=== PATIENT | male | born 1950 | race Caucasian/White ===

== ENCOUNTER → 2017-10-12 16:23 | Outpatient (CLI) | payer OTHER, SELFPAY ==
[2017-10-12 18:07] LABS: Absolute Lymphocyte Count 1.51 X10^3/ul (0.83-4.51); Absolute Neutrophil Count 4.5 X10^3/uL (2.0-7.7); Basophil# 0.02 X10^3/uL; Basophil% 0.3 % (0-1); Eosinophil# 0.11 X10^3/uL; Eosinophils% 1.7 % (0-5); Hemoglobin 15.4 g/dl (13.0-16.5); Lymphocyte # 1.51 X10^3/ul (4.0); Lymphocyte % 22.7 % (19-41); Mean Corp Hgb Conc 32.8 g/gl (32-36); Mean Corpuscular Hgb 29.8 pg (27.0-32.0); Mean Corpuscular Volume 91.1 fL (80-94); Mean Platelet Vol. 12.1 fl (6.2-12.0); Monocyte# 0.54 X10^3/uL; Monocyte% 8.1 % (0-10); Neutrophil # 4.47 X10^3/uL (2.7-7.7); Platelet Count 147 K/mm3 (150-450); RBC Distribution Width CV 12.4 % (11.6-14.6); Red Blood Count 5.16 M/mm3 (4.6-6.2); White Blood Count 6.7 K/mm3 (4.4-11.0)
[2017-10-12 18:09] LABS: POSITIVE COUNT NO; POSITIVE DIFFERENTIAL NO; POSITIVE MORPHOLOGY NO
[2017-10-12 19:24] LABS: ALB/GLOB Ratio 1.2 RATIO (0.9-2.4); AST(SGOT) 18 U/L (15-37); Alanine Aminotransfer ALT/SGPT 32 U/L (16-61); Albumin, Serum 3.8 g/dL (3.2-5.0); Alkaline Phosphatase 83 U/L (45-117); Anion Gap 8 (5-15); BUN 20 mg/dL (7-18); BUN/Creat Ratio 21.4 RATIO (10-20); Calcium,Total 8.6 mg/dL (8.5-10.1); Chloride 105 mmol/L (98-107); Creatinine, Serum 0.94 mg/dL (0.70-1.30); EST Glomerular Filtration Rate 86 mL/min (>60); Est Glom Filt Rate - Afr Amer 104 mL/min (>60); Globulin 3.1 g/dL (2.2-4.2); Glucose 97 mg/dL (70-110); Potassium 3.6 mmol/L (3.5-5.1); Protein, Total 6.9 g/dL (6.4-8.2); Sodium Level 143 mmol/L (136-145)
== END ==
PROVIDERS: Family Provider Family Medicine; PCP Family Medicine; Visit Provider Family Medicine
DX: M79.7 Fibromyalgia (principal)
CPT/HCPCS: 36415; 80053; 85025

== ENCOUNTER → 2017-12-31 12:19 | Outpatient (CLI) | payer OTHER, SELFPAY ==
[2017-12-31 14:59] LABS: AST(SGOT) 20 U/L (15-37); Alanine Aminotransfer ALT/SGPT 33 U/L (16-61); Albumin, Serum 3.7 g/dL (3.2-5.0); Alkaline Phosphatase 80 U/L (45-117); Bilirubin, Direct 0.17 mg/dL (0.00-0.30); Cholesterol 146 mg/dL (200); High Density Lipoprotein 47 mg/dL; Protein, Total 6.7 g/dL (6.4-8.2); Triglycerides 56 mg/dL; Very Low Density Lipoprotein 11 mg/dL (5-40)
== END ==
PROVIDERS: Family Provider Family Medicine; PCP Family Medicine; Visit Provider Internal Medicine Cardiovascular Disease
DX: Z82.49 Family history of ischemic heart disease and other diseases of the circulatory system (principal)
CPT/HCPCS: 36415; 80061; 80076

== ENCOUNTER → 2018-04-08 14:22 | Outpatient (CLI) | payer OTHER, SELFPAY ==
[2018-04-08 14:29] LABS: Lyme Ab Screen Interpretation REF LAB
[2018-04-10 07:41] LABS: Lyme Scn Total Ab w/Rflx <0.91 ISR (0.00-0.90)
== END ==
PROVIDERS: Family Provider Family Medicine; PCP Family Medicine; Visit Provider Family Medicine
DX: R53.83 Other fatigue (principal)
CPT/HCPCS: 36415; 86618

== ENCOUNTER → 2018-10-10 14:02 | Outpatient (CLI) | payer OTHER, SELFPAY ==
[2018-01-14 14:55] VITALS: BMI 29.5
[2018-10-10 15:55] LABS: ALB/GLOB Ratio 1.2 RATIO (0.9-2.4); AST(SGOT) 18 U/L (15-37); Alanine Aminotransfer ALT/SGPT 35 U/L (16-61); Albumin, Serum 3.7 g/dL (3.2-5.0); Alkaline Phosphatase 80 U/L (45-117); Anion Gap 10 (5-15); BUN 20 mg/dL (7-18); BUN/Creat Ratio 16.4 RATIO (10-20); Calcium,Total 8.9 mg/dL (8.5-10.1); Chloride 109 mmol/L (98-107); Creatinine, Serum 1.22 mg/dL (0.70-1.30); EST Glomerular Filtration Rate 63 mL/min (>60); Est Glom Filt Rate - Afr Amer 76 mL/min (>60); Globulin 3.1 g/dL (2.2-4.2); Glucose 78 mg/dL (74-106); Potassium 3.8 mmol/L (3.5-5.1); Protein, Total 6.8 g/dL (6.4-8.2); Sodium Level 146 mmol/L (136-145)
[2018-10-10 15:57] LABS: Absolute Lymphocyte Count 1.64 X10^3/ul (0.83-4.51); Absolute Neutrophil Count 4.9 X10^3/uL (2.0-7.7); Basophil# 0.02 X10^3/uL; Basophil% 0.3 % (0-1); Eosinophil# 0.17 X10^3/uL; Eosinophils% 2.3 % (0-5); Hematocrit 46.7 % (40-54); Hemoglobin 15.7 g/dl (13.0-16.5); Lymphocyte # 1.64 X10^3/ul (4.0); Lymphocyte % 21.9 % (19-41); Mean Corp Hgb Conc 33.6 g/gl (32-36); Mean Corpuscular Hgb 30.3 pg (27.0-32.0); Mean Platelet Vol. 11.8 fl (6.2-12.0); Monocyte# 0.73 X10^3/uL; Monocyte% 9.7 % (0-10); Neutrophil # 4.92 X10^3/uL (2.7-7.7); Neutrophil % 65.5 % (47-70); Platelet Count 154 K/mm3 (150-450); RBC Distribution Width CV 12.7 % (11.6-14.6); RBC Distribution Width SD 41.4 fl (35.1-43.9); Red Blood Count 5.19 M/mm3 (4.6-6.2); White Blood Count 7.5 K/mm3 (4.4-11.0)
[2018-10-10 16:13] LABS: POSITIVE COUNT NO; POSITIVE DIFFERENTIAL NO; POSITIVE MORPHOLOGY NO
== END ==
PROVIDERS: Family Provider Family Medicine; PCP Family Medicine; Referring Provider Family Medicine; Visit Provider Family Medicine
DX: G25.81 Restless legs syndrome (principal)
CPT/HCPCS: 36415; 80053; 85025

== ENCOUNTER 2018-11-08 08:02 | Day surgery (SDC) | payer OTHER, SELFPAY ==
[2018-10-31 14:52] VITALS: BMI 29.4
[2018-11-08 08:31] VITALS: BP 134/80; PULSE 65; RESP 18; TEMP 36.9; O2SAT 99; BMI 28.0
[2018-11-08 09:07] VITALS: BP 100/65; BP 134/80; PULSE 64; RESP 16; TEMP 36.4; O2SAT 95
--- NOTE | 2018-11-08 09:09 | OP.ENDO_ITS ---
11/08/2018 Johnathon Dawkins [address] [facility] [address] [place] [address] Re : Colonoscopy procedure for Juvencio Tolentino Dear Dr. Dawkins This procedure was performed on Thursday, November 08, 2018. My impressions and recommendations are as follows: Impressions : - Non-thrombosed external hemorrhoids, non-thrombosed internal hemorrhoids and internal hemorrhoids that prolapse with straining, but require manual replacement into the anal canal (Grade III) found on digital rectal exam. - The entire examined colon is normal. - No specimens collected. Recommendations : - Discharge patient to home. - Resume previous diet. - Continue present medications. - Repeat colonoscopy in 10 years for screening purposes. - Return to my office at appointment to be scheduled as needed in the future to discuss surgical hemorrhoidectomy My findings are described in the full procedure note, which is enclosed. If I can be of further assistance, please feel free to contact me at Doctor phone number(s): Work: . Sincerely, Amol Estrella MD 11/08/2018 9:09:25 AM This report has been signed electronically.
[2018-11-08 09:12] VITALS: BP 105/80; BP 134/80; PULSE 61; RESP 16; O2SAT 99
[2018-11-08 09:17] VITALS: BP 106/73; BP 134/80; PULSE 61; RESP 16; O2SAT 99
[2018-11-08 09:21] VITALS: BP 111/74; BP 134/80; PULSE 56; RESP 14; TEMP 36.2; O2SAT 100
[2018-11-08 10:02] VITALS: BP 134/80
== END 2018-11-08 10:02 | disposition home or self-care (01) ==
LOC: EN 08:02 → AC 08:12
PROVIDERS: Family Provider Family Medicine; PCP Family Medicine; Referring Provider Surgery; Visit Provider Surgery
PROC: 0DJD8ZZ Inspection of Lower Intestinal Tract, Via Natural or Artificial Opening Endoscopic (ICD-10-PCS; CPT 45378; principal; 2018-11-08 08:55)
DX: K64.2 Third degree hemorrhoids (principal); R15.9 Full incontinence of feces; N40.0 Benign prostatic hyperplasia without lower urinary tract symptoms; I10 Essential (primary) hypertension; G47.33 Obstructive sleep apnea (adult) (pediatric); G25.81 Restless legs syndrome; E66.3 Overweight; Z68.29 Body mass index [BMI] 29.0-29.9, adult; F41.9 Anxiety disorder, unspecified; F32.9 Major depressive disorder, single episode, unspecified; Z79.82 Long term (current) use of aspirin; Z79.899 Other long term (current) drug therapy
CPT/HCPCS: 45378; J7120

== ENCOUNTER 2018-11-23 07:03 | Day surgery (SDC) | payer OTHER, SELFPAY ==
[2018-10-31 14:52] VITALS: BMI 29.4
--- NOTE | 2018-11-22 14:04 | EKG12_ITS ---
Test Reason : PRE OP Blood Pressure : / mmHG Vent. Rate : 069 BPM Atrial Rate : 069 BPM P-R Int : 156 ms QRS Dur : 090 ms QT Int : 380 ms P-R-T Axes : 052 048 031 degrees QTc Int : 407 ms Sinus rhythm with occasional Premature ventricular complexes Otherwise normal ECG Confirmed by IRAM GREGG, HELLEN ([id number]), editor farm journal PETEY SANTIZO ([id number]) on 11/25/2018 8:53:22 AM Referred By: Amol Estrella Confirmed By:HELLEN WALDEN MD
[2018-11-22 15:00] LABS: Hematocrit 46.6 % (40-54); Hemoglobin 15.6 g/dl (13.0-16.5); Mean Corp Hgb Conc 33.5 g/gl (32-36); Mean Corpuscular Hgb 29.9 pg (27.0-32.0); Mean Corpuscular Volume 89.3 fL (80-94); Platelet Count 163 K/mm3 (150-450); RBC Distribution Width CV 12.5 % (11.6-14.6); RBC Distribution Width SD 40.3 fl (35.1-43.9); Red Blood Count 5.22 M/mm3 (4.6-6.2); Scan Indicated on CBC? Y/N NO
[2018-11-22 15:59] LABS: Anion Gap 9 (5-15); BUN 19 mg/dL (7-18); BUN/Creat Ratio 19.1 RATIO (10-20); Calcium,Total 8.6 mg/dL (8.5-10.1); Chloride 109 mmol/L (98-107); Creatinine, Serum 0.99 mg/dL (0.70-1.30); EST Glomerular Filtration Rate 80 mL/min (>60); Est Glom Filt Rate - Afr Amer 97 mL/min (>60); Glucose 116 mg/dL (74-106); PSA,Total - Annual Screen 3.59 ng/mL (0.00-4.00); Potassium 3.7 mmol/L (3.5-5.1); Sodium Level 146 mmol/L (136-145)
[2018-11-23 07:27] VITALS: BP 110/71; PULSE 64; RESP 16; TEMP 36.5; O2SAT 98; BMI 28.7
--- NOTE | 2018-11-23 08:28 | DCINST_ITS ---
Discharge Diet: Light diet - advance as tolerated - if you have questions about your diet instructions, please talk to you doctor. Discharge Activity: May Not Drive - for 3-5 days or while taking narcotic pain medicine. May shower in (days): 1 Lifting Restrictions: 10 pounds Call your doctor if your incision/area has: Continuous Slow Oozing, Sudden Increased Bleeding, Increased Pain/ Swelling, Increased Redness, Foul Smelling Discharge Call your doctor if you observe: Fever of 101 or Higher Suture Line Care: Avoid Pulling/Pushing, Avoid Pinching/Bending Additional Dressing/Incision Instructions:: Change or remove dressing in 4 days. Leave steri-strips in place for 1 week. Allergies/Adverse Reactions: Allergies Penicillins Allergy (Verified 11/07/18 17:17) Rash From as a child Medications to take at Discharge Aspirin [Ecotrin] 81 mg PO DAILY 04/17/14 multivitamin capsule 1 cap PO DAILY 10/31/18 pregabalin 100 mg capsule 200 mg PO QHS 30 Days cap 10/31/18 Losartan Potassium [Cozaar] 25 mg PO DAILY 11/07/18 Hydrocodone Bitart/Apap 5-325 [[place] 5MG-325MG] 1 tablet PO Q4H PRN PRN 3 Days #10 tablet 11/23/18 The following prescriptions were given: Hydrocodone Bitart/Apap 5-325 [[place] 5MG-325MG] 1 tablet PO Q4H PRN PRN 3 Days #10 tablet PRN Reason: Pain Primary Care Physician: Johnathon Dawkins MD [Primary Care Provider] - Test Results: Test results from this visit will be discussed in further detail at your follow- up appointment, if applicable. Please Follow Up With: Amol Estrella MD - [phone] When: Call to make an appointment to be seen in about 10 days.
[2018-11-23] MEDS: Bupivacaine Mpf 0.5% 30 ML VIAL (09:27)
--- NOTE | 2018-11-23 09:46 | OP.PCM_ITS ---
Problem List (1) Inguinal hernia of left side without obstruction or gangrene Status: Acute (2) Umbilical hernia Status: Acute Qualifiers: Obstruction and gangrene presence: without obstruction or gangrene Qualified Code(s): K42.9 - Umbilical hernia without obstruction or gangrene Report of Operation Date of Procedure: 11/23/18 Pre-Operative Diagnosis: Left inguinal hernia Post-Operative Diagnosis: Direct and indirect left inguinal hernia. Umbilical hernia Surgery/Procedure Performed:: Laparoscopic left inguinal herniorrhaphy with mesh. Umbilical herniorrhaphy Description of Surgical Findings:: Timeout and informed consent was obtained. 68-year-old gentleman was taken to the operating room placed upon the table underwent general endotracheal anesthesia. Clindamycin 900 mg was given intravenously preoperatively. The abdomen sterilely prepped draped. 0.5% Marcaine was used as a local anesthetic. A total of 30 cc was used. Skin sites were pre-anesthetized. A curvilinear incision was made in the inferior portion of the umbilicus. Sharp and blunt dissection was used to identify a very small umbilical hernia. Holding sutures of 0 Vicryl placed. Varies needle inserted. Saline drop test performed. The abdomen was insufflated with CO2 to a pressure of 10 mmHg pressure. Primary trocar inserted. 10 lap scope inserted. No evidence of any trocar injuries. 5-minute ports were placed in the right left lower quadrant. The right groin appeared to be solid and intact. There is evidence of a punched out direct defect on the right. A ileal inguinal nerve block was performed under laparoscopic visualization. The peritoneum superior lateral to the internal ring was incised carried laterally. The peritoneum was then completely dissected free. A small indirect hernia was identified and the peritoneum was dissected free from that and then the more punched out direct defect had some preperitoneal fat that was also reduced. The direct indirect and femoral area completely dissected free. A Bard 3 DMax large left mesh was selected. It was placed into position and nicely cover the defect areas. It was secured laterally superiorly and medially with secure strap. 4 tacks were utilized. The peritoneum was then approximated to itself using the secure strap. A hemo- lock clip was used to repair a small rent. There was complete obliteration of access to the mesh. Good solid repair. The abdomen was allowed to deflate of the CO2. The small umbilical hernia fascia was closed transversely with several interrupted simple sutures of 0 Nurolon. Skin edges proximal interrupted 4 Monocryl subdermal stitches. Steri-Strips and Telfa and OpSite dressings applied. Sponge and instrument and needle be correct. Blood loss was minimal. He tolerated the procedure well was taken to the recovery room in satisfactory condition. Specimens none. Drains none. Blood loss minimal. Amol Estrella M.D., F.A.C.S. Type of Anesthesia:: General Anesthesiologist: Kamini Nam
[2018-11-23 09:51] VITALS: BP 110/71; BP 117/70; PULSE 71; RESP 14; TEMP 36.2; O2SAT 95
[2018-11-23 10:00] VITALS: BP 104/63; BP 110/71; PULSE 67; RESP 16; O2SAT 94
[2018-11-23 10:28] VITALS: BP 110/71; BP 98/64; PULSE 60; RESP 16; TEMP 36.1; O2SAT 95
[2018-11-23] MEDS: HYDROcodone Bitartrate/Apap 5/325 Tablet PO (11:05)
[2018-11-23 13:19] VITALS: BP 107/66; BP 110/71; PULSE 68; RESP 16; TEMP 36.4; O2SAT 95
== END 2018-11-23 13:26 | disposition home or self-care (01) ==
LOC: SDC 07:11 → AC 07:11
PROVIDERS: Family Provider Family Medicine; PCP Family Medicine; Referring Provider Surgery; Visit Provider Surgery
PROC: (CPT 49650; principal; 2018-11-23 08:40)
DX: K40.90 Unilateral inguinal hernia, without obstruction or gangrene, not specified as recurrent (principal); K42.9 Umbilical hernia without obstruction or gangrene; I10 Essential (primary) hypertension; N40.0 Benign prostatic hyperplasia without lower urinary tract symptoms; G47.33 Obstructive sleep apnea (adult) (pediatric); G25.81 Restless legs syndrome; M46.90 Unspecified inflammatory spondylopathy, site unspecified; E66.3 Overweight; Z68.29 Body mass index [BMI] 29.0-29.9, adult; Z79.82 Long term (current) use of aspirin; Z79.899 Other long term (current) drug therapy
CPT/HCPCS: 49585; 49650; 36415; 80048; 84153; 85027; 93005; J7120; C1781; G0103; J2405

== ENCOUNTER → 2019-03-13 | Outpatient (CLI) | payer OTHER, SELFPAY ==
[2019-02-01 13:42] VITALS: BMI 32.9
== END | disposition home or self-care (01) ==
LOC: SL 20:55
PROVIDERS: Family Provider Family Medicine; PCP Family Medicine; Referring Provider Internal Medicine Critical Care Medicine; Visit Provider Internal Medicine Critical Care Medicine
DX: G47.33 Obstructive sleep apnea (adult) (pediatric) (principal); G25.81 Restless legs syndrome
CPT/HCPCS: 95811

== ENCOUNTER → 2019-04-05 | Outpatient (CLI) | payer OTHER, SELFPAY ==
[2019-02-01 13:42] VITALS: BMI 32.9
== END | disposition home or self-care (01) ==
LOC: SL 14:01
PROVIDERS: Family Provider Family Medicine; PCP Family Medicine; Referring Provider Nurse Practitioner Acute Care; Visit Provider Nurse Practitioner Acute Care
DX: Z46.89 Encounter for fitting and adjustment of other specified devices (principal)

== ENCOUNTER → 2019-06-28 | Outpatient (CLI) | payer OTHER, SELFPAY ==
[2019-06-19 07:55] VITALS: BMI 33.2
--- NOTE | 2019-06-28 13:58 | RAD_ITS ---
STUDY: X-RAY - LEFT KNEE REASON FOR EXAM: Male, 69 years old. Left knee pain TECHNIQUE: 4 view(s) of the knee. Upright frontal, lateral and tunnel view. COMPARISON: None. FINDINGS: Normal visualized distal femur. Normal visualized proximal tibia and fibula. Normal proximal tibiofibular articulation. Small enthesophyte at the superior pole of the patella. Mild narrowing of the medial compartment. Mild narrowing of the lateral compartment. There is mild degenerative arthrosis of the patellofemoral articulation. Negative for substantial joint effusion. Anterior soft tissue swelling. RAD/Knee 4 or More Views IMPRESSION: Normally located knee without fracture, osteolytic or blastic bone lesion. Anterior superficial soft tissue swelling. Minimal/mild degenerative changes of the knee without a substantial joint effusion. Electronically Signed: Shelby Mathews MD at 19:48 EDT , Service support ,
== END | disposition home or self-care (01) ==
LOC: MTRAD 13:56
PROVIDERS: Family Provider Family Medicine; PCP Family Medicine; Referring Provider Family Medicine; Visit Provider Family Medicine
DX: M17.12 Unilateral primary osteoarthritis, left knee (principal)
CPT/HCPCS: 73564

== ENCOUNTER → 2020-10-08 09:06 | Outpatient (CLI) | payer OTHER, SELFPAY ==
[2019-09-28 06:14] VITALS: BMI 32.5
--- NOTE | 2020-10-08 09:20 | RAD_ITS ---
STUDY: X-RAY - ESOPHAGUS (BARIUM SWALLOW) WITH FLUOROSCOPY REASON FOR EXAM: Male, 70 years old. STARTED LAST SPRING, HX HERNIA SURGERY. TROUBLE SWALLOWING PILLS TECHNIQUE: 19 view(s) of the esophagus were obtained following swallowing of barium. FLUOROSCOPY TIME (if supplied): (0:43) minutes/seconds COMPARISON: None. FINDINGS: There is no demonstrated esophageal foreign body. There is no demonstrated stricture or mucosal abnormality. Normal gastroesophageal junction, without a demonstrated hiatal hernia. The patient ingests a 12 mm tablet of barium. The tablet is trapped at the gastroesophageal junction. There is atherosclerotic tortuosity of the aortic arch and descending thoracic aorta. Normal visualized pulmonary parenchyma. There are diffuse degenerative changes of the visualized thoracic spine. RAD/Esophagus Dual Contrast IMPRESSION: The patient ingested 12 mm tablet of barium. The tablet is trapped at the gastroesophageal junction. Electronically Signed: Shola Potter MD at 12:50 EST , Service support ,
== END ==
PROVIDERS: PCP Family Medicine; Referring Provider Family Medicine; Visit Provider Family Medicine
DX: R13.10 Dysphagia, unspecified (principal)
CPT/HCPCS: 74221

== ENCOUNTER → 2020-11-08 15:03 | Outpatient (CLI) | payer OTHER, SELFPAY ==
[2019-09-28 06:14] VITALS: BMI 32.5
== END ==
PROVIDERS: PCP Family Medicine; Referring Provider Internal Medicine Gastroenterology; Visit Provider Internal Medicine Gastroenterology
DX: Z11.59 Encounter for screening for other viral diseases (principal)
CPT/HCPCS: 87635; C9803; U0005; U0003

== ENCOUNTER 2020-11-19 08:49 | Outpatient (RCR) | payer OTHER, SELFPAY ==
[2019-09-28 06:14] VITALS: BMI 32.5
[2020-11-19] MEDS: COVID-19 VACC, MRNA(PFIZER)/PF 30 MCG/0.3 ML SYRINGE IM (13:50)
[2020-12-10] MEDS: COVID-19 VACC, MRNA(PFIZER)/PF 30 MCG/0.3 ML SYRINGE IM (13:50)
== END 2021-02-18 23:59 ==
LOC: IMMUN 08:49
PROVIDERS: PCP Family Medicine; Visit Provider Family Medicine
DX: Z23 Encounter for immunization (principal)
CPT/HCPCS: 0001A; 0002A; 91300

== ENCOUNTER → 2021-08-19 14:02 | Outpatient (CLI) | payer OTHER, SELFPAY ==
[2021-08-19 14:35] LABS: Absolute Lymphocyte Count 1.82 X10^3/uL (0.83-4.51); Absolute Neutrophil Count 4.4 X10^3/uL (2.0-7.7); Basophil# 0.04 X10^3/uL; Basophil% 0.5 % (0-1); Eosinophil# 0.25 X10^3/uL; Eosinophils% 3.4 % (0-5); Hematocrit 47.6 % (40-54); Hemoglobin 16.1 g/dL (13.0-16.5); Lymphocyte # 1.82 X10^3/ul (0.83-4.51); Lymphocyte % 24.9 % (19-41); Mean Corp Hgb Conc 33.8 g/dL (32-36); Mean Corpuscular Hgb 30.4 pg (27.0-32.0); Mean Platelet Vol. 11.3 fl (6.2-12.0); Monocyte# 0.75 X10^3/uL; Monocyte% 10.2 % (0-10); NRBC Flagged by Analyzer 0 % (0-5); Neutrophil # 4.44 X10^3/uL (2.7-7.7); Neutrophil % 60.7 % (47-70); Platelet Count 172 K/mm3 (150-450); RBC Distribution Width CV 12.2 % (11.6-14.6); RBC Distribution Width SD 40.5 fl (35.1-43.9); Red Blood Count 5.29 M/mm3 (4.6-6.2); White Blood Count 7.3 K/mm3 (4.4-11.0)
[2021-08-19 15:20] LABS: ALB/GLOB Ratio 1.2 RATIO (0.9-2.4); AST(SGOT) 21 U/L (15-37); Alanine Aminotransfer ALT/SGPT 32 U/L (16-61); Albumin, Serum 3.7 g/dL (3.2-5.0); Alkaline Phosphatase 76 U/L (45-117); Anion Gap 7 (5-15); BUN 16 mg/dL (7-18); Calcium,Total 8.8 mg/dL (8.5-10.1); Chloride 106 mmol/L (98-107); Cholesterol 174 mg/dL (200); Creatinine, Serum 0.94 mg/dL (0.70-1.30); EST Glomerular Filtration Rate 85 mL/min (>60); Est Glom Filt Rate - Afr Amer 102 mL/min (>60); Globulin 3.2 g/dL (2.2-4.2); Glucose 74 mg/dL (74-106); High Density Lipoprotein 47 mg/dL; Potassium 4.4 mmol/L (3.5-5.1); Protein, Total 6.9 g/dL (6.4-8.2); Sodium Level 142 mmol/L (136-145); Thyroid Stim Hormone (TSH) 1.31 uIU/mL (0.358-3.74)
== END ==
PROVIDERS: PCP Family Medicine; Visit Provider Family Medicine
DX: G25.81 Restless legs syndrome (principal); I73.9 Peripheral vascular disease, unspecified
CPT/HCPCS: 36415; 80053; 82465; 83718; 84443; 85025

== ENCOUNTER → 2021-09-03 14:07 | Outpatient (CLI) | payer OTHER, SELFPAY ==
--- NOTE | 2021-09-03 14:13 | ART_ITS ---
Reason For Study: PVD Procedure A bilateral lower extremity continuous wave Doppler with analog waveform analysis,segmental pressures,and ankle brachial indexes with exercise. PT exercised on treadmill for 5 minutes at a 5% incline at 2.5 MPH. PT denied having any leg pain, SOB or discomfort. Left Segmental Pressures Left brachial= 120mmHg. Left posterior tibial artery = 176mmHg. Left dorsalis pedis artery = 154mmHg. The left posterior tibial artery waveforms are triphasic. The left dorsalis pedis waveforms are triphasic. Right Segmental Pressures Right brachial= 125mmHg. Right posterior tibial artery = 176mmHg. Right dorsalis pedis artery = 150mmHg. The right posterior tibial artery waveforms are triphasic. The right dorsalis pedis waveforms are triphasic. Indices The right ankle brachial index by the posterior tibial artery is 1.41. The right ankle brachial index by the dorsalis pedis is 1.20. The right ankle brachial index by the posterior tibial artery post exercise is 1.46. The left ankle brachial index by the posterior tibial artery is 1.41. The left ankle brachial index by the dorsalis pedis is 1.23. The left posterior tibial artery index post exercise is 1.32. VL/Lower Ext Art Exam w/ Exercise Interpretation Summary Lateral no evidence of occlusive disease at rest with triphasic flow and an SHRUTHI 1.41 bilaterally. This may be slightly falsely elevated but normal waveform noted. Ordering Physician: Johnathon Dawkins Referring Physician: Johnathon Dawkins Performed By: Sofia Flores RVMireille, RDCS
== END ==
LOC: CVS 14:12
PROVIDERS: PCP Family Medicine; Referring Provider Family Medicine; Visit Provider Family Medicine
DX: I73.9 Peripheral vascular disease, unspecified (principal)
CPT/HCPCS: 93924

== ENCOUNTER → 2022-01-20 | Outpatient (CLI) | payer OTHER, SELFPAY | END | disposition home or self-care (01) | LOC: LABSPEC 10:52 | PROVIDERS: PCP Family Medicine; Visit Provider Family Medicine | DX: U07.1 COVID-19 (principal) | CPT/HCPCS: 87635; U0003; U0005 ==

== ENCOUNTER → 2022-12-18 | Outpatient (CLI) | payer OTHER, SELFPAY ==
[2022-12-18 16:38] LABS: Absolute Lymphocyte Count 1.65 X10^3/uL (0.83-4.51); Absolute Neutrophil Count 4.1 X10^3/uL (2.0-7.7); Basophil# 0.03 X10^3/uL; Basophil% 0.5 % (0-1); Eosinophil# 0.28 X10^3/uL; Eosinophils% 4.2 % (0-5); Hematocrit 47.8 % (40-54); Hemoglobin 16.1 g/dL (13.0-16.5); Lymphocyte # 1.65 X10^3/ul (0.83-4.51); Lymphocyte % 24.8 % (19-41); Mean Corp Hgb Conc 33.7 g/dL (32-36); Mean Corpuscular Hgb 31.1 pg (27.0-32.0); Mean Corpuscular Volume 92.5 fL (80-94); Mean Platelet Vol. 12.3 fl (6.2-12.0); NRBC Flagged by Analyzer 0 % (0-5); Neutrophil # 4.07 X10^3/uL (2.7-7.7); Neutrophil % 61.2 % (47-70); Platelet Count 149 K/mm3 (150-450); RBC Distribution Width CV 12.5 % (11.6-14.6); RBC Distribution Width SD 42.5 fl (35.1-43.9); Red Blood Count 5.17 M/mm3 (4.6-6.2); White Blood Count 6.7 K/mm3 (4.4-11.0)
[2022-12-18 16:43] LABS: Vitamin B12 462 pg/mL (211-911)
[2022-12-18 17:25] LABS: ALB/GLOB Ratio 1.5 RATIO (0.9-2.4); AST(SGOT) 16 U/L (15-37); Alanine Aminotransfer ALT/SGPT 31 U/L (16-61); Albumin, Serum 3.8 g/dL (3.2-5.0); Alkaline Phosphatase 76 U/L (45-117); Anion Gap 6 (5-15); BUN 23 mg/dL (7-18); BUN/Creat Ratio 23.6 RATIO (10-20); Chloride 106 mmol/L (98-107); Creatinine, Serum 0.98 mg/dL (0.70-1.30); EST Glomerular Filtration Rate 81 mL/min (>60); Est Glom Filt Rate - Afr Amer 98 mL/min (>60); Ferritin 228 ng/mL (26-388); Globulin 2.6 g/dL (2.2-4.2); Glucose 99 mg/dL (74-106); Iron Binding Capacity,Total 247 ug/dL (250-450); Potassium 3.7 mmol/L (3.5-5.1); Protein, Total 6.4 g/dL (6.4-8.2); Sodium Level 140 mmol/L (136-145); Thyroid Stim Hormone (TSH) 1.07 uIU/mL (0.358-3.74)
[2022-12-21 15:39] LABS: ANTINUCLEAR ANTIBODIES DIRECT Negative (Negative)
== END | disposition home or self-care (01) ==
LOC: MTLAB 11:34
PROVIDERS: PCP Family Medicine; Referring Provider Family Medicine; Visit Provider Family Medicine
DX: R53.83 Other fatigue (principal); E61.1 Iron deficiency
CPT/HCPCS: 36415; 80053; 82607; 82728; 82746; 83550; 84443; 85025; 86038

== ENCOUNTER 2023-03-25 17:53 | Emergency (ER) | payer MEDICARE, OTHER, SELFPAY ==
[2023-03-25 17:55] VITALS: BP 146/64; PULSE 86; RESP 19; TEMP 36.7; O2SAT 99; BMI 29.5
--- NOTE | 2023-03-25 18:34 | EX.ED.DYSGE1 ---
HPI History of Present Illness Chief Complaint: Wound Check Informant: patient and spouse/S.O. Narrative Narrative: Patient presents with a sore on top of his head and a little bit of tingling in the left upper lip area. He noted the sore in the top of his head last night. He states is just a rough area and it is tender in that area. He has a little bit of discomfort. He is also noticed that he has just a little subtle numbness in the upper left lip just off the center. It is an area about a thumb tip in size. No pain there. No lesions or sores there. No eye itching or redness. 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 No numbness tingling anywhere else. No vomiting. No chest pain or palpitations. He does not recall anything that scraped or abraded this area. He has not had shingles vaccine. [facility] Medical History Family history of coronary arteriosclerosis Fecal incontinence Hemorrhoids Hypertension Inguinal hernia of left side without obstruction or gangrene MRSA infection Obstructive sleep apnea Prostate enlargement Retinal artery occlusion RLS (restless legs syndrome) Home Medications aspirin 81 mg tablet,delayed release 81 mg PO DAILY 04/17/14 [History Last Taken 11/20/18 19:00] multivitamin 1 cap PO DAILY 10/31/18 [History Last Taken Unknown] pregabalin 100 mg capsule 200 mg PO QHS 30 days 10/31/18 [History Last Taken Unknown] losartan 25 mg tablet 25 mg PO DAILY HTN #90 tabs 01/23/19 [Rx Last Taken Unknown] Allergy/AdvReac Type Severity Reaction Status Date / Time Penicillins Allergy Rash Verified 03/25/23 17:55 Family History Father CAD (coronary artery disease) <55 years of age Sister CAD (coronary artery disease) <65 years of age Mother CVA (cerebral vascular accident) Surgical History History of hand surgery (~10/25/15) History of left heart catheterization (~04/18/14) S/P left inguinal hernia repair Social History Smoking Status: Never smoker EXAM Physical Exam Const Vital Signs: 03/25/23 17:55 Temperature 98.1 F Temperature Source Temporal Pulse Rate 86 Respiratory Rate 19 H Blood Pressure 146/64 H Blood Pressure Mean 91 Pulse Ox 99 MDM MDM MDM Narrative Medical decision making narrative: Plan depend interpretation the patient's CT of the head is negative and final reading is normal unenhanced CT scan of the brain. This patient has a small skin abrasion looking area on the top of his scalp. It is not vesicular or red. There is no involvement of the forehead face or nose. Negative [place] sign. No ocular symptoms. He does have a very small area of sort of numbness tingling at the corner of his nose and upper lip. He did have the similar area of his nose frostbitten over the winter but it had not involve the lip. It is certainly possible he has symptoms from that. It is possible that this could be early shingles but the rash does not develop. We discussed this and the need to return to initiate treatment quickly. But I do not think he justifies treatment yet based on symptoms. There are many things that could cause this. He has no weakness. His NIH is 0. Sensation is intact but it just feels different. I think he is okay for discharge. We did discuss multiple reasons that would bring him back. He also already has an appointment with his physician in 4 days. Radiography Diagnostic Testing: Clinical Impression(s) from Imaging Studies Brain CT 03/25/23 18:50 IMPRESSION: Normal unenhanced CT scan of the brain. Electronically Signed: Quincy Arboleda MD at 19:19 EDT , Discharge Plan Triage Chief Complaint: Wound Check ED Provider: Hira Medina Dx/Rx/DC Orders Clinical Impression: Facial paresthesia, Lesion of skin of scalp Instructions: ED Paraesthesias Prescriptions: No Action pregabalin 100 mg capsule 200 mg PO QHS 30 Days Patient Comments: TAKE ONE CAPSULE BY MOUTH WITH SUPPER AND BEDTIME FOR 30 DAYS losartan 25 mg tablet 25 mg PO DAILY Qty: 90 3RF multivitamin capsule capsule 1 cap PO DAILY aspirin 81 MG tablet,delayed release (DR/EC) 81 mg PO DAILY Patient Comments: heart health Primary Care Provider: Johnathon Dawkins Referrals: Johnathon Dawkins MD [Primary Care Provider] - Keep Jory appointment Disposition Disposition: Home, Self Care
--- NOTE | 2023-03-25 18:50 | CT_ITS ---
STUDY: CT BRAIN WITHOUT CONTRAST REASON FOR EXAM: Male, 72 years old. headache RADIATION DOSAGE (If Supplied By Facility): CTDIvol = ( 44.99 ) mGy, DLP = ( 863.60 ) mGycm TECHNIQUE: Transaxial CT imaging of the brain was performed without administration of intravenous contrast material. Individualized dose optimization techniques were used for this CT. COMPARISON: No relevant priors. FINDINGS: Normal soft tissue structures. Normal calvarium. Normal size ventricles and extra-axial spaces for the patient''s age. Normal white matter tracts of the cerebral hemispheres. Normal basal ganglia and thalami. Normal brainstem. Normal cerebellum. There is no intracranial hemorrhage. There are no findings of an acute ischemic infarction. Normal visualized paranasal sinuses. CT/Brain/Head without Contrast IMPRESSION: Normal unenhanced CT scan of the brain. Electronically Signed: Quincy Arboleda MD at 19:19 EDT ,
[2023-03-25 19:56] VITALS: BP 138/76; PULSE 80; RESP 16; O2SAT 100
== END 2023-03-25 19:58 | disposition home or self-care (01) ==
PROVIDERS: Emergency Provider Emergency Medicine; PCP Family Medicine; Visit Provider Emergency Medicine
DX: R20.2 Paresthesia of skin (principal); L98.9 Disorder of the skin and subcutaneous tissue, unspecified
CPT/HCPCS: 70450; 99282

== ENCOUNTER → 2023-08-04 | Outpatient (CLI) | payer MEDICARE, OTHER, SELFPAY ==
[2023-08-04 10:50] LABS: Absolute Lymphocyte Count 1.63 X10^3/uL (0.83-4.51); Absolute Neutrophil Count 2.9 X10^3/uL (2.0-7.7); Basophil# 0.04 X10^3/uL; Basophil% 0.7 % (0-1); Eosinophil# 0.36 X10^3/uL; Eosinophils% 6.5 % (0-5); Hematocrit 50.7 % (40-54); Hemoglobin 16.6 g/dL (13.0-16.5); Lymphocyte # 1.63 X10^3/ul (0.83-4.51); Lymphocyte % 29.3 % (19-41); Mean Corp Hgb Conc 32.7 g/dL (32-36); Mean Corpuscular Hgb 30.5 pg (27.0-32.0); Mean Platelet Vol. 12.1 fl (6.2-12.0); Monocyte# 0.58 X10^3/uL; Monocyte% 10.4 % (0-10); NRBC Flagged by Analyzer 0 % (0-5); Neutrophil # 2.93 X10^3/uL (2.7-7.7); Neutrophil % 52.7 % (47-70); Platelet Count 143 K/mm3 (150-450); RBC Distribution Width CV 12.3 % (11.6-14.6); RBC Distribution Width SD 42.3 fl (35.1-43.9); Red Blood Count 5.45 M/mm3 (4.6-6.2); White Blood Count 5.6 K/mm3 (4.4-11.0)
[2023-08-04 11:07] LABS: ALB/GLOB Ratio 1.2 RATIO (0.9-2.4); AST(SGOT) 20 U/L (15-37); Alanine Aminotransfer ALT/SGPT 35 U/L (16-61); Albumin, Serum 3.7 g/dL (3.2-5.0); Alkaline Phosphatase 72 U/L (45-117); Anion Gap 4 (5-15); BUN 21 mg/dL (7-18); BUN/Creat Ratio 22.1 RATIO (10-20); Calcium,Total 8.7 mg/dL (8.5-10.1); Chloride 108 mmol/L (98-107); Creatinine, Serum 0.95 mg/dL (0.70-1.30); EST Glomerular Filtration Rate 83 mL/min (>60); Est Glom Filt Rate - Afr Amer 101 mL/min (>60); Glucose 117 mg/dL (74-106); Potassium 3.8 mmol/L (3.5-5.1); Protein, Total 6.7 g/dL (6.4-8.2); Sodium Level 144 mmol/L (136-145); Thyroid Stim Hormone (TSH) 1.44 uIU/mL (0.358-3.74)
== END | disposition home or self-care (01) ==
LOC: MTLAB 08:27
PROVIDERS: PCP Family Medicine; Referring Provider Family Medicine; Visit Provider Family Medicine
DX: R53.83 Other fatigue (principal)
CPT/HCPCS: 36415; 80053; 84443; 85025

== ENCOUNTER → 2023-10-18 | Outpatient (CLI) | payer MEDICARE, OTHER, SELFPAY ==
[2023-10-18 17:45] LABS: Absolute Neutrophil Count 5.1 X10^3/uL (2.0-7.7); Basophil# 0.05 X10^3/uL; Basophil% 0.6 % (0-1); Eosinophil# 0.27 X10^3/uL; Eosinophils% 3.3 % (0-5); Hemoglobin 15.7 g/dL (13.0-16.5); Lymphocyte % 23.3 % (19-41); Mean Corp Hgb Conc 33.4 g/dL (32-36); Mean Corpuscular Hgb 30.1 pg (27.0-32.0); Mean Corpuscular Volume 90.2 fL (80-94); Mean Platelet Vol. 11.6 fl (6.2-12.0); Monocyte# 0.82 X10^3/uL; NRBC Flagged by Analyzer 0 % (0-5); Neutrophil # 5.07 X10^3/uL (2.7-7.7); Neutrophil % 62.2 % (47-70); Platelet Count 160 K/mm3 (150-450); RBC Distribution Width CV 12.4 % (11.6-14.6); RBC Distribution Width SD 40.7 fl (35.1-43.9); Red Blood Count 5.21 M/mm3 (4.6-6.2); White Blood Count 8.2 K/mm3 (4.4-11.0)
[2023-10-18 18:04] LABS: Amphetamine Urine VISTA NEGATIVE (<1000 ng/mL); Barbiturate Urine VISTA NEGATIVE (< 200 ng/mL); Benzodiazepine Urine VISTA NEGATIVE (< 200 ng/mL); Cocaine Urine VISTA NEGATIVE (< 300 ng/mL); Ecstacy Urine VISTA NEGATIVE (< 500 ng/mL); Methadone Urine VISTA NEGATIVE (< 300 ng/mL); PCP Urine VISTA NEGATIVE (< 25 ng/mL); THC Urine VISTA NEGATIVE (< 50 ng/mL); Vista UDS pH Range 7
[2023-10-18 18:05] LABS: ALB/GLOB Ratio 1.2 RATIO (0.9-2.4); AST(SGOT) 12 U/L (15-37); Alanine Aminotransfer ALT/SGPT 32 U/L (16-61); Albumin, Serum 3.8 g/dL (3.2-5.0); Alkaline Phosphatase 78 U/L (45-117); Anion Gap 9 (5-15); BUN 21 mg/dL (7-18); Calcium,Total 8.9 mg/dL (8.5-10.1); Chloride 110 mmol/L (98-107); Creatinine, Serum 0.95 mg/dL (0.70-1.30); EST Glomerular Filtration Rate 83 mL/min (>60); Est Glom Filt Rate - Afr Amer 100 mL/min (>60); Globulin 3.3 g/dL (2.2-4.2); Glucose 112 mg/dL (74-106); Lipase 51 U/L (13-75); Potassium 3.8 mmol/L (3.5-5.1); Protein, Total 7.1 g/dL (6.4-8.2); Sodium Level 143 mmol/L (136-145)
== END | disposition home or self-care (01) ==
PROVIDERS: PCP Family Medicine; Referring Provider Family Medicine; Visit Provider Family Medicine
DX: R10.13 Epigastric pain (principal); G25.81 Restless legs syndrome; G47.31 Primary central sleep apnea; Z79.899 Other long term (current) drug therapy
CPT/HCPCS: 36415; 80053; 80307; 83690; 85025

== ENCOUNTER → 2024-06-13 | Outpatient (CLI) | payer MEDICARE, OTHER, SELFPAY ==
[2024-06-13 14:19] LABS: Squamous Epithelial Cells - UA 0 SEEN /hpf (0-5)
[2024-06-13 17:56] LABS: Absolute Lymphocyte Count 1.48 X10^3/uL (0.83-4.51); Absolute Neutrophil Count 4.2 X10^3/uL (2.0-7.7); Basophil# 0.03 X10^3/uL; Basophil% 0.4 % (0-1); Eosinophil# 0.31 X10^3/uL; Eosinophils% 4.6 % (0-5); Hematocrit 45.8 % (40-54); Hemoglobin 15.5 g/dL (13.0-16.5); Lymphocyte # 1.48 X10^3/ul (0.83-4.51); Lymphocyte % 21.9 % (19-41); Mean Corp Hgb Conc 33.8 g/dL (32-36); Mean Corpuscular Hgb 30.3 pg (27.0-32.0); Mean Corpuscular Volume 89.6 fL (80-94); Mean Platelet Vol. 11.7 fl (6.2-12.0); Monocyte# 0.75 X10^3/uL; Monocyte% 11.1 % (0-10); NRBC Flagged by Analyzer 0 % (0-5); Neutrophil # 4.18 X10^3/uL (2.7-7.7); Neutrophil % 61.7 % (47-70); Platelet Count 178 K/mm3 (150-450); RBC Distribution Width CV 12.3 % (11.6-14.6); RBC Distribution Width SD 40.1 fl (35.1-43.9); Red Blood Count 5.11 M/mm3 (4.6-6.2); White Blood Count 6.8 K/mm3 (4.4-11.0)
[2024-06-13 18:08] LABS: Color, Urine Yellow (Yellow); Glucose, Dipstick Normal (Normal); Ketone-Dipstick Negative (Negative); Leukocyte Esterase-Dipstick Negative /ul (Negative); Nitrite-Dipstick Negative (Negative); Occult Blood-Urine Negative /ul (Negative); Protein-Dipstick Negative (Negative); Specific Gravity, Urine 1.015 (1.002-1.030); Urine Bilirubin Dipstick Negative (Negative); Urine Clarity Clear (Clear); Urine Urobilinogen Normal (Normal)
[2024-06-13 18:24] LABS: Red Blood Cells-Urine 0-5 SEEN /hpf (0-5); White Blood Cells 0-5 SEEN /hpf (0-5)
[2024-06-13 18:25] LABS: Bacteria RARE /hpf (None Seen)
[2024-06-13 18:27] LABS: Hyaline Cast 0-5 SEEN /lpf (0-5)
[2024-06-13 18:29] LABS: Mucous, Urine 2+ /hpf (<or=2+)
[2024-06-13 18:37] LABS: ALB/GLOB Ratio 1.3 RATIO (0.9-2.4); AST(SGOT) 22 U/L (15-37); Alanine Aminotransfer ALT/SGPT 28 U/L (16-61); Albumin, Serum 3.9 g/dL (3.2-5.0); Alkaline Phosphatase 73 U/L (45-117); Anion Gap 7 (5-15); BUN 18 mg/dL (7-18); BUN/Creat Ratio 18.7 RATIO (10-20); Calcium,Total 9.4 mg/dL (8.5-10.1); Chloride 108 mmol/L (98-107); Creatinine, Serum 0.96 mg/dL (0.70-1.30); EST Glomerular Filtration Rate 82 mL/min (>60); Est Glom Filt Rate - Afr Amer 99 mL/min (>60); Globulin 2.9 g/dL (2.2-4.2); Glucose 90 mg/dL (74-106); Potassium 3.8 mmol/L (3.5-5.1); Protein, Total 6.8 g/dL (6.4-8.2); Sodium Level 141 mmol/L (136-145)
== END | disposition home or self-care (01) ==
LOC: MTLAB 14:15
PROVIDERS: PCP Family Medicine; Referring Provider Family Medicine; Visit Provider Family Medicine
DX: N40.1 Benign prostatic hyperplasia with lower urinary tract symptoms (principal); R35.0 Frequency of micturition
CPT/HCPCS: 36415; 80053; 81001; 84153; 85025; 87086

== ENCOUNTER → 2024-06-26 | Outpatient (CLI) | payer MEDICARE, OTHER, SELFPAY ==
--- NOTE | 2024-06-26 12:12 | MRI_ITS ---
EXAMINATION: MR Prostate WO/W Contrast COMPARISON: None CLINICAL HISTORY: 74 yo M with elevated psa Most recent PSA = 76.6 ng/ml TECHNIQUE: Standard prostate MR protocol was used before and after administration of 19 cc of IV Clariscan. FINDINGS: Prostate volume: 48 cc PSA density: 1.6 ng/ml2 Length of membranous urethra: 14 mm Post-biopsy hemorrhage: None Multiparametric MR evaluation: Heterogeneous appearance of the central gland is consistent with benign prostatic hyperplasia. Lesion 1: LOCATION - markedly T2 hypointense lesion involving the bilateral peripheral zone from near base to near apex measuring at least 2.8 x 4.4 x 2.8 cm. T2 - 5 DWI - 5 DCE - 5 Overall PI-RADS v2 score = 5 Capsular margin and neurovascular bundle: No definite microcapsular extension. Seminal vesicles: Bilaterally involved. Lymph nodes: No lymphadenopathy in the field of view. Bones: No suspicious lesions in the field of view. MRI/Pelvis W/WO Contrast IMPRESSION: 4.4 cm PI-RADS 5 lesion involving the bilateral PZ from near base to near apex. - Bilateral seminal vesicle invasion. - No gross evidence of macroscopic extracapsular extension. - No lymphadenopathy. - No suspicious bone lesions. Electronically Signed: Jean Claude Vidal MD at 15:16 EDT ,
== END | disposition home or self-care (01) ==
LOC: MRI 12:03
PROVIDERS: PCP Family Medicine; Referring Provider Family Medicine; Visit Provider Family Medicine
DX: N40.0 Benign prostatic hyperplasia without lower urinary tract symptoms (principal)
CPT/HCPCS: 72197; A9575

== ENCOUNTER → 2024-07-18 | Outpatient (CLI) | payer MEDICARE, OTHER, SELFPAY ==
--- NOTE | 2024-07-18 13:00 | PROSBIL_PTH ---
PATIENT: ARIANNE MACDONALD LOC: [facility] U#:[id number] AGE/SX: 74/M ROOM: RE07/18/[address]: Dr. Mani Smith MD : 1950 BED: DIS: 07/18/2024 SPEC #: [id number] RECD: 07/19/24 09:55 STATUS: TATYANA REMarcelino #: [id number] ULISES: 07/18/24 13:[address]: Mani Smith DEPT: SURGICAL PATHOLOGY RECD BY: Corin Dodd ENTERED: 07/19/24 09:56 SP TYPE: PROST BX GERARDO DR: Dr. Johnathon Dawkins MD Tissues: A - PROSTATE RIGHT B - PROSTATE RIGHT C - PROSTATE RIGHT D - PROSTATE LEFT E - PROSTATE LEFT F - PROSTATE LEFT Procedures: PROSTATE BX HEADER OPERATION: Prostate biopsy PRE-OP DIAGNOSIS: Elevated PSA TISSUE SUBMITTED: A - Right apex, B - Right mid, C - Right base, D - Left apex, E - Left mid, F - Left base MICROSCOPIC DIAGNOSIS A. Right prostate, apex, core biopsy: Prostatic adenocarcinoma. [place] grade: 3+3=6 Number of cores involved: 1/1 Proportion of tissue involved: >90% Perineural invasion: Suspected. Greatest tumor length: 1.1cm Focal high-grade prostatic intraepithelial neoplasia (HGPIN). B. Right prostate, mid, core biopsy: Prostatic adenocarcinoma. Grz[place]orz grade: 3+3=6 Number of cores involved: 1/1 Proportion of tissue involved: >90% Perineural invasion: Present. Greatest tumor length: 0.9 cm C. Right prostate, base, core biopsy: Prostatic adenocarcinoma. Grz[place]orz grade: 3+4=7 Number of cores involved: 1/1 Proportion of tissue involved: >95% Perineural invasion: Present. Greatest tumor length: 1.4 cm D. Left prostate, apex, core biopsy: Prostatic adenocarcinoma. [place] grade: 3+4=7 Number of cores involved: 1/1 Proportion of tissue involved: >95% Perineural invasion: Not identified. Greatest tumor length: 1.0cm E. Left prostate, mid, core biopsy: Prostatic adenocarcinoma. [place] grade: 3+4=7 Number of cores involved: 1/1 Proportion of tissue involved: ~70 % Perineural invasion: Not identified. Greatest tumor length: 0.8cm F. Left prostate, base, core biopsy: Prostatic adenocarcinoma. Grz[place]orz grade: 3+4=7 Number of cores involved: 1/1 Proportion of tissue involved: >90 % Perineural invasion: Present. Greatest tumor length: 1.0cm Focal high-grade prostatic intraepithelial neoplasia (HGPIN). JAMES/ 07/20/2024 MICROSCOPIC DESCRIPTION Slides are reviewed. GROSS DESCRIPTION A - Received is one container designated prostate, right apex. The specimen consists of one elongated fragments of light collier-white soft tissue measuring 1.3 cm in length and 0.1 cm in diameter. The specimen is totally submitted in one cassette. B - Received is one container designated prostate, right mid. The specimen consists of one elongated fragments of light collier-white soft tissue measuring 0.9 cm in length and 0.1 cm in diameter. The specimen is totally submitted in one cassette. C - Received is one container designated prostate, right base. The specimen consists of one elongated fragments of light collier-white soft tissue measuring 1.5 cm in length and 0.1 cm in diameter. The specimen is totally submitted in one cassette. D - Received is one container designated prostate, left apex. The specimen consists of one elongated fragments of light collier-white soft tissue measuring 1.3 cm in length and 0.1 cm in diameter. The specimen is totally submitted in one cassette. E - Received is one container designated prostate, left mid. The specimen consists of one elongated fragments of light collier-white soft tissue measuring 1.0 cm in length and 0.1 cm in diameter. The specimen is totally submitted in one cassette. F - Received is one container designated prostate, left base. The specimen consists of one elongated fragments of light collier-white soft tissue measuring 1.2 cm in length and 0.1 cm in diameter. The specimen is totally submitted in one cassette. / 07/19/2024 TC:0 CPT: G0146
== END | disposition home or self-care (01) ==
LOC: LABSPEC 16:49
PROVIDERS: PCP Family Medicine; Referring Provider Urology; Visit Provider Urology
DX: C61 Malignant neoplasm of prostate (principal)
CPT/HCPCS: 88305; G0416

== ENCOUNTER → 2024-07-24 | Outpatient (CLI) | payer MEDICARE, OTHER, SELFPAY ==
--- NOTE | 2024-07-24 13:02 | CT_ITS ---
STUDY: CT ABDOMEN AND PELVIS WITH CONTRAST REASON FOR EXAM: Male, 74 years old. Newly diagnosed prostate cancer. RADIATION DOSAGE (If Supplied By Facility): CTDIvol = ( 15.26 ) mGy, DLP = ( 1099.72 ) mGycm TECHNIQUE: Transaxial images were obtained from the dome of the diaphragm to the symphysis pubis without oral contrast. IV 100mL Isovue-300 was administered. Sagittal and coronal images were reconstructed. Individualized dose optimization techniques were used for this CT. COMPARISON: None. FINDINGS: Minimally increased linear markings at the left lung base suggestive of scarring. The visualized portions of the heart are within normal limits. There is decreased attenuation of the liver consistent with steatosis. Normal gallbladder and extrahepatic biliary system. Normal spleen. Normal pancreas. Normal bilateral adrenal glands. Normal right kidney. Normal left kidney. Normal visualized stomach. Normal small intestine. There are multiple colonic diverticula consistent with diverticulosis. The appendix is visualized and appears normal. There is scattered atherosclerotic calcification of the abdominal aorta, without a demonstrated aneurysm. Normal inferior vena cava. Normal retroperitoneum. There is a distended urinary bladder. The prostate measures 4.2 cm x 4.5 cm. This causes indentation of the bladder base. Normal abdominal wall. There are diffuse degenerative changes of the visualized lumbar spine. Anterior listhesis of L4 on L5 due to facet joint osteoarthritis. CT/Abdomen/Pelvis W IV Cont ONLY IMPRESSION: Enlargement of the prostate. Urinary bladder distention. Sigmoid diverticulosis. Electronically Signed: Shola Potter MD at 15:36 EST ,
[2024-07-24 13:36] LABS: CREATININE FINGERSTICK < 1.0 mg/dL (0.70-1.30); EGFR FINGERSTICK > 60.0000 mL/min (>60)
== END | disposition home or self-care (01) ==
LOC: CT 12:56
PROVIDERS: PCP Family Medicine; Referring Provider Urology; Visit Provider Urology
DX: C61 Malignant neoplasm of prostate (principal)
CPT/HCPCS: 74177; Q9967

== ENCOUNTER → 2024-07-25 | Outpatient (CLI) | payer MEDICARE, OTHER, SELFPAY ==
--- NOTE | 2024-07-25 08:39 | NM_ITS ---
CLINICAL: 74-year-old male with history of primary prostate carcinoma. WHOLE BODY 99m Tc MDP RADIONUCLIDE BONE SCINTIGRAPHY COMPARISON: None available FINDINGS: Following the intravenous administration of 26.3 mCi of 99m Tc MDP, whole body bone images reveal: 1. Symmetric increased radiopharmaceutical is identified in the acromioclavicular compartments of both shoulders, sternoclavicular compartment of the right shoulder, the medial tibial compartment of the right > left knee, the third lumbar vertebra posteriorly on the right, the right elbow, the lower cervical spine posteriorly on the left. 2. The remaining skeletal structures are scintigraphically unremarkable with normal-appearing renal images and urinary bladder activity identified. Facilitated uptake is noted in the region of the right orbit. NM/Bone Scan Whole Body IMPRESSION: 1. The increase in tracer uptake noted in the bilateral shoulders, the knees bilaterally, the cervical and lumbar spine and right elbow is commensurate with degenerative arthritis. 2. Uptake in proximity to the right orbit likely represents a normal variant. Plain film radiography correlation may be of benefit. 3. There is no scintigraphic evidence of diffuse skeletal metastatic disease. Electronically Signed: Quincy Eldridge, at 8:53 EST ,
== END | disposition home or self-care (01) ==
LOC: NM 08:36
PROVIDERS: PCP Family Medicine; Referring Provider Urology; Visit Provider Urology
DX: C61 Malignant neoplasm of prostate (principal)
CPT/HCPCS: 78306; A9503

== ENCOUNTER → 2024-08-15 | Outpatient (CLI) | payer MEDICARE, OTHER, SELFPAY | END | disposition home or self-care (01) | PROVIDERS: PCP Family Medicine; Referring Provider Urology; Visit Provider Urology | DX: C61 Malignant neoplasm of prostate (principal) | CPT/HCPCS: 78815; A9595 ==

== ENCOUNTER 2024-09-20 05:58 | Day surgery (SDC) | payer MEDICARE, OTHER, SELFPAY ==
--- NOTE | 2024-09-04 15:48 | PAT.ANE_ITS ---
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 When Was Last Pacemaker Check QUESTION #4 FULL TEXT: You/Your Family Experience fever (hyperthermia) with Anesthesia Last Oral Intake Last Oral intake: Last Oral Intake NPO since Meds taken in AM with sips of water? Meds patient instructed to take am of surgery PONV PONV - waste treatment operator: PONV - waste treatment operator Female No 09/04/24 13:35 HX of Motion Sickness No 09/04/24 13:35 HX of N/V After Surgery No 09/04/24 13:35 Non-Smoker Yes 09/04/24 13:35 Duration of Surgery greater No 09/04/24 13:35 than 60 minutes Number of Risk Factors 1 09/04/24 13:35 PONV Score Low Risk 09/04/24 13:35 Height & Weight Height & Weight: Anesthesia: Height & Weight Height 5 ft 10 in 08/17/24 14:03 Respiratory Assessment Respiratory Assessment - waste treatment operator: Respiratory Tract Infection Hx - waste treatment operator Hx Respiratory Tract Infection No 09/04/24 13:35 STOP Sleep Apnea STOP Sleep Apnea - waste treatment operator: STOP Sleep Apnea - waste treatment operator Hx Hypertension Yes: CONTROLLED WITH MED 09/04/24 13:35 Hx Sleep Apnea Yes: ESPIRE DEVICE 09/04/24 13:35 CPAP No 09/04/24 13:35 BIPAP No 09/04/24 13:35 Do you snore loudly (louder than talking or can be heard Do you often feel tired/ fatigued/ sleepy during daytime? Has anyone observed you stop breathing during sleep? STOP Results Positive 09/04/24 13:35 QUESTION #5 FULL TEXT : Do you snore loudly (louder than talking or can be heard through closed doors)? 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 Specify any problems Hx of Preganancy in last 3 N/A 09/04/24 13:35 Months Nurse Filling Out Transfusion DSCHRIBER 09/04/24 13:35 & Questions: Date: 09/04/24 09/04/24 13:35 Time: 13:37 09/04/24 13:35 Patient unable to answer at this time (ie. confused, unrespo /Reproduction History /Reproductive History - waste treatment operator: /Reproductive Hx- waste treatment operator Hx Now No 09/04/24 13:35 Gestational Age (in weeks): EDC: Hx Hx Para Hx Section SAB No 09/04/24 13:35 [facility] Medical History (Updated 09/04/24 @ 13:43 by Ashli Neal) Wears glasses MRSA infection Arthritis Bladder disease Back pain Restless legs Sleep apnea History of echocardiogram Cardiology follow-up encounter Abnormal prostate biopsy Prostate cancer Inguinal hernia of left side without obstruction or gangrene Family history of coronary arteriosclerosis Retinal artery occlusion Obstructive sleep apnea Hypertension Home Medications ?Medication ?Instructions ?Recorded ?Last Taken ?Type aspirin 81 mg tablet,delayed 81 mg PO DAILY 04/17/14 11/20/18 19:00 History release multivitamin 1 cap PO DAILY 10/31/18 Unknown History pregabalin 100 mg capsule 200 mg PO QHS 30 days 10/31/18 Unknown History losartan 25 mg tablet 25 mg PO DAILY HTN #90 tabs 01/23/19 Unknown Rx finasteride 5 mg tablet 5 mg PO QHS 08/03/24 Unknown History tadalafil 5 mg tablet 5 mg PO QDAY 08/03/24 Unknown History tamsulosin 0.4 mg capsule 0.4 mg PO BID 08/17/24 Unknown History Allergy/AdvReac Type Severity Reaction Status Date / Time Penicillins Allergy Rash Verified 09/04/24 13:32 Family History Father CAD (coronary artery disease) <55 years of age Sister CAD (coronary artery disease) <65 years of age Mother CVA (cerebral vascular accident) Surgical History (Updated 09/04/24 @ 13:43 by Ashli Neal) Hx of colonoscopy S/P left inguinal hernia repair History of hand surgery (~10/25/15) History of left heart catheterization (~04/18/14) Social History (Updated 08/17/24 @ 14:07 by Lizabeth Amador) Smoking Status: Never smoker alcohol intake: former substance use type: does not use Audit: Pertinent Findings Pertinent Findings EKG Perinent findings: November 22, 2018. Sinus rhythm with occasional PVCs. Consult pertinent findings: January 23, 2019. Dr. Alvares. #1 obstructive sleep apnea-patient complains of fatigue most likely due to poor sleep patterns. He has tried several adapters and is unable to find one that works. Referred to Dr. Varela and Dr. Paige. #2 hypertension blood pressure is well-controlled Recommendation Anesthesia Recommendation Anesthesia recommendation: OPTIMIZED for anesthesia
[2024-09-20] VITALS (8 sets, daily range): BP systolic 102–119; BP diastolic 60–78; PULSE 57–69; RESP 14–20; TEMP 36.1–36.7; O2SAT 93–98; BMI 30.3
[2024-09-20] MEDS: 0.9% Normal Saline (1000mL) 1,000 ML 15 ML IV (06:43)
--- NOTE | 2024-09-20 07:20 | PCM.PRE.AN2 ---
ASA Classification* ASA Classification ASA Classification: 2 Assessment & Plan Anesthesia* Anesthesia Assessment Anesthesia Assessment: Discussed sedation and/or anesthesia options, risks, benefits, and alternatives with patient/parents/legal guardian/POA. Questions invited. The patient/parents/legal guardian/POA seems to understand and agrees to proceed with anesthesia plan. Reviewed the physical assessment, medical history, allergy history and patient home medications list prior to surgery/procedure/anesthetic and documented any changes. Performed airway and anesthesia risk assessments. Anesthesia Type Anesthesia Type: General Anesthesia Focused Assessment* Temperature: 97.5 F Pulse Rate: 69 Blood Pressure: 114/78 Respiratory Rate: 16 Pulse Ox: 94 Airway Assessment Mouth opens: >3 cm Mallampati Score: II Focused Labs Anesthesia Preop lab: CBC WBC 6.8 K/mm3 (4.4-11.0) 06/13/24 14:18 RBC 5.11 M/mm3 (4.6-6.2) 06/13/24 14:18 Hgb 15.5 g/dL (13.0-16.5) 06/13/24 14:18 Hct 45.8 % (40-54) 06/13/24 14:18 Plt Count 178 K/mm3 (150-450) 06/13/24 14:18 CHEMISTRY Potassium 3.8 mmol/L (3.5-5.1) 06/13/24 14:18 Sodium 141 mmol/L (136-145) 06/13/24 14:18 BUN 18 mg/dL (7-18) 06/13/24 14:18 Creatinine 0.96 mg/dL (0.70-1.30) 06/13/24 14:18 Glucose 90 mg/dL (74-106) 06/13/24 14:18 TSH 1.44 uIU/mL (0.358-3.74) 08/04/23 08:28 COAG Pre-Assessment Diagnosis/Proposed Procedure Planned Operative Procedure(s): SPACE OAR GEL AND GOLD MARKERS Anesthesia History 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 When Was Last Pacemaker Check QUESTION #4 FULL TEXT: You/Your Family Experience fever (hyperthermia) with Anesthesia Last Oral Intake Last Oral intake: Last Oral Intake NPO since 00:00 09/20/24 06:35 Meds taken in AM with sips of Yes 09/20/24 06:35 water? Meds patient instructed to losartan 09/20/24 06:35 take am of surgery cipro PONV PONV - fermentation scientist: PONV - fermentation scientist Female No 09/04/24 13:35 HX of Motion Sickness No 09/04/24 13:35 HX of N/V After Surgery No 09/04/24 13:35 Non-Smoker Yes 09/04/24 13:35 Duration of Surgery greater No 09/04/24 13:35 than 60 minutes Number of Risk Factors 1 09/04/24 13:35 PONV Score Low Risk 09/04/24 13:35 Height & Weight Height & Weight: Anesthesia: Height & Weight Height 5 ft 10 in 09/20/24 06:35 Weight: 96 kg 09/20/24 06:35 Body Mass Index (BMI) 30.3 09/20/24 06:35 Respiratory Assessment Respiratory Assessment - fermentation scientist: Respiratory Tract Infection Hx - fermentation scientist Hx Respiratory Tract Infection No 09/04/24 13:35 STOP Sleep Apnea STOP Sleep Apnea - fermentation scientist: STOP Sleep Apnea - fermentation scientist Hx Hypertension Yes: CONTROLLED WITH MED 09/04/24 13:35 Hx Sleep Apnea Yes: ESPIRE DEVICE 09/04/24 13:35 CPAP No 09/04/24 13:35 BIPAP No 09/04/24 13:35 Do you snore loudly (louder than talking or can be heard Do you often feel tired/ fatigued/ sleepy during daytime? Has anyone observed you stop breathing during sleep? STOP Results Positive 09/04/24 13:35 QUESTION #5 FULL TEXT : Do you snore loudly (louder than talking or can be heard through closed doors)? 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 Specify any problems Hx of Preganancy in last 3 N/A 09/04/24 13:35 Months Nurse Filling Out Transfusion DSCHRIBER 09/04/24 13:35 & Questions: Date: 09/04/24 09/04/24 13:35 Time: 13:37 09/04/24 13:35 Patient unable to answer at this time (ie. confused, unrespo /Reproduction History /Reproductive History - fermentation scientist: /Reproductive Hx- fermentation scientist Hx Now No 09/04/24 13:35 Gestational Age (in weeks): EDC: Hx Hx Para Hx Section SAB No 09/04/24 13:35 Active Medications Active Medications: Current Medications Generic Name Dose Route Start Last Admin Trade Name Freq PRN Reason Stop Dose Admin Cefazolin Sodium 2 gm/ N/A 20 mls @ 400 mls/hr 09/20/24 08:00 IV 09/20/24 08:02 PREOP ONE Sodium Chloride 1,000 mls @ 15 mls/hr 09/20/24 06:05 09/20/24 06:43 IV 09/23/24 00:44 15 mls/hr .Q48H JUSTIN Administration Protocol PFSH Medical History Wears glasses MRSA infection Arthritis Bladder disease Back pain Restless legs Sleep apnea History of echocardiogram Cardiology follow-up encounter Abnormal prostate biopsy Prostate cancer Inguinal hernia of left side without obstruction or gangrene Family history of coronary arteriosclerosis Retinal artery occlusion Obstructive sleep apnea Hypertension Home Medications ?Medication ?Instructions ?Recorded ?Last Taken ?Type aspirin 81 mg tablet,delayed 81 mg PO DAILY 04/17/14 09/06/24 History release multivitamin 1 cap PO DAILY 10/31/18 09/19/24 History pregabalin 100 mg capsule 200 mg PO QHS 30 days 10/31/18 09/19/24 History losartan 25 mg tablet 25 mg PO DAILY HTN #90 tabs 01/23/19 09/20/24 Rx finasteride 5 mg tablet 5 mg PO QHS 08/03/24 09/19/24 History tadalafil 5 mg tablet 5 mg PO QDAY 08/03/24 09/19/24 History tamsulosin 0.4 mg capsule 0.4 mg PO BID 08/17/24 09/19/24 History ciprofloxacin HCl 500 mg tablet 500 mg PO BID 09/20/24 09/20/24 History Allergy/AdvReac Type Severity Reaction Status Date / Time Penicillins Allergy Rash Verified 09/04/24 13:32 Family History Father CAD (coronary artery disease) <55 years of age Sister CAD (coronary artery disease) <65 years of age Mother CVA (cerebral vascular accident) Surgical History Hx of colonoscopy S/P left inguinal hernia repair History of hand surgery (~10/25/15) History of left heart catheterization (~04/18/14) Social History Smoking Status: Never smoker alcohol intake: former substance use type: does not use Review of Systems (Anesthesia) ROS Narrative System reviewed and no additional complaints, except as documented.
--- NOTE | 2024-09-20 08:02 | HP.PCM_ITS ---
HPI - General General Date of Service: 09/20/24 Chief Complaint: prostate ca HPI Narrative ARIANNE MACDONALD, is a 74 M who presents for placement of spacer gel and gold markers for prostate ca treatments. [facility] Medical History Wears glasses MRSA infection Arthritis Bladder disease Back pain Restless legs Sleep apnea History of echocardiogram Cardiology follow-up encounter Abnormal prostate biopsy Prostate cancer Inguinal hernia of left side without obstruction or gangrene Family history of coronary arteriosclerosis Retinal artery occlusion Obstructive sleep apnea Hypertension Home Medications ?Medication ?Instructions ?Recorded ?Last Taken ?Type aspirin 81 mg tablet,delayed 81 mg PO DAILY 04/17/14 09/06/24 History release multivitamin 1 cap PO DAILY 10/31/18 09/19/24 History pregabalin 100 mg capsule 200 mg PO QHS 30 days 10/31/18 09/19/24 History losartan 25 mg tablet 25 mg PO DAILY HTN #90 tabs 01/23/19 09/20/24 Rx finasteride 5 mg tablet 5 mg PO QHS 08/03/24 09/19/24 History tadalafil 5 mg tablet 5 mg PO QDAY 08/03/24 09/19/24 History tamsulosin 0.4 mg capsule 0.4 mg PO BID 08/17/24 09/19/24 History ciprofloxacin HCl 500 mg tablet 500 mg PO BID 09/20/24 09/20/24 History Allergy/AdvReac Type Severity Reaction Status Date / Time Penicillins Allergy Rash Verified 09/04/24 13:32 Family History Father CAD (coronary artery disease) <55 years of age Sister CAD (coronary artery disease) <65 years of age Mother CVA (cerebral vascular accident) Surgical History Hx of colonoscopy S/P left inguinal hernia repair History of hand surgery (~10/25/15) History of left heart catheterization (~04/18/14) Social History Smoking Status: Never smoker alcohol intake: former substance use type: does not use Vital Signs Vital Signs Vital Signs: 09/20/24 06:33 09/20/24 06:35 09/20/24 07:20 Temperature 97.5 F L 97.5 F L Temperature Source Temporal Pulse Rate 69 69 Respiratory Rate 16 16 Respiratory Pattern Normal Blood Pressure 114/78 114/78 Blood Pressure Mean 90 Blood Pressure Source Monitor Blood Pressure Position Sitting Blood Pressure Location Left Arm Pulse Ox 94 94 Oxygen Delivery Method Room Air Weight Weight: 96 kg Body Mass Index (BMI) 30.3
[2024-09-20] MEDS: Cefazolin 2 GM in Syringe IV (08:15)
--- NOTE | 2024-09-20 08:31 | OP.PCM_ITS ---
Operative Report (Standard) Operative Information Date of Procedure: 09/20/24 Pre-Operative Diagnosis: Prostate cancer Post-Operative Diagnosis: The same Surgery/Procedure Performed: Placement of spacer gel matrix, placement of gold markers and prostate and preparation for radiation hotel breakfast attendant: No Type of Anesthesia: General RN Documented Start/Stop Times: Operation Date: 09/20/24 08:00 Case Time Into Pre-Op 09/20/24 06:02 Procedure Start Time: 08:26 Procedure Stop Time: 08:32 Select all DRAINS/GRAFTS/IMPLANTS that apply: None Estimated Blood Loss: None Specimen collected: No Description of surgery: In the preoperative area I reviewed with the patient how the procedure is done we talked about the risk of the procedure including the risk of infection, bleeding, migration of the spacer gel, the patient is planning to have radiation to the prostate he understands that the spacer gel has demonstrated benefit in reducing the risk of toxicity from the ration radiation to the rectum but there is no guarantees that this spacer gel will prevent any serious complications or toxicity to the rectum or bowels. After reviewing this with the patient and his family organ to proceed with placement of a spacer gel matrix. Patient was taken back to the operating room after smooth induction of anesthesia he was placed supine on the table. The genitals and perineum were prepped and draped in usual sterile fashion. I then introduced a biplanar ultrasound probe into the rectum and performed ultrasonography and identified the Denonvilliers' fascia the prostate mid base and apex and seminal vesicles. The penis and testicles were prepped and draped in usual sterile fashion, ultrasound probe was placed into the rectum and biplanar ultrasound was performed on the prostate. Identified the base mid and apex of the prostate identified the transition zone prostate. Then using a needle the first delivery nurse was placed into the right base of the prostate, the second delivery nurse was placed in the left base of the prostate, and the third core marker was placed in the right apex of the prostate after all 3 markers were placed the placement of the markers were confirmed by ultrasonography. The spacer gel mix was then prepared on the back table per manufactures instruction. Under ultrasound guidance in the midline perineum a bevel needle down we advanced through the perineum below the prostate into the space of Denonvilliers' fascia. This space which could be identified by ultrasound with a bright white layer between the prostate and the rectum. I then injected a puff of normal saline to identify the space further. After I confirmed that the needle was in the correct space in the mid prostate and the space of Denonvilliers' fascia between the rectum and the prostate. Then over the course of 15 seconds the gel matrix was injected slowly there was nice separation between the prostate and the rectum at the gel matrix was injected. The position of the gel matrix was confirmed by ultrasound. Then the injection needle was removed intact. Patient's perineum was cleaned patient was taken out of stirrups and then taken back to the PACU in good condition. Surgical Findings: Normal prostate markers placed and spacer gel matrix placed Complications Complications: No Admit VTE Documentation VTE Present on Admission: No VTE Mechan Device Prophylaxis: SCD's VTE Pharm Prophylaxis ordered?: No
--- NOTE | 2024-09-20 08:31 | PCM.DC ---
Discharge Instructions Diet Discharge Diet: No restrictions DC O2, CPAP, BIPAP needs Home O2 Discharge instructions: No Dressing / Incision Discharge Activity: Return to Normal Activity and May Not Drive (while taking narcotic pain medications.) Dressing / Incision Call your doctor if you observe: Fever of 101 or Higher Follow Up Care Please Follow Up With: Mani Smith MD When: Call [phone] for an appointment Test Results: Test results from this visit will be discussed in further detail at your follow-up appointment, if applicable. Discharge Plan Admission Attending Provider: Mani Smith Primary Care Provider: Johnathon Dawkins Instructions Print Language: [place] Discharge Orders/Prescriptions Prescriptions: No Action pregabalin 100 mg capsule 200 mg PO QHS 30 Days Patient Comments: TAKE ONE CAPSULE BY MOUTH WITH SUPPER AND BEDTIME FOR 30 DAYS losartan 25 mg tablet 25 mg PO DAILY Qty: 90 3RF multivitamin capsule 1 cap PO DAILY tamsulosin 0.4 mg capsule 0.4 mg PO BID tadalafil 5 mg tablet 5 mg PO QDAY finasteride 5 mg tablet 5 mg PO QHS aspirin 81 MG tablet,delayed release (DR/EC) 81 mg PO DAILY Patient Comments: heart [facility] ciprofloxacin HCl 500 mg tablet 500 mg PO BID Referrals / Follow Up: Johnathon Dawkins MD [Primary Care Provider] - Disposition Disposition (needs filled in before D/C Order can be placed): Home, Self Care
--- NOTE | 2024-09-20 08:38 | PCM.POST.ANE ---
Anesthesia: Postop Eval I Current Vital Signs Temperature: 97 F Pulse Rate: 63 Blood Pressure: 111/65 Respiratory Rate: 20 Pulse Ox: 98 Oxygen Delivery Method: Room Air Assessment Airway patent: Yes Spontaneous unlabored respirations: Yes Mental status: Awake nausea: No Vomiting: No Anesthesia Complication: No Fluid Hydration Crystalloid volume administer (ml): 500 Total IV fluid infused: 500 Progress Note Anesthesia document: Postop Eval 1 completed: Yes
--- NOTE | 2024-09-20 12:49 | POSTOPAN2_ITS ---
Anesthesia Postop Eval I Sum Postop Eval Completion status Anesthesia document: Postop Eval 1 completed: Yes Anesthesia Postop Eval I Summary Anesthesia Postop Eval I Summary: Anesthesia Postop Eval I: Assessment Summary Airway patent Yes 09/20/24 08:40 DAMAGE [email or web address] Spontaneous unlabored Yes 09/20/24 08:40 DAMAGE [email or web address].[email or web address] respirations Mental status Awake 09/20/24 08:40 DAMAGE [email or web address].[email or web address] nausea No 09/20/24 08:40 DAMAGE ASSESSOR.[email or web address] Vomiting No 09/20/24 08:40 DAMAGE ASSESSOR.[email or web address] Anesthesia Postop Eval I: Fluid Summary Crystalloid volume administer 500 09/20/24 08:40 DAMAGE ASSESSOR.[email or web address] (ml) Colloids volume administered ( ml) Blood Product volume administered (ml) Total IV fluid infused 500 09/20/24 08:40 DAMAGE [email or web address].[email or web address] Anesthesia Postop Eval I: Summary Notes Anesthesia Complication No 09/20/24 08:40 DAMAGE ASSESSOR.[email or web address] Anesthesia Complication Comment: Post-operative progress note Anesthesia: Postop Eval II Evaluation Mental status: Awake Pain Level: 0 nausea: No Vomiting: No
--- NOTE | 2024-09-20 12:49 | PCM.POSTANE2 ---
Anesthesia Postop Eval I Sum Postop Eval Completion status Anesthesia document: Postop Eval 1 completed: Yes Anesthesia Postop Eval I Summary Anesthesia Postop Eval I Summary: Anesthesia Postop Eval I: Assessment Summary Airway patent Yes 09/20/24 08:40 VICE PRESIDENT OF ENGINEERING.[email or web address] Spontaneous unlabored Yes 09/20/24 08:40 VICE PRESIDENT OF ENGINEERING.JSWI respirations Mental status Awake 09/20/24 08:40 VICE PRESIDENT OF ENGINEERING.JSWI nausea No 09/20/24 08:40 VICE PRESIDENT OF ENGINEERING.JSWI Vomiting No 09/20/24 08:40 VICE PRESIDENT OF ENGINEERING.JSWI Anesthesia Postop Eval I: Fluid Summary Crystalloid volume administer 500 09/20/24 08:40 VICE PRESIDENT OF ENGINEERING.JSWI (ml) Colloids volume administered ( ml) Blood Product volume administered (ml) Total IV fluid infused 500 09/20/24 08:40 VICE PRESIDENT OF ENGINEERING.JSWI Anesthesia Postop Eval I: Summary Notes Anesthesia Complication No 09/20/24 08:40 VICE PRESIDENT OF ENGINEERING.JSWI Anesthesia Complication Comment: Post-operative progress note Anesthesia: Postop Eval II Evaluation Mental status: Awake Pain Level: 0 nausea: No Vomiting: No
== END 2024-09-20 09:37 | disposition home or self-care (01) ==
LOC: SDC 05:59 → AC 06:01
PROVIDERS: PCP Family Medicine; Referring Provider Urology; Visit Provider Urology
PROC: (CPT 55874; principal; 2024-09-20 07:45)
DX: C61 Malignant neoplasm of prostate (principal); I10 Essential (primary) hypertension; G25.81 Restless legs syndrome; G47.33 Obstructive sleep apnea (adult) (pediatric); Z88.0 Allergy status to penicillin; Z79.82 Long term (current) use of aspirin; Z79.899 Other long term (current) drug therapy
CPT/HCPCS: 55876; 55874; 00902; J2405

== ENCOUNTER → 2024-10-01 | Outpatient (CLI) | payer MEDICARE, OTHER, SELFPAY ==
--- NOTE | 2024-10-01 09:00 | MRI_ITS ---
MR Prostate WO/W Contrast 10/01/2024 8:46 AM COMPARISON: 06/26/2024 CLINICAL HISTORY: 74 yo man with prostate cancer. TECHNIQUE: Axial T1-weighted and high-resolution axial T2-weighted MR images of the pelvis were obtained. Images were acquired for planning of radiation therapy. 19 cc of IV Clariscan was administered. DISCUSSION: See Impression MRI/Pelvis W/WO Contrast IMPRESSION: MR imaging scan done for planning of radiation therapy of prostate cancer. -Diffuse disease involving the bilateral transitional and peripheral zones. -Bilateral seminal vesicle invasion. -No definite extra-capsular extension. -No suspicious lymph nodes or bone lesions. Interval placement of space OAR. Electronically Signed: Jean Claude Vidal MD at 9:42 EST ,
== END | disposition home or self-care (01) ==
PROVIDERS: PCP Family Medicine; Referring Provider Student in an Organized Health Care Education/Training Program; Visit Provider Student in an Organized Health Care Education/Training Program
DX: C61 Malignant neoplasm of prostate (principal)
CPT/HCPCS: 72197; A9575

== ENCOUNTER → 2025-02-16 | Outpatient (CLI) | payer MEDICARE, OTHER, SELFPAY ==
[2025-02-16 15:48] LABS: PSA,Total- Diagnostic 0.02 ng/mL (0.00-4.00)
--- OUTSIDE RECORDS SUMMARY | 2025-02-16 18:54 | XMS RPT_ITS | CCD ---
Author Organization [facility] Care Team Providers [facility] Supervisor Name Role Phone Sana Dawkins Y Unavailable Cy Dawkinsia Y Unavailable Sana Dawkins Y Unavailable Tr GREGG, Fili S. Unavailable Ninoska Hernández MD Unavailable Fili Armando MD S. Unavailable Ninoska Hernández MD Unavailable Juancho Gloria Primary Care Provider UnavailFili Ortega MD. Unavailable Ninoska Hernández MD Unavailable Dawkins, Gloria Primary Care Provider UnavailNinoska Fair MD Unavailable Juancho GREGG, Gloria Primary Care Provider PROVIDER, UNKNOWN Admitting Unavailable DAWKINS, GLORIA Primary Care Unavailable PROVIDER, UNKNOWN Attending Unavailable DAWKINS, GLORIA Primary Care Unavailable PROVIDER, UNKNOWN Admitting Unavailable NINOSKA HERNÁNDEZ Attending Unavailable NINOSKA HERNÁNDEZ Referring Unavailable PROVIDER, UNKNOWN Attending Unavailable PROVIDER, UNKNOWN Admitting Unavailable DAWKINS, GLORIA Primary Care Unavailable PROVIDER, UNKNOWN Attending Unavailable PROVIDER, UNKNOWN Admitting Unavailable DAWKINS, GLORIA Primary Care Unavailable PROVIDER, UNKNOWN Attending Unavailable PROVIDER, UNKNOWN Admitting Unavailable DAWKINS, GLORIA Primary Care Unavailable DAWKINS, GLORIA Primary Care Unavailable PROVIDER, UNKNOWN Admitting Unavailable NINOSKA HERNÁNDEZ Attending Unavailable DAWKINS, GLORIA Primary Care Unavailable PROVIDER, UNKNOWN Attending Unavailable PROVIDER, UNKNOWN Admitting Unavailable PROVIDER, UNKNOWN Admitting Unavailable DAWKINS, GLORIA Primary Care Unavailable NINOSKA HERNÁNDEZ Attending Unavailable Mani Smith Attending Unavailable Mani Smith Referring Unavailable Dawkins, Gloria Primary Care Unavailable Juanjose, Flo Referring Unavailable Juanjose, Flo Attending Unavailable Dawkins, Gloria Primary Care Unavailable Dawkins, Gloria Referring Unavailable Dawkins, Gloria Attending Unavailable Dawkins, Gloria Primary Care Unavailable Sarah, Luis Armando Referring Unavailable Juanjose, Flo Attending Unavailable Dawkins, Gloria Primary Care Unavailable Dawkins, Gloria Primary Care Unavailable Juanjose, Flo Referring Unavailable Juanjose, Flo Attending Unavailable Dawkins, Gloria Referring Unavailable Dawkins, Gloria Primary Care Unavailable Tomasz Tucker Attending Unavailable Sarah, Luis Armando Referring Unavailable Sarah, Luis Armando Attending Unavailable Dawkins, Gloria Primary Care Unavailable Sarah, Luis Armando Attending Unavailable Sarah, Luis Armando Referring Unavailable Dawkins, Gloria Primary Care Unavailable Dawkins, Gloria Referring Unavailable Dawkins, Gloria Attending Unavailable Dawkins, Gloria Primary Care Unavailable Juanjose, Flo Referring Unavailable Juanjose, Flo Attending Unavailable Dawkins, Gloria Primary Care Unavailable Sarah, Mani Johnson Attending Unavailable Sarah, Luis Armando Referring Unavailable Dawkins, Gloria Primary Care Unavailable Sarah, Mani Johnson Attending Unavailable Sarah, Luis Armando Referring Unavailable Dawkins, Gloria Primary Care Unavailable Juanjose, Flo Referring Unavailable Juanjose, Flo Attending Unavailable Dawkins, Gloria Primary Care Unavailable Juanjose, Flo Referring Unavailable Dawkins, Gloria Primary Care Unavailable Juanjose, Flo Attending Unavailable Dawkins, Gloria Referring Unavailable Juanjose, Flo Attending Unavailable Dawkins, Gloria Primary Care Unavailable Juanjose, Flo Referring Unavailable Juanjose, Flo Attending Unavailable Dawkins, Gloria Primary Care Unavailable Juanjose, Flo Referring Unavailable Dawkins, Gloria Primary Care Unavailable Juanjose, Flo Attending Unavailable Dawkins, Gloria Primary Care Unavailable Juanjose, Flo Referring Unavailable Juanjose, Flo Attending Unavailable Dawkins, Gloria Primary Care Unavailable Chelsi Colunga Attending Unavailable Juanjose, Flo Referring Unavailable Juanjose, Flo Attending Unavailable Dawkins, Gloria Primary Care Unavailable Juanjose, Flo Referring Unavailable Juanjose, Flo Attending Unavailable Dawkins, Gloria Primary Care Unavailable Allergies Allergy Classification Reported Allergen(s) Allergy Type Date of Onset Reaction(s) Facility (3 sources) penicillin drug allergy 4 [facility] [employer] Work Phone: (20 sources) Penicillins; Translations: [PENICILLINS] Propensity to adverse reactions to drug 4 [facility] Medications Current Medications Medication Drug Class(es) Dates Sig (Normalized) Sig (Original) ascorbic acid 500 mg chewable tablet (20 sources) Vitamin C Start: 08-21-2022 End: 11-19-2022 take 1 tablet by mouth once daily vitamin C (ASCORBIC ACID) 500 MG tablet Take 1 Tablet by mouth daily. 30 Tablet 3 08/21/2022 Active aspirin 81 mg oral tablet (20 sources) Nonsteroidal Anti-inflammatory Drug Start: 06-15-2020 take 1 tablet by mouth once daily aspirin 81 MG tablet Take 1 Tablet by mouth daily. 100 Tablet 3 06/15/2020 Active Start: 04-16-2014 take 81 mg by mouth once daily Aspirin Active 81 MG PO DAILY April 16, 2014 11:00pm Start: 04-16-2014 take 1 tablet by ramon th once daily ASPIRIN 81 MG TABS One tablet by mouth daily ASPIRIN [id number] Moses Alvares MD Start: 04-16-2014 take 1 tablet by ramon th once daily ASPIRIN 81 MG TABS One tablet by mouth daily ASPIRIN [id number] Moses Alvares MD cholecalciferol 0.025 mg oral tablet (20 sources) Vitamin D Start: 08-16-2020 take 1 tablet by mouth once daily Cholecalciferol (Vitamin D) 25 MCG (1000 UT) TABS Take 1 Tablet by mouth daily. 60 Tablet 2 08/16/2020 Active losartan potassium 25 mg oral tablet (20 sources) Angiotensin 2 Receptor Theodore Start: 11-07-2018 End: 01-23-2019 take 25 mg by mouth once daily Losartan Active 25 MG PO DAILY 90 January 23, 2019 2:57pm Start: 04-16-2014 End: 10-31-2018 take 25 mg by mouth once daily Losartan Discontinued 2 5 MG PO DAILY April 16, 2014 11:00pm October 31, 2018 2:53pm meloxicam 15 mg oral tablet (20 sources) Nonsteroidal Anti-inflammatory Drug Start: 12-28-2023 take 1 tablet by mouth once daily meloxicam (MOBIC) 15 MG tablet Take 15 mg by mouth daily. 12/28/2023 Active Start: 04-16-2015 End: 11-06-2015 take 1 tablet by mouth once daily MELOXICAM 15 MG TABS One tablet by mouth daily MELOXICAM [id number] Moses Alvares MD modafinil 100 mg oral tablet (17 sources) Sympathomimetic-like Agent Start: 10-08-2023 End: 01-06-2024 take 1 tablet by mouth once daily modafinil (PROVIGIL) 100 MG tablet Indications: Hypersomnia with sleep apnea Take 1 Tablet by mouth daily for 90 days. 30 Tablet 2 10/08/2023 Active MULTIPLE VITAMIN ORAL (20 sources) MULTIPLE VITAMIN ORAL daily. Active MULTIPLE VITAMIN ORAL daily. 0 Active multivitamin capsule (5 sources) Start: 10-31-2018 take 1 capsule by mouth once daily multivitamin capsule Active 1 CAP PO DAILY October 31, 2018 3:54pm Start: 10-31-2018 take 1 capsule by mo uth once daily multivitamin capsule Active 1 CAP PO DAILY October 31, 2018 12:00am Start: 10-31-2018 take 1 capsule by mo uth once daily multivitamin capsule Active 1 CAP PO DAILY October 31, 2018 1:00am naloxone hydrochloride 40 mg/ml nasal spray (17 sources) Opioid Antagonist Start: 01-14-2024 naloxone 4 m g/0.1 mL nasal liquid Use 1 [place] in one nostril (alternate sides) as needed for Drug Overdose for up to 1 dose. Every 2-3 mins. until help arrives. 1 Each 1 01/14/2024 Active oxyCODONE hydrochloride 5 mg oral tablet (9 sources) Opioid Agonist Start: 01-14-2024 End: 02-13-2024 take 1 tablet by mouth at bedtime oxyCODONE 5 MG immediate release tablet Indications: RLS (restless legs syndrome) Take 1 Tablet by mouth at bedtime for 30 days. 30 Tablet 0 01/14/2024 02/13/2024 Active Start: 10-29-2015 End: 11-22-2017 take 5 mg by mouth every six hours as needed Oxycodone Discontinued 5 MG PO EVERY 6 HOURS NEEDED October 29, 2015 12:00am November 22, 2017 9:19am pregabalin 200 mg oral capsule (20 sources) Start: 05-01-2022 take 1 capsule by mouth at bedtime pregabalin (LYRICA) 200 MG capsule take 1 capsule by mouth at bedtime IN ADDITION TO 50MG AT SUPPER 05/01/2022 Active Start: 05-01-2022 End: 10-08-2023 take 1 capsule by mouth once daily in the evening pregabalin (LYRICA) 50 MG capsule take 1 capsule by mouth every evening AROUND SUPPER TIME IN ADDITION TO 200MG DOSE AT BEDTIME 0 05/01/2022 10/08/2023 Discontinued Start: 07-21-2021 End: 05-05-2022 take 1 capsule by mouth once daily in the morning, then take 1 capsule by mouth once daily in the evening pregabalin (LYRICA) 25 MG capsule take 1 capsule by mouth every morning and 1 every evening 0 07/21/2021 05/05/2022 Discontinued (Error) Start: 10-01-2019 End: 05-05-2022 pregabalin (LYRICA) 100 MG c apsule at bedtime. 0 10/01/2019 05/05/2022 Discontinued (Error) Start: 10-31-2018 take 200 mg by mouth at bedtim e Pregabalin Active 200 MG PO AT BEDTIME October 31, 2018 2:53pm Start: 01-14-2018 End: 10-31-2018 Pregabalin Discontinued PO 6 0 January 13, 2018 11:00pm October 31, 2018 2:54pm Start: 01-14-2018 End: 01-14-2018 take 1 capsule by mouth at bedtime Pregabalin (Lyrica) 200 mg capsule Discontinued 200 MG PO AT BEDTIME January 13, 2018 11:00pm January 14, 2018 1:59pm tamsulosin hydrochloride 0.4 mg oral capsule (18 sources) alpha-Adrenergic Theodore Start: 08-04-2023 take 1 capsule by mouth at bedtime tamsulosin (FLOMAX) 0.4 MG capsule Take 0.4 mg by mouth at bedtime. 08/04/2023 Active Completed/Discontinued Medications Medication Drug Class(es) Dates Sig (Normalized) Sig (Original) acetaminophen 325 mg / HYDROcodone bitartrate 5 mg oral tablet (5 sources) Opioid Agonist Start: 11-23-2018 End: 11-26-2018 take 1 tablet by mouth every four hours as needed Hydrocodone-Acetam inophen Discontinued 1 TABLET PO EVERY 4 HOURS NEEDED 10 3 November 22, 2018 11:00pm November 25, 2018 11:09pm clonazePAM 0.25 mg disintegrating oral tablet (20 sources) Benzodiazepine Start: 05-05-2022 End: 01-14-2024 take 1 tablet by mouth at bedtime clonazePAM 0.25 MG TBDP Indications: Insomnia, unspecified type Take 0.25 mg by mouth at bedtime for 30 days. 30 Tablet 0 05/05/2022 01/14/2024 Discontinued Start: 01-14-2018 End: 10-31-2018 take 1 tablet by mouth twice daily Clonazepam (Klonopin) 0.5 mg tablet Discontinued 0.5 MG PO TWICE A DAY January 13, 2018 11:00pm October 31, 2018 2:53pm ferric carboxymaltose (INJECTAFER) 750 mg in sodium chloride 0.9 % 250 mL ivpb (1 source) Start: 10-12-2022 End: 10-12-2022 ferric carboxymaltose (INJECTAFER) 750 mg in sodium chloride 0.9 % 250 mL ivpb ferrous sulfate 325 mg oral tablet (11 sources) Start: 08-21-2022 End: 10-08-2023 take 1 tablet by mouth twice daily ferrous sulfate 325 (65 Fe) MG tablet Take 1 Tablet by mouth 2 times daily. 60 Tablet 3 08/21/2022 10/08/2023 Discontinued (Therapy completed) fluticasone propionate 0.05 mg/actuat metered dose nasal spray (6 sources) Corticosteroid Start: 04-16-2014 End: 04-16-2015 take 0.05 mg by inhalation once daily FLUTICASONE PROPIONATE 50 MCG/ACT SUSP (0.05mg/inh) 1 spray each nostril once a day FLUTICASONE PROPIONATE [id number] Moses Alvares MD Start: 04-16-2014 End: 04-16-2015 FLUTICASONE PROPIONATE 50 MC G/ACT SUSP (0.05mg/inh) 1 spray each nostril once a day FLUTICASONE PROPIONATE [id number] Moses Alvares MD gabapentin 400 mg oral capsule (6 sources) Anti-epileptic Agent Start: 04-16-2015 End: 11-06-2015 take 1 tablet by mouth once daily at bedtime GABAPENTIN 400 MG CAPS One tablet by mouth daily at bedtime GABAPENTIN [id number] Moses Alvares MD HYDROmorphone hydrochloride 2 mg oral tablet (5 sources) Opioid Agonist Start: 10-29-2015 End: 11-18-2015 take 2-4 mg by mouth four times daily as needed Hydromorphone Discontinued 2 - 4 MG PO 4 TIMES DAILY NEEDED October 29, 2015 2:05pm November 18, 2015 8:51am ibuprofen 400 mg oral tablet (5 sources) Nonsteroidal Anti-inflammatory Drug Start: 10-29-2015 End: 11-22-2017 take 400 mg by mouth every eight hours as needed Ibuprofen Discontinued 400 MG PO EVERY 8 HOURS NEEDED 0 October 29, 2015 1:31pm November 22, 2017 9:18am minocycline 100 mg oral tablet (6 sources) Tetracycline-class Drug Start: 11-06-2015 End: 12-30-2015 take 1 tablet by mouth twice daily MINOCYCLINE HCL 100 MG TABS One tablet by mouth twice daily MINOCYCLINE HCL [id number] Roger Philippe MD ondansetron 8 mg oral tablet (5 sources) Serotonin-3 Receptor Antagonist Start: 10-29-2015 End: 11-18-2015 take 4 mg by mouth every eight hours as needed Ondansetron Hcl Discontinued 4 MG PO EVERY 8 HOURS NEEDED October 29, 2015 1:35pm November 18, 2015 8:51am 24 hr rotigotine 0.0417 mg/hr transdermal system (6 sources) Start: 10-09-2021 End: 05-05-2022 apply 1 dose transdermal route once daily rotigotine (NEUPRO) 1 MG/24HR PT24 patch Place 1 Patch on the skin daily. 30 Patch 2 10/09/2021 05/05/2022 Discontinued (Therapy completed) vancomycin 50 mg/ml injectable solution (10 sources) Glycopeptide Antibacterial Start: 10-29-2015 End: 11-18-2015 take 1000 mg intravenously once daily Vancomycin Discontinued 1000 MG IV DAILY October 29, 2015 4:52pm November 18, 2015 8:50am Start: 10-29-2015 End: 10-29-2015 take 1250 mg intravenously every twelve hours Vancomycin Discontinued 1250 MG IV Q12H October 29, 2015 12:00am October 29, 2015 4:52pm Problems Active Problems Problem Classification Problem Date Documented Da te Episodic/Chronic Cancer of prostate (2 sources) Malignant neoplasm of prostate; Translations: [Malignant neoplasm of prostate] Onset: 11-02-2024 Chronic Cardiac dysrhythmias (2 sources) Bradycardia; Translations: [Bradycardia, unspecified] Onset: 05-19-2024 05-31-2024 Episodic Essential hypertension (8 sources) Hypertensive disorder; Translations: [Essential (primary) hypertension] Onset: 04-18-2014 04-18-2014 Chronic Genitourinary symptoms and ill-defined conditions (1 source) Dysuria; Translations: [Dysuria] Onset: 11-23-2024 Episodic Hyperplasia of prostate (7 sources) Large prostate ; Translations: [Benign prostatic hyperplasia without lower urinary tract symptoms] Onset: 07-10-2024 11-23-2018 Chronic Malaise and fatigue (4 sources) Fatigue; Translations: [Other fatigue] Onset: 05-03-2024 04-25-2024 Episodic Nutritional deficiencies (8 sources) Deficiency of macronutrients; Translations: [Unspecified severe protein-calorie malnutrition] Onset: 05-03-2024 11-23-2018 Chronic Other hereditary and degenerative nervous system conditions (20 sources) Restless legs; Translations: [Restless legs syndrome] Chronic Other hereditary and degenerative nervous system conditions (20 sources) Restless legs syndrome; Translations: [Restless legs syndrome (RLS)] Onset: 09-03-2022 Chronic Other nutritional; endocrine; and metabolic disorders (8 sources) Body mass index 30+ - obesity; Translations: [Body mass index (BMI) 32.0-32.9, adult] 05-01-2019 Chronic Other nutritional; endocrine; and metabolic disorders (2 sources) Disorder of iron metabolism; 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, unspecified] 04-28-2024 Chronic Other nutritional; endocrine; and metabolic disorders (1 source) Obese class I; Translations: [Obesity, unspecified] 05-31-2024 Chronic Other nutritional; endocrine; and metabolic disorders (1 source) Obesity, unspecified; Translations: [Obesity, unspecified] Onset: 05-19-2024 Chronic Other nutritional; endocrine; and metabolic disorders (1 source) Disorder of iron metabolism, unspecified; 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, unspecified] Onset: 05-03-2024 Chronic Other nutritional; endocrine; and metabolic disorders (1 source) Body mass index 25-29 - overweight; Translations: [Body mass index (BMI) 28.0-28.9, adult] Episodic Rehabilitation care; fitting of prostheses; and adjustment of devices (4 sources) Patient encounter status; Translations: [Encounter for adjustment and management of neurostimulator] Episodic Residual codes; unclassified (20 sources) Obstructive sleep apnea syndrome; Translations: [Obstructive sleep apnea (adult) (pediatric)] Onset: 10-20-2019 Chronic Residual codes; unclassified (20 sources) Device in situ; Translations: [Presence of functional implant, unspecified] Onset: 10-09-2021 Chronic Residual codes; unclassified (1 source) Hypersomnia with sleep apnea; Translations: [Hypersomnia, unspecified] 10-08-2023 Chronic Residual codes; unclassified (1 source) Obstructive sleep apnea (adult) (pediatric); Translations: [Obstructive sleep apnea (adult) (pediatric)] Onset: 04-25-2020 Chronic Residual codes; unclassified (1 source) Presence of functional implant, unspecified; Translations: [Presence of functional implant, unspecified] Onset: 10-09-2021 Chronic Residual codes; unclassified (1 source) Insomnia; Translations: [Insomnia, unspecified] Episodic Retinal detachments; defects; vascular occlusion; and retinopathy (5 sources) Retinal artery occlusion; Translations: [Unspecified retinal vascular occlusion] 09-28-2019 Chronic Past or Other Problems Problem Classification Problem Date Documented Da te Episodic/Chronic Abdominal hernia (10 sources) Umbilical hernia; Translations: [Umbilical hernia without obstruction or gangrene] 11-23-2018 Episodic Bacterial infection (8 sources) Methicillin resistant Staphylococcus aureus infection; Translations: [Methicillin resistant Staphylococcus aureus infection, unspecified site] Onset: 11-06-2015 12-30-2015 Episodic Hemorrhoids (5 sources) Hemorrhoids; Translations: [Unspecified hemorrhoids] 11-23-2018 Episodic Nonspecific chest pain (6 sources) Chest pain, unspecified; Translations: [Chest pain, unspecified] Onset: 04-11-2014 Resolved: 04-10-2016 04-10-2016 Episodic Open wounds of extremities (14 sources) Unspecified open wound of right hand, initial encounter; Translations: [Unspecified open wound of right hand, subsequent encounter] Onset: 11-06-2015 12-30-2015 Episodic Other aftercare (5 sources) Surgical follow-up; Translations: [Unspecified open wound of right hand, subsequent encounter] Onset: 11-06-2015 12-30-2015 Episodic Other aftercare (1 source) Encounter for therapeutic drug level monitoring; Translations: [Encounter for therapeutic drug level monitoring] Onset: 01-14-2024 Episodic Other circulatory disease (6 sources) Abnormal result of cardiovascular function study, unspecified; Translations: [Abnormal result of cardiovascular function study, unspecified] Onset: 04-16-2014 Resolved: 04-10-2016 04-16-2014 Episodic Other gastrointestinal disorders (5 sources) Incontinence of feces; Translations: [Full incontinence of feces] 11-23-2018 Episodic Other nervous system disorders (3 sources) Facial paresthesia; Translations: [Paresthesia of skin] 03-25-2023 Episodic Other nutritional; endocrine; and metabolic disorders (3 sources) Body mass index (BMI) 29.0-29.9, adult; Translations: [Body mass index (BMI) 29.0-29.9, adult] Onset: 04-16-2014 04-16-2014 Episodic Other screening for suspected conditions (not mental disorders or infectious disease) (2 sources) Raised prostate specific antigen; Translations: [Elevated prostate specific antigen [PSA]] Onset: 08-07-2024 06-16-2024 Episodic Other skin disorders (3 sources) Lesion of scalp; Translations: [Disorder of the skin and subcutaneous tissue, unspecified] 03-25-2023 Episodic Residual codes; unclassified (7 sources) Family history of ischemic heart disease and other diseases of the circulatory system; Translations: [Family history of coronary arteriosclerosis] 04-11-2014 Episodic Residual codes; unclassified (1 source) FH: Hypertension; Translations: [Family history of ischemic heart disease and other diseases of the circulatory system] 04-11-2014 Episodic Residual codes; unclassified (5 sources) History of cardiac catheterization; Translations: [Other specified postprocedural states] Onset: 04-13-2014 09-28-2019 Episodic Skin and subcutaneous tissue infections (3 sources) Abscess of hand; Translations: [Cutaneous abscess of right hand] Onset: 11-06-2015 12-30-2015 Episodic Unclassified (9 sources) Family history of stroke; Translations: [Family history of ischemic heart disease and other diseases of the circulatory system] 04-11-2014 Episodic Unclassified (5 sources) Right hand cellulitis and abscess 11-23-2018 Unclassified (5 sources) Abscess of fourth finger, right; Translations: [Abscess of fourth finger of right hand] 11-23-2018 Results Test Name Value Interpretation Reference Range Facility Radiation Oncology Visiton 0 12-12-2024 Radiation Oncology Visit [facility] [place] [address] OFFICE VISIT Date of Service: 12/12/24 1408 MR#: [id number] Acct: [id number] Name: JUVENCIO MACDONALD Rep #: [id number] : 1950 From: Flo Sow Age/Sex: 74/M Location: [facility] [place] Status: Signed Intake Vital Signs 11/14/24 15:12 12/12/24 14:12 Height 5 ft 10 in 5 ft 10 in Weight: 216 lb 5 oz 213 lb 1 oz BMI 31.0 30.5 BP 171/77 H 136/75 H Blood Pressure Location Rt brachial Rt brachial Position Sitting Sitting Respiration 18 18 Pulse 75 60 Pulse Source Monitor Monitor Temp 96.6 F L 96.9 F L Temperature Source Temporal Artery Temporal Artery Pulse Oximetry (%) 94 96 Oxygen Delivery Method room air room air Intake Visit Reasons: 1 MONTH F/U POST RT Is patient in pain?: No Allergies Penicillins Allergy (Verified 12/12/24 14:11) Rash Medications ???Medication ???Instructions ???Recorded ???Confirmed ???Type aspirin 81 mg tablet,delayed 81 mg PO DAILY 04/17/14 12/12/24 H istory release multivitamin 1 cap PO DAILY 10/31/18 12/12/24 H istory pregabalin 100 mg capsule 200 mg PO QHS 30 days 10/31/1810/07 History losartan 25 mg tablet 25 mg PO DAILY HTN #90 tabs 12/12/24 Rx finasteride 5 mg tablet 5 mg PO QHS 08/03/24 12/12/24 Hist ory tadalafil 5 mg tablet 5 mg PO QDAY 08/03/24 12/12/24 His tory tamsulosin 0.4 mg capsule 0.4 mg PO BID 08/17/24 12/12/24 Hi story loperamide 2 mg capsule (Imodium 2 mg PO Q6H PRN 10/12/24 12/12/24 History A-D) phenazopyridine 200 mg tablet 200 mg PO TID dysuria due to 10/2612/12/24 Rx (Pyridium) radiation therapy #30 tabs simethicone 125 mg capsule (Gas 125 mg PO QD-BID PRN 10/26/24 0410/07 History Relief (simethicone)) Have you fallen in the past year?: No PFSH PFSH Medical History Wears glasses MRSA infection Arthritis Bladder disease Back pain Restless legs Sleep apnea History of echocardiogram Cardiology follow-up encounter Abnormal prostate biopsy Prostate cancer Inguinal hernia of left side without obstruction or gangrene Family history of coronary arteriosclerosis Retinal artery occlusion Obstructive sleep apnea Hypertension Home Medications ???Medication ???Instructions ???Recorded ???Last Taken ???Type aspirin 81 mg tablet,delayed 81 mg PO DAILY 04/17/14 09/06/24 H istory release multivitamin 1 cap PO DAILY 10/31/18 09/19/24 H istory pregabalin 100 mg capsule 200 mg PO QHS 30 days 10/31/1804/06 History losartan 25 mg tablet 25 mg PO DAILY HTN #90 tabs 09/20/24 Rx finasteride 5 mg tablet 5 mg PO QHS 08/03/24 09/19/24 Hist ory tadalafil 5 mg tablet 5 mg PO QDAY 08/03/24 09/19/24 His tory tamsulosin 0.4 mg capsule 0.4 mg PO BID 08/17/24 09/19/24 Hi story loperamide 2 mg capsule (Imodium 2 mg PO Q6H PRN 10/12/24 Unknown H istory A-D) phenazopyridine 200 mg tablet 200 mg PO TID dysuria due to 10/26 Unknown Rx (Pyridium) radiation therapy #30 tabs simethicone 125 mg capsule (Gas 125 mg PO QD-BID PRN 10/26/24 Unkn own History Relief (simethicone)) Allergy/AdvReac Type Severity Reaction Status Date / Time Penicillins Allergy Rash Verified 12/12/24 14:11 Family History Father CAD (coronary artery disease) <55 years of age Sister CAD (coronary artery disease) <65 years of age Mother CVA (cerebral vascular accident) Surgical History Hx of colonoscopy S/P left inguinal hernia repair History of hand surgery ( 10/25/15) History of left heart catheterization ( 04/18/14) Social History Smoking Status: Never smoker alcohol intake: former substance use type: does not use Diagnosis: Juvencio Macdonald is a 74 year-old male diagnosed with 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 From 10/09/2024 ??? 11/15/2024 he completed definitive radiation therapy with ADT. History of Present Illness: 06/26/2024: MRI pelvis with and without contrast was performed.??? This demonstrated a T2 hypointense lesion involving the bilateral peripheral zone from near base to near apex measuring about 2.8 x 4.4 x 2.8 cm.??? Capsular margin and neurovascular bundle are free of disease, bilateral seminal vesicle invasion is noted.??? No adenopathy is appreciated.??? PI-RADS 5 07/18/2024: Patient completed TRUS guided prostate biopsy.??? Pathology demonstrated Grzegorz 3+4 adenocarcinoma involving greater than 95% of 1/ (more content not included)... Normal [facility] Radiation Oncology Visiton 0 11-14-2024 Radiation Oncology Visit [facility] [address] [place] [address] OFFICE VISIT Date of Service: 11/14/24 1534 MR#: [id number] Acct: [id number] Name: JUVENCIO MACDONALD Rep #: [id number] : 1950 From: Flo Sow DO Age/Sex: 74/M Location: [facility] 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 Oncologic History: 06/26/2024: MRI pelvis with and without contrast was performed.??? This demonstrated a T2 hypointense lesion involving the bilateral peripheral zone from near base to near apex measuring about 2.8 x 4.4 x 2.8 cm.??? Capsular margin and neurovascular bundle are free of disease, bilateral seminal vesicle invasion is noted.??? No adenopathy is appreciated.??? PI-RADS 5 07/18/2024: Patient completed TRUS guided prostate biopsy.??? Pathology demonstrated Canvas 3+4 adenocarcinoma involving greater than 95% of 1/1 core the right prostate base, greater than 95% of 1/1 core in the left prostate apex, about 70% of 1/1 core in the left prostate mid, and greater than 90% of 1/1 core in the left prostate base, there is also Canvas 3+3 adenocarcinoma involving greater than 90% of 1/1 core in the right prostate apex and greater than 90% of 1/1 core in the right prostate mid.??? No negative samples were obtained. 07/24/2024: CT A/P with contrast performed.??? Enlargement of prostate measuring 4.2 x 4.5 cm with indentation of bladder base.??? No other abnormalities. 07/25/2024: Bone scan showed ESPERANZA 08/15/2024: PSMA PET performed.??? This demonstrated increased tracer uptake in the prostate, no evidence of metastasis.??? Radiation Treatment History: None The patient completed a course of external beam radiotherapy in our department. This treatment was delivered for curative intent. Treatment was given according to the following parameters: JUVENCIO MACDONALD received definitive radiation therapy consisting of 7000 cGy delivered to the prostate and 5040 cGy delivered to the elective pelvic lymph nodes all in 28 fractions. He was treated with a VMAT plan using 10 MV photons. The patient did not receive concurrent chemotherapy, did get ADT. Date of First Treatment: 10/09/2024 Date of Last Treatment: 11/15/2024 Total Elapsed Days (including weekend and holidays): 37 Missed Treatments: none Response and Tolerance: The patient tolerated this course of radiotherapy well overall. The following radiation related toxicities developed during the course of radiation therapy: * Severe urinary symptoms with weak stream, taking flomax bid, finesteride, cialis, did do ibuprofen and medrol dose cristian, initially severe and improved over the last half of treatment * Grade 1 fatigue * dysuria treated with pyridium Total weight change during therapy: N/A Disposition: The patient tolerated the planned course of radiation therapy well overall in an appropriate time course. I reviewed management of potential toxicities and discussed expected timing for toxicity resolution. I will have JUVENCIO follow-up in one month for a routine visit. JUVENCIO will maintain follow up with all other providers. JUVENCIO was instructed to call with any further questions or concerns in the interim. If we can provide any further information on this patient's course of care, please do not hesitate to ask. We would like to thank you very much for allowing us to participate in the care of this patient. Sincerely, Flo Sow DO, MS [employer] Analyst, Department of Radiation Oncology [facility] 11/15/24 1014 Date Flo Sow DO [facility] Signature: Date (if applicable) CC: Dr. Gloria Dawkins MD; Dr. Mani Smith MD Normal [facility] Radiation Oncology Visit [facility] [place] [address] OFFICE VISIT Date of Service: 11/14/24 1511 MR#: [id number] Acct: [id number] Name: MACDONALD,JUVENCIOAIDEN ROCK Rep #: [id number] : 1950 From: Flo Sow DO Age/Sex: 74/M Location: [facility] [place] Status: Signed Intake Vital Signs 09/20/24 06:35 11/14/24 15:12 Height 5 ft 10 in 5 ft 10 in Weight: 216 lb 5 oz BMI 31.0 BP 171/77 H Blood Pressure Location Rt brachial Position Sitting Respiration 18 Pulse 75 Pulse Source Monitor Temp 96.6 F L Temperature Source Temporal Artery Pulse Oximetry (%) 94 Oxygen Delivery Method room air Intake Visit Reasons: OTV Is patient in pain?: No Allergies Penicillins Allergy (Verified 11/14/24 15:21) Rash Medications ???Medication ???Instructions ???Recorded ???Confirmed ???Type aspirin 81 mg tablet,delayed 81 mg PO DAILY 04/17/14 11/14/24 H istory release multivitamin 1 cap PO DAILY 10/31/18 11/14/24 H istory pregabalin 100 mg capsule 200 mg PO QHS 30 days 10/31/1801/05 History losartan 25 mg tablet 25 mg PO DAILY HTN #90 tabs 11/14/24 Rx finasteride 5 mg tablet 5 mg PO QHS 08/03/24 11/14/24 Hist ory tadalafil 5 mg tablet 5 mg PO QDAY 08/03/24 11/14/24 His tory tamsulosin 0.4 mg capsule 0.4 mg PO BID 08/17/24 11/14/24 Hi story loperamide 2 mg capsule (Imodium 2 mg PO Q6H PRN 10/12/24 11/14/24 History A-D) phenazopyridine 200 mg tablet 200 mg PO TID dysuria due to 10/2611/14/24 Rx (Pyridium) radiation therapy #30 tabs simethicone 125 mg capsule (Gas 125 mg PO QD-BID PRN 10/26/2401/05 History Relief (simethicone)) Have you fallen in the past year?: No PFSH PFSH Medical History Wears glasses MRSA infection Arthritis Bladder disease Back pain Restless legs Sleep apnea History of echocardiogram Cardiology follow-up encounter Abnormal prostate biopsy Prostate cancer Inguinal hernia of left side without obstruction or gangrene Family history of coronary arteriosclerosis Retinal artery occlusion Obstructive sleep apnea Hypertension Home Medications ???Medication ???Instructions ???Recorded ???Last Taken ???Type aspirin 81 mg tablet,delayed 81 mg PO DAILY 04/17/14 09/06/24 H istory release multivitamin 1 cap PO DAILY 10/31/18 09/19/24 H istory pregabalin 100 mg capsule 200 mg PO QHS 30 days 10/31/1804/06 History losartan 25 mg tablet 25 mg PO DAILY HTN #90 tabs 09/20/24 Rx finasteride 5 mg tablet 5 mg PO QHS 08/03/24 09/19/24 Hist ory tadalafil 5 mg tablet 5 mg PO QDAY 08/03/24 09/19/24 His tory tamsulosin 0.4 mg capsule 0.4 mg PO BID 08/17/24 09/19/24 Hi story loperamide 2 mg capsule (Imodium 2 mg PO Q6H PRN 10/12/24 Unknown H istory A-D) phenazopyridine 200 mg tablet 200 mg PO TID dysuria due to 10/26 Unknown Rx (Pyridium) radiation therapy #30 tabs simethicone 125 mg capsule (Gas 125 mg PO QD-BID PRN 10/26/24 Unkn own History Relief (simethicone)) Allergy/AdvReac Type Severity Reaction Status Date / Time Penicillins Allergy Rash Verified 11/14/24 15:21 Family History Father CAD (coronary artery disease) <55 years of age Sister CAD (coronary artery disease) <65 years of age Mother CVA (cerebral vascular accident) Surgical History Hx of colonoscopy S/P left inguinal hernia repair History of hand surgery ( 10/25/15) History of left heart catheterization ( 04/18/14) Social History Smoking Status: Never smoker alcohol intake: former substance use type: does not use Diagnosis: Juvencio Macdonald is a 74 year-old male diagnosed with 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 Plan: Plan was made to complete definitive radiation therapy consisting of 7000 cGy delivered to the prostate and 5040 cGy delivered to the elective pelvic lymph nodes all in 28 fractions. Treatment Data: Treatment Site: Prostate and nodes Current total dose/Total dose planned: 7000 cGy / 7000 cGy Fraction number: Chemotherapy: ADT Subjective: Pain: 0 / 10, dysuria Fatigue: none Skin: no erythema, rash, desquamation GI: no diarrhea/constipation. No rectal pain or bleeding. increase bloating and gas : Severe symptoms at baseline initially increased and now has largely normalized, flomax bid and finesteride, added ibuprofen but now not really taking, medrol dose cristian. pyridium for dysuria Objective (more content not included)... Normal [facility] Radiation Oncology Visiton 0 11-09-2024 Radiation Oncology Visit [facility] [address] [place] [address] OFFICE VISIT Date of Service: 11/09/24 1504 MR#: [id number] Acct: [id number] Name: JUVENCIO MACDONALD Rep #: [id number] : 1950 From: Flo Juanjose DO Age/Sex: 74/M Location: [facility] [place] Status: Signed Intake Vital Signs 09/20/24 06:35 11/09/24 15:07 Height 5 ft 10 in 5 ft 10 in Weight: 216 lb 1 oz BMI 30.9 BP 133/74 H Blood Pressure Location Rt brachial Position Sitting Respiration 18 Pulse 72 Pulse Source Monitor Temp 97.8 F Temperature Source Temporal Artery Pulse Oximetry (%) 94 Oxygen Delivery Method room air Intake Visit Reasons: OTV Is patient in pain?: No Allergies Penicillins Allergy (Verified 11/09/24 15:06) Rash Medications ???Medication ???Instructions ???Recorded ???Confirmed ???Type aspirin 81 mg tablet,delayed 81 mg PO DAILY 04/17/14 11/09/24 H istory release multivitamin 1 cap PO DAILY 10/31/18 11/09/24 H istory pregabalin 100 mg capsule 200 mg PO QHS 30 days 10/31/18 History losartan 25 mg tablet 25 mg PO DAILY HTN #90 tabs 11/09/24 Rx finasteride 5 mg tablet 5 mg PO QHS 08/03/24 11/09/24 Hist ory tadalafil 5 mg tablet 5 mg PO QDAY 08/03/24 11/09/24 His tory tamsulosin 0.4 mg capsule 0.4 mg PO BID 08/17/24 11/09/24 Hi story loperamide 2 mg capsule (Imodium 2 mg PO Q6H PRN 10/12/24 11/09/24 History A-D) phenazopyridine 200 mg tablet 200 mg PO TID dysuria due to 10/2611/09/24 Rx (Pyridium) radiation therapy #30 tabs simethicone 125 mg capsule (Gas 125 mg PO QD-BID PRN 10/26/2410/15 History Relief (simethicone)) Have you fallen in the past year?: No PFSH PFSH Medical History Wears glasses MRSA infection Arthritis Bladder disease Back pain Restless legs Sleep apnea History of echocardiogram Cardiology follow-up encounter Abnormal prostate biopsy Prostate cancer Inguinal hernia of left side without obstruction or gangrene Family history of coronary arteriosclerosis Retinal artery occlusion Obstructive sleep apnea Hypertension Home Medications ???Medication ???Instructions ???Recorded ???Last Taken ???Type aspirin 81 mg tablet,delayed 81 mg PO DAILY 04/17/14 09/06/24 H istory release multivitamin 1 cap PO DAILY 10/31/18 09/19/24 H istory pregabalin 100 mg capsule 200 mg PO QHS 30 days 10/31/1804/06 History losartan 25 mg tablet 25 mg PO DAILY HTN #90 tabs 09/20/24 Rx finasteride 5 mg tablet 5 mg PO QHS 08/03/24 09/19/24 Hist ory tadalafil 5 mg tablet 5 mg PO QDAY 08/03/24 09/19/24 His tory tamsulosin 0.4 mg capsule 0.4 mg PO BID 08/17/24 09/19/24 Hi story loperamide 2 mg capsule (Imodium 2 mg PO Q6H PRN 10/12/24 Unknown H istory A-D) phenazopyridine 200 mg tablet 200 mg PO TID dysuria due to 10/26 Unknown Rx (Pyridium) radiation therapy #30 tabs simethicone 125 mg capsule (Gas 125 mg PO QD-BID PRN 10/26/24 Unkn own History Relief (simethicone)) Allergy/AdvReac Type Severity Reaction Status Date / Time Penicillins Allergy Rash Verified 11/09/24 15:06 Family History Father CAD (coronary artery disease) <55 years of age Sister CAD (coronary artery disease) <65 years of age Mother CVA (cerebral vascular accident) Surgical History Hx of colonoscopy S/P left inguinal hernia repair History of hand surgery ( 10/25/15) History of left heart catheterization ( 04/18/14) Social History Smoking Status: Never smoker alcohol intake: former substance use type: does not use Diagnosis: Juvencio Macdonald is a 74 year-old male diagnosed with 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 Plan: Plan was made to complete definitive radiation therapy consisting of 7000 cGy delivered to the prostate and 5040 cGy delivered to the elective pelvic lymph nodes all in 28 fractions. Treatment Data: Treatment Site: Prostate and nodes Current total dose/Total dose planned: 6000 cGy / 7000 cGy Fraction number: Chemotherapy: ADT Subjective: Pain: 0 / 10, dysuria Fatigue: none Skin: no erythema, rash, desquamation GI: no diarrhea/constipation. No rectal pain or bleeding. No bloating or increased gas : Severe symptoms at baseline initially increased and now has largely normalized, flomax bid and finesteride, added ibuprofen but now not really taking, medrol dose cristian. pyridium for dysuria Objectiv (more content not included)... Normal [facility] Radiation Oncology Visiton 0 11-01-2024 Radiation Oncology Visit [facility] [address] [place] [address] OFFICE VISIT Date of Service: 11/01/24 1418 MR#: [id number] Acct: [id number] Name: JUVENCIO MACDONALD Rep #: [id number] : 1950 From: Flo Sow DO Age/Sex: 74/M Location: [facility] [place] Status: Signed Intake Vital Signs 09/20/24 06:35 11/01/24 14:19 Height 5 ft 10 in 5 ft 10 in Weight: 215 lb 3 oz BMI 30.9 BP 146/78 H Blood Pressure Location Rt brachial Position Sitting Respiration 18 Pulse 75 Pulse Source Monitor Temp 96.8 F L Temperature Source Temporal Artery Pulse Oximetry (%) 95 Oxygen Delivery Method room air Intake Visit Reasons: OTV Is patient in pain?: No Allergies Penicillins Allergy (Verified 11/01/24 14:18) Rash Medications ???Medication ???Instructions ???Recorded ???Confirmed ???Type aspirin 81 mg tablet,delayed 81 mg PO DAILY 04/17/14 11/01/24 H istory release multivitamin 1 cap PO DAILY 10/31/18 11/01/24 H istory pregabalin 100 mg capsule 200 mg PO QHS 30 days 10/31/18 History losartan 25 mg tablet 25 mg PO DAILY HTN #90 tabs 11/01/24 Rx finasteride 5 mg tablet 5 mg PO QHS 08/03/24 11/01/24 Hist ory tadalafil 5 mg tablet 5 mg PO QDAY 08/03/24 11/01/24 His tory tamsulosin 0.4 mg capsule 0.4 mg PO BID 08/17/24 11/01/24 Hi story loperamide 2 mg capsule (Imodium 2 mg PO Q6H PRN 10/12/24 11/01/24 History A-D) phenazopyridine 200 mg tablet 200 mg PO TID dysuria due to 10/2611/01/24 Rx (Pyridium) radiation therapy #30 tabs simethicone 125 mg capsule (Gas 125 mg PO QD-BID PRN 10/26/2410/14 History Relief (simethicone)) Have you fallen in the past year?: No PFSH PFSH Medical History Wears glasses MRSA infection Arthritis Bladder disease Back pain Restless legs Sleep apnea History of echocardiogram Cardiology follow-up encounter Abnormal prostate biopsy Prostate cancer Inguinal hernia of left side without obstruction or gangrene Family history of coronary arteriosclerosis Retinal artery occlusion Obstructive sleep apnea Hypertension Home Medications ???Medication ???Instructions ???Recorded ???Last Taken ???Type aspirin 81 mg tablet,delayed 81 mg PO DAILY 04/17/14 09/06/24 H istory release multivitamin 1 cap PO DAILY 10/31/18 09/19/24 H istory pregabalin 100 mg capsule 200 mg PO QHS 30 days 10/31/1804/06 History losartan 25 mg tablet 25 mg PO DAILY HTN #90 tabs 09/20/24 Rx finasteride 5 mg tablet 5 mg PO QHS 08/03/24 09/19/24 Hist ory tadalafil 5 mg tablet 5 mg PO QDAY 08/03/24 09/19/24 His tory tamsulosin 0.4 mg capsule 0.4 mg PO BID 08/17/24 09/19/24 Hi story loperamide 2 mg capsule (Imodium 2 mg PO Q6H PRN 10/12/24 Unknown H istory A-D) phenazopyridine 200 mg tablet 200 mg PO TID dysuria due to 10/26 Unknown Rx (Pyridium) radiation therapy #30 tabs simethicone 125 mg capsule (Gas 125 mg PO QD-BID PRN 10/26/24 Unkn own History Relief (simethicone)) Allergy/AdvReac Type Severity Reaction Status Date / Time Penicillins Allergy Rash Verified 11/01/24 14:18 Family History Father CAD (coronary artery disease) <55 years of age Sister CAD (coronary artery disease) <65 years of age Mother CVA (cerebral vascular accident) Surgical History Hx of colonoscopy S/P left inguinal hernia repair History of hand surgery ( 10/25/15) History of left heart catheterization ( 04/18/14) Social History Smoking Status: Never smoker alcohol intake: former substance use type: does not use Diagnosis: Juvencio Macdonald is a 74 year-old male diagnosed with 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 Plan: Plan was made to complete definitive radiation therapy consisting of 7000 cGy delivered to the prostate and 5040 cGy delivered to the elective pelvic lymph nodes all in 28 fractions. Treatment Data: Treatment Site: Prostate and nodes Current total dose/Total dose planned: 4500 cGy / 7000 cGy Fraction number: Chemotherapy: ADT Subjective: Pain: 0 / 10, dysuria Fatigue: none Skin: no erythema, rash, desquamation GI: no diarrhea/constipation. No rectal pain or bleeding. No bloating or increased gas : Severe symptoms at baseline initially increased and now has largely normalized, flomax bid and finesteride, added ibuprofen but now not really taking, medrol dose cristian. pyridium for dysuria Object (more content not included)... Normal [facility] Radiation Oncology Visiton 0 10-26-2024 Radiation Oncology Visit [facility] [address] [place] [address] OFFICE VISIT Date of Service: 10/26/24 1520 MR#: [id number] Acct: [id number] Name: JUVENCIO MACDONALD Rep #: [id number] : 1950 From: Flo Sow DO Age/Sex: 74/M Location: [facility] [place] Status: Signed Intake Vital Signs 09/20/24 06:35 02/13/25 15:22 Height 5 ft 10 in 5 ft 10 in Weight: 213 lb 1 oz BMI 30.5 BP 145/76 H Blood Pressure Location Rt brachial Position Sitting Respiration 16 Pulse 75 Pulse Source Monitor Temp 97.0 F L Temperature Source Temporal Artery Pulse Oximetry (%) 94 Oxygen Delivery Method room air Intake Visit Reasons: OTV Is patient in pain?: No Allergies Penicillins Allergy (Verified 10/26/24 15:26) Rash Medications ???Medication ???Instructions ???Recorded ???Confirmed ???Type aspirin 81 mg tablet,delayed 81 mg PO DAILY 04/17/14 10/26/24 H istory release multivitamin 1 cap PO DAILY 10/31/18 10/26/24 H istory pregabalin 100 mg capsule 200 mg PO QHS 30 days 10/31/18 History losartan 25 mg tablet 25 mg PO DAILY HTN #90 tabs 10/26/24 Rx finasteride 5 mg tablet 5 mg PO QHS 08/03/24 10/26/24 Hist ory tadalafil 5 mg tablet 5 mg PO QDAY 08/03/24 10/26/24 His tory tamsulosin 0.4 mg capsule 0.4 mg PO BID 08/17/24 10/26/24 Hi story loperamide 2 mg capsule (Imodium 2 mg PO Q6H PRN 10/12/24 10/26/24 History A-D) phenazopyridine 200 mg tablet 200 mg PO TID dysuria due to 10/2610/26/24 Rx (Pyridium) radiation therapy #30 tabs simethicone 125 mg capsule (Gas 125 mg PO QD-BID PRN 10/26/2410/14 History Relief (simethicone)) Have you fallen in the past year?: No PFSH PFSH Medical History Wears glasses MRSA infection Arthritis Bladder disease Back pain Restless legs Sleep apnea History of echocardiogram Cardiology follow-up encounter Abnormal prostate biopsy Prostate cancer Inguinal hernia of left side without obstruction or gangrene Family history of coronary arteriosclerosis Retinal artery occlusion Obstructive sleep apnea Hypertension Home Medications ???Medication ???Instructions ???Recorded ???Last Taken ???Type aspirin 81 mg tablet,delayed 81 mg PO DAILY 04/17/14 09/06/24 H istory release multivitamin 1 cap PO DAILY 10/31/18 09/19/24 H istory pregabalin 100 mg capsule 200 mg PO QHS 30 days 10/31/1804/06 History losartan 25 mg tablet 25 mg PO DAILY HTN #90 tabs 09/20/24 Rx finasteride 5 mg tablet 5 mg PO QHS 08/03/24 09/19/24 Hist ory tadalafil 5 mg tablet 5 mg PO QDAY 08/03/24 09/19/24 His tory tamsulosin 0.4 mg capsule 0.4 mg PO BID 08/17/24 09/19/24 Hi story loperamide 2 mg capsule (Imodium 2 mg PO Q6H PRN 10/12/24 Unknown H istory A-D) phenazopyridine 200 mg tablet 200 mg PO TID dysuria due to 10/26 Unknown Rx (Pyridium) radiation therapy #30 tabs simethicone 125 mg capsule (Gas 125 mg PO QD-BID PRN 10/26/24 Unkn own History Relief (simethicone)) Allergy/AdvReac Type Severity Reaction Status Date / Time Penicillins Allergy Rash Verified 10/26/24 15:26 Family History Father CAD (coronary artery disease) <55 years of age Sister CAD (coronary artery disease) <65 years of age Mother CVA (cerebral vascular accident) Surgical History Hx of colonoscopy S/P left inguinal hernia repair History of hand surgery ( 10/25/15) History of left heart catheterization ( 04/18/14) Social History Smoking Status: Never smoker alcohol intake: former substance use type: does not use Diagnosis: Juvencio Macdonald is a 74 year-old male diagnosed with 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 Plan: Plan was made to complete definitive radiation therapy consisting of 7000 cGy delivered to the prostate and 5040 cGy delivered to the elective pelvic lymph nodes all in 28 fractions. Treatment Data: Treatment Site: Prostate and nodes Current total dose/Total dose planned: 3500 cGy / 7000 cGy Fraction number: Chemotherapy: ADT Subjective: Pain: 0 / 10, dysuria Fatigue: none Skin: no erythema, rash, desquamation GI: no diarrhea/constipation. No rectal pain or bleeding. No bloating or increased gas : Severe symptoms at baseline increased last week, still high but reduced some this week, flomax bid and finesteride, added ibuprofen, medrol dose cristian. pyridium for dysuria, urinary symptoms have sta (more content not included)... Normal [facility] Radiation Oncology Visiton 0 10-19-2024 Radiation Oncology Visit [facility] [address] [place] [address]. [place] [address] OFFICE VISIT Date of Service: 10/19/24 1527 MR#: [id number] Acct: [id number] Name: JUVENCIO MACDONALD Rep #: [id number] : 1950 From: Flo Sow DO Age/Sex: 74/M Location: [facility] [place] [place] Status: Signed Intake Vital Signs 09/20/24 06:35 10/19/24 15:32 Height 5 ft 10 in 5 ft 10 in Weight: 213 lb 9 oz BMI 30.6 BP 156/73 H Blood Pressure Location Rt brachial Position Sitting Respiration 16 Pulse 87 Pulse Source Monitor Temp 98.5 F Temperature Source Temporal Artery Pulse Oximetry (%) 93 Oxygen Delivery Method room air Intake Visit Reasons: OTV Is patient in pain?: No Allergies Penicillins Allergy (Verified 10/12/24 15:01) Rash Medications ???Medication ???Instructions ???Recorded ???Confirmed ???Type aspirin 81 mg tablet,delayed 81 mg PO DAILY 04/17/14 10/19/24 H istory release multivitamin 1 cap PO DAILY 10/31/18 10/19/24 H istory pregabalin 100 mg capsule 200 mg PO QHS 30 days 10/31/1803/07 History losartan 25 mg tablet 25 mg PO DAILY HTN #90 tabs 10/19/24 Rx finasteride 5 mg tablet 5 mg PO QHS 08/03/24 10/19/24 Hist ory tadalafil 5 mg tablet 5 mg PO QDAY 08/03/24 10/19/24 His tory tamsulosin 0.4 mg capsule 0.4 mg PO BID 08/17/24 10/19/24 Hi story loperamide 2 mg capsule (Imodium 2 mg PO Q6H PRN 10/12/24 10/19/24 History A-D) methylprednisolone 4 mg tablets in 4 mg PO PER PKG DIR #21 tabs 10/19/24 Rx a dose pack (Medrol (Cristian)) phenazopyridine 200 mg tablet 200 mg PO TID 10/19/24 10/19/24 Hi story (Pyridium) Have you fallen in the past year?: No PFSH PFSH Medical History Wears glasses MRSA infection Arthritis Bladder disease Back pain Restless legs Sleep apnea History of echocardiogram Cardiology follow-up encounter Abnormal prostate biopsy Prostate cancer Inguinal hernia of left side without obstruction or gangrene Family history of coronary arteriosclerosis Retinal artery occlusion Obstructive sleep apnea Hypertension Home Medications ???Medication ???Instructions ???Recorded ???Last Taken ???Type aspirin 81 mg tablet,delayed 81 mg PO DAILY 04/17/14 09/06/24 H istory release multivitamin 1 cap PO DAILY 10/31/18 09/19/24 H istory pregabalin 100 mg capsule 200 mg PO QHS 30 days 10/31/1804/06 History losartan 25 mg tablet 25 mg PO DAILY HTN #90 tabs 09/20/24 Rx finasteride 5 mg tablet 5 mg PO QHS 08/03/24 09/19/24 Hist ory tadalafil 5 mg tablet 5 mg PO QDAY 08/03/24 09/19/24 His tory tamsulosin 0.4 mg capsule 0.4 mg PO BID 08/17/24 09/19/24 Hi story loperamide 2 mg capsule (Imodium 2 mg PO Q6H PRN 10/12/24 Unknown H istory A-D) methylprednisolone 4 mg tablets in 4 mg PO PER PKG DIR #21 tabs Unknown Rx a dose pack (Medrol (Cristian)) phenazopyridine 200 mg tablet 200 mg PO TID 10/19/24 Unknown His tory (Pyridium) Allergy/AdvReac Type Severity Reaction Status Date / Time Penicillins Allergy Rash Verified 10/12/24 15:01 Family History Father CAD (coronary artery disease) <55 years of age Sister CAD (coronary artery disease) <65 years of age Mother CVA (cerebral vascular accident) Surgical History Hx of colonoscopy S/P left inguinal hernia repair History of hand surgery ( 10/25/15) History of left heart catheterization ( 04/18/14) Social History Smoking Status: Never smoker alcohol intake: former substance use type: does not use Diagnosis: Juvencio Macdonald is a 74 year-old male diagnosed with 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 Plan: Plan was made to complete definitive radiation therapy consisting of 7000 cGy delivered to the prostate and 5040 cGy delivered to the elective pelvic lymph nodes all in 28 fractions. Treatment Data: Treatment Site: Prostate and nodes Current total dose/Total dose planned: 2250 cGy / 7000 cGy Fraction number: Chemotherapy: ADT Subjective: Pain: 0 / 10 Fatigue: none Skin: no erythema, rash, desquamation GI: no diarrhea/constipation. No rectal pain or bleeding. No bloating or increased gas : Severe symptoms at baseline increased last week, still high but reduced some this week, flomax bid and finesteride, added ibuprofen, medrol dose cristian. No dysuria or hematuria Objective: Weight: 213 lbs 9 oz Physical Exam: Gen: NAD Skin: no erythema, (more content not included)... Normal [facility] Radiation Oncology Visiton 0 10-12-2024 Radiation Oncology Visit [facility] [address] [place] [address] OFFICE VISIT Date of Service: 10/12/24 1458 MR#: [id number] Acct: [id number] Name: JUVENCIO MACDONALD Rep #: [id number] : 1950 From: Flo Sow DO Age/Sex: 74/M Location: [facility] [place] Status: Signed Intake Vital Signs 09/20/24 06:35 10/12/24 15:00 Height 5 ft 10 in 5 ft 10 in Weight: 212 lb 3 oz BMI 30.4 BP 147/71 H Blood Pressure Location Rt brachial Position Sitting Respiration 16 Pulse 72 Pulse Source Monitor Temp 98.2 F Temperature Source Temporal Artery Pulse Oximetry (%) 97 Oxygen Delivery Method room air Intake Visit Reasons: OTV Is patient in pain?: No Allergies Penicillins Allergy (Verified 10/12/24 15:01) Rash Medications ???Medication ???Instructions ???Recorded ???Confirmed ???Type aspirin 81 mg tablet,delayed 81 mg PO DAILY 04/17/14 09/20/24 H istory release multivitamin 1 cap PO DAILY 10/31/18 09/20/24 H istory pregabalin 100 mg capsule 200 mg PO QHS 30 days 10/31/1805/07 History losartan 25 mg tablet 25 mg PO DAILY HTN #90 tabs 09/20/24 Rx finasteride 5 mg tablet 5 mg PO QHS 08/03/24 09/20/24 Hist ory tadalafil 5 mg tablet 5 mg PO QDAY 08/03/24 09/20/24 His tory tamsulosin 0.4 mg capsule 0.4 mg PO BID 08/17/24 09/20/24 Hi story loperamide 2 mg capsule (Imodium 2 mg PO Q6H PRN 10/12/24 10/12/24 History A-D) Have you fallen in the past year?: No PFSH PFSH Medical History Wears glasses MRSA infection Arthritis Bladder disease Back pain Restless legs Sleep apnea History of echocardiogram Cardiology follow-up encounter Abnormal prostate biopsy Prostate cancer Inguinal hernia of left side without obstruction or gangrene Family history of coronary arteriosclerosis Retinal artery occlusion Obstructive sleep apnea Hypertension Home Medications ???Medication ???Instructions ???Recorded ???Last Taken ???Type aspirin 81 mg tablet,delayed 81 mg PO DAILY 04/17/14 09/06/24 H istory release multivitamin 1 cap PO DAILY 10/31/18 09/19/24 H istory pregabalin 100 mg capsule 200 mg PO QHS 30 days 10/31/1804/06 History losartan 25 mg tablet 25 mg PO DAILY HTN #90 tabs 09/20/24 Rx finasteride 5 mg tablet 5 mg PO QHS 08/03/24 09/19/24 Hist ory tadalafil 5 mg tablet 5 mg PO QDAY 08/03/24 09/19/24 His tory tamsulosin 0.4 mg capsule 0.4 mg PO BID 08/17/24 09/19/24 Hi story loperamide 2 mg capsule (Imodium 2 mg PO Q6H PRN 10/12/24 Unknown H istory A-D) Allergy/AdvReac Type Severity Reaction Status Date / Time Penicillins Allergy Rash Verified 10/12/24 15:01 Family History Father CAD (coronary artery disease) <55 years of age Sister CAD (coronary artery disease) <65 years of age Mother CVA (cerebral vascular accident) Surgical History Hx of colonoscopy S/P left inguinal hernia repair History of hand surgery ( 10/25/15) History of left heart catheterization ( 04/18/14) Social History Smoking Status: Never smoker alcohol intake: former substance use type: does not use Diagnosis: Juvencio Macdonald is a 74 year-old male diagnosed with 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 Plan: Plan was made to complete definitive radiation therapy consisting of 7000 cGy delivered to the prostate and 5040 cGy delivered to the elective pelvic lymph nodes all in 28 fractions. Treatment Data: Treatment Site: Prostate and nodes Current total dose/Total dose planned: 1000 cGy / 7000 cGy Fraction number: Chemotherapy: ADT Subjective: Pain: 0 / 10 Fatigue: none Skin: no erythema, rash, desquamation GI: no diarrhea/constipation. No rectal pain or bleeding. No bloating or increased gas : Severe symptoms at baseline increased this week, flomax bid and finesteride, added ibuprofen. No dysuria or hematuria Objective: Weight: 212 lbs 3 oz Physical Exam: Gen: NAD Skin: no erythema, rash, desquamation. Labs: None Assessment Plan Assessment/Plan (1) Primary malignant neoplasm of prostate with high risk of recurrence due to Canvas score of 8 to 10 and PSA greater than 20: PLAN: Plan Assessment: Tolerating treatment well overall.??? I reviewed and approved all treatment associated imaging. Worsening urinary symptoms, more obstructive, flomax bid, finesteride qd, ibuprofen, stable to improved today Plan: Continue treatm (more content not included)... Normal [facility] Pelvis W/WO Contraston 10-01 Pelvis W/WO Contrast [facility] Services [address] [place] [address] Pelvis W/WO Contrast MR#: [id number] Acct: [id number] Name: JUVENCIO MACDONALD Rep #: [id number] : 1950 M 74 From: Jean Claude conley MD PCP: Dr. Gloria Dawkins MD Status: REG [facility] Study: Pelvis W/WO Contrast Date of Exam: 10/01/24 Exam# [id number] Ordering [place]: [place] [id number] MR Prostate WO/W Contrast 10/01/2024 8:46 AM COMPARISON: 06/26/2024 CLINICAL HISTORY: 74 yo man with prostate cancer. TECHNIQUE: Axial T1-weighted and high-resolution axial T2-weighted MR images of the pelvis were obtained. Images were acquired for planning of radiation therapy. 19 cc of IV Clariscan was administered. DISCUSSION: See Impression MRI/Pelvis W/WO Contrast IMPRESSION: MR imaging scan done for planning of radiation therapy of prostate cancer. -Diffuse disease involving the bilateral transitional and peripheral zones. -Bilateral seminal vesicle invasion. -No definite extra-capsular extension. -No suspicious lymph nodes or bone lesions. Interval placement of space OAR. Electronically Signed: Jean Claude Vidal MD at 9:42 EST , CC: Dr. Gloria Dawkins MD; Dr. Flo Sow DO Set Up Operator: Signed Normal [facility] CREATININE FINGERSTICKon CREATININE WB < 1.0 Normal 0.70-1.[address] [facility] Comment on above: Performed By: #### L 9100.0200 #### [facility] Laboratory [address] [place], [place], [address] EGFR WB > 60.0000 Normal >[address] [facility] Comment on above: Performed By: #### L 9100.0200 #### [facility] [address] [place], [address] Discharge Instructionon Discharge Instruction [facility] Medical Records Department [address] [facility] [place] [address] Instructions for Home/Discharge Instructions 09/20/24 0831 MR#: [id number] Acct: [id number] Name: JUVENCIO MACDONALD Rep #: [id number] : 1950 74 From: Mani Smith MD PCP: Dr. Gloria Dawkins MD [place] [facility] [place]charge Instructions Diet Discharge Diet: No restrictions DC O2, CPAP, BIPAP needs Home O2 Discharge instructions: No Dressing / Incision Discharge Activity: Return to Normal Activity and May Not Drive (while taking narcotic pain medications.) Dressing / Incision Call your doctor if you observe: Fever of 101 or Higher Follow Up Care Please Follow Up With: Mani Smith MD When: Call [phone] for an appointment Test Results: Test results from this visit will be discussed in further detail at your follow-up appointment, if applicable. Discharge Plan Admission Attending Provider: Mani Smith Primary Care Provider: Gloria Dawkins Instructions Print Language: Maldivian Discharge Orders/Prescriptions Prescriptions: No Action pregabalin 100 mg capsule 200 mg PO QHS 30 Days Patient Comments: TAKE ONE CAPSULE BY MOUTH WITH SUPPER AND BEDTIME FOR 30 DAYS losartan 25 mg tablet 25 mg PO DAILY Qty: 90 3RF multivitamin capsule 1 cap PO DAILY tamsulosin 0.4 mg capsule 0.4 mg PO BID tadalafil 5 mg tablet 5 mg PO QDAY finasteride 5 mg tablet 5 mg PO QHS aspirin 81 MG tablet,delayed release (DR/EC) 81 mg PO DAILY Patient Comments: heart [facility] ciprofloxacin HCl 500 mg tablet 500 mg PO BID Referrals / Follow Up: Gloria Dawkins MD [Primary Care Provider] - Disposition Disposition (needs filled in before D/C Order can be placed): Home, Self Care 09/20/24830 Mani Smith MD CC: Dr. Gloria Dawkins MD Signed [facility] MR/POSTOP.[facility] 09-20-2024 MR/POSTOP.[facility] Medical Records Department [address] [place] [address] Anesthesia Postop Eval I 09/20/24837 MR#: [id number] Acct: [id number] Name: JUVENCIO MACDONALD Rep #: [id number] : 1950 74 From: Tara Zamudio CRNA PCP: Dr. Gloria Dawkins MD [place] [facility] [place] Race: C [facility] Anesthesia: Postop Eval I Current Vital Signs Temperature: 97 F Pulse Rate: 63 Blood Pressure: 111/65 Respiratory Rate: 20 Pulse Ox: 98 Oxygen Delivery Method: Room Air Assessment Airway patent: Yes Spontaneous unlabored respirations: Yes Mental status: Awake nausea: No Vomiting: No Anesthesia Complication: No Fluid Hydration Crystalloid volume administer (ml): 500 Total IV fluid infused: 500 Progress Note Anesthesia document: Postop Eval 1 completed: Yes 09/20/24839 Date Tara Zamudio ENERGY SYSTEMS ENGINEER Cosigner Signature: Date CC: Signed Normal [facility] MR/ESEUORLX7yv 09-20-2024 [facility] Medical Records Department [address] [place] [address] Anesthesia Postop Eval II 09/20/24 1249 MR#: [id number] Acct: [id number] Name: JUVENCIO MACDONALD Rep #: [id number] : 1950 74 From: Jamaal Wilson MD PCP: Dr. Gloria Dawkins MD Status:[facility] Y Race: C [place] [facility] [place]esthesia Postop Eval I Sum Postop Eval Completion status Anesthesia document: Postop Eval 1 completed: Yes Anesthesia Postop Eval I Summary Anesthesia Postop Eval I Summary: Anesthesia Postop Eval I: Assessment Summary Airway patent Yes 09/20/24 08:40 ENERGY SYSTEMS [email or web address] Spontaneous unlabored Yes 09/20/24 08:40 ENERGY SYSTEMS ENGINEER.[email or web address] respirations Mental status Awake 09/20/24 08:40 ENERGY SYSTEMS [email or web address].JSWI nausea No 09/20/24 08:40 ENERGY SYSTEMS ENGINEER.[email or web address] Vomiting No 09/20/24 08:40 ENERGY SYSTEMS [email or web address].[email or web address] Anesthesia Postop Eval I: Fluid Summary Crystalloid volume administer 500 09/20/24 08:40 ENERGY SYSTEMS ENGINEER.JSWI (ml) Colloids volume administered ( ml) Blood Product volume administered (ml) Total IV fluid infused 500 09/20/24 08:40 ENERGY SYSTEMS ENGINEER.[email or web address] Anesthesia Postop Eval I: Summary Notes Anesthesia Complication No 09/20/24 08:40 ENERGY SYSTEMS [email or web address].[email or web address] Anesthesia Complication Comment: Post-operative progress note Anesthesia: Postop Eval II Evaluation Mental status: Awake Pain Level: 0 nausea: No Vomiting: No 09/20/24 1249 Date Jamaal Cueva Signature: Date CC: Signed Normal [facility] Operative Reporton 5 Operative Report [facility] Medical Records Department [address] [place] [address] Operative Report 09/20/24830 MR#: [id number] Acct: [id number] Name: JUVENCIO MACDONALD Rep #: [id number] : 1950 74 From: Mani Smith MD PCP: Dr. Gloria Dawkins MD Status:[facility] Location: [place] [address] Operative Report (Standard) Operative Information Date of Procedure: 09/20/24 Pre-Operative Diagnosis: Prostate cancer Post-Operative Diagnosis: The same Surgery/Procedure Performed: Placement of spacer gel matrix, placement of gold markers and prostate and preparation for radiation global compensation manager: No Type of Anesthesia: General RN Documented Start/Stop Times: Operation Date: 09/20/24 08:00 Case Time Into Pre-Op 09/20/24 06:02 Procedure Start Time: 08:26 Procedure Stop Time: 08:32 Select all DRAINS/GRAFTS/IMPLANTS that apply: None Estimated Blood Loss: None Specimen collected: No Description of surgery: In the preoperative area I reviewed with the patient how the procedure is done we talked about the risk of the procedure including the risk of infection, bleeding, migration of the spacer gel, the patient is planning to have radiation to the prostate he understands that the spacer gel has demonstrated benefit in reducing the risk of toxicity from the ration radiation to the rectum but there is no guarantees that this spacer gel will prevent any serious complications or toxicity to the rectum or bowels. After reviewing this with the patient and his family organ to proceed with placement of a spacer gel matrix. Patient was taken back to the operating room after smooth induction of anesthesia he was placed supine on the table. The genitals and perineum were prepped and draped in usual sterile fashion. I then introduced a biplanar ultrasound probe into the rectum and performed ultrasonography and identified the Denonvilliers' fascia the prostate mid base and apex and seminal vesicles. The penis and testicles were prepped and draped in usual sterile fashion, ultrasound probe was placed into the rectum and biplanar ultrasound was performed on the prostate. Identified the base mid and apex of the prostate identified the transition zone prostate. Then using a needle the first barrel marker was placed into the right base of the prostate, the second barrel marker was placed in the left base of the prostate, and the third core marker was placed in the right apex of the prostate after all 3 markers were placed the placement of the markers were confirmed by ultrasonography. The spacer gel mix was then prepared on the back table per manufactures instruction. Under ultrasound guidance in the midline perineum a bevel needle down we advanced through the perineum below the prostate into the space of Denonvilliers' fascia. This space which could be identified by ultrasound with a bright white layer between the prostate and the rectum. I then injected a puff of normal saline to identify the space further. After I confirmed that the needle was in the correct space in the mid prostate and the space of Denonvilliers' fascia between the rectum and the prostate. Then over the course of 15 seconds the gel matrix was injected slowly there was nice separation between the prostate and the rectum at the gel matrix was injected. The position of the gel matrix was confirmed by ultrasound. Then the injection needle was removed intact. Patient's perineum was cleaned patient was taken out of stirrups and then taken back to the PACU in good condition. Surgical Findings: Normal prostate markers placed and spacer gel matrix placed Complications Complications: No Admit VTE Documentation VTE Present on Admission: No VTE Mechan Device Prophylaxis: SCD's VTE Pharm Prophylaxis ordered?: No 09/20/24 0834 Cosigner Signature (if applicable): CC: Dr. Gloria Dawkins MD; Dr. Mani Smith MD Signed Normal [facility] MR/PAT.[facility] 09-04-2024 MR/PAT.[facility] Medical Records Department [address] [place] [address] PAT - Anesthesia 09/04/24 1548 MR#: [id number] Acct: [id number] Name: JUVENCIO MACDONALD Rep #: [id number] : 1950 74 From: Darrell Melton MD PCP: Dr. Gloria Dawkins MD [place] [facility] [place] Race: C [place] [facility] Pre-Assessment Diagnosis/Proposed Procedure Planned Operative Procedure(s): SPACE OAR GEL AND GOLD MARKERS Anesthesia History Anesthesia History - video network engineer: Anesthesia History - video network engineer Hx Hospitalization No 09/04/24 13:35 Any Problems With Anesthesia No 09/04/24 13:35 Cholinesterase deficiency No 09/04/24 13:35 You/Your Family Experience No 09/04/24 13:35 fever (hyperthermia) with Relationship Recent Exposure to Contagious No 11/23/18 07:27 Disease Does patient have nerve No 09/04/24 13:35 stimulator Patient instructed to have device shut off --Does patient have Pacemaker or ICD? When Was Last Pacemaker Check QUESTION #4 FULL TEXT: You/Your Family Experience fever (hyperthermia) with Anesthesia Last Oral Intake Last Oral intake: Last Oral Intake NPO since Meds taken in AM with sips of water? Meds patient instructed to take am of surgery PONV PONV - video network engineer: PONV - video network engineer Female No 09/04/24 13:35 HX of Motion Sickness No 09/04/24 13:35 HX of N/V After Surgery No 09/04/24 13:35 Non-Smoker Yes 09/04/24 13:35 Duration of Surgery greater No 09/04/24 13:35 than 60 minutes Number of Risk Factors 1 09/04/24 13:35 PONV Score Low Risk 09/04/24 13:35 Height Weight Height Weight: Anesthesia: Height Weight Height 5 ft 10 in 08/17/24 14:03 Respiratory Assessment Respiratory Assessment - video network engineer: Respiratory Tract Infection Hx - video network engineer Hx Respiratory Tract Infection No 09/04/24 13:35 STOP Sleep Apnea STOP Sleep Apnea - video network engineer: STOP Sleep Apnea - video network engineer Hx Hypertension Yes: CONTROLLED WITH MED 09/04/24 13:35 Hx Sleep Apnea Yes: ESPIRE DEVICE 09/04/24 13:35 CPAP No 09/04/24 13:35 BIPAP No 09/04/24 13:35 Do you snore loudly (louder than talking or can be heard Do you often feel tired/ fatigued/ sleepy during daytime? Has anyone observed you stop breathing during sleep? STOP Results Positive 09/04/24 13:35 QUESTION #5 FULL TEXT : Do you snore loudly (louder than talking or can be heard through closed doors)? Tobacco Use History Tobacco Use History - video network engineer: Tobacco Use History - video network engineer Tobacco Use Smoking Status Never smoker 09/04/24 13:35 Hx Tobacco Use No 09/04/24 13:35 Years Smoking Packs Smoked per Day Smoking Cessation Date was within the last 15 years Hx Smoking Cessation Date Hx Smoking Cessation No 09/04/24 13:35 Counseling Hematologic Medial History Hematologic Hx - video network engineer: Hematologic Medical Hx - pullboat engineer Hx of Blood Transfusion No 09/04/24 13:35 Hx of Transfusion in last 3 No 09/04/24 13:35 Months Date of Last Transfusion (if within last 3 months) Ever experience any problems No 09/04/24 13:35 with transfusion(s)? Specify any problems Hx of Preganancy in last 3 N/A 09/04/24 13:35 Months Nurse Filling Out Transfusion DSCHRIBER 09/04/24 13:35 Questions: Date: 09/04/24 09/04/24 13:35 Time: 13:37 09/04/24 13:35 Patient unable to answer at this time (ie. confused, unrespo /Reproduction History /Reproductive History - video network engineer: /Reproductive Hx- video network engineer Hx Now No 09/04/24 13:35 Gestational Age (in weeks): EDC: Hx Hx Para Hx Section SAB No 09/04/24 13:35 PFSH Medical History (Updated 09/04/24 @ 13:43 by Ashli Neal) Wears glasses MRSA infection Arthritis Bladder disease Back pain Restless legs Sleep apnea History of echocardiogram Cardiology follow-up encounter Abnormal prostate biopsy Prostate cancer Inguinal hernia of left side without obstruction or gangrene Family history of coronary arteriosclerosis Retinal artery occlusion Obstructive sleep apnea Hypertension Home Medications ???Medication ???Instructions ???Recorded ???Last Taken ???Type aspirin 81 mg tablet,delayed 81 mg PO DAILY 04/17/14 11/20/18 19:00 History release multivitamin 1 cap PO DAILY 10/31/18 Unknown History pregabalin 100 mg capsule 200 mg PO QHS 30 days 10/31/18 Unknown History losartan 25 mg tablet 25 mg PO DAILY HTN #90 tabs 01/23/19 Unknown Rx finasteride 5 mg tablet 5 mg PO QHS 08/03/24 Unknown History tadalafil 5 mg tablet 5 mg PO QDAY 08/03/24 Unkno (more content not included)... Normal [facility] Radiation Oncology Visiton 1 10-18-2023 Radiation Oncology Visit [facility] [address] [place] [address] OFFICE VISIT Date of Service: 08/17/24 1402 MR#: [id number] Acct: [id number] Name: JUVENCIO MACDONALD Rep #: [id number] : 1950 From: Flo Sow DO Age/Sex: 74/M Location: [facility] [place] Status: Signed Intake Vital Signs 05/17/24 13:43 08/17/24 14:03 Height 5 ft 10 in 5 ft 10 in Weight: 210 lb 1 oz BMI 30.1 BP 127/73 H Blood Pressure Location Rt brachial Position Sitting Respiration 18 Pulse 71 Pulse Source Monitor Temp 97.1 F L Temperature Source Temporal Artery Pulse Oximetry (%) 97 Oxygen Delivery Method room air Intake Visit Reasons: CONSULT - PROSTATE Is patient in pain?: No Allergies Penicillins Allergy (Verified 08/17/24 14:05) Rash Medications ???Medication ???Instructions ???Recorded ???Confirmed ???Type aspirin 81 mg tablet,delayed 81 mg PO DAILY 04/17/14 08/17/24 History release multivitamin 1 cap PO DAILY 10/31/18 08/17/24 History pregabalin 100 mg capsule 200 mg PO QHS 30 days 10/31/18 08/17/24 History losartan 25 mg tablet 25 mg PO DAILY HTN #90 tabs 01/23/19 08/17/24 Rx finasteride 5 mg tablet 5 mg PO QDAY 08/03/24 08/17/24 History tadalafil 5 mg tablet 5 mg PO QDAY 08/03/24 08/17/24 History tamsulosin 0.4 mg capsule 0.4 mg PO BID 08/17/24 08/17/24 History Have you fallen in the past year?: No PFSH PFSH Medical History (Updated 08/17/24 @ 15:[address] Flo Sow, DO) Abnormal prostate biopsy Prostate cancer Hemorrhoids Prostate enlargement Fecal incontinence Inguinal hernia of left side without obstruction or gangrene RLS (restless legs syndrome) Family history of coronary arteriosclerosis Retinal artery occlusion Obstructive sleep apnea MRSA infection Hypertension Home Medications ???Medication ???Instructions ???Recorded ???Last Taken ???Type aspirin 81 mg tablet,delayed 81 mg PO DAILY 04/17/14 11/20/18 19:00 History release multivitamin 1 cap PO DAILY 10/31/18 Unknown History pregabalin 100 mg capsule 200 mg PO QHS 30 days 10/31/18 Unknown History losartan 25 mg tablet 25 mg PO DAILY HTN #90 tabs 01/23/19 Unknown Rx finasteride 5 mg tablet 5 mg PO QDAY 08/03/24 Unknown History tadalafil 5 mg tablet 5 mg PO QDAY 08/03/24 Unknown History tamsulosin 0.4 mg capsule 0.4 mg PO BID 08/17/24 Unknown History Allergy/AdvReac Type Severity Reaction Status Date / Time Penicillins Allergy Rash Verified 08/17/24 14:05 Family History Father CAD (coronary artery disease) <55 years of age Sister CAD (coronary artery disease) <65 years of age Mother CVA (cerebral vascular accident) Surgical History S/P left inguinal hernia repair History of hand surgery ( 10/25/15) History of left heart catheterization ( 04/18/14) Social History (Updated 08/17/24 @ 14:07 by Lizabeth Amador) Smoking Status: Never smoker alcohol intake: former substance use type: does not use Referring Provider: Alex Smith MD Diagnosis: Juvencio Macdonald is a 74 year-old male diagnosed with 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 History of Present Illness: 06/26/2024: MRI pelvis with and without contrast was performed.??? This demonstrated a T2 hypointense lesion involving the bilateral peripheral zone from near base to near apex measuring about 2.8 x 4.4 x 2.8 cm.??? Capsular margin and neurovascular bundle are free of disease, bilateral seminal vesicle invasion is noted.??? No adenopathy is appreciated.??? PI-RADS 5 07/18/2024: Patient completed TRUS guided prostate biopsy.??? Pathology demonstrated Canvas 3+4 adenocarcinoma involving greater than 95% of 1/1 core the right prostate base, greater than 95% of 1/1 core in the left prostate apex, about 70% of 1/1 core in the left prostate mid, and greater than 90% of 1/1 core in the left prostate base, there is also Canvas 3+3 adenocarcinoma involving greater than 90% of 1/1 core in the right prostate apex and greater than 90% of 1/1 core in the right prostate mid.??? No negative samples were obtained. 07/24/2024: CT A/P with contrast performed.??? Enlargement of prostate measuring 4.2 x 4.5 cm with indentation of bladder base.??? No other abnormalities. 07/25/2024: Bone scan showed ESPERANZA 08/15/2024: PSMA PET performed.??? This demonstrated increased trace in the prostate, no evidence of metastasis.??? Radiation Treatment History: No prior history of radiation therapy. No Pacemaker, does have Inspire device for sleep apnea. No contraindications to radiatio (more content not included)... Normal [facility] PET/CT Tumor Base -Thigh Ini ton 08-15-2024 PET/CT Tumor Base -Thigh Init [facility] Imaging Services [address] [place] [address] PET/CT Tumor Base -Thigh Init MR#: [id number] Acct: [id number] Name: JUVENCIO MACDONALD Rep #: [id number] : 1950 M 74 From: Quincy Mccabe PCP: Dr. Gloria Dawkins MD Status: REG CLI Study: PET/CT Tumor Base -Thigh Init Date of Exam: Exam# [id number] Ordering Dr: [place] [id number] EXAMINATION: F 18 Pylarify PSMA PET-CT ? INDICATIONS: 74-year-old male with a history of primary prostate carcinoma, presenting for initial staging examination. ? COMPARISON EXAMINATION: Radionuclide whole body bone scintigraphy dated 07/25/2024. ? INDEX LESION SIZE PROMISE SCORE SUV INTERPRETATION Prostate gland 42.9 mm 3 41.43 Fulfills quantitative criteria for viable neoplasm ? TECHNIQUE: Following the intravenous administration of 8.91 mCi of F 18 Pylarify PSMA via the right antecubital fossa, multiplanar image acquisitions of the head, neck, chest, abdomen and pelvis to the level of the midthigh, obtained at 73 minutes post tracer distribution reveal: ? The examination was interpreted using the EANM (Linnette et al., Journal of Nuclear Medicine Molecular Imaging 44:1622, 2017) and PROMISE (Mira et al., Journal of Nuclear Medicine 59:469, 2018) interpretive criteria. ? HEIGHT:?? 70 inches WEIGHT:?? 210 pounds ? PSMA expression score PROMISE criteria: High (3): SUV > parotid-salivary gland, intermediate (2): SUV > liver, low (1): > blood pool, < liver, (0): < blood pool. ? SUV reference values: Parotid glands 24.19. Normal liver parenchyma 7.0. Blood pool 1.9. ? FINDINGS: ? HEAD/NECK:? Symmetric radiopharmaceutical concentration is defined in the bilateral parotid and submandibular glands. Physiologic tracer uptake is noted in the nasal cavity. ? There is no evidence of abnormal increased tracer uptake within the context of the cranial vault. ? CHEST:? There is no quantitative scintigraphic evidence of abnormal increased radiopharmaceutical concentration within the context of the bilateral hemithorax pulmonary parenchyma, right and left hemithorax at the pleural interface, mediastinal structures, and left-right thoracic perihilum. ? CT of the chest demonstrates the following anatomic characteristics: There are no parenchymal densities-nodules defined in the right and left hemithorax pulmonary parenchyma with increased tracer uptake delineated. Atherosclerotic calcification is defined in the thoracic aorta without evidence of dilatation, aneurysm formation. Bilateral axillary soft tissue densities are ametabolic. ? ABDOMEN/PELVIS:? Facilitated uptake is noted in the lower pelvis caudal to the urinary bladder in the distribution of the prostate gland. The calculated standard uptake value is 41.43. The PROMISE Score is 3. The maximal axial diameter of the metabolic abnormality is 42.9 mm. Uniform, homogeneous radiopharmaceutical concentration is defined in the hepatic and splenic parenchyma, visualization of the bilateral renal units, urinary bladder, and visualized intestinal tract. ? CT of the abdomen and pelvis is remarkable for the following: A fat containing right inguinal hernia is noted. Right and left inguinal soft tissue densities are ametabolic. Atherosclerotic calcification is defined in the abdominal aorta without evidence of dilatation, aneurysm formation. Abdominal-pelvic arterial calcification is observed. Calcified phlebolith formation is noted in the bilateral lower hemipelvis.? ? SKELETAL:? There is no evidence of quantitatively significant enhanced radiopharmaceutical metabolism on meticulous inspection of the appendicular and axial skeletal structures. ? Degenerative changes defined in the thoracic and lumbar spine demonstrate no evidence of increased glucose metabolism. There are no sclerotic, mixed sclerotic-lytic, or primarily lytic changes defined in the axial skeletal structures with evidence of increased FDG uptake. ? PET/PET/CT Tumor Base -Thigh Init IMPRESSION: 1. ABNORMAL EXAMINATION INDICATIVE OF MALIGNANT-VIABLE NEOPLASM. 2. Increased tracer uptake limited to the prostate gland fulfills quantitative criteria for malignant involvement. (Eiber et al., Journal of Nuclear Medicine 59:469, 2018). Electronic Signature Quincy Eldridge D.O. ? Accurate Quantification of SUVs and standardized PROMISE scores for this report are calculated using the exclusive [employer], (U.S. Patent No. [phone] [place] patent [id number] [id number] ). Standardization and correction of the FDG SUV metric exclusively available with [employer] intellectual property, allow for vendor non-specific objective quantitative sequential FDG PET-CT comparison and otherwise unobtainable optimization of the sensitiv (more content not included)... Normal [facility] Bone Scan Whole Bodyon 07-25 Bone Scan Whole Body [facility] Imaging Services [address] [place] [address] Bone Scan Whole Body MR#: [id number] Acct: [id number] Name: JUVENCIO MACDONALD Rep #: [id number] : 1950 M 74 From: Quincy Mccabe PCP: Dr. Gloria Dawkins MD Status: [facility] CLI Study: Bone Scan Whole Body Date of Exam: 07/25/24 Exam# [id number] Ordering Dr: [place] [id number] CLINICAL: 74-year-old male with history of primary prostate carcinoma. WHOLE BODY 99m Tc MDP RADIONUCLIDE BONE SCINTIGRAPHY COMPARISON: None available FINDINGS: Following the intravenous administration of 26.3 mCi of 99m Tc MDP, whole body bone images reveal: 1. Symmetric increased radiopharmaceutical is identified in the acromioclavicular compartments of both shoulders, sternoclavicular compartment of the right shoulder, the medial tibial compartment of the right > left knee, the third lumbar vertebra posteriorly on the right, the right elbow, the lower cervical spine posteriorly on the left. 2. The remaining skeletal structures are scintigraphically unremarkable with normal-appearing renal images and urinary bladder activity identified. Facilitated uptake is noted in the region of the right orbit. NM/Bone Scan Whole Body IMPRESSION: 1. The increase in tracer uptake noted in the bilateral shoulders, the knees bilaterally, the cervical and lumbar spine and right elbow is commensurate with degenerative arthritis. 2. Uptake in proximity to the right orbit likely represents a normal variant. Plain film radiography correlation may be of benefit. 3. There is no scintigraphic evidence of diffuse skeletal metastatic disease. Electronically Signed: Quincy Eldridge DO at 8:53 EST Reading Location ID and State: [address] [place] [address] Tel , Service support , CC: Dr. Gloria Dawkins MD; Dr. Mani Smith MD Set Up Operator: Signed Normal [facility] Abdomen/Pelvis W IV Cont ONL Yon 07-24-2024 Abdomen/Pelvis W IV Cont ONLY [facility] Imaging Services [address] [place] [address] Abdomen/Pelvis W IV Cont ONLY MR#: [id number] Acct: [id number] Name: JUVENCIO MACDONALD Rep #: [id number] : 1950 M 74 From: Shola kirk MD PCP: Dr. Gloria Dawkins MD Status: REG CLI Study: Abdomen/Pelvis W IV Cont ONLY Date of Exam: Exam# [id number] Ordering Dr: [place] [id number] STUDY: CT ABDOMEN AND PELVIS WITH CONTRAST REASON FOR EXAM: Male, 74 years old. Newly diagnosed prostate cancer. RADIATION DOSAGE (If Supplied By Facility): CTDIvol = ( 15.26 ) mGy, DLP = ( 1099.72 ) mGycm TECHNIQUE: Transaxial images were obtained from the dome of the diaphragm to the symphysis pubis without oral contrast. IV 100mL Isovue-300 was administered. Sagittal and coronal images were reconstructed. Individualized dose optimization techniques were used for this CT. COMPARISON: None. FINDINGS: Minimally increased linear markings at the left lung base suggestive of scarring. The visualized portions of the heart are within normal limits. There is decreased attenuation of the liver consistent with steatosis. Normal gallbladder and extrahepatic biliary system. Normal spleen. Normal pancreas. Normal bilateral adrenal glands. Normal right kidney. Normal left kidney. Normal visualized stomach. Normal small intestine. There are multiple colonic diverticula consistent with diverticulosis. The appendix is visualized and appears normal. There is scattered atherosclerotic calcification of the abdominal aorta, without a demonstrated aneurysm. Normal inferior vena cava. Normal retroperitoneum. There is a distended urinary bladder. The prostate measures 4.2 cm x 4.5 cm. This causes indentation of the bladder base. Normal abdominal wall. There are diffuse degenerative changes of the visualized lumbar spine. Anterior listhesis of L4 on L5 due to facet joint osteoarthritis. CT/Abdomen/Pelvis W IV Cont ONLY IMPRESSION: Enlargement of the prostate. Urinary bladder distention. Sigmoid diverticulosis. Electronically Signed: Shola Potter MD at 15:36 EST , CC: Dr. Gloria Dawkins MD; Dr. Mani Smith MD Set Up Operator: Signed Normal [facility] CREATININE FINGERSTICKon CREATININE WB < 1.0 Normal 0.70-1.[address] [facility] Comment on above: Performed By: #### L 9100.0200 ####[facility] [id number] [place], [place], [id number] EGFR WB > 60.0000 Normal >[address] [facility] Comment on above: Performed By: #### L 9100.0200 ####[facility] [address] [place], [place], [id number] PROSTATE BXon 07-18-2024 PROSTATE BX --- Patient Age/Sex Location Account Attending Physician JUVENCIO MACDONALD 74/M [facility] [id number] Dr. Mani Smith MD Specimen: [id number] Received: 07/19/24 Status: TATYANA Hankins Num: [id number] Spec Type: PROST BX Subm Dr: Dr. Mani Smith MD HEADER OPERATION: Prostate biopsy PRE-OP DIAGNOSIS: Elevated PSA TISSUE SUBMITTED: A - Right apex, B - Right mid, C - Right base, D - Left apex, E - Left mid, F - Left base MICROSCOPIC DIAGNOSIS A. Right prostate, apex, core biopsy: Prostatic adenocarcinoma. Canvas grade: 3+3=6 Number of cores involved: 1/1 Proportion of tissue involved: >90% Perineural invasion: Suspected. Greatest tumor length: 1.1cm Focal high-grade prostatic intraepithelial neoplasia (HGPIN). B. Right prostate, mid, core biopsy: Prostatic adenocarcinoma. Canvas grade: 3+3=6 Number of cores involved: 1/1 Proportion of tissue involved: >90% Perineural invasion: Present. Greatest tumor length: 0.9 cm C. Right prostate, base, core biopsy: Prostatic adenocarcinoma. Grzegorz grade: 3+4=7 Number of cores involved: 1/1 Proportion of tissue involved: >95% Perineural invasion: Present. Greatest tumor length: 1.4 cm D. Left prostate, apex, core biopsy: Prostatic adenocarcinoma. Grzegorz grade: 3+4=7 Number of cores involved: 1/1 Proportion of tissue involved: >95% Perineural invasion: Not identified. Greatest tumor length: 1.0cm E. Left prostate, mid, core biopsy: Prostatic adenocarcinoma. Grzegorz grade: 3+4=7 Number of cores involved: 1/1 Proportion of tissue involved: 70 % Perineural invasion: Not identified. Greatest tumor length: 0.8cm F. Left prostate, base, core biopsy: Prostatic adenocarcinoma. Canvas grade: 3+4=7 Patient Age/Sex Location Account Attending Physician JUVENCIO MACDONALD 74/M [facility] [id number] Dr. Mani Smith MD Number of cores involved: / Proportion of tissue involved: >90 % Perineural invasion: Present. Greatest tumor length: 1.0cm Focal high-grade prostatic intraepithelial neoplasia (HGPIN). JAMES/ 07/20/2024 MICROSCOPIC DESCRIPTION Slides are reviewed. GROSS DESCRIPTION A - Received is one container designated prostate, right apex. The specimen consists of one elongated fragments of light collier-white soft tissue measuring 1.3 cm in length and 0.1 cm in diameter. The specimen is totally submitted in one cassette. B - Received is one container designated prostate, right mid. The specimen consists of one elongated fragments of light collier-white soft tissue measuring 0.9 cm in length and 0.1 cm in diameter. The specimen is totally submitted in one cassette. C - Received is one container designated prostate, right base. The specimen consists of one elongated fragments of light collier-white soft tissue measuring 1.5 cm in length and 0.1 cm in diameter. The specimen is totally submitted in one cassette. D - Received is one container designated prostate, left apex. The specimen consists of one elongated fragments of light collier-white soft tissue measuring 1.3 cm in length and 0.1 cm in diameter. The specimen is totally submitted in one cassette. E - Received is one container designated prostate, left mid. The specimen consists of one elongated fragments of light collier-white soft tissue measuring 1.0 cm in length and 0.1 cm in diameter. The specimen is totally submitted in one cassette. F - Received is one container designated prostate, left base. The specimen consists of one elongated fragments of light collier-white soft tissue measuring 1.2 cm in length and 0.1 cm in diameter. The specimen is totally submitted in one cassette. / 07/19/2024 TC:0 CPT: G0146 Patient Age/Sex Location Account Attending Physician JUVENCIO MACDONALD 74/M [facility] [id number] Dr. Mani Smith MD Signed (signature on file) Dr. Ray Milian MD 07/20/24 1316 - (more content not included)... Normal [facility] Comment on above: Performed By: #### P PROSB ####[facility] [address] [place], [address] Telephone Encounteron 2023 Program Management Intern Authentication Interface Message Text Identification was verified by patient verbalizing his name and date of . Patient contacted Reports he was able to have the MRI done yesterday at [place]. Ninoska Hernández MD OK for patient to proceed with MRI. He will need to bring his Inspire remote to the test. Radiology will use the remote to confirm the Inspire is off before and after the scan. Radiology should be familiar with Inspire protocols for MRI. Thanks! Normal [facility] [employer] [facility] Pelvis W/WO Contraston 06-26 Pelvis W/WO Contrast [facility] Imaging Services [address] [place], [place] [address] Pelvis W/WO Contrast MR#: [id number] Acct: [id number] Name: JUVENCIO MACDONALD Rep #: [id number] : 1950 M 74 From: Jean Claude conley MD PCP: Dr. Gloria Dawkins MD Status: [facility] Study: Pelvis W/WO Contrast Date of Exam: 06/26/24 Exam# [id number] Ordering Dr: [place] [id number] EXAMINATION: MR Prostate WO/W Contrast COMPARISON: None CLINICAL HISTORY: 74 yo M with elevated psa Most recent PSA = 76.6 ng/ml TECHNIQUE: Standard prostate MR protocol was used before and after administration of 19 cc of IV Clariscan. FINDINGS: Prostate volume: 48 cc PSA density: 1.6 ng/ml2 Length of membranous urethra: 14 mm Post-biopsy hemorrhage: None Multiparametric MR evaluation: Heterogeneous appearance of the central gland is consistent with benign prostatic hyperplasia. Lesion 1: LOCATION - markedly T2 hypointense lesion involving the bilateral peripheral zone from near base to near apex measuring at least 2.8 x 4.4 x 2.8 cm. T2 - 5 DWI - 5 DCE - 5 Overall PI-RADS v2 score = 5 Capsular margin and neurovascular bundle: No definite microcapsular extension. Seminal vesicles: Bilaterally involved. Lymph nodes: No lymphadenopathy in the field of view. Bones: No suspicious lesions in the field of view. MRI/Pelvis W/WO Contrast IMPRESSION: 4.4 cm PI-RADS 5 lesion involving the bilateral PZ from near base to near apex. - Bilateral seminal vesicle invasion. - No gross evidence of macroscopic extracapsular extension. - No lymphadenopathy. - No suspicious bone lesions. Electronically Signed: Jean Claude Vidal MD at 15:16 EDT , CC: Dr. Gloria Dawkins MD Set Up Operator: Signed Normal [facility] Telephone Encounteron 2023 Program Management Intern Authentication Interface Message Text Situation: Pt call Background: Pt wanted to let Ita in Dr. Hernández's office know that he has been moved up for his MRI to Wednesday06/26/24 at another facility. Pt would like to confirm that it is ok to have an MRI with his Inspire Stimulator Assessment: N/A Recommendation: Please have Ita call pt at Telephone Information: Thank you Normal [facility] [employer] [facility] Telephone Encounteron 2023 Program Management Intern Authentication Interface Message Text ----- Message from Nurse Ratna sent at 06/16/2024 3:03 PM EDT ----- Regarding: Prostate concerns Hi Dr. Hernández. This patient called me and is having some urgent concerns regarding his prostate. He gets his care at [place] but they could not get him in for an MRI until 07/06. PSA level 76. He was asking if he could get in sooner here. I explained to him the he would most likely have to wait that long if not longer d/t this being a trauma center and the fact that we have to schedule at least 2 weeks out for insurance purposes. I was not able to see his information in care everywhere. Long story short he asked if you would be willing to put in a referral for Urology and the MRI. I told him that I was not sure you would be able but that I would ask. Let me know your thoughts when you return. Thank you, Ratna Normal [facility] [facility] Telephone Encounteron 2023 Program Management Intern Authentication Interface Message Text Returned call to patient. Pt stated that at this time he is having issues with his prostate and would like to focus on that issue for now. Once it is resolved, he will give me a call to get rescheduled. Will send a nanoRETE message with my direct phone number. Ratna Camargo BA, BSN, RN Clinical Kickboxing Instructor, Pulmonary and Sleep Medicine Normal [facility] [employer] [facility] Program Management Intern Authentication Interface Message Text Patient needs to cx Inspire SS; he has other medical issues he needs to tend to. Normal [facility] [facility] Urine Cultureon 06-14-2024 URC Culture exhibits no growth. Normal [facility] Comment on above: Performed By: #### M 100.2200, L501.9940, L500.4050, L100.0100, L400.0001 ####[facility] [address] [facility]. [place], [place], [id number] CBC W/Diff, Automatedon 10-0 Absolute Lymph 1.48 X10 3/uL Normal 0.83-4.[address] [facility] Comment on above: Performed By: #### M 100.2200, L501.9940, L500.4050, L100.0100, L400.0001 ####[facility] [address] [place], [place], [phone]) Absolute Neut 4.2 X10 3/uL Normal 2.0-7.[address] [facility] Comment on above: Performed By: #### M 100.2200, L501.9940, L500.4050, L100.0100, L400.0001 ####[facility] [address] [place], [address] Basophils/100 WBC (Bld) 0.4 % Normal 0-[address] [facility] Comment on above: Performed By: #### M 100.2200, L501.9940, L500.4050, L100.0100, L400.0001 ####[facility] [address] [place], [address] Eosinophils/100 WBC (Bld) 4.6 % Normal 0-[address] [facility] Comment on above: Performed By: #### M 100.2200, L501.9940, L500.4050, L100.0100, L400.0001 ####[facility] [address] [place], [address] Erythrocyte distribution width (RBC) [Ratio] 12.3 % Normal 11.6-14.[address] [facility] Comment on above: Performed By: #### M 100.2200, L501.9940, L500.4050, L100.0100, L400.0001 ####[facility] [address] [place], [address] Hematocrit (Bld) [Volume fraction] 45.8 % Normal 40-[address] [facility] Comment on above: Performed By: #### M 100.2200, L501.9940, L500.4050, L100.0100, L400.0001 ####[facility] [address] [place], [address] Hemoglobin (Bld) [Mass/Vol] 15.5 g/dL Normal 13.0-16.[address] [facility] Comment on above: Performed By: #### M 100.2200, L501.9940, L500.4050, L100.0100, L400.0001 ####[facility] [address] [place], [address] IG% 0.300 Normal 0.0-0.[address] [facility] Comment on above: Result Comment: IG% - Immature Granulocytes (promyelocytes, myelocytes and metamyelocytes) > 1% indicates that a LEFT SHIFT is Present. Performed By: #### M 100.2200, L501.9940, L500.4050, L100.0100, L400.0001 ####[facility] [address] [place], [address] Lymphocytes/100 WBC (Bld) 21.9 % Normal 19-[address] [facility] Comment on above: Performed By: #### M 100.2200, L501.9940, L500.4050, L100.0100, L400.0001 ####[facility] [address] [place], [address] MCH (RBC) [Entitic mass] 30.3 pg Normal 27.0-32.[address] [facility] Comment on above: Performed By: #### M 100.2200, L501.9940, L500.4050, L100.0100, L400.0001 ####[facility] [facility] [address] [place], [address] MCHC (RBC) [Mass/Vol] 33.8 g/dL Normal 32-36 [facility] Comment on above: Performed By: #### M 100.2200, L501.9940, L500.4050, L100.0100, L400.0001 ####[facility] [address] [place], [address] MCV (RBC) [Entitic vol] 89.6 fL Normal 80-[address] [facility] Comment on above: Performed By: #### M 100.2200, L501.9940, L500.4050, L100.0100, L400.0001 ####[facility] [address] [place], [address] Monocytes/100 WBC (Bld) 11.1 % High 0-[address] [facility] Comment on above: Performed By: #### M 100.2200, L501.9940, L500.4050, L100.0100, L400.0001 ####[facility] [address] [place], [address] Neutrophils/100 WBC (Bld) 61.7 % Normal 47-[address] [facility] Comment on above: Performed By: #### M 100.2200, L501.9940, L500.4050, L100.0100, L400.0001 ####[facility] [address] [place], [address] Nucleated RBC (Bld) [#/Vol] 0 10*3/uL Normal 0-[address] [facility] Comment on above: Performed By: #### M 100.2200, L501.9940, L500.4050, L100.0100, L400.0001 ####[facility] [address] [place], [address] Platelet mean volume (Bld) [Entitic vol] 11.7 fL Normal 6.2-12.[address] [facility] Comment on above: Performed By: #### M 100.2200, L501.9940, L500.4050, L100.0100, L400.0001 ####[facility] [address] [place], [address] Platelets (Bld) [#/Vol] 178 10*3/uL Normal 150-[address] [facility] Comment on above: Performed By: #### M 100.2200, L501.9940, L500.4050, L100.0100, L400.0001 ####[facility] [address] [place], [address] RBC (Bld) [#/Vol] 5.11 10*6/uL Normal 4.6-6.2 [facility] Comment on above: Performed By: #### M 100.2200, L501.9940, L500.4050, L100.0100, L400.0001 ####[facility] [address] [place], [address] RDW SD 40.1 fl Normal 35.1-43.[address] [facility] Comment on above: Performed By: #### M 100.2200, L501.9940, L500.4050, L100.0100, L400.0001 ####[facility] [address] [place], [address] WBC (Bld) [#/Vol] 6.8 10*3/uL Normal 4.4-11.0 [facility] Comment on above: Performed By: #### M 100.2200, L501.9940, L500.4050, L100.0100, L400.0001 ####[facility] [address] [place], [address] Comprehensive Metabolic [facility] 06-13-2024 Albumin [Mass/Vol] 3.9 g/dL Normal 3.2-5.0 [facility] Comment on above: Performed By: #### M 100.2200, L501.9940, L500.4050, L100.0100, L400.0001 ####[facility] [address] [place], [address] Albumin/Globulin [Mass ratio] 1.3 {ratio} Normal 0.9-2.[address] [facility] Comment on above: Performed By: #### M 100.2200, L501.9940, L500.4050, L100.0100, L400.0001 ####[facility] [address] [place], [address] ALK P 73 U/L Normal 45-[address] [facility] Comment on above: Performed By: #### M 100.2200, L501.9940, L500.4050, L100.0100, L400.0001 ####[facility] [address] [place], [address] ALT [Catalytic activity/Vol] 28 U/L Normal 16-[address] [facility] Comment on above: Performed By: #### M 100.2200, L501.9940, L500.4050, L100.0100, L400.0001 ####[facility] [address] [place], [address] AST [Catalytic activity/Vol] 22 U/L Normal 15-[address] [facility] Comment on above: Performed By: #### M 100.2200, L501.9940, L500.4050, L100.0100, L400.0001 ####[facility] [address] [place], [address] Bilirubin [Mass/Vol] 0.40 mg/dL Normal 0.20-1.00 [facility] Comment on above: Result Comment: For patients on eltrombopag therapy, use of Dimension [place] TBIL is not recommended. Performed By: #### M 100.2200, L501.9940, L500.4050, L100.0100, L400.0001 ####[facility] [address] [place], [address] BUN/CRE 18.7 RATIO Normal 10-[address] [facility] Comment on above: Performed By: #### M 100.2200, L501.9940, L500.4050, L100.0100, L400.0001 ####[facility] [address] [place], [address] CA,Total 9.4 mg/dL Normal 8.5-10.[address] [facility] Comment on above: Performed By: #### M 100.2200, L501.9940, L500.4050, L100.0100, L400.0001 ####[facility] [address] [place], [address] Chloride [Moles/Vol] 108 mmol/L High 98-107 [facility] Comment on above: Performed By: #### M 100.2200, L501.9940, L500.4050, L100.0100, L400.0001 ####[facility] [address] [place], [address] CO2 [Moles/Vol] 25.0 mmol/L Normal 21.0-32.[address] [facility] Comment on above: Performed By: #### M 100.2200, L501.9940, L500.4050, L100.0100, L400.0001 ####[facility] [address] [place], [address] Creatinine [Mass/Vol] 0.96 mg/dL Normal 0.70-1.30 [facility] Comment on above: Result Comment: The validity of the calculated GFR GFRAA in patients over 70 years has not been determined. Clinical correlation is essential. Performed By: #### M 100.2200, L501.9940, L500.4050, L100.0100, L400.0001 ####[facility] [address] [place], [address] EST GFR - AA 99 mL/min Normal >[address] [facility] Comment on above: Result Comment: Afri can [place] GFR Calc Performed By: #### M 100.2200, L501.9940, L500.4050, L100.0100, L400.0001 ####[facility] [address] [place], [address] GAP 7 Normal 5-[address] [facility] Comment on above: Performed By: #### M 100.2200, L501.9940, L500.4050, L100.0100, L400.0001 ####[facility] [address] [place], [address] GFR/1.73 sq M.predicted among non-blacks MDRD (S/P/Bld) [Vol rate/Area] 82 mL/min/{1.73_m2} Normal >[address] [facility] Comment on above: Result Comment: Non- GFR Calc Performed By: #### M 100.2200, L501.9940, L500.4050, L100.0100, L400.0001 ####[facility] [address] [place], [address] Globulin (S) [Mass/Vol] 2.9 g/dL Normal 2.2-4.[address] [facility] Comment on above: Performed By: #### M 100.2200, L501.9940, L500.4050, L100.0100, L400.0001 ####[facility] [address] [place], [address] Glucose [Mass/Vol] 90 mg/dL Normal 74-106 [facility] Comment on above: Performed By: #### M 100.2200, L501.9940, L500.4050, L100.0100, L400.0001 ####[facility] [address] [place], [address] Potassium [Moles/Vol] 3.8 mmol/L Normal 3.5-5.1 [facility] Comment on above: Performed By: #### M 100.2200, L501.9940, L500.4050, L100.0100, L400.0001 ####[facility] [address] [place], [address] Sodium [Moles/Vol] 141 mmol/L Normal 136-145 [facility] Comment on above: Performed By: #### M 100.2200, L501.9940, L500.4050, L100.0100, L400.0001 ####[facility] [address] [place], [address] T PROT 6.8 g/dL Normal 6.4-8.[address] [facility] Comment on above: Performed By: #### M 100.2200, L501.9940, L500.4050, L100.0100, L400.0001 ####[facility] [address] [place], [address] Urea nitrogen [Mass/Vol] 18 mg/dL Normal 7-[address] [facility] Comment on above: Performed By: #### M 100.2200, L501.9940, L500.4050, L100.0100, L400.0001 ####[facility] [address] [place], [address] PSA,Total- Diagnosticon 10- PSA, DIAGNOSTIC 76.60 ng/mL High 0.0-4.[address] [facility] Comment on above: Result Comment: This test was performed using the TPSA assay method for the WIDIP chemistry system. Values obtained with different assay methods cannot be used interchangably. When changing PSA assays in the course of monitoring a patient, additional sequential testing should be carried out to confirm baseline values. Performed By: #### M 100.2200, L501.9940, L500.4050, L100.0100, L400.0001 ####[facility] [address] [place], [address] Urinalysis, Completeon 06-13 Mucus Ql (Urine sed) 2+ /hpf Normal [facility] Comment on above: Order Comment: CLEAN CATCH Performed By: #### M 100.2200, L501.9940, L500.4050, L100.0100, L400.0001 ####[facility] [address] [place], [address] CAST,HYALINE 0-5 SEEN Normal 0-[address] [facility] Comment on above: Order Comment: CLEAN CATCH Performed By: #### M 100.2200, L501.9940, L500.4050, L100.0100, L400.0001 ####[facility] [address] [place], [address] BACTERIA RARE Normal None Seen [facility] Comment on above: Order Comment: CLEAN CATCH Performed By: #### M 100.2200, L501.9940, L500.4050, L100.0100, L400.0001 ####[facility] [address] [place], [address] RBC 0-5 SEEN Normal 0-[address] [facility] Comment on above: Order Comment: CLEAN CATCH Performed By: #### M 100.2200, L501.9940, L500.4050, L100.0100, L400.0001 ####[facility] [address] [place], [address] WBC 0-5 SEEN Normal 0-[address] [facility] Comment on above: Order Comment: CLEAN CATCH Performed By: #### M 100.2200, L501.9940, L500.4050, L100.0100, L400.0001 ####[facility] [address] [place], [address] EPI,SQUAMOUS 0 SEEN Normal 0-[address] [facility] Comment on above: Order Comment: CLEAN CATCH Performed By: #### M 100.2200, L501.9940, L500.4050, L100.0100, L400.0001 ####[facility] [address] [place], [address] Progress Noteson 06-02-2024 Program Management Intern Advitechation Interface Message Text Sleep Medicine Follow-Up Documentation: Mode: Telephone Patient Home Phone: Patient Work Phone: Patient Cell Preferred phone: [phone] Consent: I confirmed patient understanding of the risks and benefits of telehealth visits and obtained consent to proceed with the telehealth visit. Location of Patient: Home of patient Patient here for f/u of PARI (Inspire HGNS) and RLS. Last seen on 04/28/2024 by telemed. To review, history is notable for HTN, RLS, moderate PARI. PSG at OSH in the early 1999s showed PARI. Tried PAP, BIPAP, and OMAD without success. 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 HST in 12/2019 showed AHI 27.1 sat trae 71%. Underwent Inspire implantation on 06/12/2020. Inspire activated on 07/11/2020. Configuration change to -0- on 09/27/20. HST with Inspire in 11/2021 showed AHI 7.8 sat trae 81% but patient noted limited symptomatic benefit. Titration PSG in 12/2021 showed marginal control at 1.7 volts (on my review, adequate in NREM at 1.4 volts, 1.7 volts in REM) with higher amplitudes associated with jaw discomfort. HST with Inspire in 05/2024 showed AHI 19.3 sat trae 64% (unclear if sat trae is accurate). At the last visit, patient noted: -stopped oxycodone due to itching and limited benefit on sleep quality (took for about a week). -waking unrefreshed most mornings despite 7-8 hours of sleep -minimal change with Inspire -wore holes in socks due to constant leg movement during sleep -little benefit with modafinil We rechecked iron (ferritin 138, iron 108, sat 36%) Completed HST showing elevated residual AHI at 19 with Inspire. Today he notes he did in fact use Inspire at level 1 during the HST. He was thinking of changing during the test but did not. At level 1 he can barely feel the stimulation. He remains quite tired during the day. He can usually get through the night without urinating when taking Flomax. He will see Urology. A 10-point review of systems was conducted and was positive for the points noted above, otherwise negative. Exam: BMI: Data Unavailable There were no vitals filed for this visit. Phone appointment A/P: PARI treated with Inspire HGNS, RLS. His PARI is no longer as well controlled with Inspire as it once was - this could certainly explain the significant residual fatigue. Discussed titration PSG to optimize therapy - patient was amenable. Will schedule RLS is now iron sufficient s/p iron infusion. Multiple meds trialed without much benefit. Consider tramadol (had limited benefit with oxycodone but may do better with longer acting med) though advised optimizing PARI first as above. Follow up after PSG. Ninoska Hernández MD This encounter required 22 minutes of attending physician time, inclusive of chart review, documentation, orders/prescriptions, independent data verification, medical decision making, counseling/coordination of care, face to face time with the patient, and exclusive of any teaching activities. Normal [employer] ADVANCED SLEEP TESTINGon [facility] f or Sleep Medicine [address] [address] HOME SLEEP APNEA TEST (HSAT): Last, First: JUVENCIO MACDONALD Gender: Male Age (years): 73 Weight (lbs): 213 : 1950 BMI: 31 Referring: Ninoska Hernández MD [place] Score: 15 Interpreting: MARIA A DIAZ MD Load Dispatcher Local: Sammi Maldonado Study Type: HST Study Date: 05/20/2024 Location: [facility] STUDY SUMMARY: An ApneaLinktype III monitor was used for this study. DIAGNOSES: - Moderate Obstructive Sleep Apnea (G47.33) - Bradycardia (R00.1) HSAT with an SOWMYA 4% of 19.3 and oxyhemoglobin saturation trae of 64%. BMI 31 kg/m2 ESS 15 out of 24 I reviewed the HSAT performed on 05/20/2024. This wasa technically adequate study. Study indication: This study was obtained to reevaluate for sleep disordered breathing. The patient has a history of moderate PARI and underwent Inspire implantation on 06/12/2020. Inspire activated on 07/11/2020. HST with Inspire in 11/2021 showed AHI 7.8 sat trae 81% but patient noted limited symptomatic benefit. Titration PSG in 12/2021 showed marginal control at 1.7 volts (on my review, adequate in NREM at 1.4 volts, 1.7 volts in REM) with higher amplitudes associated with jaw discomfort. Sleep behaviors: scanned questionnaire not available. Past medical history and medications were reviewed in EMR. PROTOCOL: Arterial oxygen saturation was followed with a finger-pulse oximeter. Air flow was sensed by an oronasal pressure transducer during the diagnostic phase of the study. Respiratory effort was monitored with chest wall effort belts. Plethysmography was used to determine pulse rate. Apneas were scored as a reduction of airflow in the airflow signal by at least 90% from baseline for at least 10 seconds with continued effort to breath (obstructive) or in the absence of effort (central) or a combination of both (mixed). Hypopneas were identified as a >= 50% decrease in airflow in the pressure transducer signal for at least 10 seconds accompanied by a >= 4% decrease in oxygen saturation. As this study is an unattended study and sleep was not measured, apneas and hypopneas are reported as respiratory events and the overall respiratory event index (SOWMYA) is reported synonymously with the apnea-hypopnea index (AHI). This was a diagnostic study. No therapeutic intervention was performed. Please see the graphics and summary sheet below for details of the study. An epoch by epoch review of the entire raw data recording was conducted by the interpreting physician. RESPIRATORY EVENTS: On MD review of the raw data, there was intermittent flow limitation, intermittent snoring and O2 desaturations. There were a total of 176 respiratory disturbances out of which 132 were apneas (109 obstructive, 4 mixed, 19 central) and 44 hypopneas based on a total recording time of 556.9 minutes. The respiratory event index at (REI3%) was N/A/hr and at (REI4%) was 19.3/hr. The central sleep apnea index was 2.1 events/hour. Respiratory disturbances were associated with oxygen desaturation down to a trae of 64%. The mean oxygen saturation during the study was 96%. The cumulative time under or = 88% oxygen saturation was 5 mins. CARDIAC SUMMARY: The average pulse rate was 55 bpm. SLEEP ARCHITECTURE: Sleep architecture was not monitored during this study. The time in bed period was reported to be from 10:00 PM to 7:07 AM. Total recording time was 556.9 minutes. Patient-reported medications include: Not available. IMPRESSION: - Moderate Obstructive Sleep apnea (PARI) - The average pulse rate was consistent with bradycardia. - Class 1 obesity RECOMMENDATIONS: - Positive airway pressure or adjunctive therapies are indicated for the patient's sleep apnea. Home-based testing may underestimate PARI. - Weight management and regular exercise should be initiated or continued. - Portable studies present limited sleep data compared to that of an in-laboratory polysomnogram and may underestimate the severity of sleep-disordered breathing. This study was scored and interpreted according to [place] [employer] guidelines. This study was deemed to be technically adequate based on accepted standards unless noted specifically above. - Clinical correlation is recommended for all patients undergoing home sleep testing. Caution is recommended with driving or during other activities requiring alertness for safety. [facility] Visit Reporton 05-17 Surgery Visit Report [facility] [address] [place], [place] [address] OFFICE VISIT Date of Service: 05/17/24 MR#: [id number] Acct: [id number] Name: JUVENCIO MACDONALD Rep #: [id number] : 1950 Provider: Dr. Tomasz benson MD Age/Sex: 73/M Location: [facility] Status: Signed Intake Vital Signs 03/25/23 17:55 05/17/24 13:43 Height 5 ft 10 in 5 ft 10 in Weight: 213 lb 2 oz BMI 30.5 BP 112/60 Blood Pressure Location Rt brachial Position Sitting Respiration 18 Pulse 70 Pulse Source Monitor Temp 97.5 F L Temp Source Temporal Pulse Oximetry (%) 95 Oxygen Delivery Method room air Intake Visit Reasons: Hemorrhoids Chief Complaint: hemorrhoids Is patient in pain?: No Allergies Penicillins Allergy (Verified 05/17/24 13:45) Rash Medications ???Medication ???Instructions ???Recorded ???Confirmed ???Type aspirin 81 mg tablet,delayed 81 mg PO DAILY 04/17/14 05/17/24 History release multivitamin 1 cap PO DAILY 10/31/18 05/17/24 History pregabalin 100 mg capsule 200 mg PO QHS 30 days 10/31/18 05/17/24 History losartan 25 mg tablet 25 mg PO DAILY HTN #90 tabs 01/23/19 05/17/24 Rx modafinil 100 mg tablet 100 mg PO QDAY 05/17/24 05/17/24 History ropinirole 0.25 mg tablet mg PO 05/17/24 05/17/24 History tamsulosin 0.4 mg capsule 0.4 mg PO QDAY 05/17/24 05/17/24 History Have you fallen in the past year?: No PFSH Medical History Hemorrhoids Prostate enlargement Fecal incontinence Inguinal hernia of left side without obstruction or gangrene RLS (restless legs syndrome) Family history of coronary arteriosclerosis Retinal artery occlusion Obstructive sleep apnea MRSA infection Hypertension Surgical History S/P left inguinal hernia repair History of hand surgery ( 10/25/15) History of left heart catheterization ( 04/18/14) Family History Father CAD (coronary artery disease) <55 years of age Sister CAD (coronary artery disease) <65 years of age Mother CVA (cerebral vascular accident) Social History Smoking Status: Never smoker HPI HPI HPI: Patient is a 73-year-old male here for incontinence of stool. The patient reports that he is having a difficult time urinating and he has to push very hard and sometimes when he is pushing he has some fecal incontinence. He says this only happens when he is trying to urinate. He attributed to hemorrhoids which she has had for over 20 years. He denies any blood or pain. ROS General General: Yes fatigue; No weight change, appetite, colon cancer, breast cancer or weakness HEENT HEENT: No difficulty swallowing, eye injury, eye surgery, swollen glands or hoarseness Endo Endocrine: No thyroid disease, diabetes mellitus, thyroid cancer, Hair loss, heat intolerance or cold intolerance Skin Skin: No rash or changing moles Musc Musculoskeletal: Yes back problems and arthritis; No rheumatoid arthritis, gout or joint pain Cardio Cardiovascular: No murmur, pacemaker, heart disease, atrial fibrillation, high blood pressure, heart attack, heart stent, palpitations, shortness of breat with exertion or chest pain Psych Psychiatric: Yes depression; No anxiety or hearing voices Resp Respiratory: No shortness of breath, No sleep apnea, No cough, No COPD, No asthma, No emphysema and No wheezing Gastro Gastrointestinal: No abdominal pain, No nausea or vomiting, Yes diarrhea, Yes constipation, No blood in stool, No acid reflux, Yes hemorrhoids, No ulcers, No gallbladder problem and No black,tarry stools Monster Hematologic: Yes blood thinners, No blood disorders, No bleeding, No anemia and No blood clots Additional Details: 81 mg aspirin Neuro Neurologic: No numbness, No tingling and No weakness Exam Const General: cooperative Orientation: alert and oriented x3 HENMT Head: normal to inspection Neck Neck: normal visual inspection and full ROM Chest Chest palpation inspection: normal inspection of the chest Resp Effort Inspection: normal respiratory effort Auscultation: clear to auscultation bilaterally Cardio Rate: regular rate Rhythm: regular rhythm GI Inspection: non-distended Palpation: soft and nontender Skin General: no rashes or lesions noted Neuro General: patient alert and patient oriented x3 Extrem General: full ROM Psych Appearance: grossly normal Mental Status: mental status grossly normal Assessment and Plan Assessment and Plan (1) Hemorrhoids: Status: Acute Qualifiers: Hemorrhoid type: unspecified Qualified Code(s): K64.9 - Unspecif (more content not included)... Normal [facility] CBC WITH DIFFERENTIALon 04-14 Basophils (Bld) [#/Vol] 0.04 10*3/uL 0.00 - 0.20 K/uL [facility] Basophils/100 WBC (Bld) 0.6 % NINF - 1.9 % [facility] Eosinophils (Bld) [#/Vol] 0.32 10*3/uL 0.00 - 0.70 K/uL [facility] Eosinophils/100 WBC (Bld) 5.2 % High 0.1 - 4.0 % [facility] Erythrocyte distribution width (RBC) [Ratio] 13.0 % 11.5 - 14.5 % [facility] Hematocrit (Bld) [Volume fraction] 47.2 % 41.0 - 53.0 % [facility] Hemoglobin (Bld) [Mass/Vol] 15.6 g/dL 13.9 - 16.3 g/dL [facility] Interpretation and review of laboratory results Abnormal [facility] Lymphocytes (Bld) [#/Vol] 1.49 10*3/uL 1.00 - 4.80 K/uL [facility] Lymphocytes/100 WBC (Bld) 23.9 % Low 24.0 - 44.0 % [facility] MCH (RBC) [Entitic mass] 30.3 pg 26.0 - 34.0 pg [facility] MCHC (RBC) [Mass/Vol] 33.0 g/dL 32.0 - 35.9 g/dL [facility] MCV (RBC) [Entitic vol] 92 fL 80 - 100 fL [facility] Monocytes (Bld) [#/Vol] 0.74 10*3/uL 0.20 - 1.00 K/uL [facility] Monocytes/100 WBC (Bld) 11.9 % High 2.0 - 11.0 % [facility] Neutrophils (Bld) [#/Vol] 3.64 10*3/uL 1.50 - 8.00 K/uL [facility] Neutrophils/100 WBC (Bld) 58.5 % 31.0 - 76.0 % [facility] Platelet mean volume (Bld) [Entitic vol] 10.2 fL 7.5 - 11.2 fL [facility] Platelets (Bld) [#/Vol] 150 10*3/uL 150 - 400 K/uL [facility] RBC (Bld) [#/Vol] 5.13 10*6/uL [facility] WBC (Bld) [#/Vol] 6.2 10*3/uL 4.5 - 11.5 K/uL [facility] Basophils (Bld) [#/Vol] 0.04 10*3/uL Normal 0.00-0.20 [facility] Comment on above: Performed By: #### C BCDSAT ####S PATHOLOGY [id number] [place], [place], Basophils/100 WBC (Bld) 0.6 % Normal <=1.9 [facility] Comment on above: Performed By: #### C BCDSAT ####S PATHOLOGY [id number] [place], [place], Eosinophils (Bld) [#/Vol] 0.32 10*3/uL Normal 0.00-0.70 [facility] Comment on above: Performed By: #### C BCDSAT ####[facility] PATHOLOGY [id number] [place], Eosinophils/100 WBC (Bld) 5.2 % High 0.1-4.0 [facility] Comment on above: Performed By: #### C BRADDSAT ####[facility] PATHOLOGY [id number] [place] [address], Erythrocyte distribution width (RBC) [Ratio] 13.0 % Normal 11.5-14.5 [facility] Comment on above: Performed By: #### C BRADDSAT ####[facility] PATHOLOGY [id number] [place] [address], Hematocrit (Bld) [Volume fraction] 47.2 % Normal 41.0-53.0 [facility] Comment on above: Performed By: #### C SILVIAAT ####[facility] PATHOLOGY [id number] [place] [address], Hemoglobin (Bld) [Mass/Vol] 15.6 g/dL Normal 13.9-16.3 [facility] Comment on above: Performed By: #### C SILVIAAT ####[facility] PATHOLOGY [id number] [place] [address], Lymphocytes (Bld) [#/Vol] 1.49 10*3/uL Normal 1.00-4.80 [facility] Comment on above: Performed By: #### C BCDSAT ####[facility] PATHOLOGY [id number] [place] [address], Lymphocytes/100 WBC (Bld) 23.9 % Low 24.0-44.0 [facility] Comment on above: Performed By: #### C SILVIAAT ####[facility] PATHOLOGY [id number] [place], [place], MCH (RBC) [Entitic mass] 30.3 pg Normal 26.0-34.0 [facility] Comment on above: Performed By: #### C SILVIAAT ####[facility] PATHOLOGY [id number] [place] [address], MCHC (RBC) [Mass/Vol] 33.0 g/dL Normal 32.0-35.9 [facility] Comment on above: Performed By: #### Lizabeth VEGAAT ####[facility] PATHOLOGY [id number] [place], MCV (RBC) [Entitic vol] 92 fL Normal 80-100 [facility] Comment on above: Performed By: #### Lizabeth VEGAAT ####[facility] PATHOLOGY [id number] [place] [address], Monocytes (Bld) [#/Vol] 0.74 10*3/uL Normal 0.20-1.00 [facility] Comment on above: Performed By: #### Lizabeth VEGAAT ####[facility] PATHOLOGY [id number] [place], Monocytes/100 WBC (Bld) 11.9 % High 2.0-11.0 [facility] Comment on above: Performed By: #### Lizabeth VEGAAT ####[facility] PATHOLOGY [id number] [place] [address], Neutrophils (Bld) [#/Vol] 3.64 10*3/uL Normal 1.50-8.00 [facility] Comment on above: Performed By: #### Lizabeth VEGAAT ####[facility] PATHOLOGY [id number] [place], Neutrophils/100 WBC (Bld) 58.5 % Normal 31.0-76.0 [facility] Comment on above: Performed By: #### Lizabeth VEGAAT ####[facility] PATHOLOGY [id number] [place], Platelet mean volume (Bld) [Entitic vol] 10.2 fL Normal 7.5-11.2 [facility] Comment on above: Performed By: #### Lizabeth VEGAAT ####[facility] PATHOLOGY [id number] [place], Platelets (Bld) [#/Vol] 150 10*3/uL Normal 150-400 [facility] Comment on above: Performed By: #### Lizabeth VEGAAT ####[facility] PATHOLOGY [id number] [place], RBC (Bld) [#/Vol] 5.13 10*6/uL Normal 4.50-5.90 [facility] Comment on above: Performed By: #### C BCDSAT ####[facility] PATHOLOGY [id number] [place], WBC (Bld) [#/Vol] 6.2 10*3/uL Normal 4.5-11.5 [facility] Comment on above: Performed By: #### C BCDSAT ####[facility] PATHOLOGY [id number] [place], [place], FERRITINon 05-03-2024 Ferritin [Mass/Vol] 138.5 ng/mL 23.9 - 336.2 ng/mL [facility] Interpretation and review of laboratory results Normal [facility] MELVIN 138.5 ng/mL Normal 23.9-336.2 [facility] Comment on above: Performed By: #### F ETIBC, MELVIN ####[facility] PATHOLOGY [id number] [place], [place], IRON AND TIBCon 05-03-2024 Iron [Mass/Vol] 108 ug/dL 50 - 212 ug/dL [facility] Iron binding capacity [Mass/Vol] 300 ug/mL 200 - 300 ug/mL [facility] saturation [Mass fraction] 36 % 20 - 55 % [facility] Transferrin [Mass/Vol] 214 mg/dL 203 - 362 mg/dL [facility] Note updated referen ce ranges. [facility] % SAT CORRECT PRD 36 % Normal 20-55 [facility] Comment on above: Order Comment: Note updated reference ranges. Performed By: #### F ETIBC, MELVIN ####[facility] PATHOLOGY [id number] [place], FE CORRECT PRD 108 ug/dL Normal 50-212 [facility] Comment on above: Order Comment: Note updated reference ranges. Performed By: #### F ETIBC, MELVIN ####[facility] PATHOLOGY [id number] [place], TIBC CORRECT PRD 300 ug/mL Normal 200-300 [facility] Comment on above: Order Comment: Note updated reference ranges. Performed By: #### F ETIBC, MELVIN ####[facility] PATHOLOGY [id number] [place], TRANSFER CORRECT PRD 214 mg/dL Normal 203-362 [facility] Comment on above: Order Comment: Note updated reference ranges. Performed By: #### F ETIBC, MELVIN ####[facility] PATHOLOGY [id number] [place], [place], No Panel Informationon 05-03 Interpretation and review of laboratory results Normal [facility] TSHon 05-03-2024 TSH Qn 1.402 m[IU]/L [facility] TSH 1.402 uIU/mL Normal 0.450-5.330 [facility] Comment on above: Performed By: #### T SH HS ####S PATHOLOGY [id number] [place], [place], VITAMIN D, 25-HYDROXYon 04-14 25-hydroxyvitamin D IA [Mass/Vol] 31.7 ng/mL 30 - 100 ng/mL [facility] Interpretation and review of laboratory results Normal [facility] Deficient : <20.0 ng /mL Insufficient : 20.0-29.9 ng/mL Sufficient : 30.0 - 100.0 ng/mL Potential Toxicity : >100.0 ng/mL [facility] [id number] 31.7 ng/mL Normal 30-100 [facility] Comment on above: Order Comment: Defic ient : <20.0 ng/mLInsufficient : 20.0-29.9 ng/mLSufficient : 30.0 - 100.0 ng/mLPotential Toxicity : >100.0 ng/mL Performed By: #### V ITD25 ####S PATHOLOGY [id number] [place], [place], Progress Noteson 04-28-2024 Program Management Intern Authentication Interface Message Text Sleep Medicine Follow-Up Documentation: Mode: Video Consent: This visit was initiated by the patient. Audio and visual communication was utilized in real-time. I confirmed understanding of risks and benefits of telehealth visits and obtained consent to proceed with the telemedicine visit. Location of Patient: Home of patient Time-Based Billing Justifications: Charting in [facility] Patient visit (including performing a medically appropriate exam) Obtaining history (or reviewing separately obtained history) Reviewing (chart, labs, and other clinical notes) Ordering/interpreting (medications, tests, procedures) Counseling/educating the patient/family/caregive r This appointment was scheduled as an audio-video telehealth appointment. Despite the patient's and/or provider's best efforts, a video connection could not be established. Therefore, the visit was completed via audio only. Patient here for f/u of PARI and RLS. Last seen on 01/14/2024. To review, history is notable for HTN, RLS, moderate PARI. PSG at OSH in the early showed PARI. Tried PAP, BIPAP, and OMAD without success. 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 HST in 12/2019 showed AHI 27.1 sat trae 71%. Underwent Inspire implantation on 06/12/2020. Inspire activated on 07/11/2020. Configuration change to -0- on 09/27/20. HST with Inspire in 11/2021 showed AHI 7.8 sat trae 81% but patient noted limited symptomatic benefit. Titration PSG in 12/2021 showed marginal control at 1.7 volts (on my review, adequate in NREM at 1.4 volts, 1.7 volts in REM) with higher amplitudes associated with jaw discomfort. At the last visit, patient was using Inspire regularly (43 hours/week) but noted ongoing RLS symptoms -- heels sore in the morning due to constant rubbing on the sheets. Discussed trial of oxycodone. Today patient notes he did not use oxycodone very long due to limited benefit in terms of daytime sleepiness. He felt itchy in the middle of the night. He took oxycodone for about a week. He tried on and off flomax with little change either way. He notes ongoing daytime fatigue and sleepiness by mid-morning, feels worn out all the time. Schedule at this point: if he takes flomax he sleeps through the night fairly well. He will go to bed as early as 1929 as late as 2129, up at 0700. He averages 7-8+ hours of sleep per night. He typically does not have issues falling asleep. Most nights he is able to fall asleep readily and use Inspire those nights. Notes minimal difference when Inspire. He has been sleeping on his side more, unsure if this has had an effect on his RLS. He has worn holes in socks from constant movement at night. Notes a family history of thyroid issues. Also tried modafinil and noted little benefit. A 10-point review of systems was conducted and was positive for the points noted above, otherwise negative. Exam: BMI: Data Unavailable There were no vitals filed for this visit. 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 -RLS: s/p trials of multiple medications and iron infusion with limited benefit. Oxycodone was marginally effective and associated with side effects but admittedly was given only a short trial. Discussed option for longer acting opiate such as tramadol. Will hold off on this and check labs first. -check iron, ferritin, vitamin D, TSH, CBC PARI: -continue nightly usage of Inspire. -HST with Inspire (last in 2021) to verify adequacy of therapy. Ninoska Hernández MD This encounter required 44 minutes of attending physician time, inclusive of chart review, documentation, orders/prescriptions, independent data verification, medical decision making, counseling/coordination of care, face to face time with the patient, and exclusive of any teaching activities. Normal [facility] Telephone Encounteron 2023 Program Management Intern Authentication Interface Message Text We will arrange a televisit lashon. Normal [facility] Addendum Noteon 04-25-2024 Program Management Intern Authentication Interface Message Text Addended by: NINOSKA HERNÁNDEZ on: 04/25/2024 04:30 PM Modules accepted: Orders Normal [facility] Telephone Encounteron 2023 Program Management Intern Authentication Interface Message Text Returned call to patient for Dr. Hernández regarding his Inspire and medications. Left VM with my call back number. Ratna Camargo BA, BSN, RN Clinical Kickboxing Instructor, Pulmonary and Sleep Medicine Normal [facility] Telephone Encounteron 2023 Program Management Intern Authentication Interface Message Text PT is calling is having some concern on sleeping issue and medication. Please call to advise. Normal [facility] Telephone Encounteron 2023 Program Management Intern Authentication Interface Message Text Returned patient's call. He notes he started oxycodone on Wednesday evening and has been taking up to last night. He has known urinary issues related to prostate hypertrophy. Tried Flomax, which helped but seems to have caused fatigue. He is overly tired, moreso than before he took the oxycodone and Flomax. Plan: try to sort out source of fatigue - oxycodone or flomax. Try oxycodone without flomax this weekend - gauge symptomatic response. Patient will call with results. Normal [facility] Program Management Intern Authentication Interface Message Text Patient calling with update. Started taking Oxydone last Wednesday. January 14. Had trouble urinating which he knows is side effect of medication. Took some Flomax, which took care of urine flow, but now very tired. Requesting return call. Normal [facility] Laboratory - Drug toxicology on 01-14-2024 Amphetamines Ql (U) Negative Negative [facility] Barbiturates Screen Ql (U) Negative Negative [facility] Benzodiazepines Ql (U) Negative [facility] Benzoylecgonine Screen Ql (U) Negative Negative [facility] Buprenorphine+Norbupre norphine Screen Ql (U) Negative [facility] Ethanol Screen Ql (U) Negative [facility] fentaNYL Screen Ql (U) Negative Negat porfirio ng/mL [facility] HYDROcodone Screen Ql (U) Negative Negative [facility] Methadone Screen Ql (U) Negative Negative [facility] Opiates Ql (U) Negative Negative [facility] oxyCODONE Ql (U) Negative [facility] Comment on above: Oxycodone and metabo lites of Oxycodone (Oxymorphone, Noroxycodone, and Noroxymorphone) are measured/detected in this assay method. Phencyclidine Ql (U) Negative [facility] Tetrahydrocannabinol Screen Ql (U) Negative Negative [facility] No Panel Informationon 01-13 Interpretation and review of laboratory results Normal [facility] This toxicology scre en provides unconfirmed analytical results suitable for clinical management. Results are reported as positive (at or above the cutoff) or negative (below the cutoff). Amphetamines 1000 ng/mL Barbiturates 200 ng/mL Methadone 300 ng/mL Opiates 300 ng/mL Oxycodone 100 ng/mL Fentanyl 1 ng/mL Hydrocodone 100 ng/mL Benzodiazepines 200 ng/mL Cocaine Metabolite 300 ng/mL PCP 25 ng/mL THC 50 ng/mL Buprenorphine 5 ng/mL Alcohol 10 mg/dL [facility] Patient Instructionson 01-13 Program Management Intern Authentication Interface Message Text 1) For the restless legs, we discussed trying oxycodone. This is an opiate medication usually used for pain but it is highly effective for restless legs. Start with 1 tab (5mg) about an hour before bedtime. You can increase to 2 tabs (10mg) after 1 week if needed. You can increase to 3 tabs (15mg) after 2 weeks if needed. Please let me know how it goes -- you can send me a [employer] message or call us directly at [phone]. If you end up taking more than 1 per night, we'll need to update the prescription early. 2) Make sure you do not take the oxycodone and the Klonipin (clonazepam) together. 3) Once you've got some experience with how the oxycodone is helping, see if you need to take the modafinil during the day. 4) We will need to do a urine test every year. Normal [facility] Progress Noteson 01-14-2024 Program Management Intern Authentication Interface Message Text Sleep Medicine Follow-Up Patient here for f/u of PARI treated with Inspire HGNS and RLS. Last seen on 10/08/23. To review, history is notable for HTN, RLS, moderate PARI. PSG at OSH in the early showed PARI. Tried PAP, BIPAP, and OMAD without success. 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 HST in 12/2019 showed AHI 27.1 sat trae 71%. Underwent Inspire implantation on 06/12/2020. Inspire activated on 07/11/2020. Configuration change to -0- on 09/27/20. HST with Inspire in 11/2021 showed AHI 7.8 sat trae 81% but patient noted limited symptomatic benefit. Titration PSG in 12/2021 showed marginal control at 1.7 volts (on my review, adequate in NREM at 1.4 volts, 1.7 volts in REM) with higher amplitudes associated with jaw discomfort. At the last visit, patient was using Inspire regularly at 36 hours/week but noted ongoing RLS symptoms - sheets in disarray upon awakening. Tried temazepam from PCP which caused residual daytime grogginess. Completed iron infusion for RLS with little change in symptoms. Discussed trial of modafinil 100-200mg and ongoing usage of Inspire. Today he notes ongoing struggles with sleep and fatigue. Biggest issue is RLS - he notes nightly symptoms. Often feels his heels are sore in the morning due to constant rubbing. Multiple prior med trials were ineffective or of limited benefit. He has not yet tried opiates. Using Inspire nightly, finds level 1 tolerable but cannot tolerate higher. Feels it has helped with symptoms but still variably fatigued during the day. Date Time [place] Score 10/08/2023 1437 15 05/05/2022 1109 14 10/09/2021 1541 12 Inspire was interrogated and settings are: Current Amplitude: 1.2 volts Patient Control Lower Limit: 1.2 volts Patient Control Upper Limit: 2.2volts Electrode configuration: 0-0 Usage: 598 hours (average 43 hours per week) A 10-point review of systems was conducted and was positive for the points noted above, otherwise negative. Exam: BMI: 30.5 Vitals: 01/14/24 1525 BP: 122/67 Pulse: 76 Resp: 18 Temp: 98.7 ???F (37.1 ???C) SpO2: 97% Pleasant, alert, NAD Surgical sites well healed Unlabored breathing A/P: Moderate PAIR treated with Inspire HGNS and RLS. RLS is the major symptomatic concern today. -RLS: s/p trials of multiple medications and iron infusion with limited benefit. Discussed trial of opiates, which have strong supporting evidence for RLS treatment. Elected to start with oxycodone 5mg 1 hour before bedtime. Can increase as high as 15mg nightly but will need to update Rx if this dose is required. ---controlled substance agreement signed. ---utox obtained; naloxone prescribed ---advised patient not to take clonazepam with oxycodone and he voiced his understanding and agreement with this important point. -PARI: adequately controlled with Inspire HGNS per titration PSG; continue nightly usage. F/u in 3-6 months. Ninoska Hernández MD Normal [facility] TOXICOLOGY SCREEN, UNCONFIRM EDon 01-14-2024 [facility] Negative Normal Negative [facility] Comment on above: Order Comment: This toxicology screen provides unconfirmed analytical results suitable for clinical management. Results are reported as positive (at or above the cutoff) or negative (below the cutoff). Amphetamines 1000 ng/mL Barbiturates 200 ng/mL Methadone 300 ng/mL Opiates 300 ng/mL Oxycodone 100 ng/mL Fentanyl 1 ng/mL Hydrocodone 100 ng/mL Benzodiazepines 200 ng/mL Cocaine Metabolite 300 ng/mL PCP 25 ng/mL THC 50 ng/mL Buprenorphine 5 ng/mL Alcohol 10 mg/dL Performed By: #### T OX SC ####S PATHOLOGY [id number] [place], [place], BARBIT Negative Normal Negative [facility] Comment on above: Order Comment: This toxicology screen provides unconfirmed analytical results suitable for clinical management. Results are reported as positive (at or above the cutoff) or negative (below the cutoff). Amphetamines 1000 ng/mL Barbiturates 200 ng/mL Methadone 300 ng/mL Opiates 300 ng/mL Oxycodone 100 ng/mL Fentanyl 1 ng/mL Hydrocodone 100 ng/mL Benzodiazepines 200 ng/mL Cocaine Metabolite 300 ng/mL PCP 25 ng/mL THC 50 ng/mL Buprenorphine 5 ng/mL Alcohol 10 mg/dL Performed By: #### T OX SC ####S PATHOLOGY [id number] [place], [place], BENZO Negative Normal Negative [facility] Comment on above: Order Comment: This toxicology screen provides unconfirmed analytical results suitable for clinical management. Results are reported as positive (at or above the cutoff) or negative (below the cutoff). Amphetamines 1000 ng/mL Barbiturates 200 ng/mL Methadone 300 ng/mL Opiates 300 ng/mL Oxycodone 100 ng/mL Fentanyl 1 ng/mL Hydrocodone 100 ng/mL Benzodiazepines 200 ng/mL Cocaine Metabolite 300 ng/mL PCP 25 ng/mL THC 50 ng/mL Buprenorphine 5 ng/mL Alcohol 10 mg/dL Performed By: #### T OX SC ####[facility] PATHOLOGY [id number] [place], [place], BUPRENORPHINE Negative Normal Cutoff: 5 [facility] Comment on above: Order Comment: This toxicology screen provides unconfirmed analytical results suitable for clinical management. Results are reported as positive (at or above the cutoff) or negative (below the cutoff). Amphetamines 1000 ng/mL Barbiturates 200 ng/mL Methadone 300 ng/mL Opiates 300 ng/mL Oxycodone 100 ng/mL Fentanyl 1 ng/mL Hydrocodone 100 ng/mL Benzodiazepines 200 ng/mL Cocaine Metabolite 300 ng/mL PCP 25 ng/mL THC 50 ng/mL Buprenorphine 5 ng/mL Alcohol 10 mg/dL Performed By: #### T OX SC ####[facility] PATHOLOGY [id number] [place] [address], COCAINE CL Negative Normal Negative [facility] Comment on above: Order Comment: This toxicology screen provides unconfirmed analytical results suitable for clinical management. Results are reported as positive (at or above the cutoff) or negative (below the cutoff). Amphetamines 1000 ng/mL Barbiturates 200 ng/mL Methadone 300 ng/mL Opiates 300 ng/mL Oxycodone 100 ng/mL Fentanyl 1 ng/mL Hydrocodone 100 ng/mL Benzodiazepines 200 ng/mL Cocaine Metabolite 300 ng/mL PCP 25 ng/mL THC 50 ng/mL Buprenorphine 5 ng/mL Alcohol 10 mg/dL Performed By: #### T OX SC ####[facility] PATHOLOGY [id number] [place] [address], Ethanol [Mass/Vol] Negative Normal Cutoff: 1 0 mg/dL [facility] Comment on above: Order Comment: This toxicology screen provides unconfirmed analytical results suitable for clinical management. Results are reported as positive (at or above the cutoff) or negative (below the cutoff). Amphetamines 1000 ng/mL Barbiturates 200 ng/mL Methadone 300 ng/mL Opiates 300 ng/mL Oxycodone 100 ng/mL Fentanyl 1 ng/mL Hydrocodone 100 ng/mL Benzodiazepines 200 ng/mL Cocaine Metabolite 300 ng/mL PCP 25 ng/mL THC 50 ng/mL Buprenorphine 5 ng/mL Alcohol 10 mg/dL Performed By: #### T OX SC ####S PATHOLOGY [id number] [place], [place], FENTANYL Negative Normal Negative [facility] Comment on above: Order Comment: This toxicology screen provides unconfirmed analytical results suitable for clinical management. Results are reported as positive (at or above the cutoff) or negative (below the cutoff). Amphetamines 1000 ng/mL Barbiturates 200 ng/mL Methadone 300 ng/mL Opiates 300 ng/mL Oxycodone 100 ng/mL Fentanyl 1 ng/mL Hydrocodone 100 ng/mL Benzodiazepines 200 ng/mL Cocaine Metabolite 300 ng/mL PCP 25 ng/mL THC 50 ng/mL Buprenorphine 5 ng/mL Alcohol 10 mg/dL Performed By: #### T OX SC ####[facility] PATHOLOGY [id number] [place] [address], HYDROCODONE (PM) Negative Normal Negative [facility] Comment on above: Order Comment: This toxicology screen provides unconfirmed analytical results suitable for clinical management. Results are reported as positive (at or above the cutoff) or negative (below the cutoff). Amphetamines 1000 ng/mL Barbiturates 200 ng/mL Methadone 300 ng/mL Opiates 300 ng/mL Oxycodone 100 ng/mL Fentanyl 1 ng/mL Hydrocodone 100 ng/mL Benzodiazepines 200 ng/mL Cocaine Metabolite 300 ng/mL PCP 25 ng/mL THC 50 ng/mL Buprenorphine 5 ng/mL Alcohol 10 mg/dL Performed By: #### T OX SC ####[facility] PATHOLOGY [id number] [place] [address], Methadone Ql (U) Negative Normal Negative [facility] Comment on above: Order Comment: This toxicology screen provides unconfirmed analytical results suitable for clinical management. Results are reported as positive (at or above the cutoff) or negative (below the cutoff). Amphetamines 1000 ng/mL Barbiturates 200 ng/mL Methadone 300 ng/mL Opiates 300 ng/mL Oxycodone 100 ng/mL Fentanyl 1 ng/mL Hydrocodone 100 ng/mL Benzodiazepines 200 ng/mL Cocaine Metabolite 300 ng/mL PCP 25 ng/mL THC 50 ng/mL Buprenorphine 5 ng/mL Alcohol 10 mg/dL Performed By: #### T OX SC ####S PATHOLOGY [id number] [place] [address], OPIATE Negative Normal Negative [facility] Comment on above: Order Comment: This toxicology screen provides unconfirmed analytical results suitable for clinical management. Results are reported as positive (at or above the cutoff) or negative (below the cutoff). Amphetamines 1000 ng/mL Barbiturates 200 ng/mL Methadone 300 ng/mL Opiates 300 ng/mL Oxycodone 100 ng/mL Fentanyl 1 ng/mL Hydrocodone 100 ng/mL Benzodiazepines 200 ng/mL Cocaine Metabolite 300 ng/mL PCP 25 ng/mL THC 50 ng/mL Buprenorphine 5 ng/mL Alcohol 10 mg/dL Performed By: #### T OX NV ####S PATHOLOGY [id number] [place], [place], OXYCODONE Negative Normal Cutoff: 100 [facility] Comment on above: Order Comment: This toxicology screen provides unconfirmed analytical results suitable for clinical management. Results are reported as positive (at or above the cutoff) or negative (below the cutoff). Amphetamines 1000 ng/mL Barbiturates 200 ng/mL Methadone 300 ng/mL Opiates 300 ng/mL Oxycodone 100 ng/mL Fentanyl 1 ng/mL Hydrocodone 100 ng/mL Benzodiazepines 200 ng/mL Cocaine Metabolite 300 ng/mL PCP 25 ng/mL THC 50 ng/mL Buprenorphine 5 ng/mL Alcohol 10 mg/dL Result Comment: Oxyc odone and metabolites of Oxycodone (Oxymorphone, Noroxycodone, and Noroxymorphone) are measured/detected in this assay method. Performed By: #### T OX SC ####S PATHOLOGY [id number] [place], [place], PHENCYCL Negative Normal Negative [facility] Comment on above: Order Comment: This toxicology screen provides unconfirmed analytical results suitable for clinical management. Results are reported as positive (at or above the cutoff) or negative (below the cutoff). Amphetamines 1000 ng/mL Barbiturates 200 ng/mL Methadone 300 ng/mL Opiates 300 ng/mL Oxycodone 100 ng/mL Fentanyl 1 ng/mL Hydrocodone 100 ng/mL Benzodiazepines 200 ng/mL Cocaine Metabolite 300 ng/mL PCP 25 ng/mL THC 50 ng/mL Buprenorphine 5 ng/mL Alcohol 10 mg/dL Performed By: #### T OX NV ####S PATHOLOGY [id number] [place], [place], THC CL Negative Normal Negative [facility] Comment on above: Order Comment: This toxicology screen provides unconfirmed analytical results suitable for clinical management. Results are reported as positive (at or above the cutoff) or negative (below the cutoff). Amphetamines 1000 ng/mL Barbiturates 200 ng/mL Methadone 300 ng/mL Opiates 300 ng/mL Oxycodone 100 ng/mL Fentanyl 1 ng/mL Hydrocodone 100 ng/mL Benzodiazepines 200 ng/mL Cocaine Metabolite 300 ng/mL PCP 25 ng/mL THC 50 ng/mL Buprenorphine 5 ng/mL Alcohol 10 mg/dL Performed By: #### T OX NV ####[facility] PATHOLOGY [id number] [place], [place], Telephone Encounteron 2023 Program Management Intern Authentication Interface Message Text Pharmacy comment: Has patient tried ropinirole? He is on several controlled drugs-I cannot fill oxycodone for restless leg. Normal [facility] Absolute lymphocyte countOrd ered By: Gloria Dawkins on 10-18-2023 Lymphocytes Auto (Unsp spec) [#/Vol] 1.90 10*3/uL 0.83-4.[address] [facility] Automated lymphocyte count a s percentage of total leukocytesOrdered By: Gloria Dawkins on 10-18-2023 Lymphocytes/100 WBC Auto (Unsp spec) 23.3 % 19-[address] [facility] Basophil percentageOrdered B y: Gloria Dawkins on 10-18-2023 Basophils/100 WBC (Bld) 0.6 % 0-[address] [facility] Bilirubin [Mass/Vol] 0.40 mg/dL 0.20-1.00 [facility] Comment on above: For patients on eltr ombopag therapy, use of Dimension [place] TBIL is not recommended. Chloride [Moles/Vol] 110 mmol/L 98-107 [facility] Eosinophils/100 WBC (Bld) 3.3 % 0-[address] [facility] Glucose [Mass/Vol] 112 mg/dL 74-106 [facility] Comment on above: Fasting Glucose resu lt from 100 to 125 mg/dL suggests IMPAIRED HOMEOSTASIS per A.D.A. criteria. Hemoglobin (Bld) [Mass/Vol] 15.7 g/dL 13.0-16.[address] [facility] Monocytes/100 WBC (Bld) 10.0 % 0-[address] [facility] Neutrophils (Bld) [#/Vol] 5.1 10*3/uL 2.0-7.[address] [facility] Neutrophils/100 WBC (Bld) 62.2 % 47-[address] [facility] Potassium [Moles/Vol] 3.8 mmol/L 3.5-5.1 [facility] Protein [Mass/Vol] 7.1 g/dL 6.4-8.2 [facility] Sodium [Moles/Vol] 143 mmol/L 136-145 [facility] WBC (Bld) [#/Vol] 8.2 10*3/uL 4.4-11.0 [facility] Determination of erythrocyte mean corpuscular volume (MCV)Ordered By: Gloria Dawkins on 10-18-2023 MCV (RBC) [Entitic vol] 90.2 fL 80-[address] [facility] Erythrocyte distribution wid th ratioOrdered By: Gloria Dawkins on 10-18-2023 Erythrocyte distribution width (RBC) [Ratio] 12.4 % 11.6-14.[address] [facility] Erythrocyte distribution wid th standard deviationOrdered By: Gloria Dawkins on 10-18-2023 Erythrocyte distribution width (RBC) [Entitic vol] 40.7 fL 35.1-43.[address] [facility] Hematocrit Auto (Bld) [Volum e fraction]Ordered By: Gloria Dawkins on 10-18-2023 Hematocrit (Bld) [Volume fraction] 47.0 % 40-[address] [facility] Immature granulocytes/100 WB C Auto (Bld)Ordered By: Gloria Dawkins on 10-18-2023 Immature granulocytes/100 WBC (Bld) 0.600 % 0.0-0.[address] [facility] Comment on above: IG% - Immature Granu locytes (promyelocytes, myelocytes and metamyelocytes) > 1% indicates that a LEFT SHIFT is Present. Laboratory - Chemistry and C hemistry - challengeOrdered By: Gloria Dawkins on 10-18-2023 Albumin/Globulin [Mass ratio] 1.2 {ratio} 0.9-2.[address] [facility] ALP [Catalytic activity/Vol] 78 U/L 45-[address] [facility] ALT [Catalytic activity/Vol] 32 U/L 16-[address] [facility] CO2 [Moles/Vol] 24.0 mmol/L 21.0-32.[address] [facility] Globulin (S) [Mass/Vol] 3.3 g/dL 2.2-4.[address] [facility] Lipase [Catalytic activity/Vol] 51 U/L 13-[address] [facility] Comment on above: Please note:LIPASE r evised reference range effective 22. New Lipase methodology. Expected to produce lower values than the previous assay method. NEW Reference Range: 13 - 75 U/L Urea nitrogen/Creatinine [Mass ratio] 22.0 mg/mg 10-[address] [facility] Laboratory - Drug toxicology Ordered By: Gloria Dawkins on 10-18-2023 Amphetamines Ql (U) Negative <1000 ng/mL [facility] Benzodiazepines Ql (U) Negative < 200 ng/mL [facility] Cannabinoids Screen Ql (U) Negative < 50 ng/mL [facility] Cocaine Ql (U) Negative < 300 ng/mL [facility] Opiates Ql (U) Negative < 300 ng/mL [facility] Laboratory - Hematology and Cell countsOrdered By: Gloria Dawkins on 10-18-2023 MCH (RBC) [Entitic mass] 30.1 pg 27.0-32.[address] [facility] MCHC (RBC) [Mass/Vol] 33.4 g/dL 32-36 [facility] Nucleated RBC/100 WBC (Bld) [Ratio] 0 % 0-[address] [facility] Platelets (Bld) [#/Vol] 160 10*3/uL 150-[address] [facility] No Panel InformationOrdered By: Gloria Dawkins on 10-18-2023 Estimated GFR (MDRD) Amer 100 mL/min >[address] [facility] Comment on above: GFR Calc Estimated GFR (MDRD) Non-Af Amer 83 mL/min >[address] [facility] Comment on above: Non- GFR Calc MDMA (Ecstasy) Screen Negative < 500 ng/mL [facility] Urine Barbiturates Screen Negative < 200 ng/mL [facility] Urine Drug Screen Comment [facility] Comment on above: CONFIRMATORY TESTING FOR ALL POSITIVE URINE DRUG SCREENRESULTS WILL ONLY BE SENT OUT UPON PHYSICIAN ORDER. VISTA Urine Drug Screen methods provide only preliminaryanalytical test results. A more specific alternate chemicalmethod must be used in order to obtain a confirmedanalytical result. Gas chromatography/mass spectrometery(GC/MS) is the preferred confirmatory method. Clinicalconsideration and professional judgement should be appliedto any drug of abuse test result, particularly whenpreliminary positive results are used. URINE TCA TESTING MUST BE ORDERED SEPARATELY. USE TESTMNEMONIC: [facility] Urine Methadone Screen Negative < 300 ng/mL [facility] Platelet mean volume Bill-Ec ker (Bld) [Entitic vol]Ordered By: Gloria Dawkins on 10-18-2023 Platelet mean volume (Bld) [Entitic vol] 11.6 fL 6.2-12.[address] [facility] RBC Auto (Bld) [#/Vol]Ordere d By: Gloria Dawkins on 10-18-2023 RBC (Bld) [#/Vol] 5.21 10*6/uL 4.6-6.2 [facility] Serum or plasma calcium ambrosio urement (mass/volume)Ordered By: Gloria Dawkins on 10-18-2023 Calcium [Mass/Vol] 8.9 mg/dL 8.5-10.1 [facility] Serum or plasma creatinine m easurement (mass/volume)Ordered By: Gloria Dawkins on 10-18-2023 Creatinine [Mass/Vol] 0.95 mg/dL 0.70-1.30 [facility] Comment on above: The validity of the calculated GFR & GFRAA in patients over 70 years has not been determined. Clinical correlation is essential. Serum or plasma urea nitroge n measurement (mass/volume)Ordered By: Gloria Dawkins on 10-18-2023 Urea nitrogen [Mass/Vol] 21 mg/dL 7-[address] [facility] Thin prep Papanicolaou smear with manual screeningOrdered By: Gloria Dawkins on 10-18-2023 Thin prep Papanicolaou smear with manual screening 3.8 g/dL 3.2-5.[address] [facility] Thin prep Papanicolaou smear with manual screening 12 U/L 15-[address] [facility] Thin prep Papanicolaou smear with manual screening 9 -[address] [facility] Urine phencyclidine (PCP) de tectionOrdered By: Gloria Dawkins on 10-18-2023 Phencyclidine Ql (U) Negative < 25 ng/mL [facility] Patient Instructionson 10-08 Program Management Intern Authentication Interface Message Text Please ask Dr. Dawkins about other medications for the prostate. We discussed trying a medication during the day for the fatigue called Provigil (modafinil). Start with 1 tablet (100mg) in the morning. Take with a small amount of food if you have upset stomach. You can increase to 2 tablets (200mg) per day if needed. If that's helping, please let me know. If you need to go higher, please let me know. Please give us a call at [phone]. Normal [facility] Progress Noteson 10-08-2023 Program Management Intern Authentication Interface Message Text Sleep Medicine Follow-Up Patient here for f/u of PARI treated with Inspire HGNS and RLS. Last seen on 08/10/2022 by telemed. To review, history is notable for HTN, RLS, moderate PARI. PSG at OSH in the early 1999s showed PARI. Tried PAP, BIPAP, and OMAD without success. 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 HST in 12/2019 showed AHI 27.1 sat trae 71%. Underwent Inspire implantation on 06/12/2020. Inspire activated on 07/11/2020. Configuration change to -0- on 09/27/20. HST with Inspire in 11/2021 showed AHI 7.8 sat trae 81% but patient noted limited symptomatic benefit. Titration PSG in 12/2021 showed marginal control at 1.7 volts (on my review, adequate in NREM at 1.4 volts, 1.7 volts in REM) with higher amplitudes associated with jaw discomfort. At the last visit, patient was using Inspire regularly at level 2 - difficulty with higher amplitude. Had stopped clonazepam and started pregabalin - helpful for arthritis and somewhat for RLS. Discussing continuing Inspire at 1.3 volts (1.4 volts was effective in NREM). Discussing trying bilevel with Inspire. Checked ferritin, completed iron infusion 10/12/2022 for ferritin 53.6 with RLS - no f/u levels drawn. Pt subsequently called noting difficulty activating Inspire with error light on remote - discussed changing batteries - did not receive callback after that. Today patient notes he continues to struggle with fatigue. He generally sleeps continuously through the night (3/7 nights) for 8-9 hours but occasionally wakes with nocturia. He is not aware of snoring, gasping, or choking, but does have a dry mouth some mornings. Generally sleeping on his L side helps (avoids supine). He is not aware of RLS per se but notes the sheets are dissheveled in the morning, suggesting legs have been moving. He felt no better (in fact, worse!) after iron infusion. Tried temazepam (rx by Dr. Dawkins) which he felt caused excessive daytime drowsiness. Date Time [place] Score 10/08/2023 1437 15 05/05/2022 1109 14 10/09/2021 1541 12 Inspire was interrogated and settings are: Current Amplitude: 1.2 volts Patient Control Lower Limit: 1.2 volts Patient Control Upper Limit: 2.2volts Electrode configuration: -0- Usage: 2716 hours (average 36 hours per week) A 10-point review of systems was conducted and was positive for the points noted above, otherwise negative. Exam: BMI: 31.04 Vitals: 10/08/23 1435 BP: 120/64 Pulse: 78 Temp: 98.7 ???F (37.1 ???C) SpO2: 97% Pleasant, alert, NAD Normal tongue movement Unlabored breathing A/P: moderate PARI and RLS. PARI treated with Inspire HGNS and is objectively well controlled by both HST and titration PSG (During titration, 1.4 volts effective in NREM and 1.7 volts in supine REM). He is s/p ferric carboxymaltose infusion for RLS versus PLMD but no less fatigued. Query hypersomnia with PARI (10-15% of patients with well treated PARI remain sleepy) - discussed directed therapy with wakefulness-promoting agent for this. Agreed on trial of modafinil - start with 100mg daily and increase if needed to 200mg (call to discuss further dose adjustments). OARRS reviewed. Discussed possible side effects. Continue nightly usage of Inspire. F/u in 3 months. Inspire settings as of completion of today's visit: Good bulk tongue base movement at current amplitude Final Amplitude: 1.2 volts Patient Control Lower Limit: 1.2 volts Patient Control Upper Limit: 2.2volts Electrode Configuration: -0- Other programmin Ninoska Hernández MD Normal [facility] Absolute lymphocyte countOrd ered By: Gloria Dawkins on 08-04-2023 Lymphocytes Auto (Unsp spec) [#/Vol] 1.63 10*3/uL 0.83-4.[address] [facility] Basophil percentageOrdered B y: Gloria Dawkins on 08-04-2023 Basophils/100 WBC (Bld) 0.7 % 0-[address] [facility] Bilirubin [Mass/Vol] 0.60 mg/dL 0.20-1.00 [facility] Comment on above: For patients on eltr ombopag therapy, use of Dimension [place] TBIL is not recommended. Chloride [Moles/Vol] 108 mmol/L 98-107 [facility] Eosinophils/100 WBC (Bld) 6.5 % 0-[address] [facility] Glucose [Mass/Vol] 117 mg/dL 74-106 [facility] Comment on above: Fasting Glucose resu lt from 100 to 125 mg/dL suggests IMPAIRED HOMEOSTASIS per A.D.A. criteria. Neutrophils (Bld) [#/Vol] 2.9 10*3/uL 2.0-7.[address] [facility] Neutrophils/100 WBC (Bld) 52.7 % 47-[address] [facility] Potassium [Moles/Vol] 3.8 mmol/L 3.5-5.1 [facility] Protein [Mass/Vol] 6.7 g/dL 6.4-8.2 [facility] Sodium [Moles/Vol] 144 mmol/L 136-145 [facility] WBC (Bld) [#/Vol] 5.6 10*3/uL 4.4-11.0 [facility] Blood erythrocytes count (nu mber/volume)Ordered By: Gloria Dawkins on 08-04-2023 RBC (Bld) [#/Vol] 5.45 10*6/uL 4.6-6.2 [facility] Blood hemoglobin measurement (mass/volume)Ordered By: Gloria Dawkins on 08-04-2023 Hemoglobin (Bld) [Mass/Vol] 16.6 g/dL 13.0-16.[address] [facility] Blood lymphocytes/100 leukoc ytesOrdered By: Gloria Dawkins on 08-04-2023 Lymphocytes/100 WBC (Bld) 29.3 % 19-[address] [facility] Blood monocytes/100 leukocyt esOrdered By: Gloria Dawkins on 08-04-2023 Monocytes/100 WBC (Bld) 10.4 % 0-[address] [facility] Blood platelet mean volumeOr dered By: Gloria Dawkins on 08-04-2023 Platelet mean volume (Bld) [Entitic vol] 12.1 fL 6.2-12.[address] [facility] Determination of erythrocyte mean corpuscular volume (MCV)Ordered By: Gloria Dawkins on 08-04-2023 MCV (RBC) [Entitic vol] 93.0 fL 80-[address] [facility] Hematocrit Auto (Bld) [Volum e fraction]Ordered By: Gloria Dawkins on 08-04-2023 Hematocrit (Bld) [Volume fraction] 50.7 % 40-[address] [facility] Laboratory - Chemistry and C hemistry - challengeOrdered By: Gloria Dawkins on 08-04-2023 ALP [Catalytic activity/Vol] 72 U/L 45-[address] [facility] ALT [Catalytic activity/Vol] 35 U/L 16-[address] [facility] CO2 [Moles/Vol] 32.0 mmol/L 21.0-32.[address] [facility] Globulin (S) [Mass/Vol] 3.0 g/dL 2.2-4.[address] [facility] Urea nitrogen/Creatinine [Mass ratio] 22.1 mg/mg 10-[address] [facility] Laboratory - Hematology and Cell countsOrdered By: Gloria Dawkins on 08-04-2023 Erythrocyte distribution width (RBC) [Entitic vol] 42.3 fL 35.1-43.[address] [facility] Erythrocyte distribution width (RBC) [Ratio] 12.3 % 11.6-14.[address] [facility] Immature granulocytes/100 WBC (Bld) 0.400 % 0.0-0.[address] [facility] Comment on above: IG% - Immature Granu locytes (promyelocytes, myelocytes and metamyelocytes) > 1% indicates that a LEFT SHIFT is Present. MCH (RBC) [Entitic mass] 30.5 pg 27.0-32.[address] [facility] Nucleated RBC/100 WBC (Bld) [Ratio] 0 % 0-[address] [facility] MCHC Auto (RBC) [Mass/Vol]Or dered By: Gloria Dawkins on 08-04-2023 MCHC (RBC) [Mass/Vol] 32.7 g/dL 32-36 [facility] No Panel InformationOrdered By: Gloria Dawkins on 08-04-2023 Estimated GFR (MDRD) Amer 101 mL/min >[address] [facility] Comment on above: GFR Calc Estimated GFR (MDRD) Non-Af Amer 83 mL/min >[address] [facility] Comment on above: Non- GFR Calc Thyroid Stimulating Hormone (TSH) 1.44 uIU/mL 0.358-3.[address] [facility] Platelets bldOrdered By: Isabela Dawkins on 08-04-2023 Platelets (Bld) [#/Vol] 143 10*3/uL 150-[address] [facility] Serum or plasma albumin ambrosio urement (mass/volume)Ordered By: Gloria Dawkins on 08-04-2023 Albumin [Mass/Vol] 3.7 g/dL 3.2-5.0 [facility] Serum or plasma albumin/glob ulin mass ratioOrdered By: Gloria Dawkins on 08-04-2023 Albumin/Globulin [Mass ratio] 1.2 {ratio} 0.9-2.[address] [facility] Serum or plasma calcium ambrosio urement (mass/volume)Ordered By: Gloria Dawkins on 08-04-2023 Calcium [Mass/Vol] 8.7 mg/dL 8.5-10.1 [facility] Serum or plasma creatinine m easurement (mass/volume)Ordered By: Gloria Dawkins on 08-04-2023 Creatinine [Mass/Vol] 0.95 mg/dL 0.70-1.30 [facility] Comment on above: The validity of the calculated GFR & GFRAA in patients over 70 years has not been determined. Clinical correlation is essential. Serum or plasma urea nitroge n measurement (mass/volume)Ordered By: Gloria Dawkins on 08-04-2023 Urea nitrogen [Mass/Vol] 21 mg/dL 7-[address] [facility] Thin prep Papanicolaou smear with manual screeningOrdered By: Gloria Dawkins on 08-04-2023 Thin prep Papanicolaou smear with manual screening 20 U/L 15-[address] [facility] Thin prep Papanicolaou smear with manual screening 4 5-[address] [facility] Absolute lymphocyte countOrd ered By: Dr. Dawkins on 12-18-2022 Lymphocytes Auto (Unsp spec) [#/Vol] 1.65 10*3/uL 0.83-4.[address] [facility] Basophil percentageOrdered B y: Dr. Dawkins on 12-18-2022 Basophils/100 WBC (Bld) 0.5 % 0-[address] [facility] Bilirubin [Mass/Vol] 0.60 mg/dL 0.20-1.00 [facility] Comment on above: For patients on eltr ombopag therapy, use of Dimension [place] TBIL is not recommended. Chloride [Moles/Vol] 106 mmol/L 98-107 [facility] Eosinophils/100 WBC (Bld) 4.2 % 0-[address] [facility] Glucose [Mass/Vol] 99 mg/dL 74-106 [facility] Neutrophils (Bld) [#/Vol] 4.1 10*3/uL 2.0-7.[address] [facility] Neutrophils/100 WBC (Bld) 61.2 % 47-[address] [facility] Potassium [Moles/Vol] 3.7 mmol/L 3.5-5.1 [facility] Protein [Mass/Vol] 6.4 g/dL 6.4-8.2 [facility] Sodium [Moles/Vol] 140 mmol/L 136-145 [facility] WBC (Bld) [#/Vol] 6.7 10*3/uL 4.4-11.0 [facility] Blood erythrocytes count (nu mber/volume)Ordered By: Dr. Dawkins on 12-18-2022 RBC (Bld) [#/Vol] 5.17 10*6/uL 4.6-6.2 [facility] Blood hemoglobin measurement (mass/volume)Ordered By: Dr. Dawkins on 12-18-2022 Hemoglobin (Bld) [Mass/Vol] 16.1 g/dL 13.0-16.[address] [facility] Blood lymphocytes/100 leukoc ytesOrdered By: Dr. Dawkins on 12-18-2022 Lymphocytes/100 WBC (Bld) 24.8 % 19-[address] [facility] Blood monocytes/100 leukocyt esOrdered By: Dr. Dawkins on 12-18-2022 Monocytes/100 WBC (Bld) 9.0 % 0-[address] [facility] Blood platelet mean volumeOr dered By: Dr. Dawkins on 12-18-2022 Platelet mean volume (Bld) [Entitic vol] 12.3 fL 6.2-12.[address] [facility] Determination of erythrocyte mean corpuscular volume (MCV)Ordered By: Dr. Dawkins on 12-18-2022 MCV (RBC) [Entitic vol] 92.5 fL 80-[address] [facility] Hematocrit Auto (Bld) [Volum e fraction]Ordered By: Dr. Dawkins on 12-18-2022 Hematocrit (Bld) [Volume fraction] 47.8 % 40-[address] [facility] Laboratory - Chemistry and C hemistry - challengeOrdered By: Dr. Dawkins on 12-18-2022 ALP [Catalytic activity/Vol] 76 U/L 45-[address] [facility] ALT [Catalytic activity/Vol] 31 U/L 16-[address] [facility] CO2 [Moles/Vol] 28.0 mmol/L 21.0-32.[address] [facility] Cobalamin (Vitamin B12) [Mass/Vol] 462 pg/mL 211-[address] [facility] Globulin (S) [Mass/Vol] 2.6 g/dL 2.2-4.[address] [facility] Urea nitrogen/Creatinine [Mass ratio] 23.6 mg/mg 10-[address] [facility] Laboratory - Hematology and Cell countsOrdered By: Dr. Dawkins on 12-18-2022 Erythrocyte distribution width (RBC) [Entitic vol] 42.5 fL 35.1-43.[address] [facility] Erythrocyte distribution width (RBC) [Ratio] 12.5 % 11.6-14.[address] [facility] Immature granulocytes/100 WBC (Bld) 0.300 % 0.0-0.[address] [facility] Comment on above: IG% - Immature Granu locytes (promyelocytes, myelocytes and metamyelocytes) > 1% indicates that a LEFT SHIFT is Present. MCH (RBC) [Entitic mass] 31.1 pg 27.0-32.[address] [facility] Nucleated RBC/100 WBC (Bld) [Ratio] 0 % 0-[address] [facility] MCHC Auto (RBC) [Mass/Vol]Or dered By: Dr. Dawkins on 12-18-2022 MCHC (RBC) [Mass/Vol] 33.7 g/dL 32-36 [facility] No Panel InformationOrdered By: Dr. Dawkins on 12-18-2022 Anti-Nuclear Antibody Screen Negative Negative [facility] Comment on above: Performed at: [employer] [place] [id number] Director: Homer Bernstein PhD, Phone: [phone] Estimated GFR (MDRD) Amer 98 mL/min >[address] [facility] Comment on above: GFR Calc Estimated GFR (MDRD) Non-Af Amer 81 mL/min >[address] [facility] Comment on above: Non- GFR Calc Thyroid Stimulating Hormone (TSH) 1.07 uIU/mL 0.358-3.[address] [facility] Total Iron Binding Capacity 247 ug/dL 250-[address] [facility] Platelets bldOrdered By: Dr. Dawkins on 12-18-2022 Platelets (Bld) [#/Vol] 149 10*3/uL 150-[address] [facility] Serum or plasma albumin ambrosio urement (mass/volume)Ordered By: Dr. Dawkins on 12-18-2022 Albumin [Mass/Vol] 3.8 g/dL 3.2-5.0 [facility] Serum or plasma albumin/glob ulin mass ratioOrdered By: Dr. Dawkins on 12-18-2022 Albumin/Globulin [Mass ratio] 1.5 {ratio} 0.9-2.[address] [facility] Serum or plasma calcium ambrosio urement (mass/volume)Ordered By: Dr. Dawkins on 12-18-2022 Calcium [Mass/Vol] 9.0 mg/dL 8.5-10.1 [facility] Serum or plasma creatinine m easurement (mass/volume)Ordered By: Dr. Dawkins on 12-18-2022 Creatinine [Mass/Vol] 0.98 mg/dL 0.70-1.30 [facility] Comment on above: The validity of the calculated GFR & GFRAA in patients over 70 years has not been determined. Clinical correlation is essential. Serum or plasma ferritin gertrude surement (mass/volume)Ordered By: Dr. Dawkins on 12-18-2022 Ferritin [Mass/Vol] 228 ng/mL 26-388 [facility] Serum or plasma folate measu rement (mass/volume)Ordered By: Dr. Dawkins on 12-18-2022 Folate [Mass/Vol] 24.10 ng/mL 3.1-55.4 [facility] Serum or plasma urea nitroge n measurement (mass/volume)Ordered By: Dr. Dawkins on 12-18-2022 Urea nitrogen [Mass/Vol] 23 mg/dL 7-[address] [facility] Thin prep Papanicolaou smear with manual screeningOrdered By: Dr. Dawkins on 12-18-2022 Thin prep Papanicolaou smear with manual screening 16 U/L 15-[address] [facility] Thin prep Papanicolaou smear with manual screening 6 5-[address] [facility] FERRITINon 08-15-2022 Ferritin [Mass/Vol] 53.6 ng/mL 11.5 - 300.0 ng/mL [facility] Interpretation and review of laboratory results [facility]IBCon 08-14-2022 Interpretation and review of laboratory results Abnormal [facility] Iron [Mass/Vol] 141 ug/dL High 30 - 125 ug/dL [facility] Iron binding capacity [Mass/Vol] 315 ug/mL High 200 - 300 ug/mL [facility] Iron saturation [Mass fraction] 45 % 20 - 55 % [facility] Transferrin [Mass/Vol] 225 mg/dL 210 - 375 mg/dL [facility] VITAMIN D, 25-HYDROXYon 25-hydroxyvitamin D IA [Mass/Vol] 30.2 ng/mL 30 - 100 ng/mL [facility] Interpretation and review of laboratory results Normal [facility] Laboratory - Microbiology an d Antimicrobial susceptibilityon 01-20-2022 SARS-CoV-2 (COVID-19) RNA TOBY+probe Ql (Unsp spec) Positive Not Detect [facility] Work Phone: Comment on above: Normal Reference Ran ge: Not DetectedMethod:(RT-PCR) real-time reverse transcriptase PCRLuminex ANGELITO Instrument*The Food and Drug Administration (FDA) has issued an Emergency Use Authorization (EAU) for the ANGELITO SARS-CoV-2 Assay for the rapid detection of the virus that causes COVID-19. This test has been validated, but the FDAs independent review of this validation is pending.*Negative results do not preclude infection and should not be used as the sole basis for treatment or patient management. Optimum specimen types and timing for peak viral levels during infections caused by SARS-CoV-2 have not been determined. Collection of multiple specimens from the same patient may be necessary to detect the virus. The possibility of a false negative result should be considered if the patient has clinical presentation or has had recent exposure. ADVANCED SLEEP TESTINGon [facility] or Sleep Medicine [address] [place] [address] HOME SLEEP APNEA TEST (HSAT): Last, First: JUVENCIO MACDONALD Gender: Male Age (years): 71 Weight (lbs): 202 : 1950 BMI: 29 Referring: Ninoska Hernández MD [place] Score: 14 Interpreting: Ninoska Hernández MD Load Dispatcher Local: Simi Mcmanus Study Type: HST Study Date: 11/25/2021 Location: Main campus STUDY SUMMARY: An ApneaLinktype III monitor was used for this study. DIAGNOSES: - Mild Residual Obstructive Sleep Apnea (G47.33) with Inspire HGNS HSAT with an SOWMYA 4% of 7.8 and oxyhemoglobin saturation trae of 81%. PARI is likely somewhat underestimated. BMI 29 kg/m2 ESS 14 out of 24 I reviewed the HSAT performed on 11/25/2021. This wasa technically adequate study. Study indication: This study was obtained to evaluate for sleep disordered breathing. The patient has a history of moderate PARI (HST in 12/2019 showed AHI 27.1 sat trae 71%). He is treated with Inspire HGNS in -0- configuration at 1.2-2.2 volts. Sleep behaviors: see scanned questionnaire. PROTOCOL: Arterial oxygen saturation was followed with a finger-pulse oximeter. Air flow was sensed by an oronasal pressure transducer during the diagnostic phase of the study. Respiratory effort was monitored with chest wall effort belts. Plethysmography was used to determine pulse rate. Apneas were scored as a reduction of airflow in the airflow signal by at least 90% from baseline for at least 10 seconds with continued effort to breath (obstructive) or in the absence of effort (central) or a combination of both (mixed). Hypopneas were identified as a >= 50% decrease in airflow in the pressure transducer signal for at least 10 seconds accompanied by a >= 4% decrease in oxygen saturation. As this study is an unattended study and sleep was not measured, apneas and hypopneas are reported as respiratory events and the overall respiratory event index (SOWMYA) is reported synonymously with the apnea-hypopnea index (AHI). This was a diagnostic study. No therapeutic intervention was performed. Please see the graphics and summary sheet below for details of the study. An epoch by epoch review of the entire raw data recording was conducted by the interpreting physician. RESPIRATORY EVENTS: Patient used Inspire HGNS during the study. Snoring and flow limitation were noted. There were a total of 54 respiratory disturbances out of which 30 were apneas (30 obstructive, 0 mixed, 0 central) and 24 hypopneas based on a total recording time of 481.1 minutes. The respiratory event index at (REI3%) was N/A/hr and at (REI4%) was 7.8/hr. The central sleep apnea index was 0 events/hour. Respiratory disturbances were associated with oxygen desaturation down to a trae of 81%. The mean oxygen saturation during the study was 93%. The cumulative time under or = 88% oxygen saturation was 13 mins. On MD review, no sustained/baseline hypoxemia was noted. CARDIAC SUMMARY: The average pulse rate was 59 bpm. Occurrence of the following arrhythmias was observed during this study: None SLEEP ARCHITECTURE: Sleep architecture was not monitored during this study. The time in bed period was reported to be from 11:05 PM to 6:54 AM. Total recording time was 481.1 minutes. Patient-reported medications include: No sleep medicine administered. IMPRESSION: - Mild Residual Obstructive Sleep apnea (PARI) with Inspire HGNS. PARI has clearly improved with Inspire, although residual PARI is likely underestimated RECOMMENDATIONS: - Further adjustment of Inspire therapy is indicated, if tolerated. - Portable studies present limited sleep data compared to that of an in-laboratory polysomnogram and may underestimate the severity of sleep-disordered breathing. This study was scored and interpreted according to [place] [employer] guidelines. This study was deemed to be technically adequate based on accepted standards unless noted specifically above. - Clinical correlation is recommended for all patients undergoing home sleep testing. Caution is recommended with driving or during other activities requiring alertness for safety. SOM[facility]ARE Office Visit: [facility] 05-13-20 17 Documentation of current medications (procedure) Done Invalid Interpretation Code [facility] Work Phone: [phone] Fall risk assessment No [facility] Work Phone: [phone] Protein mass conc Done [facility] Work Phone: [phone] Replaced Document: Lina Chatterjee 05-13-2017 EKG QRS axis 45 deg [facility] Work Phone: [phone] electrocardiogram interpretation Sinus Rhythm WITHIN NORMAL LIMITS Invalid Interpretation Code [facility] Work Phone: [phone] GE use only - for [employer] import when terms are not otherwise specified 380 ms Invalid Interpretation Code [facility] Work Phone: [phone] Interpretation Sinus Rhythm WITHIN NORMAL LIMITS [facility] Work Phone: [phone] P [place] 43 deg [facility] Work Phone: [phone] P wave axis, electrocardiogram 43 deg Invalid Interpretation Code [facility] Work Phone: [phone] MS Interval 164 ms [facility] Work Phone: [phone] MS interval, electrocardiogram 164 ms Invalid Interpretation Code [facility] Work Phone: [phone] Pulse (Heart Rate) 65 /min Invalid Interpretation Code [facility] Work Phone: [phone] QRS axis, electrocardiogram 45 deg Invalid Interpretation Code [facility] Work Phone: [phone] QRS Duration 94 ms [facility] Work Phone: [phone] QRS duration, electrocardiogram 94 ms Invalid Interpretation Code [facility] Work Phone: [phone] QT Interval new path ms [facility] Work Phone: [phone] QT interval, electrocardiogram new path ms Invalid Interpretation Code [facility] Work Phone: [phone] QTc [place] 380 ms [facility] Work Phone: [phone] T [place] 42 deg [facility] Work Phone: [phone] T wave axis, electrocardiogram 42 deg Invalid Interpretation Code [facility] Work Phone: [phone] Lab Report: Lipid Profileon 11-17-2016 Cholesterol 181 mg/dL 200 [facility] Work Phone: [phone] HDL Cholesterol 57 mg/dL [facility] [employer] [facility] Work Phone: [phone] LDL Cholesterol 104 mg/dL 0-130 [facility] Work Phone: [phone] Triglyceride 98 mg/dL [employer] [facility] Work Phone: [phone] very low density lipoproteins 20 mg/dL 5-40 [facility] Work Phone: [phone] Lab Report: Liver Profileon 11-17-2016 Alanine aminotransferase (ALT) 24 U/L 12-78 [facility] [employer] [facility] Work Phone: [phone] Albumin 4.0 g/dL 3.4-5.0 [facility] Work Phone: [phone] Alkaline phosphatase (ALP) 75 U/L Invalid Interpretation Code 45-117 [facility] Work Phone: [phone] ALP enzyme act/vol (Bld) 75 U/L 45-117 [facility] Work Phone: [phone] Aspartate aminotransferase (AST) 19 U/L 15-37 [facility] Work Phone: [phone] Bilirubin (direct) 0.14 mg/dL 0.00-0.30 [facility] Work Phone: [phone] Bilirubin (total) 0.80 mg/dL 0.20-1.00 [facility] Work Phone: [phone] Globulin 3.1 g/dL Invalid Interpretation Code 2.3-3.5 [facility] Work Phone: [phone] Globulin mass conc (S) 3.1 g/dL 2.3-3.5 [facility] Work Phone: [phone] Protein 7.1 g/dL 6.4-8.2 [facility] Work Phone: [phone] Clinical Lists Update: Prelo superintendent meters 10-23-2016 Left ventricular Ejection fraction 65 % [facility] Work Phone: [phone] Office Visit: evaluation ope n wounds right hand - surgery 10/25/15on 12-30-2015 Alcoholism counseling (procedure) no Invalid Interpretation Code [facility] Work Phone: [phone] Dietary management education, guidance, and counseling (procedure) yes Invalid Interpretation Code [facility] Work Phone: [phone] Protein mass conc no [facility] Work Phone: [phone] Tobacco smoking status MDIS Never [facility] Work Phone: [phone] Tobacco smoking status MDIS Never smoker [facility] Work Phone: [phone] Tobacco use [facility] Never smoker Invalid Interpretation Code [facility] Work Phone: [phone] Microbiology: Culture, Fungu s w/ [id number] 11-24-2015 GE use only - for [employer] import when terms are not otherwise specified . Invalid Interpretation Code [facility] Work Phone: [phone] Lab Report: CBC W/Diff, Auto matedon 10-29-2015 Basophils/100 leukocytes 0.4 % Invalid Interpretation Code 0-1 [facility] Work Phone: [phone] Basophils/100 WBC (Bld) 0.4 % 0-1 [facility] Work Phone: [phone] Eosinophils/100 leukocytes 4.2 % Invalid Interpretation Code 0-5 [facility] Work Phone: [phone] Eosinophils/100 WBC (Bld) 4.2 % 0-5 [facility] Work Phone: [phone] Erythrocyte distribution width Ratio (RBC) 39.4 fL 35.1-43.9 [facility] Work Phone: [phone] Erythrocyte distribution width Ratio (RBC) 12.2 % 11.6-14.6 [facility] Work Phone: [phone] Erythrocytes (RBC) 4.65 10*6/uL Invalid Interpretation Code 4.6-6.2 [facility] Work Phone: [phone] Hematocrit (HCT) 41.8 % Invalid Interpretation Code 40-54 [facility] Work Phone: [phone] Hematocrit Volume Fraction (Bld) 41.8 % 40-54 [facility] Work Phone: [phone] Hemoglobin (HGB) 14.3 g/dL 13.0-16.5 [facility] Work Phone: [phone] Immature granulocytes #/vol (Bld) 0.700 % 0.0-0.9 [facility] Work Phone: [phone] immature granulocytes, percentage of total cells, blood 0.700 % Invalid Interpretation Code 0.0-0.9 [facility] Work Phone: [phone] Lymphocytes 1.21 X10 3/UL Invalid Interpretation Code 0.83-4.51 [facility] Work Phone: [phone] Lymphocytes #/vol (Bld) 1.21 X10 3/UL 0.83-4.51 [facility] Work Phone: [phone] Lymphocytes/100 leukocytes 17.3 % Low 19-41 [facility] Work Phone: [phone] Lymphocytes/100 WBC (Bld) 17.3 % Low 19-41 [facility] Work Phone: [phone] MCH 30.8 pg Invalid Interpretation Code 27.0-32.0 [facility] Work Phone: [phone] MCH Entitic mass (RBC) 30.8 pg 27.0-32.0 [facility] Work Phone: [phone] MCHC 34.2 G/GL Invalid Interpretation Code 32-36 [facility] Work Phone: [phone] MCHC mass conc (RBC) 34.2 G/GL 32-[address] [facility] Work Phone: [phone] MCV 89.9 fL Invalid Interpretation Code 80-94 [facility] Work Phone: [phone] MCV Entitic volume (RBC) 89.9 fL 80-94 [facility] Work Phone: [phone] Monocytes/100 leukocytes 14.6 % High 0-10 [facility] Work Phone: [phone] Monocytes/100 WBC (Bld) 14.6 % High 0-10 [facility] Work Phone: [phone] neutrophil count, blood 4.4 X10 3/UL Invalid Interpretation Code 2.0-7.7 [facility] Work Phone: [phone] Neutrophils #/vol (Bld) 4.4 X10 3/UL 2.0-7.7 [facility] Work Phone: [phone] Neutrophils/100 leukocytes 62.8 % Invalid Interpretation Code 47-70 [facility] Work Phone: [phone] Neutrophils/100 WBC (Bld) 62.8 % 47-70 [facility] Work Phone: [phone] Platelet mean volume Entitic volume (Bld) 10.9 fL 6.2-12.0 [facility] Work Phone: [phone] Platelets 174 10*3/mm3 Invalid Interpretation Code 150-450 [facility] Work Phone: [phone] Platelets #/vol (Bld) 174 10*3/mm3 150-450 [facility] Work Phone: [phone] PMV by Alicia 10.9 fL Invalid Interpretation Code 6.2-12.0 [facility] Work Phone: [phone] RBC #/vol (Bld) 4.65 10*6/uL 4.6-6.2 [facility] Work Phone: [phone] RDW-CA 12.2 % Invalid Interpretation Code 11.6-14.6 [facility] Work Phone: [phone] red blood cell distribution width, size density 39.4 fL Invalid Interpretation Code 35.1-43.9 [facility] Work Phone: [phone] WBC #/vol (Bld) 7.0 10*3/uL 4.4-11.0 [facility] Work Phone: [phone] WBC (Leukocytes) 7.0 10*3/uL Invalid Interpretation Code 4.4-11.0 [facility] Work Phone: [phone] Lab Report: CK-MB Quantitati ve and Indexon 10-29-2015 CKMB 1.2 ng/mL Invalid Interpretation Code 0.0-5.0 [facility] Work Phone: [phone] CKMB 2.6 % High 0.0-1.4 [facility] Work Phone: [phone] Creatine kinase (CK) 46 U/L 39-[address] [facility] Work Phone: [phone] Creatine kinase.MB 1.2 NG/ML 0.0-5.0 [facility] Work Phone: [phone] Lab Report: Comprehensive Me tabolic Profilon 10-29-2015 Albumin/Globulin Ratio 0.9 {ratio} 0.9-2.4 [facility] Work Phone: [phone] Anion gap 6 mmol/L Invalid Interpretation Code 5-15 [facility] Work Phone: [phone] Anion gap molar conc 6 mmol/L 5-[address] [facility] Work Phone: [phone] BUN/Creatinine Ratio 20.6 RATIO High 10-[address] [facility] Work Phone: [phone] Calcium 8.4 mg/dL Low 8.5-10.1 [facility] Work Phone: [phone] Chloride 106 mmol/L 98-107 [facility] Work Phone: [phone] CO2 31.0 mmol/L Invalid Interpretation Code 21.0-32.0 [facility] Work Phone: [phone] CO2 ppres (BldV) 31.0 mmol/L 21.0-32.0 [facility] Work Phone: [phone] Creatinine 0.92 mg/dL 0.70-1.30 [facility] Work Phone: [phone] Creatinine 84.86 mL/min Invalid Interpretation Code [facility] Work Phone: [phone] eGFR (non-black) 88 mL/min/{1.73_m2} >60 [facility] Work Phone: [phone] eGFR (non-black) 107 mL/min/{1.73_m2} Invalid Interpretation Code >60 [facility] Work Phone: [phone] EST GFR - AA 107 mL/min >60 [facility] Work Phone: [phone] Glucose 118 mg/dL High 70-110 [facility] Work Phone: [phone] Glucose mass conc 118 mg/dL High 70-110 [facility] Work Phone: [phone] Potassium 4.0 mmol/L 3.5-5.1 [facility] Work Phone: [phone] Sodium 143 mmol/L 136-145 [facility] Work Phone: [phone] Urea nitrogen 19 mg/dL High 7-18 [facility] Work Phone: [phone] Lab Report: Troponin-Ion Troponin I ng/mL <0.06 [facility] Work Phone: [phone] Lab Report: Vancomycin, Trou gh Levelon 10-28-2015 Vancomycin 11.6 ug/mL 5.0-15.0 [facility] Work Phone: [phone] Lab Report: Prealbuminon Prealbumin 9.6 mg/dL Low 20.0-40.0 [facility] Work Phone: [phone] Prealbumin [place] mass conc 9.6 mg/dL Low 20.0-40.0 [facility] Work Phone: [phone] Lab Report: MRSA Wound DNA b y PCRon 10-25-2015 INR in blood by coagulation Positive High Negative [facility] Work Phone: [phone] Lab Report: Partial Thrombop last Timeon 10-25-2015 aPTT 38.8 s High 24.1-36.2 [facility] Work Phone: [phone] Lab Report: Erythrocyte Sed Rateon 10-24-2015 Erythrocyte sedimentation rate 13 mm/h 0-20 [facility] Work Phone: [phone] Lab Report: Hemoglobin A1con 10-24-2015 HbA1c 5.7 % 4.2-6.3 [facility] Work Phone: [phone] Office Visiton 04-16-2015 cardiac risk group B [facility] Work Phone: [phone] General cardiovascular disease 10Y risk [#] [place]D'Agost[place] Not enough information [facility] Work Phone: [phone] Lab Report: MIACREon 014 Urine, creatinine 183.7 mg/dL Normal NO RANGE EST. [facility] Work Phone: [phone] Urine, microalbumin 0.97 mg/dL Normal Units converted. See lab report for original value. [facility] Work Phone: [phone] Clinical Lists Update: 03-27-2014 basophils as percent of blood leukocytes, manual count 0.7 % [facility] Work Phone: [phone] eosinophils as percent of blood leukocytes, manual count 2.6 % [facility] Work Phone: [phone] neutrophils, band form as percent of blood leukocytes, manual count 61.1 % [facility] Work Phone: [phone] Thyroid stimulating hormone (TSH) 0.99 u[iU]/mL [facility] Work Phone: [phone] Clinical Lists Update: 03-26-2014 Globulin 2.9 g/dL Invalid Interpretation Code [facility] Work Phone: [phone] Globulin mass conc (S) 2.9 g/dL [facility] Work Phone: [phone] Vital Signs Date Time Vital Sign Value Performing Clinician Facility 01-14-2024 15:25-0400 Body height 177.8 cm Ninoska Hernández MD Work Phone: [facility] 01-14-2024 15:25-0400 Body mass index (BMI) [Ratio] 30.5 kg/m2 [facility] 01-14-2024 15:25-0400 Body temperature 98.71 [degF] [facility]inos[facility] 01-14-2024 15:25-0400 Body weight 96.44 kg Ninoska Hern[facility]dez [facility] 01-14-2024 15:25-0400 Diastolic blood pressure 67 mm[Hg] [facility]inos[facility] 01-14-2024 15:25-0400 Heart rate 76 /min Ninoska Hern[facility]dez [facility] 01-14-2024 15:25-0400 Respiratory rate 18 /min Ninoska Hern[facility]dez [facility] 01-14-2024 15:25-0400 SaO2% (BldA) [Mass fraction] 97 % Ninoska Hern[facility]dez [facility] Comment on above: RA 01-14-2024 15:25-0400 Systolic blood pressure 122 mm[Hg] Ninoska Hern[facility]dez [facility] 10-08-2023 14:35-0500 Body height 175.3 cm Ninoska Hern[facility]dez [facility] 10-08-2023 14:35-0500 Body mass index (BMI) [Ratio] 31.04 kg/m2 Ninoska Hernández [facility] 10-08-2023 14:35-0500 Body temperature 98.71 [degF] Ninoska Hern[facility]dez [facility] 10-08-2023 14:35-0500 Body weight 95.35 kg Ninoska Hernández [facility] 10-08-2023 14:35-0500 Diastolic blood pressure 64 mm[Hg] Ninoska Hernández MD Work Phone: [facility] 10-08-2023 14:35-0500 Heart rate 78 /min Ninoska Hernández MD Work Phone: [facility] 10-08-2023 14:35-0500 SaO2% (BldA) [Mass fraction] 97 % Ninoska Hernández MD Work Phone: [facility] 10-08-2023 14:35-0500 Systolic blood pressure 120 mm[Hg] Ninoska Hernández MD Work Phone: [facility] 03-25-2023 19:56-0400 Diastolic blood pressure 76 mm[Hg] [facility] 03-25-2023 19:56-0400 Heart rate 80 /min [facility] 03-25-2023 19:56-0400 Respiratory rate 16 /min [facility] 03-25-2023 19:56-0400 SaO2% (BldA) [Mass fraction] 100 % [facility] 03-25-2023 19:56-0400 Systolic blood pressure 138 mm[Hg] [facility] 03-25-2023 17:55-0400 Body height 177.8 cm [facility] 03-25-2023 17:55-0400 Body mass index (BMI) [Ratio] 29.5 kg/m2 [facility] 03-25-2023 17:55-0400 Body temperature 98.1 [degF] [facility] 03-25-2023 17:55-0400 Body weight 93.21 kg [facility] 10-12-2022 14:18-0500 Body temperature 98.1 [degF] [facility] [facility] 14:18-0500 Diastolic blood pressure 67 mm[Hg] Infusion 5 [facility] 10-12-2022 14:18-0500 Heart rate 57 /min Infusion 5 [facility] 10-12-2022 14:18-0500 Respiratory rate 16 /min Infusion 5 [facility] 10-12-2022 14:18-0500 Systolic blood pressure 123 mm[Hg] Infusion 5 [facility] 05-05-2022 11:08-0400 Body height 177.8 cm Ninoska Hernández MD Work Phone: [employer] 05-05-2022 11:08-0400 Body mass index (BMI) [Ratio] 28.98 kg/m2 Ninoska Hernández MD Work Phone: [employer] 05-05-2022 11:08-0400 Body weight 91.63 kg Ninoska Hernández MD Work Phone: [employer] 05-05-2022 11:08-0400 Diastolic blood pressure 70 mm[Hg] Ninoska Hernández MD Work Phone: [employer] 05-05-2022 11:08-0400 Heart rate 62 /min Ninoska Hernández MD Work Phone: [employer] 05-05-2022 11:08-0400 Respiratory rate 18 /min Ninoska Hernández MD Work Phone: [employer] 05-05-2022 11:08-0400 SaO2% (BldA) [Mass fraction] 97 % Ninoska Hernández MD Work Phone: [employer] 05-05-2022 11:08-0400 Systolic blood pressure 121 mm[Hg] Ninoska Hernández MD Work Phone: [employer] 05-13-2017 16:32-0400 Heart rate 65 /min [facility] Work Phone: 05-13-2017 10:04-0400 BMI (Body Mass Index) 29.55 kg/m2 [facility] Work Phone: 05-13-2017 10:04-0400 BP Diastolic 70 mm[Hg] [facility] Work Phone: 05-13-2017 10:04-0400 BP Systolic 122 mm[Hg] [facility]ana Dawkins [facility] Work Phone: 05-13-2017 10:04-0400 Height 177.8 cm [facility] Work Phone: 05-13-2017 10:04-0400 Pulse (Heart Rate) 68 /min [facility] Work Phone: 05-13-2017 10:04-0400 Respiratory Rate 18 /min [facility] Work Phone: 05-13-2017 10:04-0400 Weight 93.44 kg [facility] Work Phone: 10-26-2016 13:09-0500 BSA (Body Surface Area) 2.13 m2 [facility] Work Phone: 12-30-2015 15:05-0400 Body Temperature 98.5 [degF] [facility] Work Phone: 10-29-2015 12:16-0500 Body surface area Derived from formula 84.86 mL/min [facility] Work Phone: 04-16-2015 13:36-0400 Pulse Oximetry 97 % [facility] Work Phone: Encounters Encounter Date Encounter Type Care Provider Facility Start: 12-12-2024 End: 12-12-2024 ambulatory Gloria Dawkins Facility:[facility] Start: 11-15-2024 ambulatory Flo Weems Facility: [facility] Start: 11-14-2024 End: 11-14-2024 ambulatory [facility] Start: 11-09-2024 End: 11-09-2024 ambulatory Flo Weems Facility:[facility] Start: 11-01-2024 End: 11-01-2024 ambulatory Flo Weems Facility:[facility] Start: 10-26-2024 End: 10-26-2024 ambulatory Gloria Dawkins [facility] Start: 10-19-2024 End: 10-19-2024 ambulatory Gloria Dawkins [facility] Start: 10-12-2024 End: 10-12-2024 ambulatory Flo Caballeroston Facility:[facility] Start: 10-05-2024 ambulatory [facility] Start: 10-01-2024 End: 10-01-2024 ambulatory [facility] Facility:[facility] Start: 09-27-2024 ambulatory [facility] Start: 09-20-2024 End: 09-20-2024 ambulatory Mani Smith Facility:[facility] Start: 08-17-2024 End: 08-17-2024 ambulatory Mani Smith Facility:[facility] Start: 08-15-2024 End: 08-15-2024 ambulatory Mani Smith Facility:[facility] Start: 08-03-2024 ambulatory Gloria Dawkins [facility] Start: 07-25-2024 End: 07-25-2024 ambulatory Mani Smith Facility:[facility] Start: 07-24-2024 End: 07-24-2024 ambulatory Mani Smith Facility:[facility] Start: 07-18-2024 End: 07-18-2024 ambulatory Luis Armandosheila Smith Facility:[facility] Start: 06-26-2024 End: 06-26-2024 ambulatory Gloria Dawkins Facility:[facility] Start: 06-23-2024 End: 06-27-2024 Telephone encounter Ninoska Hernández MD Work Phone: [facility] Comment on above: Pt Call Start: 06-16-2024 End: 06-16-2024 Telephone encounter Ninoska Hernández MD Work Phone: [facility] Start: 06-14-2024 End: 06-14-2024 Letter encounter Fili Armando MD Work Phone: [facility] Start: 06-14-2024 End: 06-14-2024 Telephone encounter [facility] Work Phone: [facility] Comment on above: [facility] Start: 06-13-2024 End: 06-13-2024 ambulatory Gloria Dawkins Facility:[facility] Start: 06-02-2024 End: 06-02-2024 Phys/qhp telephone evaluation 21-30 min Ninoska Hernández MD Work Phone: [facility] Comment on above: PARI (obstructive sle ep apnea) (Primary Dx); RLS (restless legs syndrome) Start: 06-02-2024 End: 06-02-2024 ambulatory [facility] Start: 05-19-2024 End: 05-31-2024 ambulatory [facility] Work Phone: [facility] Comment on above: PARI (obstructive sle ep apnea) (Primary Dx); Class 1 obesity; Bradycardia Start: 05-17-2024 End: 05-17-2024 ambulatory Gloria Dawkins Facility:[facility] Start: 05-03-2024 End: 05-03-2024 [facility] Comment on above: Arrived Start: 04-28-2024 End: 04-28-2024 ambulatory GLORIA DAWKINS [facility] Start: 04-28-2024 End: 04-28-2024 Office outpatient visit 25 minutes Ninoska Hernández MD Work Phone: [facility] Comment on above: PARI (obstructive sle ep apnea) (Primary Dx); Presence of functional implant; RLS (restless legs syndrome); Disorder of iron metabolism; Vitamin D insufficiency Start: 04-21-2024 End: 04-24-2024 Telephone encounter Ninoska Hernández MD Work Phone: [facility] Comment on above: Care Coordination (I nspire and medications) Start: 03-12-2024 End: 03-12-2024 Letter encounter Fili Armando MD Work Phone: [facility] Start: 01-21-2024 Telephone encounter Ninoska henderson MD Work Phone: [facility] Start: 01-14-2024 End: 01-14-2024 Office outpatient visit 40 minutes Ninoska Hernández MD Work Phone: [facility] Comment on above: RLS (restless legs s yndrome) (Primary Dx); PARI (obstructive sleep apnea); Therapeutic drug monitoring; Presence of functional implant; Body mass index (BMI) 30.0-30.9, adult Start: 01-14-2024 End: 01-14-2024 [facility] Comment on above: Arrived Start: 10-18-2023 End: 10-18-[address] [facility] Work Phone: Start: 10-18-2023 End: 10-18-2023 Patient encounter procedure [facility] Work Phone: Start: 10-08-2023 End: 10-08-2023 Office outpatient visit 40 minutes Ninoska Hernández MD Work Phone: [facility] Comment on above: Hypersomnia with sle ep apnea (Primary Dx); Presence of functional implant; PARI (obstructive sleep apnea); Body mass index (BMI) 31.0-31.9, adult Start: 10-08-2023 End: 10-09-2023 ambulatory UNKNOWN PROVIDER Facility:[facility] Start: 08-04-2023 End: 08-04-[address] [facility] Work Phone: Start: 08-04-2023 End: 08-04-2023 Patient encounter procedure [facility] Work Phone: Start: 05-12-2023 Telephone encounter Abhinav Costa mayrablanchesterman [facility] Work Phone: [facility] Comment on above: Missed Lab Tests; An emia Start: 03-25-2023 End: 03-25-2023 Emergency department patient visit [facility] Work Phone: Start: 02-09-2023 Telephone encounter Abhinav Costa [facility] Work Phone: [facility] Comment on above: Missed Lab Tests; An emia Start: 12-18-2022 End: 12-18-[address] [facility] Work Phone: Start: 12-18-2022 End: 12-18-2022 Patient encounter procedure [facility] Start: 10-12-2022 End: 10-12-2022 Patient encounter procedure Infusion Chair 5 [facility] Comment on above: Restless leg syndrom e due to iron deficiency anemia (Primary Dx) Start: 09-15-2022 Letter encounter Fili evans MD Work Phone: [facility] Start: 09-08-2022 Letter encounter Fili evans MD Work Phone: [facility] Financial Clearance Start: 09-03-2022 Orders Only Chavo Gordon PharmD [facility] Start: 08-19-2022 Telephone encounter Chavo Gordon Pharm D [facility] Comment on above: Anemia; IV iron Start: 08-17-2022 Telephone encounter Sophia bush [facility] Work Phone: [facility] Comment on above: Anemia; Consult with specialist Start: 08-15-2022 Letter encounter Fili evans MD Work Phone: [facility] Start: 08-15-2022 Telephone encounter Ninoska henderson MD Work Phone: [facility] Comment on above: Future Order Future Order; Refere nce 99 Start: 08-14-2022 End: 08-14-2022 [facility] Comment on above: Arrived Start: 08-10-2022 End: 08-10-2022 Phys/qhp telephone evaluation 21-30 min Ninoska Hernández MD Work Phone: [facility] Comment on above: RLS (restless legs s yndrome) (Primary Dx); PARI (obstructive sleep apnea); Presence of functional implant Start: 05-05-2022 End: 05-05-2022 Office outpatient visit 40 minutes Ninoska Hernández MD Work Phone: [facility] Comment on above: PARI (obstructive sle ep apnea) (Primary Dx); Insomnia, unspecified type; Presence of functional implant; Encounter for adjustment and management of neurostimulator; Body mass index (BMI) 28.0-28.9, adult Start: 03-09-2022 Letter encounter Fili evans MD Work Phone: [facility] Start: 01-20-2022 End: 01-20-2022 Patient encounter procedure [facility]-Laboratory, Specimen Start: 12-30-2021 Telephone encounter - - [facility] Start: 12-18-2021 Letter encounter Fili evans MD Work Phone: [facility] Patient Financial Services Start: 12-05-2021 ambulatory Ninoska Hernández MD Work Phone: [facility] Comment on above: Home sleep test resu lts Start: 12-05-2021 E-mail encounter viviane m caregiver Ninoska Hernández MD Work Phone: [facility] Start: 11-24-2021 End: 12-05-2021 ambulatory [facility] Work Phone: [facility] Comment on above: PARI (obstructive sle ep apnea) (Primary Dx); Presence of functional implant Procedures Date Procedure Procedure Detail Performing Clinician Start: 05-20-2024 ADVANCED SLEEP TESTING Ninoska Hernández MD Work Phone: Start: 05-03-2024 25 hydroxy includes fractions if performed Ninoska Hernández MD Work Phone: Start: 01-14-2024 Drug screen class list a Ninoska Hernández MD Work Phone: Start: 03-25-2023 CT of head without contrast Start: 10-12-2022 Iv infusion therapy/prophylaxis /dx 1st to 1 hr Ninoska Hernández MD Work Phone: Start: 08-14-2022 25 hydroxy includes fractions if performed Ninoska Hernández MD Work Phone: Start: 05-05-2022 Elec liliam implt cplx cn npgt prgrmg Ninoska Hernández MD Work Phone: Start: 05-05-2022 Collj & interpj phys iol data min 30 min ea 30 d Ninoska Hernández MD Work Phone: Start: 11-25-2021 ADVANCED SLEEP TESTING Ninoska Hernández MD Work Phone: Start: 11-08-2018 Colonoscopy [facility] Work Phone: Start: 05-13-2017 End: 05-13-2017 FARIHA Mortensen [employer] Work Phone: Start: 05-13-2017 End: 05-13-2017 Follow Up Appt 6 months Ninoska Mortensen [employer] Work Phone: Start: 10-26-2016 End: 11-17-2016 *Hepatic Function Panel Moses Alvares MD Work Phone: Start: 10-26-2016 End: 10-26-2016 FARIHA Alvares MD Work Phone: Start: 10-26-2016 End: 10-26-2016 Follow Up Appt 6 months Moses Alvares MD Work Phone: Start: 10-26-2016 End: 11-17-2016 Lipid panel [AGGREGATE] Moses Alvares MD Work Phone: Start: 04-27-2016 End: 04-27-2016 FARIHA Alvares MD Work Phone: Start: 04-27-2016 End: 04-27-2016 Follow Up Appt 6 months Moses Alvares MD Work Phone: Start: 12-30-2015 End: 12-30-2015 Dietary management education, guidance, and counseling Sana Dawkins Start: 10-14-2015 H/O: surgery History of tovar d surgery Start: 04-16-2015 End: 04-08-2016 *Hepatic Function Panel Moses Alvares MD Work Phone: Start: 04-16-2015 End: 04-16-2015 FARIHA Alvares MD Work Phone: Start: 04-16-2015 End: 04-16-2015 Follow Up Appt 1 year Armani Zacarias Work Phone: Start: 04-16-2015 End: 04-08-2016 Lipid panel [AGGREGATE] Moses Alvares MD Work Phone: Start: 04-18-2014 End: 04-09-2015 Urine, microalbumin Moses Alvares MD Work Phone: Start: 04-16-2014 End: 04-09-2015 *Hepatic Function Panel Moses Alvares MD Work Phone: Start: 04-16-2014 End: 04-16-2014 DJN Moses Alvares MD Work Phone: Start: 04-16-2014 End: 04-16-2014 Follow Up Appt 1 year Armani Zacarias Work Phone: Start: 04-16-2014 End: 04-09-2015 Follow Up BP Check Moses Alvares MD Work Phone: Start: 04-16-2014 End: 04-09-2015 Left Heart Cath Moses Alvares MD Work Phone: Start: 04-16-2014 End: 04-09-2015 Lipid panel [AGGREGATE] Moses Alvares MD Work Phone: History of repair of inguinal hernia S/P left inguinal hernia repair Plan of Treatment Date Care Activity Detail Author Start: 11-08-2028 Screening for malign ant neoplasm of colon [facility] Start: 08-19-2026 Lipid panel Cholesterol [facility] Start: 06-26-2024 End: 06-27-2024 ambulatory 06/26/2024 9:00 PM EDT Sleep Study Visit [facility] [address] [place] [id number] [facility] Start: 06-16-2024 End: 06-16-2025 MR Prostate WO and W contrast IV MR PROSTATE W/W/O Imaging Routine Elevated PSA Expected: 06/16/2024, Expires: 06/16/2025 [facility] Work Phone: Comment on above: Expected: 06/16/2024 , Expires: 06/16/2025 Start: 06-13-2024 Influenza vaccination Influenza Vacc ine (#1) [facility] Start: 06-02-2024 End: 06-02-2024 Patient encounter procedure 06/02/2024 3:00 PM EDT Office Visit [facility] Medicine [address] [place] [id number] Ninoska Hernández MD [address] [place] [address] [place] [address] [facility] Start: 05-19-2024 End: 05-19-2024 ambulatory 05/19/2024 3:00 PM EDT Sleep Study Visit [facility] [address] [place] [address] [facility] Start: 05-14-2024 COVID-19 Vaccine () COVID-19 Vaccine () [facility] Start: 05-14-2024 Influenza vaccination Influenza Vacc ine (#1) [facility] Start: 04-28-2024 End: 07-27-2024 25 hydroxy includes fractions if performed VITAMIN D, 25-HYDROXY Lab Routine Vitamin D insufficiency Expected: 04/28/2024 (Approximate), Expires: 07/27/2024 [facility] Comment on above: Expected: 04/28/2024 (Approximate), Expires: 07/27/2024 Start: 04-28-2024 End: 07-27-2024 Assay of ferritin FERRITIN Lab Routine Disorder of iron metabolism Expected: 04/28/2024 (Approximate), Expires: 07/27/2024 [facility] Work Phone: Comment on above: Expected: 04/28/2024 (Approximate), Expires: 07/27/2024 Start: 04-28-2024 End: 07-27-2024 Assay of iron IRON AND TIBC Lab Routine Disorder of iron metabolism Expected: 04/28/2024 (Approximate), Expires: 07/27/2024 [facility] Comment on above: Expected: 04/28/2024 (Approximate), Expires: 07/27/2024 Start: 04-28-2024 End: 07-27-2024 CBC W Auto Differential panel - Blood COMPLETE BLOOD COUNT W/DIFF Lab Routine Disorder of iron metabolism Expected: 04/28/2024 (Approximate), Expires: 07/27/2024 [facility] Comment on above: Expected: 04/28/2024 (Approximate), Expires: 07/27/2024 Start: 04-26-2024 End: 08-25-2024 Assay of thyroid stimulating hormone tsh TSH Lab Routine Other fatigue Expected: 04/26/2024 (Approximate), Expires: 08/25/2024 [facility] Work Phone: Comment on above: Expected: 04/26/2024 (Approximate), Expires: 08/25/2024 Start: 03-13-2024 Annual wellness visit Annual W ellness Visit (G0438) [facility] Start: 01-15-2024 End: 04-15-2024 Drug screen class list a TOXICOLOGY SCREEN, UNCONFIRMED Lab Routine Therapeutic drug monitoring Expected: 01/15/2024 (Approximate), Expires: 04/15/2024 [facility] Work Phone: Comment on above: Expected: 01/15/2024 (Approximate), Expires: 04/15/2024 Start: 01-14-2024 End: 01-14-2024 Patient encounter procedure 01/14/2024 3:20 PM EDT Office Visit [facility] [address] [place] [id number] Ninoska Hernández MD [address] [place] [address] [place] [address] [facility] Start: 10-08-2023 End: 10-08-2023 Patient encounter procedure 10/08/2023 2:40 PM EST Office Visit [facility] [address] [place] [phone] Ninoska Hernández MD [address] [place] [address] [facility] Start: 06-13-2023 Influenza vaccination Influenza Vacc ine (#1) [facility] Start: 05-14-2023 COVID-19 Vaccine ( season) COVID-19 Vaccine ( season) [facility] Start: 05-14-2023 Influenza vaccination Influenza Vacc ine (#1) [facility] Start: 03-13-2023 Welcome to Medicare Visit (G0402) Welcome to Medicare Visit (G0402) [facility] Start: 11-09-2022 End: 10-12-2023 Assay of ferritin FERRITIN Lab Routine Restless leg syndrome due to iron deficiency anemia Expected: 11/09/2022, Expires: 10/12/2023 [facility] [employer] [facility] Work Phone: Comment on above: Expected: 11/09/2022 , Expires: 10/12/2023 Start: 11-09-2022 End: 10-12-2023 Assay of iron IRON AND TIBC Lab Routine Restless leg syndrome due to iron deficiency anemia Expected: 11/09/2022, Expires: 10/12/2023 [employer] Comment on above: Expected: 11/09/2022 , Expires: 10/12/2023 Start: 11-09-2022 End: 10-12-2023 Blood count hemoglobin HEMOGLOBIN ONLY Lab Routine Restless leg syndrome due to iron deficiency anemia Expected: 11/09/2022, Expires: 10/12/2023 [employer] Comment on above: Expected: 11/09/2022 , Expires: 10/12/2023 Start: 10-12-2022 End: 10-12-2022 Patient encounter procedure 10/12/2022 Procedure Visit Medical Specialties [facility] Start: 09-23-2022 Tetanus vaccination [facility] Start: 08-19-2022 End: 08-19-2023 Blood count hemoglobin HEMOGLOBIN ONLY Lab Routine Restless leg syndrome due to iron deficiency anemia Expected: 08/19/2022 (Approximate), Expires: 08/19/2023 [facility] [employer] [facility] Comment on above: Expected: 08/19/2022 (Approximate), Expires: 08/19/2023 Start: 08-10-2022 End: 12-08-2022 25 hydroxy includes fractions if performed VITAMIN D, 25-HYDROXY Lab Routine RLS (restless legs syndrome) Expected: 08/10/2022, Expires: 12/08/2022 [employer] Comment on above: Expected: 08/10/2022 , Expires: 12/08/2022 Start: 08-10-2022 End: 12-08-2022 Assay of ferritin FERRITIN Lab Routine RLS (restless legs syndrome) Expected: 08/10/2022, Expires: 12/08/2022 [facility] Comment on above: Expected: 08/10/2022 , Expires: 12/08/2022 Start: 08-10-2022 End: 12-08-2022 Assay of iron IRON AND TIBC Lab Routine RLS (restless legs syndrome) Expected: 08/10/2022, Expires: 12/08/2022 [facility] Work Phone: Comment on above: Expected: 08/10/2022 , Expires: 12/08/2022 Start: 08-10-2022 End: 08-10-2022 Telemedicine consultation with patient 08/10/2022 Telemedicine Pulmonary Medicine Ninoska Hernández MD [address] [place] [address] [facility] Start: 06-13-2022 Influenza vaccination Influenza Vacc ine (#1) [facility] Start: 05-05-2022 End: 05-05-2022 Patient encounter procedure 05/05/2022 Office Visit Pulmonary Medicine Ninoska Hernández MD [address] [place] [address] [place] [address] [facility] Start: 01-30-2022 End: 01-30-2022 Patient encounter procedure 01/30/2022 Office Visit Pulmonary Medicine Ninoska Hernández MD [address] [place] [address] [place] [address] [facility] Start: 01-01-2022 End: 01-02-2022 ambulatory 01/01/2022 Sleep Study Visit Sleep Medicine [facility] Start: 11-27-2021 COVID-19 Vaccine (4 - Booster for Pfizer series) COVID-19 Vaccine (4 - Booster for Pfizer series) [facility] Start: 11-17-2021 Lipid panel [facility]olesterol [facility] Start: 10-26-2021 Lipid panel Cholesterol [facility] Start: 09-24-2021 COVID-19 Vaccine (4 - Booster for Pfizer series) COVID-19 Vaccine (4 - Booster for Pfizer series) [facility] Start: 09-24-2021 COVID-19 Vaccine (4 - Pfizer series) COVID-19 Vaccine (4 - Pfizer series) [facility] Start: 04-13-2021 Influenza vaccination Influenza Vacc ine (#1) [facility] Start: 03-30-2019 Pneumococcal vaccination [facility] Start: 11-22-2017 End: 11-22-2017 Appointment Appointment [employer] Work Phone: Start: 11-17-2017 End: 11-26-2016 *Hepatic Function Panel *Hepatic Function Panel [facility] Work Phone: Start: 11-17-2017 End: 11-26-2016 Lipid panel [AGGREGATE] *Lipid Profile CC PCP [facility] Work Phone: Start: 05-13-2017 End: 05-13-2017 Appointment Appointment [employer] Work Phone: Start: 05-13-2017 End: 05-13-2017 FARIHA FRIED [facility] Work Phone: Start: 05-13-2017 End: 05-13-2017 Follow Up Appt 6 months Follow Up Appt 6 months [facility] Work Phone: Start: 10-26-2016 End: 11-17-2016 *Hepatic Function Panel *Hepatic Function Panel [facility] Work Phone: Start: 10-26-2016 End: 10-26-2016 FARIHA FRIED [facility] Work Phone: Start: 10-26-2016 End: 10-26-2016 Follow Up Appt 6 months Follow Up Appt 6 months [facility] Work Phone: Start: 10-26-2016 End: 11-17-2016 Lipid panel [AGGREGATE] *Lipid Profile CC PCP [facility] Work Phone: Start: 04-27-2016 End: 04-27-2016 FARIHA FRIED [facility] Work Phone: Start: 04-27-2016 End: 04-27-2016 Follow Up Appt 6 months Follow Up Appt 6 months [facility] Work Phone: Start: 12-30-2015 End: 02-15-2016 Follow Up Appt Other Follow Up Appt Other [facility] Work Phone: Start: 11-06-2015 End: 12-29-2015 Follow Up Appt 2 weeks Follow Up Appt 2 weeks [facility] Work Phone: Start: 04-16-2015 End: 04-08-2016 *Hepatic Function Panel *Hepatic Function Panel [facility] Work Phone: Start: 04-16-2015 End: 04-16-2015 FARIHA INTERIANON [facility] Work Phone: Start: 04-16-2015 End: 04-16-2015 Follow Up Appt 1 year Follow Up Appt 1 year [facility] Work Phone: Start: 04-16-2015 End: 04-08-2016 Lipid panel [AGGREGATE] *Lipid Profile CC PCP [facility] Work Phone: Start: 04-18-2014 End: 04-09-2015 Urine, microalbumin *Urine, Microalbumin [facility] Work Phone: Start: 04-16-2014 End: 04-09-2015 *Hepatic Function Panel *Hepatic Function Panel [facility] Work Phone: Start: 04-16-2014 End: 04-16-2014 FARIHA FRIED [facility] Work Phone: Start: 04-16-2014 End: 04-16-2014 Follow Up Appt 1 year Follow Up Appt 1 year [facility] Work Phone: Start: 04-16-2014 End: 04-09-2015 Follow Up BP Check Follow Up BP Check [facility] Work Phone: Start: 04-16-2014 End: 04-16-2014 Left Heart Cath Left Heart Cath [facility] Work Phone: Start: 04-16-2014 End: 04-09-2015 Lipid panel [AGGREGATE] *Lipid Profile CC PCP [facility] Work Phone: Start: 2012 Hepatitis B (HBV) Vaccine (optional start 60+ years) Hepatitis B (HBV) Vaccine (optional start 60+ years) [facility] Start: 2012 RSV vaccine (optiona l 60+ years) RSV vaccine (optional 60+ years) [facility] Start: 2002 Measurement of occul t blood in single stool specimen FIT [facility] Start: 2002 Varicella-zoster vaccine (product) Shingles (RZV) Vaccine (1 of 2) [facility] Start: 09-13-1999 Annual wellness visit Annual W ellness Visit (G0438) [facility] Start: 1997 Screening for malign ant neoplasm of colon [facility] Start: 1971 Hepatitis A (HAV) Vaccine (optional start 19+ years) Hepatitis A (HAV) Vaccine (optional start 19+ years) [facility] Start: 1970 Hepatitis C screening Hepatitis C An tibody [facility] Start: 1952 Screening for malign ant neoplasm of colon Colonoscopy [facility] Drug screen class li st a TOXICOLOGY SCREEN, UNCONFIRMED Lab Routine Therapeutic drug monitoring 01/14/2024 4:19 PM EDT [facility] Patient Education [facility] Work Phone: Patient referral [facility] Work Phone: Immunizations Immunization Date Immunization Notes Care Provider [facility] 07-30-2021 Moderna Monovalent (12+ yrs) COVID-19 vaccine, mRNA, spike protein, LNP, PF, 100 mcg/0.5 mL (WSV=437) Abhinav Goodwin [facility] Work Phone: [facility] 12-10-2020 Pfizer SARS-COV-2 (COVID-19) vaccine, age 12+ yrs, mRNA, spike protein, LNP, preservative free, 30 mcg/0.3mL dose (FXM=209) [facility] Work Phone: [facility] 11-19-2020 Pfizer SARS-COV-2 (COVID-19) vaccine, age 12+ yrs, mRNA, spike protein, LNP, preservative free, 30 mcg/0.3mL dose (QGQ=585) [facility] Work Phone: [facility] 03-30-2018 pneumococcal conjugate vaccine, 13 valent [facility] Work Phone: [facility] 10-28-2015 influenza, injectable, quadrivalent, preservative free [facility] 10-28-2015 influenza, seasonal, injectable [facility] 10-28-2015 influenza, seasonal, injectable, preservative free [facility] Work Phone: [facility] 10-28-2015 influenza virus vaccine, unspecified formulation [facility] Work Phone: [facility] 09-23-2012 pneumococcal conjugate vaccine, 7 valent [facility] Work Phone: [facility] 09-23-2012 tetanus toxoid, reduced diphtheria toxoid, and acellular pertussis vaccine, adsorbed [facility] Work Phone: [facility] Payers Date Payer Category Payer Self-pay [id number] 2024 Unknown [id number] 2023 Medicare MEDICARE MEDICAR E PART A & B [id number] 2023-Present [address] [place] [address] Medicare [id number] 2023 Medicare [id number] 2015 Unknown MEDICAL [employer] - HMO/PPO/POS SUPERMED PPO/CLASSIC/PLUS [id number] 2015-Present [address] [place] [address] PPO [id number] 2013 Unknown [id number] 1952 Unknown [id number] 2.16.840.1.653694.3.579.2.732 1952 Unknown [id number] 2.16.840.1.619376.3.579.2.732 1952 Unknown [id number] 2.16.840.1.214717.3.579.2.732 1952 Unknown [id number] 2.16.840.1.950771.3.579.2.73 1952 Unknown [id number] 2..840.1.070955.3.579.2.73 1952 Unknown [id number] 2.16.840.1.518254.3.579.2.732 1952 Unknown [id number] 2.16.840.1.429582.3.579.2.73 1952 Unknown [id number] 2.16.840.1.770145.3.579.2.732 Unknown [id number] 2.16.840.1.245884.3.579.2.462 Unknown [id number] 2.16.840.1.842492.3.579.2.462 Unknown [id number] 2.16.840.1.226270.3.579.2.462 Unknown [id number] 2.16.840.1.937358.3.579.2.462 Unknown [id number] 2.16.840.1.593764.3.579.2.462 Unknown [id number] 2.16.840.1.327431.3.579.2.462 Unknown [id number] 2.16.840.1.082909.3.579.2.462 Unknown [id number] 2.16.840.1.173544.3.579.2.462 Unknown [id number] 2.16.840.1.200160.3.579.2.462 Unknown [id number] 2.16.840.1.567061.3.579.2.462 Unknown [id number] 2.16.840.1.376272.3.579.2.462 Unknown [id number] 2.16.840.1.059139.3.579.2.462 Unknown [id number] 2.16.840.1.739777.3.579.2.462 Unknown [id number] 2.16.840.1.234603.3.579.2.462 Unknown [id number] 2.16.840.1.027321.3.579.2.462 Unknown [id number] 2.16.840.1.715332.3.579.2.462 Unknown [id number] 2.16.840.1.723047.3.579.2.462 Unknown [id number] 2.16840.1.007756.3.579.2.462 Unknown [id number] 2.16.840.1.856991.3.579.2.462 Unknown [id number] 2.16840.1.278887.3.579.2.462 Unknown [id number] 2.16.840.1.756188.3.579.2.462 Social History Date Type Detail Facility Start: 10-19-2019 End: 10-12-2022 Tobacco smoking status NHIS Never smoked tobacco [facility] Start: 10-19-2019 End: 10-12-2022 Tobacco use and exposure Smokeless tobacco non-user [facility] Start: 10-09-2021 End: 01-14-2024 Alcohol intake Ex-drinker (finding) [facility] Start: 10-30-2019 History SDOH Alcohol Comment rarely [facility] Start: 1950 Sex Assigned At Not on file [facility] Start: 09-28-2019 End: 03-25-2023 Tobacco smoking status MDIS Unknown if ever smoked [facility] Start: 12-01-[address] [facility] Start: 12-01-2015 None;- [facility] Start: 12-01-2015 Spouse/ Significant Other [facility] Start: 1950 Sex Assigned At Male [facility] Start: 05-21-2020 Gender identity Identifies as male gender (finding) [facility] Start: 01-14-2024 Sexual orientation Not on file [facility] Start: 01-14-2024 History of Social function [facility] Medical Equipment Procedure Code Equipment Code Equipment Origin al Text Equipment Identifier Dates Generator_Mri Im p Pulse Ea1 3028 - [id number] Start: 06-12-2020 Lead Respiratory Sensing Ea1 4340 - [id number] Start: 06-12-2020 RUPALDOUGLASCYDNEY VENTURA FDA Start: 11-23-2018 MESH,3DMAX LEFT LG [id number] FDA Start: 11-23-2018 TACKER,SECURE STRAP FDA Start : 11-23-2018 RUPALDOUGLASCYDNEY VENTURA FDA Start: 11-23-2018 MESH,3DMAX LEFT LG [id number] FDA Start: 11-23-2018 TACKER,SECURE STRAP FDA Start : 11-23-2018 RUPALDOUGLASCYDNEY VENTURA FDA Start: 11-23-2018 MESH,3DMAX LEFT LG [id number] FDA Start: 11-23-2018 TACKER,SECURE STRAP FDA Start : 11-23-2018 RUPALDOUGLASCYDNEY VENTURA FDA Start: 11-23-2018 MESH,3DMAX LEFT LG [id number] FDA Start: 11-23-2018 TACKER,SECURE STRAP FDA Start : 11-23-2018 RUPALDOUGLASCYDNEY VENTURA FDA Start: 11-23-2018 MESH,3DMAX LEFT LG [id number] FDA Start: 11-23-2018 TACKER,SECURE STRAP FDA Start : 11-23-2018 Lead Stimulation Ea1 4063 - [id number] Start: 06-12-2020 Clinical Notes 12-30-2021 to 09-20-2024 Telephone Encounter - Chery Bowman RN - 06/27/2024 10:01 AM EDTTelephone Encounter - Chery Bowman RN - 06/27/2024 10:01 AM EDTTelephone Encounter - Norma Mauro - 06/23/2024 9:24 AM EDT Note Date & Type Note Facility 09-20-2024 Note [facility] Medical Records Department [address] [place] [address] History Physical Exam 09/20/24801 MR#: [id number] Acct: [id number] Name: JUVENCIO MACDONALD Rep #: [id number] : 1950 74 From: Mani Smith MD PCP: Dr. Gloria Dawkins MD Status:[facility] Location: [address] HPI - General General Date of Service: 09/20/24 Chief Complaint: prostate ca HPI Narrative JUVENCIO MACDONALD, is a 74 M who presents for placement of spacer gel and gold markers for prostate ca treatments. [facility] Medical History Wears glasses MRSA infection Arthritis Bladder disease Back pain Restless legs Sleep apnea History of echocardiogram Cardiology follow-up encounter Abnormal prostate biopsy Prostate cancer Inguinal hernia of left side without obstruction or gangrene Family history of coronary arteriosclerosis Retinal artery occlusion Obstructive sleep apnea Hypertension Home Medications ???Medication ???Instructions ???Recorded ???Last Taken ???Type aspirin 81 mg tablet,delayed 81 mg PO DAILY 04/17/14 09/06/24 History release multivitamin 1 cap PO DAILY 10/31/18 09/19/24 History pregabalin 100 mg capsule 200 mg PO QHS 30 days 10/31/18 09/19/24 History losartan 25 mg tablet 25 mg PO DAILY HTN #90 tabs 01/23/19 09/20/24 Rx finasteride 5 mg tablet 5 mg PO QHS 08/03/24 09/19/24 History tadalafil 5 mg tablet 5 mg PO QDAY 08/03/24 09/19/24 History tamsulosin 0.4 mg capsule 0.4 mg PO BID 08/17/24 09/19/24 History ciprofloxacin HCl 500 mg tablet 500 mg PO BID 09/20/24 09/20/24 History Allergy/AdvReac Type Severity Reaction Status Date / Time Penicillins Allergy Rash Verified 09/04/24 13:32 Family History Father CAD (coronary artery disease) <55 years of age Sister CAD (coronary artery disease) <65 years of age Mother CVA (cerebral vascular accident) Surgical History Hx of colonoscopy S/P left inguinal hernia repair History of hand surgery ( 10/25/15) History of left heart catheterization ( 04/18/14) Social History Smoking Status: Never smoker alcohol intake: former substance use type: does not use Vital Signs Vital Signs Vital Signs: 09/20/24 06:33 09/20/24 06:35 09/20/24 07:20 Temperature 97.5 F L 97.5 F L Temperature Source Temporal Pulse Rate 69 69 Respiratory Rate 16 16 Respiratory Pattern Normal Blood Pressure 114/78 114/78 Blood Pressure Mean 90 Blood Pressure Source Monitor Blood Pressure Position Sitting Blood Pressure Location Left Arm Pulse Ox 94 94 Oxygen Delivery Method Room Air Weight Weight: 96 kg Body Mass Index (BMI) 30.3 09/20/24 0803 Cosigner Signature (if applicable): CC: Dr. Gloria Dawkins MD; Dr. Mani Smith MD Signed [facility] 06-27-2024 Telephone encounter Note Identification was verified by patient verbalizing his name and date of . Patient contacted Reports he was able to have the MRI done yesterday at [place]. Ninoska Hernández MD OK for patient to proceed with MRI. He will need to bring his Inspire remote to the test. Radiology will use the remote to confirm the Inspire is off before and after the scan. Radiology should be familiar with Inspire protocols for MRI. Thanks! [facility] 06-27-2024 Miscellaneous Notes Identification was verified by patient verbalizing his name and date of . Patient contacted Reports he was able to have the MRI done yesterday at [place]. Ninoska Hernández MD OK for patient to proceed with MRI. He will need to bring his Inspire remote to the test. Radiology will use the remote to confirm the Inspire is off before and after the scan. Radiology should be familiar with Inspire protocols for MRI. Thanks! Situation: Pt call Background: Pt wanted to let Ita in Dr. Hernández's office know that he has been moved up for his MRI to Wednesday06/26/24 at another facility. Pt would like to confirm that it is ok to have an MRI with his Inspire Stimulator Assessment: N/A Recommendation: Please have Ita call pt at Telephone Information: Thank you documented in this encounter [facility] 06-23-2024 Telephone encounter Note Situation: Pt call Background: Pt wanted to let Ita in Dr. Hernández's office know that he has been moved up for his MRI to Wednesday06/26/24 at another facility. Pt would like to confirm that it is ok to have an MRI with his Inspire Stimulator Assessment: N/A Recommendation: Please have Ita call pt at Telephone Information: Thank you [facility] 06-16-2024 Telephone encounter Note ----- Message from Nurse Segundo sent at 06/16/2024 3:03 PM EDT ----- Regarding: Prostate concerns Hi Dr. Hernández. This patient called me and is having some urgent concerns regarding his prostate. He gets his care at [place] but they could not get him in for an MRI until 07/06. PSA level 76. He was asking if he could get in sooner here. I explained to him the he would most likely have to wait that long if not longer d/t this being a trauma center and the fact that we have to schedule at least 2 weeks out for insurance purposes. I was not able to see his information in care everywhere. Long story short he asked if you would be willing to put in a referral for Urology and the MRI. I told him that I was not sure you would be able but that I would ask. Let me know your thoughts when you return. Thank you, Ratna [facility] 06-16-2024 Miscellaneous Notes ----- Message from Nurse Ratna sent at 06/16/2024 3:03 PM EDT ----- Regarding: Prostate concerns Hi Dr. Hernández. This patient called me and is having some urgent concerns regarding his prostate. He gets his care at [place] but they could not get him in for an MRI until 07/06. PSA level 76. He was asking if he could get in sooner here. I explained to him the he would most likely have to wait that long if not longer d/t this being a trauma center and the fact that we have to schedule at least 2 weeks out for insurance purposes. I was not able to see his information in care everywhere. Long story short he asked if you would be willing to put in a referral for Urology and the MRI. I told him that I was not sure you would be able but that I would ask. Let me know your thoughts when you return. Thank you, Ratna documented in this encounter [facility] 06-14-2024 Telephone encounter Note Returned call to patient. Pt stated that at this time he is having issues with his prostate and would like to focus on that issue for now. Once it is resolved, he will give me a call to get rescheduled. Will send a [employer] message with my direct phone number. Ratna Camargo BA, BSN, RN Clinical Kickboxing Instructor, Pulmonary and Sleep Medicine [facility] Work Phone: 06-14-2024 Miscellaneous Notes Returned call to patient. Pt stated that at this time he is having issues with his prostate and would like to focus on that issue for now. Once it is resolved, he will give me a call to get rescheduled. Will send a [employer] message with my direct phone number. Ratna Camargo BA, BSN, RN Clinical Kickboxing Instructor, Pulmonary and Sleep Medicine Patient needs to cx Inspire SS; he has other medical issues he needs to tend to. documented in this encounter [facility] 06-14-2024 Telephone encounter Note Patient needs to cx Inspire SS; he has other medical issues he needs to tend to. [facility] 06-02-2024 History of Present illness Narrative Images from the original note were not included. Sleep Medicine Follow-Up Documentation: Mode: Telephone Patient Home Phone: Patient Work Phone: Patient Cell Preferred phone: [phone] Consent: I confirmed patient understanding of the risks and benefits of telehealth visits and obtained consent to proceed with the telehealth visit. Location of Patient: Home of patient Patient here for f/u of PARI (Inspire HGNS) and RLS. Last seen on 04/28/2024 by telemed. To review, history is notable for HTN, RLS, moderate PARI. PSG at OSH in the early 1999s showed PARI. Tried PAP, BIPAP, and OMAD without success. 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 HST in 12/2019 showed AHI 27.1 sat trae 71%. Underwent Inspire implantation on 06/12/2020. Inspire activated on 07/11/2020. Configuration change to -0- on 09/27/20. HST with Inspire in 11/2021 showed AHI 7.8 sat trae 81% but patient noted limited symptomatic benefit. Titration PSG in 12/2021 showed marginal control at 1.7 volts (on my review, adequate in NREM at 1.4 volts, 1.7 volts in REM) with higher amplitudes associated with jaw discomfort. HST with Inspire in 05/2024 showed AHI 19.3 sat trae 64% (unclear if sat trae is accurate). At the last visit, patient noted: -stopped oxycodone due to itching and limited benefit on sleep quality (took for about a week). -waking unrefreshed most mornings despite 7-8 hours of sleep -minimal change with Inspire -wore holes in socks due to constant leg movement during sleep -little benefit with modafinil We rechecked iron (ferritin 138, iron 108, sat 36%) Completed HST showing elevated residual AHI at 19 with Inspire. Today he notes he did in fact use Inspire at level 1 during the HST. He was thinking of changing during the test but did not. At level 1 he can barely feel the stimulation. He remains quite tired during the day. He can usually get through the night without urinating when taking Flomax. He will see Urology. A 10-point review of systems was conducted and was positive for the points noted above, otherwise negative. Exam: BMI: Data Unavailable There were no vitals filed for this visit. Phone appointment A/P: PARI treated with Inspire HGNS, RLS. His PARI is no longer as well controlled with Inspire as it once was - this could certainly explain the significant residual fatigue. Discussed titration PSG to optimize therapy - patient was amenable. Will schedule RLS is now iron sufficient s/p iron infusion. Multiple meds trialed without much benefit. Consider tramadol (had limited benefit with oxycodone but may do better with longer acting med) though advised optimizing PARI first as above. Follow up after PSG. Ninoska Hernández MD This encounter required 22 minutes of attending physician time, inclusive of chart review, documentation, orders/prescriptions, independent data verification, medical decision making, counseling/coordination of care, face to face time with the patient, and exclusive of any teaching activities. documented in this encounter [facility] 04-28-2024 History of Present illness Narrative Images from the original note were not included. Sleep Medicine Follow-Up Documentation: Mode: Video Consent: This visit was initiated by the patient. Audio and visual communication was utilized in real-time. I confirmed understanding of risks and benefits of telehealth visits and obtained consent to proceed with the telemedicine visit. Location of Patient: Home of patient Time-Based Billing Justifications: Charting in Epic Patient visit (including performing a medically appropriate exam) Obtaining history (or reviewing separately obtained history) Reviewing (chart, labs, and other clinical notes) Ordering/interpreting (medications, tests, procedures) Counseling/educating the patient/family/caregiver This appointment was scheduled as an audio-video telehealth appointment. Despite the patient's and/or provider's best efforts, a video connection could not be established. Therefore, the visit was completed via audio only. Patient here for f/u of PARI and RLS. Last seen on 01/14/2024. To review, history is notable for HTN, RLS, moderate PARI. PSG at OSH in the early showed PARI. Tried PAP, BIPAP, and OMAD without success. 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 HST in 12/2019 showed AHI 27.1 sat trae 71%. Underwent Inspire implantation on 06/12/2020. Inspire activated on 07/11/2020. Configuration change to -0- on 09/27/20. HST with Inspire in 11/2021 showed AHI 7.8 sat trae 81% but patient noted limited symptomatic benefit. Titration PSG in 12/2021 showed marginal control at 1.7 volts (on my review, adequate in NREM at 1.4 volts, 1.7 volts in REM) with higher amplitudes associated with jaw discomfort. At the last visit, patient was using Inspire regularly (43 hours/week) but noted ongoing RLS symptoms -- heels sore in the morning due to constant rubbing on the sheets. Discussed trial of oxycodone. Today patient notes he did not use oxycodone very long due to limited benefit in terms of daytime sleepiness. He felt itchy in the middle of the night. He took oxycodone for about a week. He tried on and off flomax with little change either way. He notes ongoing daytime fatigue and sleepiness by mid-morning, feels worn out all the time. Schedule at this point: if he takes flomax he sleeps through the night fairly well. He will go to bed as early as 1929 as late as 2129, up at 0700. He averages 7-8+ hours of sleep per night. He typically does not have issues falling asleep. Most nights he is able to fall asleep readily and use Inspire those nights. Notes minimal difference when Inspire. He has been sleeping on his side more, unsure if this has had an effect on his RLS. He has worn holes in socks from constant movement at night. Notes a family history of thyroid issues. Also tried modafinil and noted little benefit. A 10-point review of systems was conducted and was positive for the points noted above, otherwise negative. Exam: BMI: Data Unavailable There were no vitals filed for this visit. 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 -RLS: s/p trials of multiple medications and iron infusion with limited benefit. Oxycodone was marginally effective and associated with side effects but admittedly was given only a short trial. Discussed option for longer acting opiate such as tramadol. Will hold off on this and check labs first. -check iron, ferritin, vitamin D, TSH, CBC PARI: -continue nightly usage of Inspire. -HST with Inspire (last in 2021) to verify adequacy of therapy. Ninoska Hernández MD This encounter required 44 minutes of attending physician time, inclusive of chart review, documentation, orders/prescriptions, independent data verification, medical decision making, counseling/coordination of care, face to face time with the patient, and exclusive of any teaching activities. documented in this encounter [facility] 04-26-2024 Telephone encounter Note We will arrange a televisit lashon. [facility] 04-26-2024 Miscellaneous Notes We will arrange a televisit lashon. Addended by: NINOSKA HERNÁNDEZ on: 04/25/2024 04:30 PM Modules accepted: Orders Returned call to patient for Dr. Hernández regarding his Inspire and medications. Left VM with my call back number. Ratna Camargo BA, BSN, RN Clinical Kickboxing Instructor, Pulmonary and Sleep Medicine PT is calling is having some concern on sleeping issue and medication. Please call to advise. documented in this encounter [facility] 04-25-2024 Note Addended by: NINOSKA HERNÁNDEZ on: 04/25/2024 04:30 PM Modules accepted: Orders [facility] 04-25-2024 Note Addended by: NINOSKA HERNÁNDEZ on: 04/25/2024 04:30 PM Modules accepted: Orders [facility] 04-25-2024 Miscellaneous Notes Addended by: NINOSKA HERNÁNDEZ on: 04/25/2024 04:30 PM Modules accepted: Orders Returned call to patient for Dr. Hernández regarding his Inspire and medications. Left VM with my call back number. Ratna Camargo BA, BSN, RN Clinical Kickboxing Instructor, Pulmonary and Sleep Medicine PT is calling is having some concern on sleeping issue and medication. Please call to advise. documented in this encounter [facility] 04-24-2024 Telephone encounter Note Returned call to patient for Dr. Hernández regarding his Inspire and medications. Left VM with my call back number. Ratna Camargo BA, DELPHINEN, RN Clinical Kickboxing Instructor, Pulmonary and Sleep Medicine [facility] Work Phone: 04-24-2024 Miscellaneous Notes Returned call to patient for Dr. Hernández regarding his Inspire and medications. Left VM with my call back number. Ratna Cmaargo BA, DELPHINEN, RN Clinical Kickboxing Instructor, Pulmonary and Sleep Medicine PT is calling is having some concern on sleeping issue and medication. Please call to advise. documented in this encounter [facility] 04-21-2024 Telephone encounter Note PT is calling is having some concern on sleeping issue and medication. Please call to advise. [facility] Work Phone: 01-21-2024 Telephone encounter Note Returned patient's call. He notes he started oxycodone on Wednesday evening and has been taking up to last night. He has known urinary issues related to prostate hypertrophy. Tried Flomax, which helped but seems to have caused fatigue. He is overly tired, moreso than before he took the oxycodone and Flomax. Plan: try to sort out source of fatigue - oxycodone or flomax. Try oxycodone without flomax this weekend - gauge symptomatic response. Patient will call with results. [facility] 01-21-2024 Miscellaneous Notes Returned patient's call. He notes he started oxycodone on Wednesday evening and has been taking up to last night. He has known urinary issues related to prostate hypertrophy. Tried Flomax, which helped but seems to have caused fatigue. He is overly tired, moreso than before he took the oxycodone and Flomax. Plan: try to sort out source of fatigue - oxycodone or flomax. Try oxycodone without flomax this weekend - gauge symptomatic response. Patient will call with results. Patient calling with update. Started taking Oxydone last Wednesday. January 14. Had trouble urinating which he knows is side effect of medication. Took some Flomax, which took care of urine flow, but now very tired. Requesting return call. documented in this encounter [facility] 01-21-2024 Telephone encounter Note Patient calling with update. Started taking Oxydone last Wednesday. January 14. Had trouble urinating which he knows is side effect of medication. Took some Flomax, which took care of urine flow, but now very tired. Requesting return call. [facility] Work Phone: 01-14-2024 Instructions Ninoska Hernández MD - 01/14/2024 3:49 PM EDT 1) For the restless legs, we discussed trying oxycodone. This is an opiate medication usually used for pain but it is highly effective for restless legs. Start with 1 tab (5mg) about an hour before bedtime. You can increase to 2 tabs (10mg) after 1 week if needed. You can increase to 3 tabs (15mg) after 2 weeks if needed. Please let me know how it goes -- you can send me a [employer] message or call us directly at [phone]. If you end up taking more than 1 per night, we'll need to update the prescription early. 2) Make sure you do not take the oxycodone and the Klonipin (clonazepam) together. 3) Once you've got some experience with how the oxycodone is helping, see if you need to take the modafinil during the day. 4) We will need to do a urine test every year. documented in this encounter [facility] 01-14-2024 History of Present illness Narrative Images from the original note were not included. Sleep Medicine Follow-Up Patient here for f/u of PAIR treated with Inspire HGNS and RLS. Last seen on 10/08/23. To review, history is notable for HTN, RLS, moderate PARI. PSG at OSH in the early showed PARI. Tried PAP, BIPAP, and OMAD without success. 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 HST in 12/2019 showed AHI 27.1 sat trae 71%. Underwent Inspire implantation on 06/12/2020. Inspire activated on 07/11/2020. Configuration change to -0- on 09/27/20. HST with Inspire in 11/2021 showed AHI 7.8 sat trae 81% but patient noted limited symptomatic benefit. Titration PSG in 12/2021 showed marginal control at 1.7 volts (on my review, adequate in NREM at 1.4 volts, 1.7 volts in REM) with higher amplitudes associated with jaw discomfort. At the last visit, patient was using Inspire regularly at 36 hours/week but noted ongoing RLS symptoms - sheets in disarray upon awakening. Tried temazepam from PCP which caused residual daytime grogginess. Completed iron infusion for RLS with little change in symptoms. Discussed trial of modafinil 100-200mg and ongoing usage of Inspire. Today he notes ongoing struggles with sleep and fatigue. Biggest issue is RLS - he notes nightly symptoms. Often feels his heels are sore in the morning due to constant rubbing. Multiple prior med trials were ineffective or of limited benefit. He has not yet tried opiates. Using Inspire nightly, finds level 1 tolerable but cannot tolerate higher. Feels it has helped with symptoms but still variably fatigued during the day. Date Time [place] Score 10/08/2023 1437 15 05/05/2022 1109 14 10/09/2021 1541 12 Inspire was interrogated and settings are: Current Amplitude: 1.2 volts Patient Control Lower Limit: 1.2 volts Patient Control Upper Limit: 2.2volts Electrode configuration: 0-0 Usage: 598 hours (average 43 hours per week) A 10-point review of systems was conducted and was positive for the points noted above, otherwise negative. Exam: BMI: 30.5 Vitals: 01/14/24 1525 BP: 122/67 Pulse: 76 Resp: 18 Temp: 98.7 F (37.1 C) SpO2: 97% Pleasant, alert, NAD Surgical sites well healed Unlabored breathing A/P: Moderate PARI treated with Inspire HGNS and RLS. RLS is the major symptomatic concern today. -RLS: s/p trials of multiple medications and iron infusion with limited benefit. Discussed trial of opiates, which have strong supporting evidence for RLS treatment. Elected to start with oxycodone 5mg 1 hour before bedtime. Can increase as high as 15mg nightly but will need to update Rx if this dose is required. ---controlled substance agreement signed. ---utox obtained; naloxone prescribed ---advised patient not to take clonazepam with oxycodone and he voiced his understanding and agreement with this important point. -PARI: adequately controlled with Inspire HGNS per titration PSG; continue nightly usage. F/u in 3-6 months. Ninoska Hernández MD documented in this encounter [facility] 10-08-2023 Instructions Ninoska Hernández MD - 10/08/2023 2:52 PM EST Please ask Dr. Dawkins about other medications for the prostate. We discussed trying a medication during the day for the fatigue called Provigil (modafinil). Start with 1 tablet (100mg) in the morning. Take with a small amount of food if you have upset stomach. You can increase to 2 tablets (200mg) per day if needed. If that's helping, please let me know. If you need to go higher, please let me know. Please give us a call at [phone]. documented in this encounter [facility] 10-08-2023 History of Present illness Narrative Images from the original note were not included. Sleep Medicine Follow-Up Patient here for f/u of PARI treated with Inspire HGNS and RLS. Last seen on 08/10/2022 by telemed. To review, history is notable for HTN, RLS, moderate PARI. PSG at OSH in the early showed PARI. Tried PAP, BIPAP, and OMAD without success. 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 HST in 12/2019 showed AHI 27.1 sat trae 71%. Underwent Inspire implantation on 06/12/2020. Inspire activated on 07/11/2020. Configuration change to -0- on 09/27/20. HST with Inspire in 11/2021 showed AHI 7.8 sat trae 81% but patient noted limited symptomatic benefit. Titration PSG in 12/2021 showed marginal control at 1.7 volts (on my review, adequate in NREM at 1.4 volts, 1.7 volts in REM) with higher amplitudes associated with jaw discomfort. At the last visit, patient was using Inspire regularly at level 2 - difficulty with higher amplitude. Had stopped clonazepam and started pregabalin - helpful for arthritis and somewhat for RLS. Discussing continuing Inspire at 1.3 volts (1.4 volts was effective in NREM). Discussing trying bilevel with Inspire. Checked ferritin, completed iron infusion 10/12/2022 for ferritin 53.6 with RLS - no f/u levels drawn. Pt subsequently called noting difficulty activating Inspire with error light on remote - discussed changing batteries - did not receive callback after that. Today patient notes he continues to struggle with fatigue. He generally sleeps continuously through the night (3/7 nights) for 8-9 hours but occasionally wakes with nocturia. He is not aware of snoring, gasping, or choking, but does have a dry mouth some mornings. Generally sleeping on his L side helps (avoids supine). He is not aware of RLS per se but notes the sheets are dissheveled in the morning, suggesting legs have been moving. He felt no better (in fact, worse!) after iron infusion. Tried temazepam (rx by Dr. Dawkins) which he felt caused excessive daytime drowsiness. Date Time [place] Score 10/08/2023 1437 15 05/05/2022 1109 14 10/09/2021 1541 12 Inspire was interrogated and settings are: Current Amplitude: 1.2 volts Patient Control Lower Limit: 1.2 volts Patient Control Upper Limit: 2.2volts Electrode configuration: -0- Usage: 2716 hours (average 36 hours per week) A 10-point review of systems was conducted and was positive for the points noted above, otherwise negative. Exam: BMI: 31.04 Vitals: 10/08/23 1435 BP: 120/64 Pulse: 78 Temp: 98.7 F (37.1 C) SpO2: 97% Pleasant, alert, NAD Normal tongue movement Unlabored breathing A/P: moderate PARI and RLS. PARI treated with Inspire HGNS and is objectively well controlled by both HST and titration PSG (During titration, 1.4 volts effective in NREM and 1.7 volts in supine REM). He is s/p ferric carboxymaltose infusion for RLS versus PLMD but no less fatigued. Query hypersomnia with PARI (10-15% of patients with well treated PARI remain sleepy) - discussed directed therapy with wakefulness-promoting agent for this. Agreed on trial of modafinil - start with 100mg daily and increase if needed to 200mg (call to discuss further dose adjustments). OARRS reviewed. Discussed possible side effects. Continue nightly usage of Inspire. F/u in 3 months. Inspire settings as of completion of today's visit: Good bulk tongue base movement at current amplitude Final Amplitude: 1.2 volts Patient Control Lower Limit: 1.2 volts Patient Control Upper Limit: 2.2volts Electrode Configuration: -0- Other programmin Ninoska Hernández MD documented in this encounter [facility] 05-13-2023 Telephone encounter Note Patient enrolled in [facility] for anemia monitoring and according to our records is past due for repeat HBG and/or iron labs. Per clinic protocol will discharge patient from monitoring since 6 months past due for labs, letter sent to patient to inform Dr. Hernández, This pt is being discharged from Anemia monitoring service. Standing HGB/CBC labs deleted (Please re-order if needed), if ELISE/ IV iron orders and appts are active will be deleted/cancelled, and yes will be added to ELISE therapy complete? Thanks! [facility] Work Phone: 05-13-2023 Miscellaneous Notes Patient enrolled in [facility] for anemia monitoring and according to our records is past due for repeat HBG and/or iron labs. Per clinic protocol will discharge patient from monitoring since 6 months past due for labs, letter sent to patient to inform Dr. Hernández, This pt is being discharged from Anemia monitoring service. Standing HGB/CBC labs deleted (Please re-order if needed), if ELISE/ IV iron orders and appts are active will be deleted/cancelled, and yes will be added to ELISE therapy complete? Thanks! Images from the original note were not included. [facility] [phone] - Anemia monitoring past due 6 months Pt identified as past due for Anemia Monitoring. Please review and address as appropriate. documented in this encounter [facility] 05-12-2023 Telephone encounter Note Images from the original note were not included. [facility] [phone] - Anemia monitoring past due 6 months Pt identified as past due for Anemia Monitoring. Please review and address as appropriate. [facility] 03-25-2023 Discharge summary Note Date/Time March 25, 2023 6:36pm [facility] Medical Records Department [address] [place] [address] Emergency Department Summary 03/25/23 MR#: [id number] Acct: [id number] Name: JUVENCIO MACDONALD Rep #:[id number] : 1950 72 From: Hira Medina MD PCP: Dr. Gloria Dawkins MD Status:REG ER Location: ED HPI History of Present Illness Chief Complaint: Wound Check Informant: patient and spouse/S.O. Narrative Narrative: Patient presents with a sore on top of his head and a little bit of tingling in the left upper lip area. He noted the sore in the top of his head last night. He states is just a rough area and it is tender in that area. He has a little bit of discomfort. He is also noticed that he has just a little subtle numbness in the upper left lip just off the center. It is an area about a thumb tip in size. No pain there. No lesions or sores there. No eye itching or redness. 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 No numbness tingling anywhere else. No vomiting. No chest pain or palpitations. He does not recall anythingthat scraped or abraded this area. He has not had shingles vaccine. [facility] Medical History Family history of coronary arteriosclerosis Fecal incontinence Hemorrhoids Hypertension Inguinal hernia of left side without obstruction or gangrene MRSA infection Obstructive sleep apnea Prostate enlargement Retinal artery occlusion RLS (restless legs syndrome) Home Medications aspirin 81 mg tablet,delayed release 81 mg PO DAILY 04/17/14 [History Last Taken 11/20/18 19:00] multivitamin 1 cap PO DAILY 10/31/18 [History Last Taken Unknown] pregabalin 100 mg capsule 200 mg PO QHS 30 days 10/31/18 [History Last Taken Unknown] losartan 25 mg tablet 25 mg PO DAILY HTN #90 tabs 01/23/19 [Rx Last Taken Unknown] Allergy/AdvReac Type Severity Reaction Status Date / Time Penicillins Allergy Rash Verified 03/25/23 17:55 Family History Father CAD (coronary artery disease) <55 years of age Sister CAD (coronary artery disease) <65 years of age Mother CVA (cerebral vascular accident) Surgical History History of hand surgery (~10/25/15) History of left heart catheterization (~04/18/14) S/P left inguinal hernia repair Social History Smoking Status: Never smoker EXAM Physical Exam Const Vital Signs: 03/25/23 17:55 Temperature 98.1 F Temperature Source Temporal Pulse Rate 86 Respiratory Rate 19 H Blood Pressure 146/64 H Blood Pressure Mean 91 Pulse Ox 99 MDM MDM MDM Narrative Medical decision making narrative: Plan depend interpretation the patient's CT of the head is negative and final reading is normal unenhanced CT scan of the brain. This patient has a small skin abrasion looking area on the top of his scalp. Itis not vesicular or red. There is no involvement of the forehead face or nose. Negative [place] sign. No ocular symptoms. He does have a very small area of sort of numbness tingling at the corner of his nose and upper lip. He did have the similar area of his nose frostbitten over the winter but it had not involve the lip. It is certainly possible he has symptoms from that. It is possible that this could be early shingles but the rash does not develop. We discussed this and the need to return to initiate treatment quickly. But I do not think he justifies treatment yet based on symptoms. There are many things that could cause this. He has no weakness. His NIH is 0. Sensation is intact but it just feels different. I think he is okay for discharge. We did discuss multiple reasons that would bring him back. He also already has an appointment with his physician in 4 days. Radiography Diagnostic Testing: Clinical Impression(s) from Imaging Studies Brain CT 03/25/23 18:50 IMPRESSION: Normal unenhanced CT scan of the brain. Electronically Signed: Quincy Arboleda MD at 19:19 EDT , Discharge Plan Triage Chief Complaint: Wound Check ED Provider: Hira Medina Dx/Rx/DC Orders Clinical Impression: Facial paresthesia, Lesion of skin of scalp Instructions: ED Paraesthesias Prescriptions: No Action pregabalin 100 mg capsule 200 mg PO QHS 30 Days Patient Comments: TAKE ONE CAPSULE BY MOUTH WITH SUPPER AND BEDTIME FOR 30 DAYS losartan 25 mg tablet 25 mg PO DAILY Qty: 90 3RF multivitamin capsule capsule 1 cap PO DAILY aspirin 81 MG tablet,delayed release (DR/EC) 81 mg PO DAILY Patient Comments: [facility] Primary Care Provider: Gloria Dawkins Referrals: Gloria Dawkins MD [Primary Care Provider] - Keep Jory appointment Disposition Disposition: Home, Self Care What to do if you have Problems For any increased pain, shortness of breath, bleeding, nausea or vomiting, chestpain, or any unexpected problems, contact your Primary Care Provider. Call [facility] ([phone]) or report to the closest Emergency Room. Call 911 if necessary. 03/25/231946 <Electronically signed by Hira Medina MD> Cosigner Signature (if applicable): CC: Dr. Gloria Dawkins MD ~ Signed [facility] Work Phone: 1(151) 488-819606-14-2023 Telephone encounter Note* Telephone Encounter - Devon Lopez RN - 02/24/2023 11:27 AM EDT Patient enrolled in [facility] for anemia monitoring and according to our recordsis past due for repeat labs. Left message for patient advising to call [facility] phone regarding labs due # [phone]. Will send letter (and my chart message if applicable?) . Confirmed appropriate labs ordered [id number] Miscellaneous Notes* Telephone Encounter - Devon Lopez RN - 02/24/2023 11:27 AM EDT Patient enrolled in [facility] for anemia monitoring and according to our recordsis past due for repeat labs. Left message for patient advising to call [facility] phone regarding labs due # [phone]. Will send letter (and my chart message if applicable?) . Confirmed appropriate labs ordered * Telephone Encounter - Lenka Eli - 02/09/2023 3:18 PM EDT Images from the original note were not included. [facility] [phone] - Anemia monitoring past due 3 months Pt identified as past due for Anemia Monitoring. Please review and address as appropriate. documented in this [id number] Telephone encounter Note* Telephone Encounter - Lenka Eli - 02/09/2023 3:18 PM EDT Images from the original note were not included. [facility] [phone] - Anemia monitoring past due 3 months Pt identified as past due for Anemia Monitoring. Please review and address as appropriate. [id number] Note* Addendum Note - Sophia Hdz RPh - 10/12/2022 4:57 PM ESTAddended by: SOPHIA HDZ on: 10/12/2022 04:57 PM Modules accepted: Orders [facility] Work Phone: 1(406) 580-196901-30-2023 Miscellaneous Notes* Addendum Note - Sophia Hdz RPh - 10/12/2022 4:57 PM ESTAddended by: SOPHIA HDZ on: 10/12/2022 04:57 PM Modules accepted: Orders documented in this [id number] History of Present illness Narrative* Kelly Davis RN - 10/12/2022 1:05 PM EST Medical Specialties Infusion Nursing Note Situation: Problem: Iron Deficiency Anemia Infusion of Ferric Carboxymaltose (injectafer) 750 mg. REFERRAL STATUS: Referral # [id number] is Closed; decision date: 09/08/2022; expiration date: 10/12/2023 Background: Last Dose: First Dose Induction Ordering Provider: Ninoska Hernández MD Anemia Clinic see 08/19/22 Med [facility] encounter. Assessment: Patient at risk for falls:No Falls Risk protocol implemented: N/A Call quiroz within reach: yes Active Treatment Plan: yes Nursing assessment: pt presents well today. Pt states having restless leg syndrome. 'My legs botherme at night. During the day I don't notice it so much. Reviewed plan of care for today with pt. Reviewed side effects to inform RN of during infusion. Pt verbalized understanding and agrees with plan of care. Administration: IV access: See LDA Premedication: n/a Medication received from [facility] pharmacy. Label, solution, and expiration date/time verified. Ferric Carboxymaltose 750 mg administered via infusion pump per medication guidelines. See MAR and VS flowsheet. Pt tolerated well. No adverse effects. Line flushed per guidelines. Pt remains in clinic for 30 minutes post monitoring. IV Access Discontinued: See LDA Recommendation/Plan: Repeat lab work 4 weeks after LEXY treatment. Pt is aware and agrees with plan of care. Next infusion: TBD Pt uses MYChart. Pt received clinic's After Visit Summary,to included medication sheets. Pt left clinic in good condition. * Paula Marie - 10/12/2022 12:41 PM EST Patient was identified by name and date of . Paula Urban Patient at risk for falls:No Falls Risk protocol implemented: No documented in this [id number] Telephone encounter Note* Telephone Encounter - Ute Rosales - 10/08/2022 10:28 AM EST Message given to pt - no further questions and concerns [id number] Miscellaneous Notes* Telephone Encounter - Ute Rosales - 10/08/2022 10:28 AM EST Message given to pt - no further questions and concerns * Telephone Encounter - Chery Bowman RN - 10/07/2022 3:16 PM EST Images from the original note were not included. Ninoska Hernández MD H&V Nurse Phone Pool Yesterday (12:42 PM) Hello, yes please he should come for the infusion. It will likely take several months of oral supplements to get the levels up - they have probably only gone up a small amount since starting the supplements. They will recheck labs after the infusion. Thanks! Ninoska Merino asking patient return call to [phone] for information indicated below. Reference 99 Attempt #1 Please give above message from Dr. Hernández. Thank you, * Telephone Encounter - Oralia Nino - 10/06/2022 11:37 AM EST Situation: Iron infusion concern Background: PT is questioning If he is to proceed with infusion as he is taking iron pills. Is so, is he to have labs prior to the 10/12 infusion. If so, please place an order for labs. Assessment: n/a Recommendation: PT can be reached at Telephone Information: * Addendum Note - Juan Maldonado MD - 08/21/2022 3:20 PM ESTAddended by: JUAN MALDONADO on: 08/21/2022 03:20 PM Modules accepted: Orders * Telephone Encounter - Juan Maldonado MD - 08/21/2022 3:18 PM EST Spoke with the patient. Would like to start Fe pills due to ongoing RLS symptoms and not being ableto get an infusion until end of September. Sent scripts for Fe 325 BID and vit C 500 qAM. Told how to take and to watch for SE. He will f/u with Dr. Hernández mid September. * Telephone Encounter - Crystal Almanza - 08/21/2022 2:05 PM EST Pt wanted to let Dr. Hernández know that he scheduled his infusion but it was further out then expected. Appt is scheduled for 10/12/22. Pt states that provider recommended pills or the infusion to helpwith iron levels. Pt would like to know if it would be ok to take iron pills instead and what dosage he should take. Mr. Macdonald can be reached at Phone numbers Thank You * Telephone Encounter - Precious Gamboa RN - 08/17/2022 2:21 PM EST Identification was verified by patient verbalizing his name and date of . Message below given to pt. Pt. Also provided phone number to Anemia clinic. Closing encounter. * Telephone Encounter - Precious Gamboa RN - 08/17/2022 2:21 PM EST Images from the original note were not included. Ninoska Hernández MD H&V Nurse Phone Pool 2 days ago Helnatalie, could you please let pt know his iron levels were lower than we'd like for his restless leg syndrome? The goal ferritin is >75 and his was 53. I had previously discussed iron infusion with him if this was the case, so I put in a referral to the infusion clinic. They will be contacting patient to arrange an iron infusion. Thank you! Ninoska * Telephone Encounter - Ninoska Hernández MD - 08/15/2022 1:20 PM EST Reviewed lab work: ferritin is below goal (>75 for RLS) at 53.6. Previously discussed iron infusion with patient. Order entered for infusion clinic. documented in this [id number] Telephone encounter Note* Telephone Encounter - Chery Bowman RN - 10/07/2022 3:16 PM EST Images from the original note were not included. Ninoska Hernández MD [facility] Nurse Phone Pool Yesterday (12:42 PM) Hello, yes please he should come for the infusion. It will likely take several months of oral supplements to get the levels up - they have probably only gone up a small amount since starting the supplements. They will recheck labs after the infusion. Thanks! Ninoska Left asking patient return call to [phone] for information indicated below. Reference 99 Attempt #1 Please give above message from Dr. Hernández. Thank you, [id number] Miscellaneous Notes* Telephone Encounter - Chery Bowman RN - 10/07/2022 3:16 PM EST Images from the original note were not included. Ninoska Hernández MD H&V Nurse Phone Pool Yesterday (12:42 PM) Hello, yes please he should come for the infusion. It will likely take several months of oral supplements to get the levels up - they have probably only gone up a small amount since starting the supplements. They will recheck labs after the infusion. Thanks! Ninoska Merino asking patient return call to [phone] for information indicated below. Reference 99 Attempt #1 Please give above message from Dr. Hernández. Thank you, * Telephone Encounter - Oralia Nino - 10/06/2022 11:37 AM EST Situation: Iron infusion concern Background: PT is questioning If he is to proceed with infusion as he is taking iron pills. Is so, is he to have labs prior to the 10/12 infusion. If so, please place an order for labs. Assessment: n/a Recommendation: PT can be reached at Telephone Information: * Addendum Note - Juan Maldonado MD - 08/21/2022 3:20 PM ESTAddended by: JUAN MALDONADO on: 08/21/2022 03:20 PM Modules accepted: Orders * Telephone Encounter - Juan Maldonado MD - 08/21/2022 3:18 PM EST Spoke with the patient. Would like to start Fe pills due to ongoing RLS symptoms and not being ableto get an infusion until end of September. Sent scripts for Fe 325 BID and vit C 500 qAM. Told how to take and to watch for SE. He will f/u with Dr. Hernández mid September. * Telephone Encounter - Crystal Almanza - 08/21/2022 2:05 PM EST Pt wanted to let Dr. Hernández know that he scheduled his infusion but it was further out then expected. Appt is scheduled for 10/12/22. Pt states that provider recommended pills or the infusion to helpwith iron levels. Pt would like to know if it would be ok to take iron pills instead and what dosage he should take. Mr. Macdonald can be reached at Phone numbers Thank You * Telephone Encounter - Precious Gamboa RN - 08/17/2022 2:21 PM EST Identification was verified by patient verbalizing his name and date of . Message below given to pt. Pt. Also provided phone number to Anemia clinic. Closing encounter. * Telephone Encounter - Precious Gamboa RN - 08/17/2022 2:21 PM EST Images from the original note were not included. Ninoska Hernández MD [facility] Nurse Phone Pool 2 days ago Hello, could you please let pt know his iron levels were lower than we'd like for his restless leg syndrome? The goal ferritin is >75 and his was 53. I had previously discussed iron infusion with him if this was the case, so I put in a referral to the infusion clinic. They will be contacting patient to arrange an iron infusion. Thank you! Ninoska * Telephone Encounter - Ninoska Hernández MD - 08/15/2022 1:20 PM EST Reviewed lab work: ferritin is below goal (>75 for RLS) at 53.6. Previously discussed iron infusion with patient. Order entered for infusion clinic. documented in this [id number] Telephone encounter Note* Telephone Encounter - Oralia Nino - 10/06/2022 11:37 AM EST Situation: Iron infusion concern Background: PT is questioning If he is to proceed with infusion as he is taking iron pills. Is so, is he to have labs prior to the 10/12 infusion. If so, please place an order for labs. Assessment: n/a Recommendation: PT can be reached at Telephone Information: [id number] Miscellaneous Notes* Telephone Encounter - Oralia Nino - 10/06/2022 11:37 AM EST Situation: Iron infusion concern Background: PT is questioning If he is to proceed with infusion as he is taking iron pills. Is so, is he to have labs prior to the 10/12 infusion. If so, please place an order for labs. Assessment: n/a Recommendation: PT can be reached at Telephone Information: * Addendum Note - Juan Maldonado MD - 08/21/2022 3:20 PM ESTAddended by: JUAN MALDONADO on: 08/21/2022 03:20 PM Modules accepted: Orders * Telephone Encounter - Juan Maldonado MD - 08/21/2022 3:18 PM EST Spoke with the patient. Would like to start Fe pills due to ongoing RLS symptoms and not being ableto get an infusion until end of September. Sent scripts for Fe 325 BID and vit C 500 qAM. Told how to take and to watch for SE. He will f/u with Dr. Hernández mid September. * Telephone Encounter - Crystal Almanza - 08/21/2022 2:05 PM EST Pt wanted to let Dr. Hernández know that he scheduled his infusion but it was further out then expected. Appt is scheduled for 10/12/22. Pt states that provider recommended pills or the infusion to helpwith iron levels. Pt would like to know if it would be ok to take iron pills instead and what dosage he should take. Mr. Macdonald can be reached at Phone numbers Thank You * Telephone Encounter - Precious Gamboa RN - 08/17/2022 2:21 PM EST Identification was verified by patient verbalizing his name and date of . Message below given to pt. Pt. Also provided phone number to Anemia clinic. Closing encounter. * Telephone Encounter - Precious Gamboa RN - 08/17/2022 2:21 PM EST Images from the original note were not included. Ninoska Hernández MD [facility] Nurse Phone Pool 2 days ago Hello, could you please let pt know his iron levels were lower than we'd like for his restless leg syndrome? The goal ferritin is >75 and his was 53. I had previously discussed iron infusion with him if this was the case, so I put in a referral to the infusion clinic. They will be contacting patient to arrange an iron infusion. Thank you! Ninoska * Telephone Encounter - Ninoska Hernández MD - 08/15/2022 1:20 PM EST Reviewed lab work: ferritin is below goal (>75 for RLS) at 53.6. Previously discussed iron infusion with patient. Order entered for infusion clinic. documented in this [id number] Telephone encounter Note* Telephone Encounter - Chavo Gordon PharmD - 09/03/2022 3:44 PM EST IV iron scheduled for 10/12/22, orders entered. [id number] Miscellaneous Notes* Telephone Encounter - Chavo Gordon PharmD - 09/03/2022 3:44 PM EST IV iron scheduled for 10/12/22, orders entered. * Telephone Encounter - Chavo Gordon PharmD - 08/21/2022 10:54 AM EST Scheduled 10/12/22 * Telephone Encounter - Estrella Ennis - 08/20/2022 4:54 PM EST Spoke to pt. Pt has been scheduled. * Telephone Encounter - Nancy Uriarte RN - 08/20/2022 10:53 AM EST Spoke to patient and agreeable to IV iron. Infusion nurse, Please call patient to schedule at [facility] Shailesh, Please order IV iron once scheduled. Thanks! * Telephone Encounter - Juan Maldonado MD - 08/20/2022 7:17 AM EST Noted. Please message Dr. Hernández once this is set up. * Telephone Encounter - Shahnaz Reza RN - 08/19/2022 3:15 PM EST Attempting to contact patient to discuss new enrollment Left message with [facility] phone number [phone] and advised to please call back. 1st attempt, will postpone 3 business days and continue to attempt to contact * Telephone Encounter - Chavo Gordon PharmD - 08/19/2022 2:10 PM EST [facility] [phone] - Anemia monitoring Dr Hernández, Based on labs below appears pt is a candidate for IV iron. Staff will contact patient and determineif willing to have Injectafer 750mg one dose unless we hear otherwise. [id number] placed today [facility] Clinic staff, Please contact patient and see if willing to proceed with IV iron, if willing, please route back topharmacist to order IV iron. Pertinent labs below: Lab Results Component Value Date SAT 45 08/14/2022 FERRITIN 53.6 08/14/2022 HGB 15.0 06/13/2020 HGB 14.9 06/12/2020 HGB 16.5 (H) 05/21/2020 Thanks, Anemia Clinic documented in this [id number] Note* Addendum Note - Juan Maldonado MD - 08/21/2022 3:20 PM ESTAddended by: JUAN MALDONADO on: 08/21/2022 03:20 PM Modules accepted: Orders [id number] Note* Addendum Note - Juan Maldonado MD - 08/21/2022 3:20 PM ESTAddended by: JUAN MALDONADO on: 08/21/2022 03:20 PM Modules accepted: Orders [id number] Note* Addendum Note - Juan Maldonado MD - 08/21/2022 3:20 PM ESTAddended by: JUAN MALDONADO on: 08/21/2022 03:20 PM Modules accepted: Orders [id number] Note* Addendum Note - Juan Maldonado MD - 08/21/2022 3:20 PM ESTAddended by: JUAN MALDONADO on: 08/21/2022 03:20 PM Modules accepted: Orders [id number] Note* Addendum Note - Juan Maldonado MD - 08/21/2022 3:20 PM ESTAddended by: JUAN MALDONADO on: 08/21/2022 03:20 PM Modules accepted: Orders [id number] Miscellaneous Notes* Addendum Note - Juan Maldonado MD - 08/21/2022 3:20 PM ESTAddended by: JUAN MALDONADO on: 08/21/2022 03:20 PM Modules accepted: Orders * Telephone Encounter - Juan Maldonado MD - 08/21/2022 3:18 PM EST Spoke with the patient. Would like to start Fe pills due to ongoing RLS symptoms and not being ableto get an infusion until end of September. Sent scripts for Fe 325 BID and vit C 500 qAM. Told how to take and to watch for SE. He will f/u with Dr. Hernández mid September. * Telephone Encounter - Crystal Almanza - 08/21/2022 2:05 PM EST Pt wanted to let Dr. Hernández know that he scheduled his infusion but it was further out then expected. Appt is scheduled for 10/12/22. Pt states that provider recommended pills or the infusion to helpwith iron levels. Pt would like to know if it would be ok to take iron pills instead and what dosage he should take. Mr. Macdonald can be reached at Phone numbers [employer] [phone] Thank You * Telephone Encounter - Precious Gamboa RN - 08/17/2022 2:21 PM EST Identification was verified by patient verbalizing his name and date of . Message below given to pt. Pt. Also provided phone number to Anemia clinic. Closing encounter. * Telephone Encounter - Precious Gamboa RN - 08/17/2022 2:21 PM EST Images from the original note were not included. Ninoska Hernández MD [facility] Nurse Phone Pool 2 days ago Hello, could you please let pt know his iron levels were lower than we'd like for his restless leg syndrome? The goal ferritin is >75 and his was 53. I had previously discussed iron infusion with him if this was the case, so I put in a referral to the infusion clinic. They will be contacting patient to arrange an iron infusion. Thank you! Ninoska * Telephone Encounter - Ninoska Hernández MD - 08/15/2022 1:20 PM EST Reviewed lab work: ferritin is below goal (>75 for RLS) at 53.6. Previously discussed iron infusion with patient. Order entered for infusion clinic. documented in this [id number] Telephone encounter Note* Telephone Encounter - Juan Maldonado MD - 08/21/2022 3:18 PM EST Spoke with the patient. Would like to start Fe pills due to ongoing RLS symptoms and not being ableto get an infusion until end of September. Sent scripts for Fe 325 BID and vit C 500 qAM. Told how to take and to watch for SE. He will f/u with Dr. Hernández mid September. [id number] Telephone encounter Note* Telephone Encounter - Crystal Almanza - 08/21/2022 2:05 PM EST Pt wanted to let Dr. Hernández know that he scheduled his infusion but it was further out then expected. Appt is scheduled for 10/12/22. Pt states that provider recommended pills or the infusion to helpwith iron levels. Pt would like to know if it would be ok to take iron pills instead and what dosage he should take. Mr. Macdonald can be reached at Phone numbers Thank You [id number] Miscellaneous Notes* Telephone Encounter - Crystal Almanza - 08/21/2022 2:05 PM EST Pt wanted to let Dr. Hernández know that he scheduled his infusion but it was further out then expected. Appt is scheduled for 10/12/22. Pt states that provider recommended pills or the infusion to helpwith iron levels. Pt would like to know if it would be ok to take iron pills instead and what dosage he should take. Mr. Macdonald can be reached at Phone numbers Thank You * Telephone Encounter - Precious Gamboa RN - 08/17/2022 2:21 PM EST Identification was verified by patient verbalizing his name and date of . Message below given to pt. Pt. Also provided phone number to Anemia clinic. Closing encounter. * Telephone Encounter - Precious Gamboa RN - 08/17/2022 2:21 PM EST Images from the original note were not included. Ninoska Hernández MD [facility] Nurse Phone Pool 2 days ago Prateek, could you please let pt know his iron levels were lower than we'd like for his restless leg syndrome? The goal ferritin is >75 and his was 53. I had previously discussed iron infusion with him if this was the case, so I put in a referral to the infusion clinic. They will be contacting patient to arrange an iron infusion. Thank you! Ninoska * Telephone Encounter - Ninoska Hernández MD - 08/15/2022 1:20 PM EST Reviewed lab work: ferritin is below goal (>75 for RLS) at 53.6. Previously discussed iron infusion with patient. Order entered for infusion clinic. documented in this [id number] Telephone encounter Note* Telephone Encounter - Chavo Gordon PharmD - 08/21/2022 10:54 AM EST Scheduled 10/12/22 [id number] Miscellaneous Notes* Telephone Encounter - Chavo Gordon PharmD - 08/21/2022 10:54 AM EST Scheduled 10/12/22 * Telephone Encounter - Estrella Ennis - 08/20/2022 4:54 PM EST Spoke to pt. Pt has been scheduled. * Telephone Encounter - Nancy Uriarte RN - 08/20/2022 10:53 AM EST Spoke to patient and agreeable to IV iron. Infusion nurse, Please call patient to schedule at [facility] PharmD, Please order IV iron once scheduled. Thanks! * Telephone Encounter - Juan Maldonado MD - 08/20/2022 7:17 AM EST Noted. Please message Dr. Hernández once this is set up. * Telephone Encounter - Shahnaz Reza RN - 08/19/2022 3:15 PM EST Attempting to contact patient to discuss new enrollment Left message with [facility] phone number [phone] and advised to please call back. 1st attempt, will postpone 3 business days and continue to attempt to contact * Telephone Encounter - Chavo Gordon PharmD - 08/19/2022 2:10 PM EST [facility] [phone] - Anemia monitoring Dr Hernández, Based on labs below appears pt is a candidate for IV iron. Staff will contact patient and determineif willing to have Injectafer 750mg one dose unless we hear otherwise. [id number] placed today [facility] Clinic staff, Please contact patient and see if willing to proceed with IV iron, if willing, please route back topharmacist to order IV iron. Pertinent labs below: Lab Results Component Value Date SAT 45 08/14/2022 FERRITIN 53.6 08/14/2022 HGB 15.0 06/13/2020 HGB 14.9 06/12/2020 HGB 16.5 (H) 05/21/2020 Thanks, [facility] Clinic documented in this [id number] Telephone encounter Note* Telephone Encounter - Estrella Ennis - 08/20/2022 4:54 PM EST Spoke to pt. Pt has been scheduled. [id number] Miscellaneous Notes* Telephone Encounter - Estrella Ennis - 08/20/2022 4:54 PM EST Spoke to pt. Pt has been scheduled. * Telephone Encounter - Nancy Uriarte RN - 08/20/2022 10:53 AM EST Spoke to patient and agreeable to IV iron. Infusion nurse, Please call patient to schedule at [facility] PharmD, Please order IV iron once scheduled. Thanks! * Telephone Encounter - Juan Maldonado MD - 08/20/2022 7:17 AM EST Noted. Please message Dr. Hernández once this is set up. * Telephone Encounter - Shahnaz Reza RN - 08/19/2022 3:15 PM EST Attempting to contact patient to discuss new enrollment Left message with [facility] phone number [phone] and advised to please call back. 1st attempt, will postpone 3 business days and continue to attempt to contact * Telephone Encounter - Chavo Gordon PharmD - 08/19/2022 2:10 PM EST [facility] [phone] - Anemia monitoring Dr Hernández, Based on labs below appears pt is a candidate for IV iron. Staff will contact patient and determineif willing to have Injectafer 750mg one dose unless we hear otherwise. [id number] placed today [facility] Clinic staff, Please contact patient and see if willing to proceed with IV iron, if willing, please route back topharmacist to order IV iron. Pertinent labs below: Lab Results Component Value Date SAT 45 08/14/2022 FERRITIN 53.6 08/14/2022 HGB 15.0 06/13/2020 HGB 14.9 06/12/2020 HGB 16.5 (H) 05/21/2020 Thanks, [facility] Clinic documented in this [id number] Telephone encounter Note* Telephone Encounter - Nancy Uriarte RN - 08/20/2022 10:53 AM EST Spoke to patient and agreeable to IV iron. Infusion nurse, Please call patient to schedule at [facility] PharmD, Please order IV iron once scheduled. Thanks! [facility] Work Phone: 1(427) 745-848912-08-2022 Miscellaneous Notes* Telephone Encounter - Nancy Uriarte RN - 08/20/2022 10:53 AM EST Spoke to patient and agreeable to IV iron. Infusion nurse, Please call patient to schedule at [facility] PharmD, Please order IV iron once scheduled. Thanks! * Telephone Encounter - Juan Maldonado MD - 08/20/2022 7:17 AM EST Noted. Please message Dr. Hernández once this is set up. * Telephone Encounter - Shahnaz Reza RN - 08/19/2022 3:15 PM EST Attempting to contact patient to discuss new enrollment Left message with [facility] phone number [phone] and advised to please call back. 1st attempt, will postpone 3 business days and continue to attempt to contact * Telephone Encounter - Chavo Gordon PharmD - 08/19/2022 2:10 PM EST [facility] [phone] - Anemia monitoring Dr Hernández, Based on labs below appears pt is a candidate for IV iron. Staff will contact patient and determineif willing to have Injectafer 750mg one dose unless we hear otherwise. [id number] placed today An[facility] Clinic staff, Please contact patient and see if willing to proceed with IV iron, if willing, please route back topharmacist to order IV iron. Pertinent labs below: Lab Results Component Value Date SAT 45 08/14/2022 FERRITIN 53.6 08/14/2022 HGB 15.0 06/13/2020 HGB 14.9 06/12/2020 HGB 16.5 (H) 05/21/2020 Thanks, [facility] Clinic documented in this [id number] Telephone encounter Note* Telephone Encounter - Nancy Uriarte RN - 08/20/2022 10:36 AM EST Images from the original note were not included. [facility] [phone] - Anemia monitoring Contacted patient regarding enrollment into the Anemia clinic. Introduced service, reviewed ELISE indication (if applicable), and monitoring requirements. Explained to patient Pharmacist consult agreement and they understand and agree to the terms. Primary contact: Verified when calling with follow-up, the primary person to contact should be patient # M, TAD ok Also verified that we may discuss patients care with spouse in the future if patient is not available, comments updated with information above. New patient letter printed. Advised to review educational materials enclosed. Discussed anemia symptoms... Reports: fatigue Patient currently taking iron dose of: None Advised plan below: Iron: Oral: Advised Iron Dose: Hold iron therapy IV: IV iron recommended? Yes If yes, see other note for details Labs: Next labs should be drawn on Follow Up Date: 08/19/22 this date is an estimate, labs should be done 4 weeks after IV iron. *if iron needed reminded pt no PO iron >8 hours before test* Patient verbalized understanding and willingness to comply with above, call transferred to Pharmacist to discuss Pharmacist consult agreement and answer any questions/concerns. [employer] Work Phone: 1(858) 673-184012-08-2022 Miscellaneous Notes* Telephone Encounter - Nancy Uriarte RN - 08/20/2022 10:36 AM EST Images from the original note were not included. [facility] [phone] - Anemia monitoring Contacted patient regarding enrollment into the Anemia clinic. Introduced service, reviewed ELISE indication (if applicable), and monitoring requirements. Explained to patient Pharmacist consult agreement and they understand and agree to the terms. Primary contact: Verified when calling with follow-up, the primary person to contact should be patient # M, AMANDA ok Also verified that we may discuss patients care with spouse in the future if patient is not available, comments updated with information above. New patient letter printed. Advised to review educational materials enclosed. Discussed anemia symptoms... Reports: fatigue Patient currently taking iron dose of: None Advised plan below: Iron: Oral: Advised Iron Dose: Hold iron therapy IV: IV iron recommended? Yes If yes, see other note for details Labs: Next labs should be drawn on Follow Up Date: 08/19/22 this date is an estimate, labs should be done 4 weeks after IV iron. *if iron needed reminded pt no PO iron >8 hours before test* Patient verbalized understanding and willingness to comply with above, call transferred to Pharmacist to discuss Pharmacist consult agreement and answer any questions/concerns. * Telephone Encounter - Shahnaz Reza RN - 08/19/2022 2:19 PM EST Attempting to contact patient to discuss new enrollment Left message with [facility] phone number [phone] and advised to please call back. 1st attempt, will postpone 3 business days and continue to attempt to contact * Telephone Encounter - Chavo Gordon PharmD - 08/19/2022 2:04 PM EST Images from the original note were not included. [facility] [phone] - Anemia monitoring new referral/Restless Leg Syndrome Referral received from Ninoska Hernández MD on 08/15/22 for diagnois of restless leg syndrome. Per brief chart review: Previous HGB/iron labs: wants an infusion of injectafer 750mg one dose. Ferritin goal is >75, currently < 75 08/14/2022 Iron 30 - 125 ug/dL 141 (A) Ferritin 11.5 - 300.0 ng/mL 53.6 TIBC 200 - 300 ug/mL 315 (A) %SAT 20 - 55 % 45 Staff to call patient to review enrollment. Need Hb lab lashon. wants ferritin > 75. Will move forward with [id number]. Will call once lab comes back. Labs placed * Telephone Encounter - Lenka Eli - 08/17/2022 11:11 AM EST Referral received for new Anemia pt. Pharmacist to review chart. If applicable, additional information: documented in this [id number] Telephone encounter Note* Telephone Encounter - Juan Maldonado MD - 08/20/2022 7:17 AM EST Noted. Please message Dr. Hernández once this is set up. [employer] Work Phone: [phone] Telephone encounter Note* Telephone Encounter - Shahnaz Reza RN - 08/19/2022 3:15 PM EST Attempting to contact patient to discuss new enrollment Left message with [facility] phone number [phone] and advised to please call back. 1st attempt, will postpone 3 business days and continue to attempt to contact [id number] Telephone encounter Note* Telephone Encounter - Shahnaz Reza RN - 08/19/2022 2:19 PM EST Attempting to contact patient to discuss new enrollment Left message with [facility]'s phone number [phone] and advised to please call back. 1st attempt, will postpone 3 business days and continue to attempt to contact [id number] Telephone encounter Note* Telephone Encounter - Chavo Gordon PharmD - 08/19/2022 2:10 PM EST [facility] [phone] - Anemia monitoring Dr Hernández, Based on labs below appears pt is a candidate for IV iron. Staff will contact patient and determineif willing to have Injectafer 750mg one dose unless we hear otherwise. [id number] placed today [facility] Clinic staff, Please contact patient and see if willing to proceed with IV iron, if willing, please route back topharmacist to order IV iron. Pertinent labs below: Lab Results Component Value Date SAT 45 08/14/2022 FERRITIN 53.6 08/14/2022 HGB 15.0 06/13/2020 HGB 14.9 06/12/2020 HGB 16.5 (H) 05/21/2020 Thanks, [facility] Clinic [id number] Telephone encounter Note* Telephone Encounter - Chavo Gordon PharmD - 08/19/2022 2:04 PM EST Images from the original note were not included. [facility] [phone] - Anemia monitoring new referral/Restless Leg Syndrome Referral received from Ninoska Hernández MD on 08/15/22 for diagnois of restless leg syndrome. Per brief chart review: Previous HGB/iron labs: wants an infusion of injectafer 750mg one dose. Ferritin goal is >75, currently < 75 08/14/2022 Iron 30 - 125 ug/dL 141 (A) Ferritin 11.5 - 300.0 ng/mL 53.6 TIBC 200 - 300 ug/mL 315 (A) %SAT 20 - 55 % 45 Staff to call patient to review enrollment. Need Hb lab lashon. wants ferritin > 75. Will move forward with [id number]. Will call once lab comes back. Labs placed [id number] Telephone encounter Note* Telephone Encounter - Precious Gamboa RN - 08/17/2022 2:21 PM EST Identification was verified by patient verbalizing his name and date of . Message below given to pt. Pt. Also provided phone number to Anemia clinic. Closing encounter. [id number] Telephone encounter Note* Telephone Encounter - Precious Gamboa RN - 08/17/2022 2:21 PM EST Images from the original note were not included. Ninoska Hernández MD H&V Nurse Phone Pool 2 days ago Hello, could you please let pt know his iron levels were lower than we'd like for his restless leg syndrome? The goal ferritin is >75 and his was 53. I had previously discussed iron infusion with him if this was the case, so I put in a referral to the infusion clinic. They will be contacting patient to arrange an iron infusion. Thank you! Ninoska [id number] Miscellaneous Notes* Telephone Encounter - Precious Gamboa RN - 08/17/2022 2:21 PM EST Identification was verified by patient verbalizing his name and date of . Message below given to pt. Pt. Also provided phone number to Anemia clinic. Closing encounter. * Telephone Encounter - Precious Gamboa RN - 08/17/2022 2:21 PM EST Images from the original note were not included. Ninoska Hernández MD H&V Nurse Phone Pool 2 days ago Prateek, could you please let pt know his iron levels were lower than we'd like for his restless leg syndrome? The goal ferritin is >75 and his was 53. I had previously discussed iron infusion with him if this was the case, so I put in a referral to the infusion clinic. They will be contacting patient to arrange an iron infusion. Thank you! Ninoska * Telephone Encounter - Ninoska Hernández MD - 08/15/2022 1:20 PM EST Reviewed lab work: ferritin is below goal (>75 for RLS) at 53.6. Previously discussed iron infusion with patient. Order entered for infusion clinic. documented in this [id number] Telephone encounter Note* Telephone Encounter - Lenka Eli - 08/17/2022 11:11 AM EST Referral received for new Anemia pt. Pharmacist to review chart. If applicable, additional information: [id number] Telephone encounter Note* Telephone Encounter - Ninoska Hernández MD - 08/15/2022 1:20 PM EST Reviewed lab work: ferritin is below goal (>75 for RLS) at 53.6. Previously discussed iron infusion with patient. Order entered for infusion clinic. [id number] Miscellaneous Notes* Telephone Encounter - Ninoska Hernández MD - 08/15/2022 1:20 PM EST Reviewed lab work: ferritin is below goal (>75 for RLS) at 53.6. Previously discussed iron infusion with patient. Order entered for infusion clinic. documented in this [id number] History of Present illness Narrative* Ninoska Hernández MD - 08/10/2022 11:40 AM EST Images from the original note were not included. Documentation: Mode: Telephone Patient Patient Work Phone: Patient Cell Preferred phone: [phone] Consent: I confirmed patient understanding of the risks and benefits of telehealth visits and obtained consent to proceed with the telehealth visit. Location of Patient: Home of patient Patient here for f/u of PARI treated with Inspire HGNS and RLS. Last seen on 05/05/2022. To review, history is notable for HTN, RLS, moderate PARI. PSG at OSH in the early 1999s showed PARI.Tried PAP, BIPAP, and OMAD without success. 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 HST in 12/2019 showed AHI 27.1 sat trae 71%. Underwent Inspire implantation on 06/12/2020. Inspire activated on 07/11/2020. Configuration change to -0- on 09/27/20. HST with Inspire in 11/2021 showed AHI 7.8 sat trae 81% but patient noted limited symptomatic benefit. Titration PSG in 12/2021 showed marginal control at 1.7 volts (on my review, adequate in NREM at 1.4 volts, 1.7 volts in REM) with higher amplitudes associated with jaw discomfort. At the last visit, patient noted clear improvement with Inspire - less sleepy when using therapy, but still fatigued during the day. Was using therapy at 1.2 volts. Occasional RLS symptoms noted at bedtime, worse at night. Found some improvement with pregabalin 50+200mg, with little benefit from pramipexole, rotigotine. Discussed slow adjustment of Inspire up to 1.4 volts as tolerated. Trialed clonazepam for 2-4 weeks to adapt to therapy. Today patient notes things are going not that well overall. He notes difficulty using Inspire at level 3, feels OK at level 2. Stopped taking clonazepam last week, had taken it intermittently before then - notes possible improvement in sleep quality but tired mid-day with the medication. Working on sleeping on his side, mouth is less dry compared to sleeping on his back. Naps for 30 minutes in the afternoon/evening. Taking pregabalin (50mg in the evening and 200mg at bedtime) and finds this helpful for arthritic pain and questionably helpful for RLS. A 10-point review of systems was conducted and was positive for the points noted above, otherwise negative. A/P: Moderate PARI, improved with Inspire HGNS. Reviewed sleep study tracings with patient: flow limitation and obstructive events eliminated in NREM at 1.4 volts (and at 1.7 volts in supine REM). Tolerating 1.3 volts reasonably well but unable to titrate higher. -Continue Inspire at 1.3 volts as tolerated. -Pt has his old BIPAP machine; can try BIPAP with Inspire. Will report back with results. -RLS vs PLMD :recheck ferritin, TIBC; anticipate iron infusion if ferritin is <75. Continue pregabalin 50mg q evening and 200mg at bedtime. -f/u in 3 months Ninoska Hernández MD documented in this [id number] Instructions* Patient Instructions* Ninoska Hernández MD - 05/05/2022 11:42 AM EDT Please use your Inspire at level 2 for 1 week. Please take the clonazepam (Klonipin) 0.25mg (can take a full tab or half tab) at bedtime for 2-4 weeks. After 1-2 weeks, increase your Inspire to level 3. Level 3 (which is 1.4 volts) did a good job treating your apnea during your sleep study. You can continue taking the Lyrica at bedtime. Consider elevating your shoulders and head at 15 to 30 degrees. Think about a device like the Medcline which is made for side sleeping. documented in this [id number] History of Present illness Narrative* Ninoska Hernández MD - 05/05/2022 11:00 AM EDT Images from the original note were not included. Sleep Medicine Follow-Up Patient here for f/u of RLS and moderate PARI. Last seen on 10/09/2021. To review, history is notable for HTN, RLS, moderate PARI. PSG at OSH in the early 1999s showed PARI.Tried PAP, BIPAP, and OMAD without success. 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 HST in 12/2019 showed AHI 27.1 sat trae 71%. Underwent Inspire implantation on 06/12/2020. Inspire activated on 07/11/2020. Configuration change to -0- on 09/27/20. HST with Inspire in 11/2021 showed AHI 7.8 sat trae 81% but patient noted limited symptomatic benefit. Titration PSG in 12/2021 showed marginal control at 1.7 volts (on my review, adequate in NREM at 1.4 volts, 1.7 volts in REM) with higher amplitudes associated with jaw discomfort. Today patient reports regular nightly usage of Inspire, though has significant ongoing fatigue. He does note a clear improvement with Inspire - he feels less sleepy on the nights he uses it. Currently at level 1 on his remote = 1.2 volts. Tried higher amplitude and found it uncomfortable during wakefulness, but uncertain whether it woke him up at night. Unaware of snoring with therapy. He notes occasional RLS symptoms at bedtime but is more troubled by leg jerks at night. He feels these cause him to wake and are disruptive to sleep quality. Tried rotigotine patch with little benefit, and felt hungover the next day. Currently taking pregabalin 50mg in the evening and 200mg at bedtime. Notes modest benefit with this. Recall: previously tried pramipexole up to 1mg with little benefit. Recall: ferritin/iron levels checked in 07/2020 and ferritin was 48 (goal >75). Not on iron supps. He estimates 7 hours of sleep per night. Wakes unrefreshed on most occasions. ESS is elevated at 14. Inspire was interrogated and settings are: Current Amplitude: 1.2 volts Patient Control Lower Limit: 1.2 volts Patient Control Upper Limit: 2.2volts Electrode configuration: -0- Usage: 726 hours (average 41 hours per week) Date Time [place] Score 05/05/2022 1109 14 10/09/2021 1541 12 09/27/2020 1501 10 07/11/2020 1749 6 A 10-point review of systems was conducted and was positive for the points noted above, otherwise negative. Exam: BMI: 28.98 Vitals: 05/05/22 1108 BP: 121/70 Pulse: 62 Resp: 18 SpO2: 97% Pleasant, alert, NAD Normal tongue movement Voice normophonic With Inspire stimulation --> normal right base protrusion CV RRR no MRG Lungs CTAB, unlabored breathing A/P: Moderate PARI, improved with Inspire HGNS. Reviewed sleep study tracings with patient: flow limitation and obstructive events eliminated in NREM at 1.4 volts (and at 1.7 volts in supine REM). Advised slowly adjusting Inspire amplitude from 1.2 volts up to 1.4 volts (from level 1 to level 3 on his remote) over the next two week. Trial of clonazepam 0.125 - 0.25mg at bedtime for 2-4 weeks to aid in acclimation to higher amplitudes. #30 with 0 refills provided. OARRS was reviewed today: NO concerning data. For RLS (symptoms may fit better with PLMD), OK to continue pregabalin 50mg in the evening and 200mg at bedtime. Discussed option for iron infusion (would need to recheck iron/ferritin). Goal ferritin is >75 in RLS, and when last checked in 2019 was 48. Inspire settings as of completion of today's visit: Final Amplitude: 1.3 volts Patient Control Lower Limit: 1.2 volts Patient Control Upper Limit: 2.2volts Electrode Configuration: -0- Other programmin Follow-up in 2-3 months. Ninoska Hernández MD CC: Dr. Gloria Dawkins MD [facility] Fax: documented in this [id number] Miscellaneous Notes* Telephone Encounter - Sammi Maldonado - 12/30/2021 2:00 PM EDT Called patient to confirm AST appointment for 4/21/22 - patient confirms appointment. Text message with address and instructions for the [facility] sleep lab sent to patient documented in this encounterMetroHealthEvaluation note* Diagnosis PARI (obstructive sleep apnea)- Primary Obstructive sleep apnea (adult) (pediatric) Presence of functional implant Other organ or tissue replaced by other means documented in this encounter [facility]* Diagnosis PARI (obstructive sleep apnea)- Primary Obstructive sleep apnea (adult) (pediatric) Presence of functional implant Other organ or tissue replaced by other means documented in this encounter [facility]Evaluation noteNo assessment information availableWRegency Hospital [facility] Work Phone: Evaluation note* Diagnosis PARI (obstructive sleep apnea)- Primary Obstructive sleep apnea (adult) (pediatric) Insomnia, unspecified type Presence of functional implant Other organ or tissue replaced by other means Encounter for adjustment and management of neurostimulator Body mass index (BMI) 28.0-28.9, adult documented in this encounter [facility]* Diagnosis RLS (restless legs syndrome)- Primary Restless legs syndrome (RLS) PARI (obstructive sleep apnea) Obstructive sleep apnea (adult) (pediatric) Presence of functional implant Other organ or tissue replaced by other means documented in this encounter [facility]* Diagnosis RLS (restless legs syndrome)- Primary Restless legs syndrome (RLS) documented in this encounter [facility]* Diagnosis RLS (restless legs syndrome)- Primary Restless legs syndrome (RLS) documented in this encounter [facility]* Diagnosis RLS (restless legs syndrome)- Primary Restless legs syndrome (RLS) documented in this [facility]* Diagnosis Restless leg syndrome due to iron deficiency anemia- Primary documented in this [facility]* Diagnosis Restless leg syndrome due to iron deficiency anemia- Primary documented in this [facility]* Diagnosis Restless leg syndrome due to iron deficiency anemia- Primary documented in this [facility]* Diagnosis Restless leg syndrome due to iron deficiency anemia- Primary documented in this [facility]* Diagnosis RLS (restless legs syndrome)- Primary Restless legs syndrome (RLS) documented in this encounter [facility]* Diagnosis RLS (restless legs syndrome)- Primary Restless legs syndrome (RLS) documented in this encounter [facility]* Diagnosis Restless leg syndrome due to iron deficiency anemia- Primary documented in this [facility]* Diagnosis Restless leg syndrome due to iron deficiency anemia- Primary documented in this [facility]* Diagnosis RLS (restless legs syndrome)- Primary Restless legs syndrome (RLS) documented in this encounter [facility]* Diagnosis RLS (restless legs syndrome)- Primary Restless legs syndrome (RLS) documented in this encounter [facility]* Diagnosis RLS (restless legs syndrome)- Primary Restless legs syndrome (RLS) documented in this [facility]* Diagnosis Restless leg syndrome due to iron deficiency anemia- Primary documented in this [facility]* Diagnosis Restless leg syndrome due to iron deficiency anemia- Primary documented in this [facility]* Diagnosis 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, unspecified Presence of functional implant Other organ or tissue replaced by other means PARI (obstructive sleep apnea) Obstructive sleep apnea (adult) (pediatric) Body mass index (BMI) 31.0-31.9, adult documented in this [facility]* Diagnosis RLS (restless legs syndrome)- Primary Restless legs syndrome (RLS) PARI (obstructive sleep apnea) Obstructive sleep apnea (adult) (pediatric) Therapeutic drug monitoring Encounter for therapeutic drug monitoring Presence of functional implant Other organ or tissue replaced by other means Body mass index (BMI) 30.0-30.9, adult documented in this encounter [facility]* Diagnosis RLS (restless legs syndrome)- Primary Restless legs syndrome (RLS) PARI (obstructive sleep apnea) Obstructive sleep apnea (adult) (pediatric) Therapeutic drug monitoring Encounter for therapeutic drug monitoring Presence of functional implant Other organ or tissue replaced by other means Body mass index (BMI) 30.0-30.9, adult documented in this [facility]* Diagnosis Therapeutic drug monitoring- Primary Encounter for therapeutic drug monitoring documented in this encounter [facility]* Diagnosis Other fatigue- Primary documented in this encounter [facility]* Diagnosis Other fatigue- Primary documented in this [facility]* Diagnosis PARI (obstructive sleep apnea)- Primary Obstructive sleep apnea (adult) (pediatric) Presence of functional implant Other organ or tissue replaced by other means RLS (restless legs syndrome) Restless legs syndrome (RLS) Disorder of iron metabolism Other disorders of iron metabolism Vitamin D insufficiency Unspecified vitamin D deficiency documented in this encounter [facility]* Diagnosis Other fatigue Disorder of iron metabolism Other disorders of iron metabolism Vitamin D insufficiency Unspecified vitamin D deficiency documented in this [facility]* Diagnosis PARI (obstructive sleep apnea)- Primary Obstructive sleep apnea (adult) (pediatric) Class 1 obesity Bradycardia Other specified cardiac dysrhythmias documented in this [facility]* Diagnosis PARI (obstructive sleep apnea)- Primary Obstructive sleep apnea (adult) (pediatric) RLS (restless legs syndrome) Restless legs syndrome (RLS) documented in this encounter [facility]* Diagnosis Elevated PSA- Primary Elevated prostate specific antigen (PSA) documented in this encounter [facility]HealthInstructions* Attachments The following attachments cannot be sent through Care Everywhere. * Ferric Carboxymaltose, ADULT (Maldivian) documented in this encounterMetroHealthReason for referral (narrative)* Tests/Procedures (Routine) - Pending Review Specialty Diagnoses / Procedures Referred By Jayme melvin Referred To Contact Sleep Medicine Diagnoses PARI (obstructive sleep apnea) Presence of functional implant Procedures ADVANCED SLEEP TESTING Ninoska Hernández MD [address] [place] [address] [address] [id number] [facility] [address] [place] [address] Referral ID Status Reason Start Date Expiration Date V isits Requested Visits Authorized [id number] Pending Review 12/16/2021 12/15/2022 2 2 [facility] Tests/Procedures (Urgent) - Pending Review Specialty Diagnoses / Procedures Referred By Jayme melvin Referred To Contact Sleep Medicine Diagnoses PARI (obstructive sleep apnea) Procedures SLEEP STUDY, ATTENDED BY TECHNOLOGIST Ninoska Hernández MD [address] [place] [address] [address] [id number] [facility] [address] [id number] Referral ID Status Reason Start Date Expiration Date Visits Requested Visits Authorized [id number] Pending [facility] 04/29/2024 04/28/2025 2 2 Scheduling Instructions Scheduling and rescheduling a Sleep Study: Please call during normal business hours (8 am to 5 pm) on weekdays to schedule or reschedule your sleep study. Please allow for seven days from seeing your provider to scheduling your sleep study to allow the system time to process the order and receive insurance authorization. Your Healthcare Provider has prescribed one or more MALLORY programs for you. These programs give you bige-ej-iodjnwunpp information about your health when you need it most. What to expect during a Sleep Study: A Sleep Study (Polysomnogram), is a test used to diagnose sleep disorders. The study involves an overnight stay at the one [facility] sleep labs. You will be placed in a private, single bedroom with an attached bathroom. At initiation of the exam, several small metal disks and wires (leads) will be attached to your scalp to monitor your brain waves (the auto glass technician must have access to the front, top, back and sides of the scalp area of the head). Another set of leads will be attached to your chest, sides of the eyes, chin, and legs to monitor your heart rhythm and muscle activity. The leads do not hurt, irritate or damage your skin or hair. Stretchy bands will be placed around your chest and stomach, a small sensor and cannula will be positioned near your nose and mouth, and an oxygen monitor will be placed on your index finger. These will detect your breathing and oxygen levels. A video camera will be used to determine your sleeping position and body movements. If necessary, a auto glass technician may wake you up during the night and ask you to wear a mask covering your nose and/or mouth to deliver continuous positive airway pressure (CPAP). This may help with your breathing while you sleep. How to prepare and what to bring to a Sleep Study: Please bring a current valid ID with photo and/or insurance card for identification purposes. The Sleep Lab needs to correctly identify each patient for the Sleep procedure. Nutrition: Eat your normal breakfast, lunch and dinner. On the day of the test, avoid caffeine after 2 pm, alcohol, or napping. No food or drink are allowed in the Sleep Labs. Medications: Please remain on schedule with your daily medications unless otherwise instructed by your physician(s). Sleep aids/pills prescribed for the Sleep Study need to be picked up at the pharmacy and brought with you. The Auto Claims Adjuster will advise you as to what time to take your sleep aid. And if prescribed a new sleep aid you will need to set up transportation to and from the Sleep Lab as you will not be able to drive yourself to/and from the Sleep Lab. Hygiene: Shower and wash your hair. Only use light oils/lotions on your skin and hair. Attire: Bring comfortable and loose-fitting clothing such as gowns, pajamas, t- shirts with shorts or jogging pants. Special Assistance and Accommodations: The Sleep Lab will only allow nursing aids or family members acting as medical care assistants to stay with you if needed. Specialized equipment such as Rishabh lifts must be brought from home and operated by the family and/or nursing care provider. Sleep Study Information: Day Sleep appointments start at 7 am and end at 4-4:30 pm Wednesday thru Wednesday; Night Sleep appointments start at 9 pm and end at 6-6:30 am, seven nights a week. For lost and found items, the patient can contact [phone] at [facility] sleep lab. The Sleep Techs cannot discuss with you or answer any questions about the results of your Sleep Test. Results will be available in up to 3 weeks post study through your referring provider, by MyChart or by mail. Results and findings will be discussed with you at your follow up appointment with your provider. Address & Driving Instructions[facility] [address] [address] Enter through the Emergency Department Entrance Take C elevators to the 3rd floor Check-in at Heart & Vascular, Pulmonary waiting area to check-in [address] [address] Park in front of the hotel Enter through the lobby Take elevators to the 4th floor, [address] [facility] [place] - [address] [address] Make right into [facility] and drive toward three story [facility] Look for [facility] sign in lobby window, park vehicle and enter lobby Call [phone] informing techs you have arrived Tech will come down to escort you to the suite Question Answer Select Sleep Study Type Home Sleep Study - with Inspire Follow-up after sleep study will be scheduled in clinic with: Sleep Provider (First Available) [facility] for referral (narrative)* Tests/Procedures (Routine) - Pending Review Specialty Diagnoses / Procedures Referred By Contac t Referred To Contact Sleep Medicine Diagnoses PARI (obstructive sleep apnea) Procedures POLYSOMNOGRAM Ninoska Hernández MD [address] [id number] [facility] [address] [place] [address] Referral ID Status Reason Start Date Expiration Date V isits Requested Visits Authorized [id number] Pending Review 06/03/2024 06/02/2025 2 2 Scheduling Instructions Scheduling and rescheduling a Sleep Study: Please call during normal business hours (8 am to 5 pm) on weekdays to schedule or reschedule your sleep study. Please allow for seven days from seeing your provider to scheduling your sleep study to allow the system time to process the order and receive insurance authorization. Your Healthcare Provider has prescribed one or more MALLORY programs for you. These programs give you xmon-ae-xdltspypwx information about your health when you need it most. What to expect during a Sleep Study: A Sleep Study (Polysomnogram), is a test used to diagnose sleep disorders. The study involves an overnight stay at the [facility] sleep labs. You will be placed in a private, single bedroom with an attached bathroom. At initiation of the exam, several small metal disks and wires (leads) will be attached to your scalp to monitor your brain waves (the auto glass technician must have access to the front, top, back and sides of the scalp area of the head). Another set of leads will be attached to your chest, sides of the eyes, chin, and legs to monitor your heart rhythm and muscle activity. The leads do not hurt, irritate or damage your skin or hair. Stretchy bands will be placed around your chest and stomach, a small sensor and cannula will be positioned near your nose and mouth, and an oxygen monitor will be placed on your index finger. These will detect your breathing and oxygen levels. A video camera will be used to determine your sleeping position and body movements. If necessary, a auto glass technician may wake you up during the night and ask you to wear a mask covering your nose and/or mouth to deliver continuous positive airway pressure (CPAP). This may help with your breathing while you sleep. How to prepare and what to bring to a Sleep Study: Please bring a current valid ID with photo and/or insurance card for identification purposes. The Sleep Lab needs to correctly identify each patient for the Sleep procedure. Nutrition: Eat your normal breakfast, lunch and dinner. On the day of the test, avoid caffeine after 2 pm, alcohol, or napping. No food or drink are allowed in the Sleep Labs. Medications: Please remain on schedule with your daily medications unless otherwise instructed by your physician(s). Sleep aids/pills prescribed for the Sleep Study need to be picked up at the pharmacy and brought with you. The Auto Claims Adjuster will advise you as to what time to take your sleep aid. And if prescribed a new sleep aid you will need to set up transportation to and from the Sleep Lab as you will not be able to drive yourself to/and from the Sleep Lab. Hygiene: Shower and wash your hair. Only use light oils/lotions on your skin and hair. Attire: Bring comfortable and loose-fitting clothing such as gowns, pajamas, t- shirts with shorts or jogging pants. Special Assistance and Accommodations: The Sleep Lab will only allow nursing aids or family members acting as medical care assistants to stay with you if needed. Specialized equipment such as Rishabh lifts must be brought from home and operated by the family and/or nursing care provider. Sleep Study Information: Day Sleep appointments start at 7 am and end at 4-4:30 pm Wednesday thru Wednesday; Night Sleep appointments start at 9 pm and end at 6-6:30 am, seven nights a week. For lost and found items, the patient can contact [phone] at [facility] sleep lab. The Sleep Techs cannot discuss with you or answer any questions about the results of your Sleep Test. Results will be available in up to 3 weeks post study through your referring provider, by MyChart or by mail. Results and findings will be discussed with you at your follow up appointment with your provider. Address & Driving Instructions: [facility] - [address] [address] Enter through the Emergency Department Entrance Take C elevators to the 3rd floor Check-in at Heart & Vascular, Pulmonary waiting area to check-in [facility] [place] [address] [address] Park in front of the hotel Enter through the lobby Take elevators to the 4th floor, [address] [facility] [place] - [address] [address] Make right into [facility] and drive toward three story [facility] Look for [facility] sign in [employer] window, park vehicle and enter [employer] Call [phone] informing techs you have arrived Tech will come down to escort you to the suite Question Answer Select Sleep Study Type INSPIRE Titration Study Enter Titration Instructions start at 0.3 volts below incoming and titrate per protocol Follow-up after sleep study will be scheduled in clinic with: Sleep Provider (First Available) Additional PSG Order Requests: NOT APPLICABLE [facility] Narrative* Tests/Procedures (Routine) - Closed Specialty Diagnoses / Procedures Referred By Jayme melvin Referred To Contact Sleep Medicine Diagnoses PARI (obstructive sleep apnea) Presence of functional implant Procedures ADVANCED SLEEP TESTING HOME SLEEP APNEA TESTING SLEEP STUDY; UNATTENDED Ninoska Hernández MD [address] [place] [address] [place] [address] [facility] [address] [place] [address] Referral ID Status Reason Start Date Expiration Date V isits Requested Visits Authorized [id number] Closed Transfer of Care-[facility] 10/10/2021 10/09/2022 1 1 [facility] Narrative* Tests/Procedures (Urgent) - Closed Specialty Diagnoses / Procedures Referred By Jayme melvin Referred To Contact Sleep Medicine Diagnoses PARI (obstructive sleep apnea) Procedures SLEEP STUDY, ATTENDED BY TECHNOLOGIST SLEEP STUDY; UNATTENDED Ninoska Hernández MD [address] [place] [address] [place] [address] [facility] [address] [place] [address] Referral ID Status Reason Start Date Expiration Date V isits Requested Visits Authorized [id number] Closed Consultation -[facility] 04/29/2024 09/12/2024 1 1 [facility] Advance Directives No Advanced Directives Records FoundLatest Code Status on File Code Status Date Activated Date Inactivated Comments Full Code 06/12/2020 3:40 PM 06/13/2020 1:01 PM Documentation of decision pr ocess for this code status: Discussed with patient or surrogate. Thi s is the code status chosen by the patient/surrogate. Latest Code Status on File Code Status Date Activated Date Inactivated Comments Full Code 06/12/2020 3:40 PM 06/13/2020 1:01 PM Advance Directive Response Recorded Date/ Time Advance Directives Yes October 4:11pm Living Will Yes November 21, 2018 1:39pm Power of Manager Product Support Yes November 21 1:39pm Latest Code Status on File Code Status Date Activated Date Inactivated Comments Full Code 06/12/2020 3:40 PM 06/13/2020 1:01 PM Question Answer Comments Documentation of decision process for this code status: Discussed with patient or surrogate. This is the code status chosen by the patient/surrogate. Advance Directive Response Recorded Date/ Time Name of Medical Power of Manager Product Support ? March 25, 2023 6:05pm Advance Directives Yes October 4:11pm Living Will Yes March 25, 2023 6:05pm Power of Manager Product Support Yes March 25 6:05pm Advance Directive Response Recorded Date/ Time Advance Directives Yes October 3:11pm Living Will Yes March 25, 2023 5:05pm Power of Manager Product Support Yes March 25 5:05pm Latest Code Status on File Code Status Date Activated Date Inactivated Comments Full Code 06/12/2020 3:40 PM 06/13/2020 1:01 PM Question Answer Comments Documentation of decision process for this code status: Discussed with patient or surrogate. This is the code status chosen by the patient/surrogate. Date Activated Date Inactivated Comments 06/12/2020 3:40 PM 06/13/2020 1:01 PM Question Answer Comments Documentation of decision pr ocess for this code status: Discussed with patient or surrogate. This is the code status chosen by the patient/surrogate. Date Activated Date Inactivated Comments 06/12/2020 3:40 PM 06/13/2020 1:01 PM Question Answer Comments Documentation of decision pr ocess for this code status: Discussed with patient or surrogate. This is the code status chosen by the patient/surrogate. Family History No Family History Records Found Relationship Condition Age at Onset Recorded Date/T marcelle father Coronary artery disease Unknown sister Coronary artery disease Unknown mother Cerebrovascular accident (CVA) Unknown Reason for Referral Specialty Diagnoses / Procedures Referred By Contac t Referred To Contact Cardiology Diagnoses RLS (restless legs syndrome) Ninoska Hernández MD [address] [place] [address] [address] [place] [id number] [facility] [place] [address] Referral ID Status Reason Start Date Expiration Date V isits Requested Visits Authorized [id number] Authorized 08/15/2022 08/15/2023 20 20 Scheduling Instructions No appointment is needed for this referral, if you have not heard from the Anemia Clinic within 2 business days, please call [phone] Comments Referred patient's anemia will be managed by either Pharmacists and/or Nurse Practitioners. If a pharmacist is managing, the referral serves to acknowledge your agreement to [facility]'s Consult Agreement where the pharmacist may start, stop and titrate medications and order appropriate laboratory tests based on the diagnoses selected. Please refer to this Consult Agreement for details. This referral is contingent based upon patient's agreement. Pharmacist will select patient specific ICD 10 code from patient's problem list for each general diagnosis listed in this referral. Please make sure diagnoses are included on patient's problem list. For a list of authorized pharmacists, please navigate to the Pharmacy Share Point site, Ambulatory Clinical Pharmacy tab. Indication for anemia: No anemia, but has restless leg syndrome (RLS). Goal ferritin in RLS is >75. Please plan for injectafer infusion (750mg) x1 Target HGB Range: N/A Additional pertinent information: RLS For questions call [phone] (Anticoagulation/Medication Management Clinic) Specialty Diagnoses / Procedures Referred By Contac t Referred To Contact Infusion Services Diagnoses Restless leg syndrome due to iron deficiency anemia Ninoska Hernández MD [address] [facility] [address] [place], [place] [address] [facility] [employer] [address] [place] [address] Referral ID Status Reason Start Date Expiration Date V isits Requested Visits Authorized [id number] Pending Review 08/19/2022 08/19/2023 14 14 Question Answer Is this a new start of treatment? Yes Comments Medication(s) Injectafer (ferric carboxymaltose) J1439 Dose: 750mg Route: sub-q Frequency (Interval): once Duration: once Clinical Information Diagnosis: No diagnosis found. Prior Medication(s) (REQUIRED): Other Clinical Information/Comments: Date of Test: No records found for TST-PPD, intradermal (PPD) (CVX=96) Specialty Diagnoses / Procedures Referred By Contac t Referred To Contact Diagnoses Hypersomnia with sleep apnea Ninoska Hernández MD [address] [place] [address] [place] [address] Referral ID Status Reason Start Date Expiration Date V isits Requested Visits Authorized [id number] Pending Review 3 3 Specialty Diagnoses / Procedures Referred By Contac t Referred To Contact Radiology Diagnoses Elevated PSA Procedures MR PROSTATE W/W/O Ninoska Hernández MD [address] [place] [address] [place] [address] [facility] MRI [address] [place] [address] Referral ID Status Reason Start Date Expiration Date V isits Requested Visits Authorized [id number] Authorized 06/16/2024 06/16/2025 1 1 Specialty Diagnoses / Procedures Referred By Contac t Referred To Contact Urology Diagnoses Elevated PSA Ninoska Hernández MD [address] [place] [address] [place] [address] [facility] UROLOGIC SURGERY [address] [place] [address] Referral ID Status Reason Start Date Expiration Date V isits Requested Visits Authorized [id number] Authorized 06/16/2024 06/16/2025 3 3 Scheduling Instructions Please call the Urology department at , option 1 to schedule an appointment if one was not made for you today. Question Answer Reason for Referral Elevated PSA [4] Chief Complaint and Reason for Visit Chief Complaint WOUND TO HEAD Summary Purpose Additional Source Comments Care Teams (unrecognized sec tion and content) Foundry Melt Supervisor Relationship Specialty Start Date End Date Fili Armando MD [address] [place] [address] Physician Otolaryngology 06/18/20 Ninoska Hernández MD [address] [place] [address] [place] [address] Physician Pulmonary/Critical Care Medicine 07/19/20 Foundry Melt Supervisor Relationship Specialty Start Date End Date Fili Armando MD [address] [place] [address] Physician Otolaryngology 06/18/20 Ninoska Hernández MD [address] [place] [address] [place] [address] Physician Pulmonary/Critical Care Medicine 07/19/20 Foundry Melt Supervisor Relationship Specialty Start Date End Date Fili Armando MD [address] [place] [address] Physician Otolaryngology 06/18/20 Ninoska Hernádnez MD [address] [place] [address] [place] [address] Physician Pulmonary/Critical Care Medicine 07/19/20 Foundry Melt Supervisor Relationship Specialty Start Date End Date Fili Armando MD [address] [place] [address] Physician Otolaryngology 06/18/20 Ninoska Hernández MD [address] [place] [address] [place] [address] Physician Pulmonary/Critical Care Medicine 07/19/20 Foundry Melt Supervisor Relationship Specialty Start Date End Date Fili Armando MD [address] [place] [address] Physician Otolaryngology 06/18/20 Ninoska Hernández MD [address] [place] [address] [place] [address] Physician Pulmonary/Critical Care Medicine 07/19/20 Foundry Melt Supervisor Relationship Specialty Start Date End Date Gloria Dawkins PCP - General 05/05/22 Fili Armando MD [address] [place] [address] Physician Otolaryngology 06/18/20 Ninoska Hernández MD [address] [place] [address] [place] [address] Physician Pulmonary/Critical Care Medicine 07/19/20 Foundry Melt Supervisor Relationship Specialty Start Date End Date Gloria Dawkins PCP - General 05/05/22 Fili Armando MD [address] [place] [address] Physician Otolaryngology 06/18/20 Ninoska Hernández MD [address] [place] [address] [place] [address] Physician Pulmonary/Critical Care Medicine 07/19/20 Foundry Melt Supervisor Relationship Specialty Start Date End Date Gloria Dawkins PCP - General 05/05/22 Fili Armando MD [address] [place] [address] Physician Otolaryngology 06/18/20 Ninoska Hernández MD [address] [place] [address] [place] [address] Physician Pulmonary/Critical Care Medicine 07/19/20 Foundry Melt Supervisor Relationship Specialty Start Date End Date Gloria Dawkins PCP - General 05/05/22 Fili Armando MD [address] [place] [address] Physician Otolaryngology 06/18/20 Ninoska Hernández MD [address] [place] [address] [place] [address] Physician Pulmonary/Critical Care Medicine 07/19/20 Foundry Melt Supervisor Relationship Specialty Start Date End Date Gloria Dawkins PCP - General 05/05/22 Fili Armando MD [address] [place] [address] Physician Otolaryngology 06/18/20 Ninoska Hernández MD [address] [place] [address] [place] [address] Physician Pulmonary/Critical Care Medicine 07/19/20 Foundry Melt Supervisor Relationship Specialty Start Date End Date Gloria Dawkins PCP - General 05/05/22 Fili Armando MD [address] [place] [address] Physician Otolaryngology 06/18/20 Ninoska Hernández MD [address] [place] [address] [place] [address] Physician Pulmonary/Critical Care Medicine 07/19/20 Foundry Melt Supervisor Relationship Specialty Start Date End Date Gloria Dawkins PCP - General 05/05/22 Fili Armando MD [address] [place] [address] Physician Otolaryngology 06/18/20 Ninoska Hernández MD [address] [place] [address] [place] [address] Physician Pulmonary/Critical Care Medicine 07/19/20 Foundry Melt Supervisor Relationship Specialty Start Date End Date Gloria Dawkins PCP - General 05/05/22 Fili Armando MD [address] [place] [address] Physician Otolaryngology 06/18/20 Ninoska Hernández MD [address] [place] [address] [place] [address] Physician Pulmonary/Critical Care Medicine 07/19/20 Foundry Melt Supervisor Relationship Specialty Start Date End Date Gloria Dawkins PCP - General 05/05/22 Fili Armando MD [address] [place] [address] Physician Otolaryngology 06/18/20 Ninoska Hernández MD [address] [place] [address] [place] [address] Physician Pulmonary/Critical Care Medicine 07/19/20 Foundry Melt Supervisor Relationship Specialty Start Date End Date Gloria Dawkins PCP - General 05/05/22 Fili Armando MD [address] [place] [address] Physician Otolaryngology 06/18/20 Ninoska Hernández MD [address] [place] [address] [place] [address] Physician Pulmonary/Critical Care Medicine 07/19/20 Foundry Melt Supervisor Relationship Specialty Start Date End Date Gloria Dawkins PCP - General 05/05/22 Fili Armando MD [address] [place] [address] Physician Otolaryngology 06/18/20 Ninoska Hernández MD [address] [place] [address] [place] [address] Physician Pulmonary/Critical Care Medicine 07/19/20 Foundry Melt Supervisor Relationship Specialty Start Date End Date Gloria Dawkins PCP - General 05/05/22 Fili Armando MD [address] [place] [address] Physician Otolaryngology 06/18/20 Ninoska Hernández MD [address] [place] [address] [place] [address] Physician Pulmonary/Critical Care Medicine 07/19/20 Foundry Melt Supervisor Relationship Specialty Start Date End Date Gloria Dawkins PCP - General 05/05/22 Fili Armando MD [address] [place] [address] Physician Otolaryngology 06/18/20 Ninoska Hernández MD [address] [place] [address] [place] [address] Physician Pulmonary/Critical Care Medicine 07/19/20 Foundry Melt Supervisor Relationship Specialty Start Date End Date Gloria Dawkins PCP - General 05/05/22 Fili Armando MD [address] [place] [address] Physician Otolaryngology 06/18/20 Ninoska Hernández MD [address] [place] [address] [place] [address] Physician Pulmonary/Critical Care Medicine 07/19/20 Foundry Melt Supervisor Relationship Specialty Start Date End Date Gloria Dawkins PCP - General 05/05/22 Fili Armando MD [address] [place] [address] Physician Otolaryngology 06/18/20 Ninoska Hernández MD [address] [place] [address] [place] [address] Physician Pulmonary/Critical Care Medicine 07/19/20 Foundry Melt Supervisor Relationship Specialty Start Date End Date Gloria Dawkins PCP - General 05/05/22 Fili Armando MD [address] [place] [address] Physician Otolaryngology 06/18/20 Ninoska Hernández MD [address] [place] [address] [place] [address] Physician Pulmonary/Critical Care Medicine 07/19/20 Team Status: Active Member Role Status Dates Dr. Gloria Dawkins MD Family Provider Active Dr. Gloria Dawkins MD Primary Care Provider Active Team Status: Inactive Member Role Status Dates Dr. Gloria Dawkins MD Primary Care Provide r, Attending Provider, Referring Provider Active Foundry Melt Supervisor Relationship Specialty Start Date End Date Gloria Dawkins PCP - General 05/05/22 Fili Armando MD [address] [place] [address] Physician Otolaryngology 06/18/20 Ninoska Hernández MD [address] [place] [address] [place] [address] Physician Pulmonary/Critical Care Medicine 07/19/20 Team Status: Inactive Member Role Status Dates Dr. Gloria Dawkins MD Primary Care Provider Active Dr. Hira Medina MD Emergency Provider Active Foundry Melt Supervisor Relationship Specialty Start Date End Date Gloria Dawkins PCP - General 05/05/22 Fili Armando MD [address] [place] [address] Physician Otolaryngology 06/18/20 Ninoska Hernández MD [address] [place] [address] [place] [address] Physician Pulmonary/Critical Care Medicine 07/19/20 Foundry Melt Supervisor Relationship Specialty Start Date End Date Gloria Dawkins PCP - General 05/05/22 Fili Armando MD [address] [place] [address]67 Physician Otolaryngology 06/18/20 Ninoska Hernández MD [address] [place] [address] [place] [address] Physician Pulmonary/Critical Care Medicine 07/19/20 Foundry Melt Supervisor Relationship Specialty Start Date End Date Gloria Dawkins PCP - General 05/05/22 Fili Armando MD [address] [place] [address] Physician Otolaryngology 06/18/20 Ninoska Hernádnez MD [address] [place] [address] [place] [address] Physician Pulmonary/Critical Care Medicine 07/19/20 Foundry Melt Supervisor Relationship Specialty Start Date End Date Gloria Dawkins PCP - General 05/05/22 Fili Armando MD [address] [place] [address] Physician Otolaryngology 06/18/20 Ninoska Hernández MD [address] [place] [address] [place] [address] Physician Pulmonary/Critical Care Medicine 07/19/20 Foundry Melt Supervisor Relationship Specialty Start Date End Date Gloria Dawkins PCP - General 05/05/22 Fili Armando MD [address] [place] [address] Physician Otolaryngology 06/18/20 Ninoska Hernández MD [address] [place] [address] [place] [address] Physician Pulmonary/Critical Care Medicine 07/19/20 Foundry Melt Supervisor Relationship Specialty Start Date End Date Gloria Dawkins PCP - General 05/05/22 Fili Armando MD [address] [place] [address] Physician Otolaryngology 06/18/20 Ninoska Hernández MD [address] [place] [address] [place] [address] Physician Pulmonary/Critical Care Medicine 07/19/20 Team Status: Inactive Member Role Status Dates AJ XIAO Other Provider Active Dr. Gloria Dawkins MD Primary Care Provide r, Attending Provider, Referring Provider Active Foundry Melt Supervisor Relationship Specialty Start Date End Date Gloria Dawkins PCP - General 05/05/22 Fili Armando MD [address] [place] [address] Physician Otolaryngology 06/18/20 Ninoska Hernández MD [address] [place] [address] [place] [address] Physician Pulmonary/Critical Care Medicine 07/19/20 Foundry Melt Supervisor Relationship Specialty Start Date End Date Gloria Dawkins MD [facility] [place] [address] PCP - General 05/05/22 Fili Armando MD [address] [place] [address] Physician Otolaryngology 06/18/20 Ninoska Hernández MD [address] [place] [address] [place] [address] Physician Pulmonary/Critical Care Medicine 07/19/20 Foundry Melt Supervisor Relationship Specialty Start Date End Date Gloria Dawkins MD [address] [address] PCP - General 05/05/22 Fili Armando MD [address] [place] [address] Physician Otolaryngology 06/18/20 Ninoska Hernández MD [address] [place] [address] [place] [address] Physician Pulmonary/Critical Care Medicine 07/19/20 Foundry Melt Supervisor Relationship Specialty Start Date End Date Gloria Dawkins MD [address] [place] [place] [address] PCP - General 05/05/22 Fili Armando MD [address] [place] [address] Physician Otolaryngology 06/18/20 Ninoska Hernández MD [address] [place] [address] [place] [address] Physician Pulmonary/Critical Care Medicine 07/19/20 Foundry Melt Supervisor Relationship Specialty Start Date End Date Gloria Dawkins MD [address] [place] [address] PCP - General 05/05/22 Fili Armando MD [address] [place] [address] Physician Otolaryngology 06/18/20 Ninoska Hernández MD [address] [facility] [place] [address] Physician Pulmonary/Critical Care Medicine 07/19/20 Foundry Melt Supervisor Relationship Specialty Start Date End Date Gloria Dawkins MD [address] [place], [place] [address] PCP - General 05/05/22 Fili Armando MD [address] [place] [address] Physician Otolaryngology 06/18/20 Ninoska Hernández MD [address] [place] [address] [place] [address] Physician Pulmonary/Critical Care Medicine 07/19/20 Foundry Melt Supervisor Relationship Specialty Start Date End Date Gloria Dawkins MD [address] [place], [place] [id number] PCP - General 05/05/22 Fili Armando MD [address] [place] [address] Physician Otolaryngology 06/18/20 Ninoska Hernández MD [address] [facility] [place] [address] Physician Pulmonary/Critical Care Medicine 07/19/20 Foundry Melt Supervisor Relationship Specialty Start Date End Date Gloria Dawkins MD [address] [place], [place] [id number] PCP - General 05/05/22 Fili Armando MD [address] [place] [address] Physician Otolaryngology 06/18/20 Ninoska Hernández MD [address] [place] [address] [place] [address] Physician Pulmonary/Critical Care Medicine 07/19/20 Foundry Melt Supervisor Relationship Specialty Start Date End Date Gloria Dawkins MD [address] [place], [place] [address] PCP - General 05/05/22 Fili Armando MD [address] [place] [id number] Physician Otolaryngology 06/18/20 Ninoska Hernández MD [address] [place] [address] [place] [address] Physician Pulmonary/Critical Care Medicine 07/19/20 [employer] Supervisor Relationship Specialty Start Date End Date Gloria Dawkins MD [address] [place] [address] PCP - General 05/05/22 Fili Armando MD [address] [place] [id number] Physician Otolaryngology 06/18/20 Ninoska Hernández MD [address] [place] [address] [place] [address] Physician Pulmonary/Critical Care Medicine 07/19/20 [employer] Supervisor Relationship Specialty Start Date End Date Gloria Dawkins MD [address] [place] [address] PCP - General 05/05/22 Fili Armando MD [address] [place] [address] Physician Otolaryngology 06/18/20 Ninoska Hernández MD [address] [place] [address] [place] [address] Physician Pulmonary/Critical Care Medicine 07/19/20 Goals (unrecognized section and content) Goals may be documented in a n alternate sectionGoals may be documented in an alternate sectionGoals may be documented in an alternate sectionGoals may be documented in an alternate sectionGoals may be documented in an alternate section Reason for Visit (unrecogniz ed section and content) Reason Comments Consult with specialist Reason Onset Date Comments Anemia 08/19/2022 IV iron 08/19/2022 Reason Onset Date Comments Anemia 08/17/2022 Consult with specialist 08/17/2022 Reason Onset Date Comments Future Order 08/15/2022 Reason Onset Date Comments Future Order 08/15/2022 Reference 99 10/07/2022 Reason Comments Clinically Administered Medication Kim c carboxymaltose Specialty Diagnoses / Procedures Referred By Contrahat t Referred To Contact Infusion Services Diagnoses Restless leg syndrome due to iron deficiency anemia Procedures Injectafer (ferric carboxymaltose) J1439 Dose: 750mg Route: sub-q Frequency (Interval): once Duration: once Ninoska Hernández MD [address] [place] [address] [place] [address] [facility] [employer] [address] [place] [address] Referral ID Status Reason Start Date Expiration Date Visits Re quested Visits Authorized [id number] Closed 10/12/2022 10/12/2023 1 1 Reason Onset Date Comments Missed Lab Tests 02/09/2023 Anemia 02/09/2023 Reason Onset Date Comments Missed Lab Tests 05/12/2023 Anemia 05/12/2023 Reason Comments PARI Reason Comments PARI Reason Onset Date Comments Care Coordination 04/21/2024 Inspire and me dications Reason Comments Consult with specialist Reason Onset Date Comments Inspire SS 06/14/2024 Reason Onset Date Comments Pt Call 06/23/2024 (unrecognized sect ion and content) No Status Records FoundNo Status Records Found INFORMATION SOURCE (unrecogn ized section and content) DATE CREATED AUTHOR 06/29/2024 [employer] DATE CREATED AUTHOR AUTHOR'S ORGANIZ ATION 12/13/2024 [facility] FOR RECORDS PERTAINING TO PATIENTS WHO ARE OR HAVE BEEN ENROLLED IN A CHEMICAL DEPENDENCY/SUBSTANCEABUSE PROGRAM, SOME INFORMATION MAY BE OMITTED. This clinical summary was aggregated from multiple sources. Caution should be exercised in using it in the provision of clinical care. This summary normalizes information from multiple sources, and as a consequence, information in this document may materially change the coding, format and clinical context of patient data. In addition, data may be omitted in some cases. CLINICAL DECISIONS SHOULD BE BASED ON THE PRIMARY CLINICAL RECORDS. [employer] provides no warranty or guarantee of the accuracy or completeness of information in this document.
== END | disposition home or self-care (01) ==
LOC: LAB 14:00
PROVIDERS: Student in an Organized Health Care Education/Training Program; PCP Family Medicine; Referring Provider Nurse Practitioner; Visit Provider Nurse Practitioner
DX: C61 Malignant neoplasm of prostate (principal)
CPT/HCPCS: 36415; 84153

== ENCOUNTER → 2025-05-22 | Outpatient (CLI) | payer MEDICARE, OTHER, SELFPAY ==
[2025-05-22 16:53] LABS: PSA,Total- Diagnostic < 0.02 ng/mL (0.00-4.00)
--- OUTSIDE RECORDS SUMMARY | 2025-05-22 21:39 | XMS RPT_ITS | CCD ---
Author Organization [facility] Care Team Providers Care Chief Supply Chain Officer Name Role Phone Sana Dawkins Unavailable Sana Dawkins Y Unavailable Dian Dawkinsricia Y Unavailable Fili Armando MD Unavailable Ninoska Hernández MD Unavailable Fili Armando MD Unavailable Ninoska Hernández MD Unavailable Gloria Dawkins Primary Care Provider UnavailFili Ortega MD Unavailable Ninoska Hernández MD Unavailable Juancho Gloria Primary Care Provider UnavailNinoska Fair MD Unavailable Gloria Dawkins MD Primary Care Provider PROVIDER, UNKNOWN Admitting Unavailable [...] Primary Care Unavailable NINOSKA HERNÁNDEZ Attending Unavailable Dr. Gloria Dawkins MD Primary Care Provider Dr. Flo Sow DO Attending Provider [phone] Dr. Flo Sow DO Referring Provider [phone] Dr. Gloria Dawkins MD Referring Provider Ragland, Fabiola Attending Provider [phone] Ragland, Fabiola Referring Provider Dawkins, Gloria Referring Unavailable Dawkins, Gloria Attending Unavailable Dawkins, Gloria Primary Care Unavailable Sarah, Luis Armando Referring Unavailable Sarah, Mani Johnson Attending Unavailable Dawkins, Gloria Primary Care Unavailable Sarah, Mani Johnson Attending Unavailable Sarah, Main Johnson Referring Unavailable Dawkins, Gloria Primary Care Unavailable Flo Sow Referring Unavailable Flo Sow Attending Unavailable Dawkins, Gloria Primary Care Unavailable Dawkins, Gloria Referring Unavailable Dawkins, Gloria Primary Care Unavailable Tomasz Tucker Unavailable Ragland, Fabiola Referring Unavailable Ragland, Fabiola Attending Unavailable Dawkins, Gloria Primary Care Unavailable Sarah, Mani Johnson Attending Unavailable Sarah, Mani Johnson Referring Unavailable Dawkins, Gloria Primary Care Unavailable Sarah, Mani Johnson Attending Unavailable Sarah, Mani Johnson Referring Unavailable Dawkins, Gloria Primary Care Unavailable Juanjose, Flo Referring Unavailable Dawkins, Gloria Primary Care Unavailable Flo Sow Attending Unavailable Sarah, Mani Johnson Attending Unavailable Sarah, Luis Armando Referring Unavailable Dawkins, Gloria Primary Care Unavailable Duane Sowe Referring Unavailable Flo Sow Attending Unavailable Dawkins, Gloria Primary Care Unavailable Duane Sowe Referring Unavailable Flo Sow Attending Unavailable Dawkins, Glorai Primary Care Unavailable Dawkins, Gloria Referring Unavailable JuanjoseFlo carrasquillo Attending Unavailable Dawkins, Gloria Primary Care Unavailable Juanjose, Flo Referring Unavailable JuanjoseFlo carrasquillo Attending Unavailable Dawkins, Gloria Primary Care Unavailable Juanjose, Flo Referring Unavailable Dawkins, Gloria Primary Care Unavailable Flo Sow Attending Unavailable Dawkins, Gloria Primary Care Unavailable Juanjose, Flo Referring Unavailable Juanjose, Flo Attending Unavailable Dawkins, Gloria Primary Care Unavailable Chelsi Colunga Attending Unavailable Juanjose, Flo Referring Unavailable Juanjose, Flo Attending Unavailable Dawkins, Gloria Primary Care Unavailable Juanjose, Flo Referring Unavailable Dawkins, Gloria Primary Care Unavailable Fol Sow Attending Unavailable Sarah, Mani Johnson Referring Unavailable Flo Sow Attending Unavailable Gloria Dawkins Primary Care Unavailable Flo Sow Attending Unavailable Flo Sow Referring Unavailable Gloria Dawkins Primary Care Unavailable Gloria Dawkins Referring Unavailable Gloria Dawkins Attending Unavailable Gloria Dawkins Primary Care Unavailable KEYSHAWN VIVAS Attending Unaepifanio mckenzieable GLORIA DAWKINS Primary Care Unavailable Allergies Allergy Classification Reported Allergen(s) Allergy Type Date of Onset Reaction(s) Facility (3 sources) penicillin drug allergy 4 [facility] [email or web address] Work Phone: (20 sources) Penicillins; Translations: [PENICILLINS] Propensity to adverse reactions to drug 4 [facility] Comment on above: From as a child Medications Current Medications Medication Drug Class(es) Dates [...] Tablet 3 06/15/2020 Active Start: 04-16-2014 take 1 tablet by ramon th once daily Aspirin 81 MG tablet,delayed release (DR/EC) Active 81 mg PO DAILY April 17, 2014 12:00am Start: 04-16-2014 take 1 tablet by ramon th once daily ASPIRIN 81 MG TABS One tablet by mouth daily ASPIRIN [id number] Moses Alvares MD Start: 04-16-2014 take 1 tablet by ramon th once daily ASPIRIN 81 MG TABS One tablet by mouth daily ASPIRIN [id number] Moses Alvares MD cholecalciferol 0.025 mg oral tablet (20 sources) Vitamin D Start: 08-16-2020 take 1 tablet by mouth once daily Cholecalciferol (Vitamin D) 25 MCG (1000 UT) TABS Take 1 Tablet by mouth daily. 60 Tablet 2 08/16/2020 Active finasteride 5 mg oral tablet (1 source) 5-alpha Reductase Inhibitor Start: 08-03-2024 take 1 tablet by mouth at bedtime Finasteride 5 mg tablet Active 5 mg PO AT BEDTIME August 03, 2024 1:00am loperamide hydrochloride 2 mg oral capsule (1 source) Opioid Agonist Start: 10-12-2024 take 1 capsule by mouth every six hours as needed Loperamide (Imodium A-D) 2 mg capsule Active 2 mg PO EVERY 6 HOURS as needed October 12, 2024 1:00am losartan potassium 25 mg oral tablet (20 sources) Angiotensin 2 Receptor Theodore Start: 11-07-2018 End: 01-23-2019 take 1 tablet by mouth once daily Losartan 25 mg tablet Active 25 mg PO DAILY January 23, 2019 3:57pm Start: 04-16-2014 End: 10-31-2018 take 1 tablet by mouth once daily Losartan 25 MG tablet Discontinued 25 mg PO DAILY April 17, 2014 12:00am October 31, 2018 3:53pm meloxicam 15 mg oral tablet (20 sources) Nonsteroidal Anti-inflammatory Drug Start: 12-28-2023 take 1 tablet by mouth once daily meloxicam (MOBIC) 15 MG tablet Take 15 mg by mouth daily. 12/28/2023 Active Start: 04-16-2015 End: 11-06-2015 take 1 tablet by mouth once daily MELOXICAM 15 MG TABS One tablet by mouth daily MELOXICAM [id number] Moses Alvares MD MULTIPLE VITAMIN ORAL (20 sources) MULTIPLE VITAMIN ORAL daily. Active MULTIPLE VITAMIN ORAL daily. 0 Active multivitamin capsule (5 sources) Start: 10-31-2018 take 1 capsule by mouth once daily multivitamin capsule Active 1 CAP PO DAILY October 31, 2018 3:54pm Start: 10-31-2018 take 1 capsule by mo [facility] once daily multivitamin capsule Active 1 CAP PO DAILY October 31, 2018 12:00am Start: 10-31-2018 take 1 capsule by mo ut once daily multivitamin capsule Active 1 CAP PO DAILY October 31, 2018 1:00am Multivitamin capsule (1 source) Start: 10-31-2018 Multivitamin capsule Active 1 NMA PO DAILY October 31, 2018 1:00am naloxone hydrochloride 40 mg/ml nasal spray (17 sources) Opioid Antagonist Start: 01-14-2024 naloxone 4 m g/0.1 mL nasal liquid Use 1 Walker in one nostril (alternate sides) as needed for Drug Overdose for up to 1 dose. Every 2-3 mins. until help arrives. 1 Each 1 01/14/2024 Active oxyCODONE hydrochloride 5 mg oral tablet (10 sources) Opioid Agonist Start: 01-14-2024 End: 02-13-2024 take 1 tablet by mouth at bedtime oxyCODONE 5 MG immediate release tablet Indications: RLS (restless legs syndrome) Take 1 Tablet by mouth at bedtime for 30 days. 30 Tablet 0 01/14/2024 02/13/2024 Active Start: 10-29-2015 End: 11-22-2017 take 1 tablet by mouth every six hours as needed for pain Oxycodone 5 MG tablet Discontinued 5 mg PO EVERY 6 HOURS NEEDED as needed for Moderate Pain (pain scale 4-5) October 29, 2015 1:00am November 22, 2017 10:19am phenazopyridine hydrochloride 200 mg oral tablet (2 sources) Start: 10-19-2024 End: 10-26-2024 take 1 tablet by mouth three times daily Phenazopyridine (Pyridium) 200 mg tablet Active 200 mg PO THREE TIMES A DAY October 26, 2024 4:43pm take one tab PO tid for painful urination pregabalin 200 mg oral capsule (20 sources) [...] 10/01/2019 05/05/2022 Discontinued (Error) Start: 10-31-2018 take 2 capsules by m outh at bedtime Pregabalin 100 mg capsule Active 200 mg PO AT BEDTIME October 31, 2018 3:53pm Start: 10-31-2018 take 200 mg by mouth at bedtim e Pregabalin Active 200 MG PO AT BEDTIME October 31, 2018 2:53pm Start: 01-14-2018 End: 10-31-2018 Pregabalin 100 mg capsule Discontinued PO 60 January 14, 2018 12:00am October 31, 2018 3:54pm Start: 01-14-2018 End: 01-14-2018 take 1 capsule by mouth at bedtime Pregabalin (Lyrica) 200 mg capsule Discontinued 200 mg PO AT BEDTIME January 14, 2018 12:00am January 14, 2018 2:59pm Start: 01-14-2018 End: 10-31-2018 Pregabalin Discontinued PO 6 0 January 13, 2018 11:00pm October 31, 2018 2:54pm simethicone 125 mg oral capsule (1 source) Start: 10-26-2024 Simethicone (Gas Relief (Simethicone)) 125 mg capsule Active 125 mg PO 1 to 2 times per day as needed October 26, 2024 1:00am tadalafil 5 mg oral tablet (1 source) Phosphodiesterase 5 Inhibitor Start: 08-03-2024 take 1 tablet by mouth once daily Tadalafil 5 mg tablet Active 5 mg PO daily August 03, 2024 1:00am tamsulosin hydrochloride 0.4 mg oral capsule (20 sources) alpha-Adrenergic Theodore Start: 08-17-2024 take 1 capsule by mouth twice daily Tamsulosin 0.4 mg capsule Active 0.4 mg PO TWICE A DAY August 17, 2024 3:05pm Start: 05-17-2024 End: 08-17-2024 take 1 capsule by mouth once daily Tamsulosin 0.4 mg capsule Discontinued 0.4 mg PO daily May 17, 2024 12:00am August 17, 2024 3:05pm Start: 08-04-2023 take 1 capsule by mo uth at bedtime tamsulosin (FLOMAX) 0.4 MG capsule Take 0.4 mg by mouth at bedtime. 08/04/2023 Active Completed/Discontinued Medications Medication Drug Class(es) Dates Sig (Normalized) Sig (Original) acetaminophen 325 mg / HYDROcodone bitartrate 5 mg oral tablet (6 sources) Opioid Agonist Start: 11-23-2018 End: 11-26-2018 Hydrocodone-Acetami nophen 1 TABLET tablet Discontinued 1 {tbl} PO EVERY 4 HOURS NEEDED as needed for Pain 10 November 23, 2018 12:00am November 25, 2018 12:00am November 26, 2018 12:09am Start: 11-23-2018 End: 11-26-2018 take 1 tablet by mouth every four hours as needed Hydrocodone-Acetaminophen Discontinued 1 TABLET PO EVERY 4 HOURS NEEDED 06 15November 22, 2018 11:00pm November 25, 2018 11:09pm ciprofloxacin 500 mg oral tablet (1 source) Quinolone Antimicrobial Start: 09-20-2024 End: 10-12-2024 take 1 tablet by mouth twice daily Ciprofloxacin Hcl 500 mg tablet Discontinued 500 mg PO TWICE A DAY September 20, 2024 1:00am October 12, 2024 4:02pm clonazePAM 0.25 mg disintegrating oral tablet (20 sources) Benzodiazepine Start: 05-05-2022 End: 01-14-2024 take 1 tablet by mouth at bedtime clonazePAM 0.25 MG TBDP Indications: Insomnia, unspecified type Take 0.25 mg by mouth at bedtime for 30 days. 30 Tablet 0 05/05/2022 01/14/2024 Discontinued Start: 01-14-2018 End: 10-31-2018 take 1 tablet by mouth twice daily Clonazepam (Klonopin) 0.5 mg tablet Discontinued 0.5 mg PO TWICE A DAY January 14, 2018 12:00am October 31, 2018 3:53pm Cranberry Fruit Concentrate (1 source) Non-Standardized Food Allergenic Extract, Non-Standardized Plant Allergenic Extract Start: 10-26-2024 End: 10-26-2024 take 1 tablet by mouth three times daily Cranberry Fruit Concentrate (Azo Cranberry) 250 mg tablet,chewable Discontinued 250 mg PO THREE TIMES A DAY October 26, 2024 1:00am October 26, 2024 4:27pm ferric carboxymaltose (INJECTAFER) 750 mg in sodium [...] each nostril once a day FLUTICASONE PROPIONATE [id number] Moses Alvares MD Start: 04-16-2014 End: 04-16-2015 FLUTICASONE PROPIONATE 50 MC G/ACT SUSP (0.05mg/inh) 1 spray each nostril once a day FLUTICASONE PROPIONATE [id number] Moses Alvares MD gabapentin 400 mg oral capsule (6 sources) Anti-epileptic Agent Start: 04-16-2015 End: 11-06-2015 take 1 tablet by mouth once daily at bedtime GABAPENTIN 400 MG CAPS One tablet by mouth daily at bedtime GABAPENTIN [id number] Moses Alvares MD HYDROmorphone hydrochloride 2 mg oral tablet (6 sources) Opioid Agonist Start: 10-29-2015 End: 11-18-2015 take 2-4 mg by mouth four times daily as needed for pain Hydromorphone 2 MG tablet Discontinued 2 - 4 mg PO 4 TIMES DAILY NEEDED as needed for Pain 50 October 29, 2015 3:05pm November 18, 2015 9:51am ibuprofen 400 mg oral tablet (6 sources) Nonsteroidal Anti-inflammatory Drug Start: 10-29-2015 End: 11-22-2017 take 1 tablet by mouth every eight hours as needed for headache Ibuprofen 400 MG tablet Discontinued 400 mg PO EVERY 8 HOURS NEEDED as needed for Headache 0 October 29, 2015 2:31pm November 22, 2017 10:18am methylPREDNISolone 4 mg oral tablet (1 source) Corticosteroid Start: 10-13-2024 End: 10-26-2024 take 1 tablet by mouth once Methylprednisolone (Medrol (Cristian)) 4 mg tablets,dose pack Discontinued 4 mg PO per package directions October 13, 2024 1:00am October 26, 2024 4:27pm take as indicated minocycline 100 mg oral tablet (6 sources) Tetracycline-class Drug Start: 11-06-2015 End: 12-30-2015 take 1 tablet by mouth twice daily MINOCYCLINE HCL 100 MG TABS One tablet by mouth twice daily MINOCYCLINE HCL [id number] Roger Philippe MD modafinil 100 mg oral tablet (18 sources) Sympathomimetic-li ke Agent Start: 05-17-2024 End: 08-03-2024 take 1 tablet by mouth once daily Modafinil 100 mg tablet Discontinued 100 mg PO daily May 17, 2024 12:00am August 03, 2024 5:24pm Start: 10-08-2023 End: 01-06-2024 take 1 tablet by mouth once daily modafinil (PROVIGIL) 100 MG tablet Indications: Hypersomnia with sleep apnea Take 1 Tablet by mouth daily for 90 days. 30 Tablet 2 10/08/2023 Active ondansetron 8 mg oral tablet (6 sources) Serotonin-3 Receptor Antagonist Start: 10-29-2015 End: 11-18-2015 take 4 mg by mouth every eight hours as needed for nausea Ondansetron Hcl 8 MG tablet Discontinued 4 mg PO EVERY 8 HOURS NEEDED as needed for Nausea/Vomiting October 29, 2015 2:35pm November 18, 2015 9:51am Start: 10-29-2015 End: 11-18-2015 take 4 mg by mouth every eight hours as needed Ondansetron Hcl Discontinued 4 MG PO EVERY 8 HOURS NEEDED October 29, 2015 1:35pm November 18, 2015 8:51am rOPINIRole 0.25 mg oral tablet (1 source) Nonergot Dopamine Agonist Start: 05-17-2024 End: 08-03-2024 Ropinirole 0.25 mg tablet Discontinued mg PO May 17, 2024 12:00am August 03, 2024 5:24pm 24 hr rotigotine 0.0417 mg/hr transdermal system (6 sources) Start: 10-09-2021 End: 05-05-2022 apply 1 dose transdermal route once daily rotigotine (NEUPRO) 1 MG/24HR PT24 patch Place 1 Patch on the skin daily. 30 Patch 2 10/09/2021 05/05/2022 Discontinued (Therapy completed) vancomycin 50 mg/ml injectable solution (12 sources) Glycopeptide Antibacterial Start: 10-29-2015 End: 11-18-2015 take 1000 mg intravenously once daily Vancomycin 1,000 MG/20 ML Vial Discontinued 1000 mg IV DAILY October 29, 2015 5:52pm November 18, 2015 9:50am Start: 10-29-2015 End: 10-29-2015 take 1250 mg intravenously every twelve hours Vancomycin 1,000 MG/20 ML Vial Discontinued 1250 mg IV Q12H October 29, 2015 1:00am October 29, 2015 5:52pm Problems Active Problems Problem Classification Problem Date Documented Da te Episodic/Chronic Abdominal hernia (12 sources) Umbilical hernia; Translations: [Umbilical hernia without obstruction or gangrene] 11-23-2018 Episodic Bacterial infection (9 sources) Methicillin resistant Staphylococcus aureus infection; Translations: [Methicillin resistant Staphylococcus aureus infection, unspecified site] Onset: 11-06-2015 12-30-2015 Episodic Cancer of prostate (8 sources) Primary malignant neoplasm of prostate; Translations: [Malignant neoplasm of prostate] Onset: 11-02-2024 08-17-2024 Chronic Cardiac dysrhythmias (2 sources) Bradycardia; Translations: [Bradycardia, unspecified] Onset: 05-19-2024 05-31-2024 Episodic Essential hypertension (9 sources) Hypertensive disorder; Translations: [Essential (primary) hypertension] Onset: 04-18-2014 04-18-2014 Chronic Hemorrhoids (6 sources) Hemorrhoids; Translations: [Unspecified hemorrhoids] 11-23-2018 Episodic Hyperplasia of prostate (8 sources) Large prostate ; Translations: [Benign prostatic hyperplasia without lower urinary tract symptoms] Onset: 07-10-2024 11-23-2018 Chronic Malaise and fatigue (4 sources) Fatigue; Translations: [Other fatigue] Onset: 05-03-2024 04-25-2024 Episodic Nutritional deficiencies (9 sources) Deficiency of macronutrients; Translations: [Unspecified severe protein-calorie malnutrition] Onset: 05-03-2024 11-23-2018 Chronic Open wounds of extremities (16 sources) Unspecified open wound of right hand, initial encounter; Translations: [Unspecified open wound of right hand, subsequent encounter] Onset: 11-06-2015 12-30-2015 Episodic Comment on above: open surgical wound dorsum right hand and dorsum right ring finger over proximal phalanx Other fractures (2 sources) Multiple fractures of ribs, left side, initial encounter for closed fracture; Translations: [Multiple fractures of ribs, left side, initial encounter for closed fracture] Onset: 02-23-2025 Episodic Other gastrointestinal disorders (6 sources) Incontinence of feces; Translations: [Full incontinence of feces] 11-23-2018 Episodic Other hereditary and degenerative nervous system conditions (20 sources) Restless legs; Translations: [Restless legs syndrome] Chronic Other hereditary and degenerative nervous system conditions (20 sources) Restless legs syndrome; Translations: [Restless legs syndrome (RLS)] Onset: 09-03-2022 Chronic Other nervous system disorders (4 sources) Facial paresthesia; Translations: [Paresthesia of skin] 03-25-2023 Episodic Other nutritional; endocrine; and metabolic disorders (9 sources) Body mass index 30+ - obesity; [...] [Body mass index (BMI) 28.0-28.9, adult] Episodic Other skin disorders (4 sources) Lesion of scalp; Translations: [Disorder of the skin and subcutaneous tissue, unspecified] 03-25-2023 Episodic Rehabilitation care; fitting of prostheses; and [...] unspecified] Onset: 10-09-2021 Chronic Residual codes; unclassified (8 sources) Family history of ischemic heart disease and other diseases of the circulatory system; Translations: [Family history of coronary arteriosclerosis] 04-11-2014 Episodic Residual codes; unclassified (1 source) Insomnia; Translations: [Insomnia, unspecified] Episodic Retinal detachments; defects; vascular occlusion; and retinopathy (6 sources) Retinal artery occlusion; Translations: [Unspecified retinal vascular occlusion] 09-28-2019 Chronic Past or Other Problems Problem Classification Problem Date Documented Date Episodic/Chronic Genitourinary symptoms and ill-defined conditions (2 sources) Dysuria; Translations: [Dysuria] Onset: 11-23-2024 10-26-2024 Episodic Nonspecific chest pain (6 sources) Chest pain, unspecified; Translations: [Chest pain, unspecified] Onset: 04-11-2014 Resolved: 04-10-2016 04-10-2016 Episodic Other aftercare (5 sources) Surgical follow-up; [...] Onset: 04-16-2014 Resolved: 04-10-2016 04-16-2014 Episodic Other nutritional; endocrine; and metabolic disorders (3 sources) Body mass index (BMI) 29.0-29.9, adult; Translations: [Body mass index (BMI) 29.0-29.9, adult] Onset: 04-16-2014 04-16-2014 Episodic Other screening for suspected conditions (not mental disorders or infectious disease) (2 sources) Raised prostate specific antigen; Translations: [Elevated prostate specific antigen [PSA]] Onset: 08-07-2024 06-16-2024 Episodic Residual codes; unclassified (1 source) FH: Hypertension; Translations: [Family history of ischemic heart disease and other diseases of the circulatory system] 04-11-2014 Episodic Residual codes; unclassified (6 sources) History of cardiac catheterization; Translations: [Other specified postprocedural states] Onset: 04-13-2014 09-28-2019 Episodic Comment on above: normal coronary leonid eduard Skin and subcutaneous tissue infections (3 sources) Abscess of hand; Translations: [Cutaneous abscess of right hand] Onset: 11-06-2015 12-30-2015 Episodic Unclassified (9 sources) Family history of stroke; Translations: [Family history of ischemic heart disease and other diseases of the circulatory system] 04-11-2014 Episodic Unclassified (6 sources) Right hand cellulitis and abscess 11-23-2018 Unclassified (6 sources) Abscess of fourth finger, right; Translations: [Abscess of fourth finger of right hand] 11-23-2018 Comment on above: abscess dorsum right ring finger over the proximal phalanx area abscess dorsum right hand Results Test Name Value Interpretation Reference Range Facility ED Prov Noteon 02-23-2025 ED Prov Note ED PROVIDER NOTE [facility] NAME: Juvencio Macdonald AGE: 74 y.o. : 1950 VISIT DATE: 02/23/2025 CSN: [id number] PCP: Gloria Dawkins MD Chief Complaint Patient presents with Rib Injury Pt to ER c/o left rib pain after falling, pt states stepping out of a skid bolt loader and fell on wet ground npt denies hitting head Patient is a 74-year-old male with no significant past medical history presents today for concern of rib pain. Patient states shortly prior to arrival he got out of a skid steer and slipped on grass and fell on the left side of his posterior ribs landing onto the skid steer. Patient denies any direct head or neck trauma. Patient denies any chest pain, shortness of breath, abdominal pain, nausea, vomiting, lightness, dizziness or syncope. Patient admits to pain with movement and sneezing. No past medical history on file. No past surgical history on file. No family history on file. Social History [1] No current outpatient medications on file prior to encounter. Allergies[2] Review of Systems Constitutional: Negative for chills and fever. Eyes: Negative for pain. Respiratory: Negative for cough, chest tightness and shortness of breath. Cardiovascular: Negative for chest pain and palpitations. Gastrointestinal: Negative for abdominal pain, nausea and vomiting. Genitourinary: Negative for flank pain. Musculoskeletal: Negative for arthralgias and myalgias. Rib pain Skin: Negative for rash. Neurological: Negative for dizziness, syncope, light-headedness and headaches. Psychiatric/Behavioral: Negative for agitation. All other systems reviewed and are negative. No data found. Physical Exam Vitals and nursing note reviewed. Constitutional: Appearance: Normal appearance. HENT: Head: Normocephalic. Eyes: Pupils: Pupils are equal, round, and reactive to light. Cardiovascular: Rate and Rhythm: Normal rate and regular rhythm. Pulses: Normal pulses. Heart sounds: Normal heart sounds. Musculoskeletal: Cervical back: Normal range of motion. Comments: Left lateral and posterior ribs are tender to palpation with no evidence or gross deformity dislocation. Tenderness intercostally with associated hypertonicity. No midline spinal canal tenderness or gross deformity. Stable pelvis no bony tenderness to the extremity Pulmonary: Effort: Pulmonary effort is normal. Breath sounds: Normal breath sounds. Skin: General: Skin is warm. Capillary Refill: Capillary refill takes less than 2 seconds. Neurological: General: No focal deficit present. Mental Status: He is alert. Cranial Nerves: No cranial nerve deficit. Sensory: No sensory deficit. Motor: No weakness. Coordination: Coordination normal. Gait: Gait normal. Psychiatric: Mood and Affect: Mood normal. Laboratory & Radiographic Imaging (if done): No results found for this visit on 02/23/25. XR Ribs Left 3+ Views (Standard) Final Result Fractures of the left 7th, 8th and 9th ribs laterally. The left 8th rib fracture is mildly displaced. Workstation ID: [id number] Procedures Medical Decision Making Patient seen and evaluated for concern of left-sided rib pain after mechanical fall. Patient given Flexeril. Patient took ibuprofen prior to arrival. X-ray of the rib demonstrated evidence of left-sided rib fractures involving the left 7th, 8th and 9th ribs laterally. Patient given Percocet for home. Patient given a prescription for Flexeril for home. Patient agrees assessment and plan understands reasons return to patient is discharged in stable condition. The patient has been informed that they may have pre-hypertension or hypertension based on a blood pressure reading in the Emergency Department. I recommend that the patient call the primary care provider listed on their discharge instructions or a physician of their choice as soon as possible to arrange follow-up in the next 4 weeks for further evaluation of possible pre-hypertension or hypertension. . Clinical Impression: 1. Closed fracture of multiple ribs of left side, initial encounter ED Disposition ED Disposition Discharge Condition Stable Comment Juvencio Macdonald discharged to home/self care in stable condition. Follow-up Information 1. Talia Zimmer MD. Specialty: Family Medicine Why: As needed, If symptoms worsen [address] [address] Contact information for after-discharge care Follow-up information has not been specified. New Prescriptions cyclobenzaprine (FLEXERIL) 10 MG tablet Take 1 (one) tablet (10 mg total) by mouth 3 (three) times a day as needed for muscle spasms . oxyCODONE-acetaminophen (PERCOCET) 5-325 mg per tablet Take 1 (one) tablet by mouth every 6 (six) hours as needed for pain . [1] Social History Socioeconomic History Marital status: [2] Allergies Allerge (more content not included)... [facility] XR RIBS LEFT 3+ VIEWS (STAND KATIE)on 02-23-2025 XR RIBS LEFT 3+ VIEWS (STANDARD) EXAMINATION: XR RIBS LEFT 3+ VIEWS (STANDARD) EXAM DATE: 02/23/2025 8:42 pm HISTORY: ORDERING SYSTEM PROVIDED HISTORY: Rib pain, TECHNOLOGIST PROVIDED HISTORY: Injury/Trauma Reason for exam: fall, lt lower rib pain Cancer History: no Surgery, RadiationHistory: na Encounter Type: Initial Mechanism of injury: fall ORDERING SYSTEM PROVIDED DIAGNOSIS CODES: S22.42XA Closed fracture of multiple ribs of left side, initial encounter COMPARISON: None TECHNIQUE: AP, and both oblique views left ribs FINDINGS: The heart and mediastinum are unremarkable. The lung stein are clear. There are fractures of the left 7th, 8th and 9th ribs laterally. No lytic or blastic rib lesion. IMPRESSION: Fractures of the left 7th, 8th and 9th ribs laterally. The left 8th rib fracture is mildly displaced. Workstation ID: [id number] Dictated by: JUAN MACK on WedFeb 23, 2025 10:12:33 PM EDT Transcribed by: JUAN MACK on WedFeb 23, 2025 10:12:33 PM EDT Finalized by: JUAN MACK on WedFeb 23, 2025 10:12:33 PM EDT [facility] Comment on above: Order Comment: Injur y/Trauma or Illness?:Injury/Trauma How long have you had these symptoms (acute/chronic)?:Acute Reason for exam?:fall, lt lower rib pain History of cancer?:no Surgeries, chemotherapy, or radiation?:na Type of Exam?:Initial Mechanism of injury?:fall PSA,Total- Diagnosticon - PSA, DIAGNOSTIC 0.02 ng/mL Normal 0.00-4.00 [facility] Comment on above: Result Comment: This test was performed using the [employer] tPSA method. Measured values of a patient??sample can vary depending on the testing procedure used. PSA values determined on patient samples by different testing procedures cannot be used interchangeably. If there is a change in PSA assays while monitoring therapy, sequential testing should be performed to confirm baseline values. Performed By: #### L 501.9940 ####[facility] [id number] [place], [address] Radiation Oncology Visiton 0 12-12-2024 Radiation Oncology Visit [facility] [address] [place] [address] OFFICE VISIT Date of Service: 12/12/24 1408 MR#: [id number] Acct: [id number] Name: JUVENCIO MACDONALD Rep #: [id number] : 1950 From: Flo Sow Age/Sex: 74/M [place] [facility] [place] Status: Signed Intake Vital Signs 11/14/24 15:12 [...] capsule (Gas 125 mg PO QD-BID PRN 10/26/2410/07 History Relief (simethicone)) Have you fallen in [...] left heart catheterization ( 04/18/14) Social History (Reviewed 12/12/24 @ 14:12 by Lizabeth Lucio Smoking Status: Never smoker alcohol intake: former [...] of 1/ (more content not included)... Normal [facility] Radiation Oncology Visiton 0 11-14-2024 Radiation Oncology Visit [facility] [address] [place] [address] OFFICE VISIT Date of Service: 11/14/24 1534 MR#: [id number] Acct: [id number] Name: JUVENCIO MACDONALD Rep #: [id number] : 1950 From: Flo Sow DO Age/Sex: 74/M [place] [facility] [place] Status: Signed End of Treatment Summary: Diagnosis: [...] the left prostate base, there is also Grzegorz 3+3 adenocarcinoma involving greater than 90% of [...] this patient. Sincerely, Flo Sow DO, MS Stock Room Manager, Department of Radiation Oncology [facility] 11/15/24 2142 Date Flo Sow DO [facility] Signature: Date (if applicable) CC: Dr. Gloria Dawkins MD; Dr. Mani Smith MD Normal [facility] Radiation Oncology Visit [facility] Cancer [address] [address] OFFICE VISIT Date of Service: 11/14/24 1511 MR#: [id number] Acct: [id number] Name: JUVENCIO MACDONALD Rep #: [id number] : 1950 From: Flo Sow DO Age/Sex: 74/M [place] [facility] [place] Status: Signed Intake Vital Signs 09/20/24 06:35 [...] dysuria Objective (more content not included)... Normal [facility] Radiation Oncology Visiton 0 11-09-2024 Radiation Oncology Visit [facility] [address] [place] [address] OFFICE VISIT Date of Service: 11/09/24 1504 MR#: [id number] Acct: [id number] Name: JUVENCIO MACDONALD Rep #: [id number] : 1950 From: Flo Sow DO Age/Sex: 74/M Location[place] [facility] [place] Status: Signed Intake Vital Signs 09/20/24 06:35 [...] dysuria Objectiv (more content not included)... Normal [facility] Radiation Oncology Visiton 0 11-01-2024 Radiation Oncology Visit [facility] [place] [address] OFFICE VISIT Date of Service: 11/01/24 1418 MR#: [id number] Acct: [id number] Name: JUVENCIO MACDONALD Rep #: [id number] : 1950 From: Flo Sow DO Age/Sex: 74/M [place] [facility] [place] Status: Signed Intake Vital Signs 09/20/24 06:35 [...] dysuria Object (more content not included)... Normal [facility] Radiation Oncology Visiton 0 10-26-2024 Radiation Oncology Visit [facility] [address] [place] [address] OFFICE VISIT Date of Service: 10/26/24 1520 MR#: [id number] Acct: [id number] Name: JUVENCIO MACDONALD Rep #: [id number] : 1950 From: Flo Sow DO Age/Sex: 74/M [place] [facility] [place] Status: Signed Intake Vital Signs 09/20/24 06:35 10/26/24 15:22 Height 5 ft 10 in 5 [...] fallen in the past year?: No [facility] History Wears glasses MRSA infection Arthritis [...] have sta (more content not included)... Normal [facility] Radiation Oncology Visiton 0 10-19-2024 Radiation Oncology Visit [facility] [address] [place] [address] OFFICE VISIT Date of Service: 10/19/24 1527 MR#: [id number] Acct: [id number] Name: JUVENCIO MACDONALD Rep #: [id number] : 1950 From: Flo Sow DO Age/Sex: 74/M [place] [facility] [place] Status: Signed Intake Vital Signs 09/20/24 06:35 [...] no erythema, (more content not included)... Normal [facility] Radiation Oncology Visiton 0 10-12-2024 Radiation Oncology Visit [facility] [place] [facility] [place] [address] OFFICE VISIT Date of Service: 10/12/24 1458 MR#: [id number] Acct: [id number] Name: JUVENCIO MACDONALD Rep #: [id number] : 1950 From: Flo Juanjose DO Age/Sex: 74/M [place] [facility] [place] Status: Signed Intake Vital Signs 09/20/24 06:35 [...] with high risk of recurrence due to Grzegorz score of 8 to 10 and PSA greater than 20: PLAN: Plan Assessment: Tolerating treatment well overall.??? I reviewed and approved all treatment associated imaging. Worsening urinary symptoms, more obstructive, flomax bid, finesteride qd, ibuprofen, stable to improved today Plan: Continue treatm (more content not included)... Normal [facility] Pelvis W/WO Contraston 10-01 Pelvis W/WO Contrast [facility] Imaging Services [address] [place], [place] [address] Pelvis W/WO Contrast MR#: [id number] Acct: [id number] Name: JUVECNIO MACDONALD Rep #: [id number] : 1950 M 74 From: Jean Claude conley MD PCP: Dr. Gloria Dawkins MD Status: [facility] Study: Pelvis W/WO Contrast Date of Exam: 10/01/24 Exam# [id number] Ordering Dr: [place] [id number] MR Prostate WO/W Contrast 10/01/2024 8:46 AM [...] Gloria Dawkins MD; Dr. Flo Sow DO Pole Framer: Signed Normal [facility] CREATININE FINGERSTICKon CREATININE WB < 1.0 Normal 0.70-1.30 [facility] Comment on above: Performed By: #### L 9100.0200 #### [facility] Laboratory [address] [place], [address] EGFR WB > 60.0000 Normal >60 [facility] Comment on above: Performed By: #### L 9100.0200 #### [facility] Laboratory [address] [place], [address] EGFROrdered By: Flo medrano on 09-27-2024 GFR/1.73 sq M.predicted among non-blacks MDRD (S/P/Bld) [Vol rate/Area] mL/min/{1.73_m2} >60 [facility] Discharge Instructionon Discharge Instruction [facility] Medical Records Department [address] [place] [address] Instructions for Home/Discharge Instructions 09/20/24 0831 MR#: [id number] Acct: [id number] Name: JUVENCIO MACDONALD Rep #: [id number] : 1950 74 From: Mani Smith MD PCP: Dr. Gloria Dawkins MD Status:REG SD Discharge Instructions Diet Discharge Diet: No restrictions DC O2, CPAP, BIPAP needs Home O2 Discharge instructions: No Dressing / Incision Discharge Activity: Return to Normal Activity and May Not Drive (while taking narcotic pain medications.) Dressing / Incision Call your doctor if you observe: Fever of 101 or Higher Follow Up Care Please Follow Up With: Mani Smith MD When: Call [phone] for an appointment Test Results: Test results from this visit will be discussed in further detail at your follow-up appointment, if applicable. Discharge Plan Admission Attending Provider: Mani Smith Primary Care Provider: Gloria Dawkins Instructions Print Language: Tajik Discharge Orders/Prescriptions Prescriptions: No Action pregabalin 100 [...] 81 mg PO DAILY Patient Comments: heart [facility] ciprofloxacin HCl 500 mg tablet 500 mg PO BID Referrals / Follow Up: Gloria Dawkins MD [Primary Care Provider] - Disposition Disposition (needs filled in before D/C Order can be placed): Home, Self Care 09/20/24830 Mani Smith MD CC: Dr. Gloria Dawkins MD Signed [facility] MR/POSTOP.[facility] 09-20-2024 MR/POSTOP.[facility] Medical Records Department [address] [place] [address] Anesthesia Postop Eval I 09/20/24837 MR#: [id number] Acct: [id number] Name: JUVENCIO MACDONALD Rep #: [id number] : 1950 74 From: Tara Zamudio CRNA PCP: Dr. Gloria Dawkins MD Status:REG [facility] [place] Race: C Location: [facility]-14 Anesthesia: Postop Eval I Current Vital Signs [...] Eval 1 completed: Yes 09/20/24839 Date Tara Swierz CHIEF SECURITY AND SAFETY OFFICER Cosigner Signature: Date CC: Signed Normal [facility] MR/IMQLPWML3qu 09-20-2024 MR/POSTOPAN2 [facility] Medical Records Department [address] [facility] [place] [address] Anesthesia Postop Eval II 09/20/24 1249 MR#: [id number] Acct: [id number] Name: JUVENCIO MACDONALD Rep #: [id number] : 1950 74 From: Jamaal Wilson MD PCP: Dr. Gloria Dawkins MD Status:[facility] Y Race: C [place] [facility] Anesthesia Postop Eval I Sum Postop Eval Completion status Anesthesia document: Postop Eval 1 completed: Yes Anesthesia Postop Eval I Summary Anesthesia Postop Eval I Summary: Anesthesia Postop Eval I: Assessment Summary Airway patent Yes 09/20/24 08:40 CHIEF SECURITY AND SAFETY OFFICER.JSWI Spontaneous unlabored Yes 09/20/24 08:40 CHIEF SECURITY AND SAFETY OFFICER.JSWI respirations Mental status Awake 09/20/24 08:40 CHIEF SECURITY AND SAFETY OFFICER.JSWI nausea No 09/20/24 08:40 CHIEF SECURITY AND SAFETY OFFICER.JSWI Vomiting No 09/20/24 08:40 CHIEF SECURITY AND SAFETY OFFICER.JSWI Anesthesia Postop Eval I: Fluid Summary Crystalloid volume administer 500 09/20/24 08:40 CHIEF SECURITY AND SAFETY OFFICER.JSWI (ml) Colloids volume administered ( ml) Blood Product volume administered (ml) Total IV fluid infused 500 09/20/24 08:40 CHIEF SECURITY AND SAFETY OFFICER.JSWI Anesthesia Postop Eval I: Summary Notes Anesthesia Complication No 09/20/24 08:40 CHIEF SECURITY AND SAFETY OFFICER.JSWI Anesthesia Complication Comment: Post-operative progress note Anesthesia: Postop Eval II Evaluation Mental status: Awake Pain Level: 0 nausea: No Vomiting: No 09/20/24 1249 Date Jamaal Wilson MD Cosigner Signature: Date CC: Signed Normal [facility] Operative Reporton 5 Operative Report [facility] Medical Records Department [address] [place] [address] Operative Report 09/20/24830 MR#: [id number] Acct: [id number] Name: JUVENCIO MACDONALD Rep #: [id number] : 1950 74 From: Mani Smith MD PCP: Dr. Gloria Dawkins MD Status:[facility] Location: [address] [address] Operative Report (Standard) Operative Information Date of Procedure: 09/20/24 Pre-Operative Diagnosis: Prostate cancer Post-Operative Diagnosis: The same Surgery/Procedure Performed: Placement of spacer gel matrix, placement of gold markers and prostate and preparation for radiation card checker: No Type of Anesthesia: General RN Documented [...] prostate. Then using a needle the first hat marker was placed into the right base of the prostate, the second hat marker was placed in the left base [...] Dawkins MD; Dr. Mani Smith MD Signed [facility] MR/PAT.CARLIon 09-04-2024 MR/PAT.[facility] Medical Records Department [address] [place] [address] PAT - Anesthesia 09/04/24 1548 MR#: [id number] Acct: [id number] Name: JUVENCIO MACDONALD Rep #: [id number] : 1950 74 From: Darrell Melton MD PCP: Dr. 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 Hx Hospitalization No 09/04/24 13:35 Any Problems [...] take am of surgery PONV PONV - casting wheel operator: PONV - casting wheel operator Female No 09/04/24 13:35 HX of Motion [...] 08/17/24 14:03 Respiratory Assessment Respiratory Assessment - casting wheel operator: Respiratory Tract Infection Hx - casting wheel operator Hx Respiratory Tract Infection No 09/04/24 13:35 STOP Sleep Apnea STOP Sleep Apnea - casting wheel operator: STOP Sleep Apnea - casting wheel operator Hx Hypertension Yes: CONTROLLED WITH MED 09/04/24 [...] Tobacco Use History Tobacco Use History - casting wheel operator: Tobacco Use History - casting wheel operator Tobacco Use Smoking Status Never smoker 09/04/24 13:35 Hx Tobacco Use No 09/04/24 13:35 Years Smoking Packs Smoked per Day Smoking Cessation Date was within the last 15 years Hx Smoking Cessation Date Hx Smoking Cessation No 09/04/24 13:35 Counseling Hematologic Medial History Hematologic Hx - casting wheel operator: 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 Normal [facility] Radiation Oncology Visiton 1 10-18-2023 Radiation Oncology Visit [facility] [address] [place], [place] [address] OFFICE VISIT Date of Service: 08/17/24 1402 MR#: [id number] Acct: [id number] Name: JUVENCIO MACDONALD Rep #: [id number] : 1950 From: Flo Sow DO Age/Sex: 74/M Location[place] [facility] [place] Status: Signed Intake Vital Signs 05/17/24 13:43 [...] the left prostate base, there is also Grzegorz 3+3 adenocarcinoma involving greater than 90% of [...] to radiatio (more content not included)... Normal [facility] PET/CT Tumor Base -Thigh Ini ton 08-15-2024 PET/CT Tumor Base -Thigh Init [facility] Imaging Services [address] [place] [address]2331 PET/CT Tumor Base -Thigh Init MR#: [id number] Acct: [id number] Name: JUVENCIO MACDONALD Rep #: [id number] : 1950 M 74 From: Quincy Mccabe PCP: Dr. Gloria Dawkins MD Status: [facility] Study: PET/CT Tumor Base -Thigh Init Date of Exam: Exam# [id number] Ordering Dr: [place] [id number] EXAMINATION: F 18 Pylarify PSMA PET-CT ? [...] this report are calculated using the exclusive [employer], (U.S. Patent No. [id number] [id number] [phone] [place] patent [phone] ). Standardization and correction of the FDG SUV metric exclusively available with [employer] intellectual property, allow for vendor non-specific objective quantitative sequential FDG PET-CT comparison and otherwise unobtainable optimization of the sensitiv (more content not included)... Normal [facility] Bone Scan Whole Bodyon 07-25 Bone Scan Whole Body [facility] Imaging Services [address] [place], [place] [address] Bone Scan Whole Body MR#: [id number] Acct: [id number] Name: JUVENCIO MACDONALD Rep #: [id number] : 1950 M 74 From: Quincy Mccabe PCP: Dr. Gloria Dawkins MD Status: [facility] Study: Bone Scan Whole Body Date of Exam: 07/25/24 Exam# [id number] Ordering Dr: [place] [id number] CLINICAL: 74-year-old male with history of primary [...] Signed: Quincy Eldridge DO at 8:53 EST , CC: Dr. Gloria Dawkins MD; Dr. Mani Smith MD Pole Framer: Signed Normal [facility] Abdomen/Pelvis W IV Cont ONL [facility] 07-24-2024 Abdomen/Pelvis W IV Cont ONLY [facility] Imaging Services [address] [place] [address] Abdomen/Pelvis W IV Cont ONLY MR#: [id number] Acct: [id number] Name: JUVENCIO MACDONALD Rep #: [id number] : 1950 M 74 From: Shola kirk MD PCP: Dr. Gloria Dawkins MD Status: REG CL Study: Abdomen/Pelvis W IV Cont ONLY Date of Exam: Exam# [id number] Ordering Dr: [place] [id number] STUDY: CT ABDOMEN AND PELVIS WITH CONTRAST [...] Gloria Dawkins MD; Dr. Mani Smith MD Pole Framer: Signed Normal [facility] CREATININE FINGERSTICKon CREATININE WB < 1.0 Normal 0.70-1.30 [facility] Comment on above: Performed By: #### L 9100.0200 #### [facility] Laboratory [address] [place], [place], [address] EGFR WB > 60.0000 Normal >60 [facility] Comment on above: Performed By: #### L 9100.0200 #### [facility] [address] [place], [place], [address] PROSTATE BXon 07-18-2024 PROSTATE BX --- Patient Age/Sex Location Account Attending Physician JUVENCIO MACDONALD 74/M LABSPEC [id number] Dr. Mani Smith MD Specimen: [id number] Received: 07/19/24 Status: TATYANA Hankins Num: [id number] Spec Type: PROST BX Subm Dr: Dr. Mani Smith MD HEADER OPERATION: Prostate biopsy PRE-OP DIAGNOSIS: Elevated PSA TISSUE SUBMITTED: A - Right apex, B - Right mid, C - Right base, D - Left apex, E - Left mid, F - Left base MICROSCOPIC DIAGNOSIS A. Right prostate, apex, core biopsy: Prostatic adenocarcinoma. Grzegorz grade: 3+3=6 Number of cores involved: 1/1 Proportion of tissue involved: >90% Perineural invasion: Suspected. Greatest tumor length: 1.1cm Focal high-grade prostatic intraepithelial neoplasia (HGPIN). B. Right prostate, mid, core biopsy: Prostatic adenocarcinoma. Boulder grade: 3+3=6 Number of cores involved: 1/1 Proportion of tissue involved: >90% Perineural invasion: Present. Greatest tumor length: 0.9 cm C. Right prostate, base, core biopsy: Prostatic adenocarcinoma. Boulder grade: 3+4=7 Number of cores involved: 1/1 [...] Left prostate, base, core biopsy: Prostatic adenocarcinoma. Grzegorz grade: 3+4=7 Patient Age/Sex Location Account Attending Physician JUVENCIO MACDONALD 74/M LABSPEC [id number] Dr. Mani Smith MD Number of cores involved: 09/13 Proportion of tissue involved: >90 % Perineural [...] is totally submitted in one cassette. / JAMES. 07/19/2024 TC:0 CPT: G0146 Patient Age/Sex Location Account Attending Physician JUVENCIO MACDONALD 74/M [facility]SPEC [id number] Dr. Mani Smith MD Signed (signature on file) Dr. Ray Milian MD 07/20/24 1316 - (more content not included)... Normal [facility] Comment on above: Performed By: #### P PROSB ####[facility] [id number] [place], [place], [address] Telephone Encounteron 2023 Ways Operator Authentication Interface Message Text Identification was verified by patient verbalizing his name and date of . Patient contacted Reports he was able to have the MRI done yesterday at [place]. Ninoska Hernández MD OK for patient to proceed with MRI. He will need to bring his Inspire remote to the test. Radiology will use the remote to confirm the Inspire is off before and after the scan. Radiology should be familiar with Inspire protocols for MRI. Thanks! Normal [facility] [employer] [facility] Pelvis W/WO Contraston 06-26 Pelvis W/WO Contrast [facility] Imaging Services [address] [place], [place] [address] Pelvis W/WO Contrast MR#: [id number] Acct: [id number] Name: JUVENCIO MACDONALD Rep #: [id number] : 1950 M 74 From: Jean Claude conley MD PCP: Dr. Gloria Dawkins MD Status: [facility] Study: Pelvis W/WO Contrast Date of Exam: 06/26/24 Exam# [id number] Ordering Dr: [place] [id number] EXAMINATION: MR Prostate WO/W Contrast COMPARISON: None [...] EDT , CC: Dr. Gloria Dawkins MD Pole Framer: Signed Normal [facility] Telephone Encounteron 2023 Ways Operator Authentication Interface Message Text Situation: Pt call [...] at Telephone Information: Thank you Normal [facility] [employer] [facility] Telephone Encounteron 2023 Ways Operator Authentication Interface Message Text ----- Message from Nurse Ratna sent at 06/16/2024 3:03 PM EDT ----- Regarding: Prostate concerns Hi Dr. Hernández. This patient called me and is having some urgent concerns regarding his prostate. He gets his care at [facility] but they could not get him in [...] thoughts when you return. Thank you, Ratna Michaels [employer] [facility] Telephone Encounteron 2023 Ways Operator Authentication Interface Message Text Returned call to patient. Pt stated that at this time he is having issues with his prostate and would like to focus on that issue for now. Once it is resolved, he will give me a call to get rescheduled. Will send a CallMiner message with my direct phone number. Ratna Camargo, BA, BSN, RN Clinical Major Assembler, Pulmonary and Sleep Medicine Normal [facility] [employer] [facility] Ways Operator Authentication Interface Message Text Patient needs to cx Inspire SS; he has other medical issues he needs to tend to. Normal [facility] Urine Cultureon 06-14-2024 URC Culture exhibits no growth. Normal [facility] Comment on above: Performed By: #### M 100.2200, L501.9940, L500.4050, L100.0100, L400.0001 ####[facility] [id number] [place], [address] CBC W/Diff, Automatedon 10 Absolute Lymph 1.48 X10 3/uL Normal 0.83-4.51 [facility] [facility] Comment on above: Performed By: #### M 100.2200, L501.9940, L500.4050, L100.0100, L400.0001 ####[facility] [address] [place], [address] Absolute Neut 4.2 X10 3/uL Normal 2.0-7.7 [facility] Comment on above: Performed By: #### M 100.2200, L501.9940, L500.4050, L100.0100, L400.0001 ####[facility] [address] [place], [address] Basophils/100 WBC (Bld) 0.4 % Normal 0-1 [facility] Comment on above: Performed By: #### M 100.2200, L501.9940, L500.4050, L100.0100, L400.0001 ####[facility] [address] [place], [address] Eosinophils/100 WBC (Bld) 4.6 % Normal 0-5 [facility] Comment on above: Performed By: #### M 100.2200, L501.9940, L500.4050, L100.0100, L400.0001 ####[facility] [address] [place], [address] Erythrocyte distribution width (RBC) [Ratio] 12.3 % Normal 11.6-14.6 [facility] Comment on above: Performed By: #### M 100.2200, L501.9940, L500.4050, L100.0100, L400.0001 ####[facility] [address] [place], [address] Hematocrit (Bld) [Volume fraction] 45.8 % Normal 40-54 [facility] Comment on above: Performed By: #### M 100.2200, L501.9940, L500.4050, L100.0100, L400.0001 ####[facility] [address] [place], [address] Hemoglobin (Bld) [Mass/Vol] 15.5 g/dL Normal 13.0-16.5 [facility] Comment on above: Performed By: #### M 100.2200, L501.9940, L500.4050, L100.0100, L400.0001 ####[facility] [address] [place], [address] IG% 0.300 Normal 0.0-0.9 [facility] Comment on above: Result Comment: IG% - Immature Granulocytes (promyelocytes, myelocytes and metamyelocytes) > 1% indicates that a LEFT SHIFT is Present. Performed By: #### M 100.2200, L501.9940, L500.4050, L100.0100, L400.0001 ####[facility] [address] [place], [address] Lymphocytes/100 WBC (Bld) 21.9 % Normal 19-41 [facility] Comment on above: Performed By: #### M 100.2200, L501.9940, L500.4050, L100.0100, L400.0001 ####[facility] [address] [place], [address] MCH (RBC) [Entitic mass] 30.3 pg Normal 27.0-32.0 [facility] Comment on above: Performed By: #### M 100.2200, L501.9940, L500.4050, L100.0100, L400.0001 ####[facility] [address] [place], [address] MCHC (RBC) [Mass/Vol] 33.8 g/dL Normal 32-36 [facility] Comment on above: Performed By: #### M 100.2200, L501.9940, L500.4050, L100.0100, L400.0001 ####[facility] [address] [place], [address] MCV (RBC) [Entitic vol] 89.6 fL Normal 80-94 [facility] Comment on above: Performed By: #### M 100.2200, L501.9940, L500.4050, L100.0100, L400.0001 ####[facility] [address] [place], [address] Monocytes/100 WBC (Bld) 11.1 % High 0-10 [facility] Comment on above: Performed By: #### M 100.2200, L501.9940, L500.4050, L100.0100, L400.0001 ####[facility] [address] [place], [address] Neutrophils/100 WBC (Bld) 61.7 % Normal 47-70 [facility] Comment on above: Performed By: #### M 100.2200, L501.9940, L500.4050, L100.0100, L400.0001 ####[facility] [address] [place], [address] Nucleated RBC (Bld) [#/Vol] 0 10*3/uL Normal 0-5 [facility] Comment on above: Performed By: #### M 100.2200, L501.9940, L500.4050, L100.0100, L400.0001 ####[facility] [address] [place], [address] Platelet mean volume (Bld) [Entitic vol] 11.7 fL Normal 6.2-12.0 [facility] Comment on above: Performed By: #### M 100.2200, L501.9940, L500.4050, L100.0100, L400.0001 ####[facility] [address] [place], [address] Platelets (Bld) [#/Vol] 178 10*3/uL Normal 150-450 [facility] Comment on above: Performed By: #### M 100.2200, L501.9940, L500.4050, L100.0100, L400.0001 ####[facility] [address] [place], [address] RBC (Bld) [#/Vol] 5.11 10*6/uL Normal 4.6-6.2 [facility] Comment on above: Performed By: #### M 100.2200, L501.9940, L500.4050, L100.0100, L400.0001 ####[facility] [address] [place], [address] RDW SD 40.1 fl Normal 35.1-43.9 [facility] Comment on above: Performed By: #### M 100.2200, L501.9940, L500.4050, L100.0100, L400.0001 ####[facility] [address] [place], [address] WBC (Bld) [#/Vol] 6.8 10*3/uL Normal 4.4-11.0 [facility] Comment on above: Performed By: #### M 100.2200, L501.9940, L500.4050, L100.0100, L400.0001 ####[facility] [address] [place], [address] Comprehensive Metabolic Prof ilon 06-13-2024 Albumin [Mass/Vol] 3.9 g/dL Normal 3.2-5.0 [facility] Comment on above: Performed By: #### M 100.2200, L501.9940, L500.4050, L100.0100, L400.0001 ####[facility] [address] [place], [address] Albumin/Globulin [Mass ratio] 1.3 {ratio} Normal 0.9-2.4 [facility] Comment on above: Performed By: #### M 100.2200, L501.9940, L500.4050, L100.0100, L400.0001 ####[facility] [address] [place], [address] ALK P 73 U/L Normal 45-117 [facility] Comment on above: Performed By: #### M 100.2200, L501.9940, L500.4050, L100.0100, L400.0001 ####[facility] [address] [place], [address] ALT [Catalytic activity/Vol] 28 U/L Normal 16-61 [facility] Comment on above: Performed By: #### M 100.2200, L501.9940, L500.4050, L100.0100, L400.0001 ####[facility] [address] [place], [address] AST [Catalytic activity/Vol] 22 U/L Normal 15-37 [facility] Comment on above: Performed By: #### M 100.2200, L501.9940, L500.4050, L100.0100, L400.0001 ####[facility] [address] [place], [address] Bilirubin [Mass/Vol] 0.40 mg/dL Normal 0.20-1.00 [facility] Comment on above: Result Comment: For patients on eltrombopag therapy, use of Dimension [place] TBIL is not recommended. Performed By: #### M 100.2200, L501.9940, L500.4050, L100.0100, L400.0001 ####[facility] [address] [place], [address] BUN/CRE 18.7 RATIO Normal 10-20 [facility] Comment on above: Performed By: #### M 100.2200, L501.9940, L500.4050, L100.0100, L400.0001 ####[facility] [address] [place], [address] CA,Total 9.4 mg/dL Normal 8.5-10.1 [facility] Comment on above: Performed By: #### M 100.2200, L501.9940, L500.4050, L100.0100, L400.0001 ####[facility] [address] [place], [address] Chloride [Moles/Vol] 108 mmol/L High 98-107 [facility] Comment on above: Performed By: #### M 100.2200, L501.9940, L500.4050, L100.0100, L400.0001 ####[facility] [address] [place], [address] CO2 [Moles/Vol] 25.0 mmol/L Normal 21.0-32.0 [facility] Comment on above: Performed By: #### M 100.2200, L501.9940, L500.4050, L100.0100, L400.0001 ####[facility] [address] [place], [address] Creatinine [Mass/Vol] 0.96 mg/dL Normal 0.70-1.30 [facility] Comment on above: Result Comment: The validity of the calculated GFR GFRAA in patients over 70 years has not been determined. Clinical correlation is essential. Performed By: #### M 100.2200, L501.9940, L500.4050, L100.0100, L400.0001 ####[facility] [address] [place], [address] EST GFR - AA 99 mL/min Normal >60 [facility] Comment on above: Result Comment: Afri can [place] GFR Calc Performed By: #### M 100.2200, L501.9940, L500.4050, L100.0100, L400.0001 ####[facility] [address] [place], [address] GAP 7 Normal 5-15 [facility] Comment on above: Performed By: #### M 100.2200, L501.9940, L500.4050, L100.0100, L400.0001 ####[facility] [address] [place], [address] GFR/1.73 sq M.predicted among non-blacks MDRD (S/P/Bld) [Vol rate/Area] 82 mL/min/{1.73_m2} Normal >60 [facility] Comment on above: Result Comment: Non- GFR Calc Performed By: #### M 100.2200, L501.9940, L500.4050, L100.0100, L400.0001 ####[facility] [address] [place], [address] Globulin (S) [Mass/Vol] 2.9 g/dL Normal 2.2-4.2 [facility] Comment on above: Performed By: #### M 100.2200, L501.9940, L500.4050, L100.0100, L400.0001 ####[facility] [address] [place], [address] Glucose [Mass/Vol] 90 mg/dL Normal 74-106 [facility] Comment on above: Performed By: #### M 100.2200, L501.9940, L500.4050, L100.0100, L400.0001 ####[facility] [address] [place], [address] Potassium [Moles/Vol] 3.8 mmol/L Normal 3.5-5.1 [facility] Comment on above: Performed By: #### M 100.2200, L501.9940, L500.4050, L100.0100, L400.0001 ####[facility] [address] [place], [address] Sodium [Moles/Vol] 141 mmol/L Normal 136-145 [facility] Comment on above: Performed By: #### M 100.2200, L501.9940, L500.4050, L100.0100, L400.0001 ####[facility] [address] [place], [address] T PROT 6.8 g/dL Normal 6.4-8.2 [facility] Comment on above: Performed By: #### M 100.2200, L501.9940, L500.4050, L100.0100, L400.0001 ####[facility] [address] [place], [address] Urea nitrogen [Mass/Vol] 18 mg/dL Normal 7-18 [facility] Comment on above: Performed By: #### M 100.2200, L501.9940, L500.4050, L100.0100, L400.0001 ####[facility] [address] [place], [address] PSA,Total- Diagnosticon PSA, DIAGNOSTIC 76.60 ng/mL High 0.0-4.0 [facility] Comment on above: Result Comment: This test was performed using the TPSA assay method for the OOTU chemistry system. Values obtained with different assay methods cannot be used interchangably. When changing PSA assays in the course of monitoring a patient, additional sequential testing should be carried out to confirm baseline values. Performed By: #### M 100.2200, L501.9940, L500.4050, L100.0100, L400.0001 ####[facility] [address] [place], [address] Urinalysis, Completeon 06-13 Mucus Ql (Urine sed) 2+ /hpf Normal [facility] Comment on above: Order Comment: CLEAN CATCH Performed By: #### M 100.2200, L501.9940, L500.4050, L100.0100, L400.0001 ####[facility] [address] [place], [address] CAST,HYALINE 0-5 SEEN Normal 0-5 [facility] Comment on above: Order Comment: CLEAN CATCH Performed By: #### M 100.2200, L501.9940, L500.4050, L100.0100, L400.0001 ####[facility] [address] [place], [address] BACTERIA RARE Normal None Seen [facility] Comment on above: Order Comment: CLEAN CATCH Performed By: #### M 100.2200, L501.9940, L500.4050, L100.0100, L400.0001 ####[facility] [address] [place], [address] RBC 0-5 SEEN Normal 0-5 [facility] Comment on above: Order Comment: CLEAN CATCH Performed By: #### M 100.2200, L501.9940, L500.4050, L100.0100, L400.0001 ####[facility] [address] [place], [address] WBC 0-5 SEEN Normal 0-5 [facility] Comment on above: Order Comment: CLEAN CATCH Performed By: #### M 100.2200, L501.9940, L500.4050, L100.0100, L400.0001 ####[facility] [address] [place], [address] EPI,SQUAMOUS 0 SEEN Normal 0-5 [facility] Comment on above: Order Comment: CLEAN CATCH Performed By: #### M 100.2200, L501.9940, L500.4050, L100.0100, L400.0001 ####[facility] [address] [place], [address] Progress Noteson 06-02-2024 Ways Operator Authentication Interface Message Text Sleep Medicine Follow-Up Documentation: Mode: Telephone Patient Home Phone: Patient Work Phone: Patient Cell Preferred phone: [phone] Consent: I confirmed patient understanding of the [...] exclusive of any teaching activities. Normal [facility] ADVANCED SLEEP TESTINGon [facility] f or Sleep Medicine [address] [place] [address] HOME SLEEP APNEA TEST (HSAT): Last, First: JUVENCIO MACDONALD Gender: Male Age (years): 73 Weight (lbs): 213 : 1950 BMI: 31 Referring: Ninoska Hernández MD [place] Score: 15 Interpreting: MARIA A DIAZ MD Insurance Claim Representative: Sammi Maldonado Study Type: HST Study Date: 05/20/2024 Location: [facility] STUDY SUMMARY: An ApneaLinktype III [...] study was scored and interpreted according to [place] [employer] guidelines. This study was deemed to be technically adequate based on accepted standards unless noted specifically above. - Clinical correlation is recommended for all patients undergoing home sleep testing. Caution is recommended with driving or during other activities requiring alertness for safety. [employer] Surgery Visit Reporton 05-17 Surgery Visit Report [facility] [address] [place], [place] [address] OFFICE VISIT Date of Service: 05/17/24 MR#: [id number] Acct: [id number] Name: JUVENCIO MACDONALD Rep #: [id number] : 1950 Provider: Dr. Tomasz benson MD Age/Sex: 73/M Location: [facility] Status: Signed Intake Vital Signs 03/25/23 17:55 [...] - Unspecif (more content not included)... Normal [facility] CBC WITH DIFFERENTIALon 04-14 Basophils (Bld) [#/Vol] [...] (Bld) [#/Vol] 0.04 10*3/uL Normal 0.00-0.20 [facility] Comment on above: Performed By: #### C BCDSAT ####[facility] [id number] [place], [place], Basophils/100 WBC (Bld) 0.6 % Normal <=1.9 [facility] Comment on above: Performed By: #### C BCDSAT ####[facility] [id number] [place], [place], Eosinophils (Bld) [#/Vol] 0.32 10*3/uL Normal 0.00-0.70 [facility] Comment on above: Performed By: #### C BCDSAT ####[facility] [id number] [place], [place], Eosinophils/100 WBC (Bld) 5.2 % High 0.1-4.0 [facility] Comment on above: Performed By: #### C BRADDSAT ####[facility] [id number] [place], [place], Erythrocyte distribution width (RBC) [Ratio] 13.0 % Normal 11.5-14.5 [facility] Comment on above: Performed By: #### C BRADDSAT ####[facility] [id number] [place], [place], Hematocrit (Bld) [Volume fraction] 47.2 % Normal 41.0-53.0 [facility] Comment on above: Performed By: #### C BCALPAAT ####[facility] [id number] [place] [address], Hemoglobin (Bld) [Mass/Vol] 15.6 g/dL Normal 13.9-16.3 [facility] Comment on above: Performed By: #### C BRADDSAT ####[facility] [id number] [place], [place], Lymphocytes (Bld) [#/Vol] 1.49 10*3/uL Normal 1.00-4.80 [facility] Comment on above: Performed By: #### C BCDSAT ####[facility] [id number] [place], Lymphocytes/100 WBC (Bld) 23.9 % Low 24.0-44.0 [facility] Comment on above: Performed By: #### C BCDSAT ####[facility] [id number] [place], MCH (RBC) [Entitic mass] 30.3 pg Normal 26.0-34.0 [facility] Comment on above: Performed By: #### C BCDSAT ####[facility] [id number] [place], MCHC (RBC) [Mass/Vol] 33.0 g/dL Normal 32.0-35.9 [facility] Comment on above: Performed By: #### C BCDSAT ####[facility] [id number] [place], MCV (RBC) [Entitic vol] 92 fL Normal 80-100 [facility] Comment on above: Performed By: #### C BCDSAT ####[facility] [id number] [place], Monocytes (Bld) [#/Vol] 0.74 10*3/uL Normal 0.20-1.00 [facility] Comment on above: Performed By: #### C BCDSAT ####[facility] [id number] [place], Monocytes/100 WBC (Bld) 11.9 % High 2.0-11.0 [facility] Comment on above: Performed By: #### C BCDSAT ####[facility] [id number] [place] [address], Neutrophils (Bld) [#/Vol] 3.64 10*3/uL Normal 1.50-8.00 [facility] Comment on above: Performed By: #### C BCDSAT ####[facility] [id number] [place], Neutrophils/100 WBC (Bld) 58.5 % Normal 31.0-76.0 [facility] Comment on above: Performed By: #### C BCDSAT ####[facility] [id number] [place], Platelet mean volume (Bld) [Entitic vol] 10.2 fL Normal 7.5-11.2 [facility] Comment on above: Performed By: #### C BCDSAT ####[facility] [id number] [place], Platelets (Bld) [#/Vol] 150 10*3/uL Normal 150-400 [facility] Comment on above: Performed By: #### C BCDSAT ####[facility] [id number] [place], RBC (Bld) [#/Vol] 5.13 10*6/uL Normal 4.50-5.90 [facility] Comment on above: Performed By: #### C BCDSAT ####[facility] [id number] [place], WBC (Bld) [#/Vol] 6.2 10*3/uL Normal 4.5-11.5 [facility] Comment on above: Performed By: #### C BCDSAT ####[facility] [id number] [place], [place], FERRITINon 05-03-2024 Ferritin [Mass/Vol] 138.5 ng/mL 23.9 - 336.2 ng/mL [facility] Interpretation and review of laboratory results Normal [facility] MELVIN 138.5 ng/mL Normal 23.9-336.2 [facility] Comment on above: Performed By: #### F ETIBC, MELVIN ####[facility] [id number] [place] [address], IRON AND TIBCon 05-03-2024 Iron [Mass/Vol] 108 ug/dL 50 - 212 ug/dL [facility] Iron binding capacity [Mass/Vol] 300 ug/mL 200 - 300 ug/mL [facility] saturation [Mass fraction] 36 % 20 - 55 % [facility] Transferrin [Mass/Vol] 214 mg/dL 203 - 362 mg/dL [facility] Note updated referen ce ranges. [facility] % SAT CORRECT PRD 36 % Normal 20-55 [facility] Comment on above: Order Comment: Note updated reference ranges. Performed By: #### F ETIBC, MELVIN ####[facility] [id number] [place], FE CORRECT PRD 108 ug/dL Normal 50-212 [facility] Comment on above: Order Comment: Note updated reference ranges. Performed By: #### F ETIBC, MELVIN ####[facility] [id number] [place], TIBC CORRECT PRD 300 ug/mL Normal 200-300 [facility] Comment on above: Order Comment: Note updated reference ranges. Performed By: #### F ETIBC, MELVIN ####[facility] [id number] [place], TRANSFER CORRECT PRD 214 mg/dL Normal 203-362 [facility] Comment on above: Order Comment: Note updated reference ranges. Performed By: #### F ETIBC, MELVIN ####[facility] [id number] [place], [place], No Panel Informationon 05-03 Interpretation and review of laboratory results Normal [facility] TSHon 05-03-2024 TSH Qn 1.402 m[IU]/L [facility] TSH 1.402 uIU/mL Normal 0.450-5.330 [facility] Comment on above: Performed By: #### T SH HS ####[facility] [id number] [place], VITAMIN D, 25-HYDROXYon 04-14 25-hydroxyvitamin D IA [Mass/Vol] 31.7 ng/mL 30 - 100 ng/mL [facility] Interpretation and review of laboratory results Normal [facility] Deficient : <20.0 ng /mL Insufficient : 20.0-29.9 ng/mL Sufficient : 30.0 - 100.0 ng/mL Potential Toxicity : >100.0 ng/mL [facility] VITD25 31.7 ng/mL Normal 30-100 [facility] Comment on above: Order Comment: Defic ient : <20.0 ng/mLInsufficient : 20.0-29.9 ng/mLSufficient : 30.0 - 100.0 ng/mLPotential Toxicity : >100.0 ng/mL Performed By: #### V ITD25 ####[facility] [id number] [place], [place], Progress Noteson 04-28-2024 Ways Operator Authentication Interface Message Text Sleep Medicine Follow-Up [...] exclusive of any teaching activities. Normal [facility] Telephone Encounteron 2023 Ways Operator Authentication Interface Message Text We will arrange a televisit lashon. Normal [facility] Addendum Noteon 04-25-2024 Ways Operator Authentication Interface Message Text Addended by: NINOSKA HERNÁNDEZ on: 04/25/2024 04:30 PM Modules accepted: Orders Normal [facility] Telephone Encounteron 2023 Ways Operator Authentication Interface Message Text Returned call to patient for Dr. Hernández regarding his Inspire and medications. Left VM with my call back number. Ratna Camargo BA, BSN, RN Clinical Major Assembler, Pulmonary and Sleep Medicine Normal [facility] Telephone Encounteron 2023 Ways Operator Authentication Interface Message Text PT is calling is having some concern on sleeping issue and medication. Please call to advise. Normal [facility] Telephone Encounteron 2023 Ways Operator Authentication Interface Message Text Returned patient's call. [...] Patient will call with results. Normal [facility] Ways Operator Authentication Interface Message Text Patient calling with update. Started taking Oxydone last Wednesday. January 14. Had trouble urinating which he knows is side effect of medication. Took some Flomax, which took care of urine flow, but now very tired. Requesting return call. Normal [facility] - [facility] toxicology on 01-14-2024 Amphetamines Ql (U) Negative Negative [facility] Barbiturates Screen Ql (U) Negative Negative [facility] Benzodiazepines Ql (U) Negative Negative [facility] Benzoylecgonine Screen Ql (U) Negative Negative [...] Interpretation and review of laboratory results Normal [facility] This toxicology scre en provides unconfirmed [...] ng/mL Buprenorphine 5 ng/mL Alcohol 10 mg/dL [facility] Patient Instructionson 01-13 Ways Operator Authentication Interface Message Text 1) For the [...] goes -- you can send me a [employer] message or call us directly at [phone]. If you end up taking more than [...] a urine test every year. Normal [facility] Progress Noteson 01-14-2024 Ways Operator Authentication Interface Message Text Sleep Medicine Follow-Up [...] variably fatigued during the day. Date Time Cypress Score 10/08/2023 1437 15 05/05/2022 1109 14 [...] 3-6 months. Ninoska Hernández MD Normal [facility] TOXICOLOGY SCREEN, UNCONFIRM EDon 01-14-2024 AMPH Negative Normal Negative [facility] Comment on above: Order Comment: This [...] By: #### T OX SC ####S PATHOLOGY [id number] [place] [address], BARBIT Negative Normal Negative [facility] Comment on above: Order Comment: This [...] By: #### T OX SC ####S PATHOLOGY [id number] [place] [address], BENZO Negative Normal Negative [facility] Comment on above: Order Comment: This [...] By: #### T OX SC ####S PATHOLOGY [id number] [place], [place], BUPRENORPHINE Negative Normal Cutoff: 5 [facility] Comment on above: Order Comment: This [...] By: #### T OX SC ####S PATHOLOGY [id number] [place] [address], COCAINE CL Negative Normal Negative [facility] Comment on above: Order Comment: This [...] By: #### T OX SC ####S PATHOLOGY [id number] [place] [address], Ethanol [Mass/Vol] Negative Normal Cutoff: 1 0 mg/dL [facility] Comment on above: Order Comment: This [...] By: #### T OX SC ####S PATHOLOGY [id number] [place] [address], FENTANYL Negative Normal Negative [facility] Comment on above: Order Comment: This [...] By: #### T OX SC ####S PATHOLOGY [id number] [place], [place], HYDROCODONE (PM) Negative Normal Negative [facility] Comment on above: Order Comment: This [...] By: #### T OX SC ####S PATHOLOGY [id number] [place], [place], Methadone Ql (U) Negative Normal Negative [facility] Comment on above: Order Comment: This [...] By: #### T OX SC ####S PATHOLOGY [id number] [place], [place], OPIATE Negative Normal Negative [facility] Comment on above: Order Comment: This [...] mg/dL Performed By: #### T OX SC ####[facility] PATHOLOGY [id number] [place] [address], OXYCODONE Negative Normal Cutoff: 100 [facility] Comment on above: Order Comment: This [...] assay method. Performed By: #### T OX WA ####[facility] PATHOLOGY [id number] [place] [address], PHENCYCL Negative Normal Negative [facility] Comment on above: Order Comment: This [...] mg/dL Performed By: #### T OX SC ####[facility] PATHOLOGY [id number] [place] [address], THC CL Negative Normal Negative [facility] Comment on above: Order Comment: This [...] 10 mg/dL Performed By: #### T OX WA ####[facility] PATHOLOGY [id number] [place], [address] Telephone Encounteron 2023 Ways Operator Authentication Interface Message Text Pharmacy comment: Has patient tried ropinirole? He is on several controlled drugs-I cannot fill oxycodone for restless leg. Normal [facility] Absolute lymphocyte countOrd ered By: Gloria Dawkins on 10-18-2023 Lymphocytes Auto (Unsp spec) [#/Vol] 1.90 10*3/uL 0.83-4.51 [facility] Automated lymphocyte count a s percentage of total leukocytesOrdered By: Gloria Dawkins on 10-18-2023 Lymphocytes/100 WBC Auto (Unsp spec) 23.3 % 19-41 [facility] Basophil percentageOrdered B y: Gloria Dawkins on 10-18-2023 Basophils/100 WBC (Bld) 0.6 % 0-1 [facility] Bilirubin [Mass/Vol] 0.40 mg/dL 0.20-1.00 [facility] Comment on above: For patients on eltr ombopag therapy, use of [place] TBIL is not recommended. Chloride [Moles/Vol] 110 mmol/L 98-107 [facility] Eosinophils/100 WBC (Bld) 3.3 % 0-5 [facility] Glucose [Mass/Vol] 112 mg/dL 74-106 [facility] Comment on above: Fasting Glucose resu lt from 100 to 125 mg/dL suggests IMPAIRED HOMEOSTASIS per A.D.A. criteria. Hemoglobin (Bld) [Mass/Vol] 15.7 g/dL 13.0-16.5 [facility] Monocytes/100 WBC (Bld) 10.0 % 0-10 [facility] Neutrophils (Bld) [#/Vol] 5.1 10*3/uL 2.0-7.7 [facility] Neutrophils/100 WBC (Bld) 62.2 % 47-70 [facility] Potassium [Moles/Vol] 3.8 mmol/L 3.5-5.1 [facility] Protein [Mass/Vol] 7.1 g/dL 6.4-8.2 [facility] Sodium [Moles/Vol] 143 mmol/L 136-145 [facility] WBC (Bld) [#/Vol] 8.2 10*3/uL 4.4-11.0 [facility] Determination of erythrocyte mean corpuscular volume (MCV)Ordered By: Gloria Dawkins on 10-18-2023 MCV (RBC) [Entitic vol] 90.2 fL 80-94 [facility] Erythrocyte distribution wid th ratioOrdered By: Gloria Dawkins on 10-18-2023 Erythrocyte distribution width (RBC) [Ratio] 12.4 % 11.6-14.6 [facility] Erythrocyte distribution wid th standard deviationOrdered By: Gloria Dawkins on 10-18-2023 Erythrocyte distribution width (RBC) [Entitic vol] 40.7 fL 35.1-43.9 [facility] Hematocrit Auto (Bld) [Volum e fraction]Ordered By: Gloria Dawkins on 10-18-2023 Hematocrit (Bld) [Volume fraction] 47.0 % 40-54 [facility] Immature granulocytes/100 WB C Auto (Bld)Ordered By: Gloria Dawkins on 10-18-2023 Immature granulocytes/100 WBC (Bld) 0.600 % 0.0-0.9 [facility] Comment on above: IG% - Immature Granu locytes (promyelocytes, myelocytes and metamyelocytes) > 1% indicates that a LEFT SHIFT is Present. Laboratory - Chemistry and C hemistry - challengeOrdered By: Gloria Dawkins on 10-18-2023 Albumin/Globulin [Mass ratio] 1.2 {ratio} 0.9-2.4 [facility] ALP [Catalytic activity/Vol] 78 U/L 45-117 [facility] ALT [Catalytic activity/Vol] 32 U/L 16-61 [facility] CO2 [Moles/Vol] 24.0 mmol/L 21.0-32.0 [facility] Globulin (S) [Mass/Vol] 3.3 g/dL 2.2-4.2 [facility] Lipase [Catalytic activity/Vol] 51 U/L 13-75 [facility] Comment on above: Please note:LIPASE r evised reference range effective 22. New Lipase methodology. Expected to produce lower values than the previous assay method. NEW Reference Range: 13 - 75 U/L Urea nitrogen/Creatinine [Mass ratio] 22.0 mg/mg 10-20 [facility] Laboratory - Drug toxicology Ordered By: Gloria Dawkins on 10-18-2023 Amphetamines Ql (U) Negative <1000 ng/mL [facility] Benzodiazepines Ql (U) Negative < 200 ng/mL [facility] Cannabinoids Screen Ql (U) Negative < 50 ng/mL [facility] Cocaine Ql (U) Negative < 300 ng/mL [facility] Opiates Ql (U) Negative < 300 ng/mL [facility] Laboratory - Hematology and Cell countsOrdered By: Gloria Dawkins on 10-18-2023 MCH (RBC) [Entitic mass] 30.1 pg 27.0-32.0 [facility] MCHC (RBC) [Mass/Vol] 33.4 g/dL 32-36 [facility] Nucleated RBC/100 WBC (Bld) [Ratio] 0 % 0-5 [facility] Platelets (Bld) [#/Vol] 160 10*3/uL 150-450 [facility] No Panel InformationOrdered By: Gloria Dawkins on 10-18-2023 Estimated GFR (MDRD) Amer 100 mL/min >60 [facility] Comment on above: GFR Calc Estimated GFR (MDRD) Non-Af Amer 83 mL/min >60 [facility] Comment on above: Non- GFR Calc MDMA (Ecstasy) Screen Negative < 500 ng/mL [facility] Urine Barbiturates Screen Negative < 200 ng/mL [facility] Urine Drug Screen Comment [facility] Comment on above: CONFIRMATORY TESTING FOR ALL [...] Methadone Screen Negative < 300 ng/mL [facility] Platelet mean volume Bill-Ec ker (Bld) [Entitic vol]Ordered By: Gloria Dawkins on 10-18-2023 Platelet mean volume (Bld) [Entitic vol] 11.6 fL 6.2-12.0 [facility] RBC Auto (Bld) [#/Vol]Ordere d By: Gloria Dawkins on 10-18-2023 RBC (Bld) [#/Vol] 5.21 10*6/uL 4.6-6.2 [facility] Serum or plasma calcium ambrosio urement (mass/volume)Ordered By: Gloria Dawkins on 10-18-2023 Calcium [Mass/Vol] 8.9 mg/dL 8.5-10.1 [facility] Serum or plasma creatinine m easurement (mass/volume)Ordered By: Gloria Dawkins on 10-18-2023 Creatinine [Mass/Vol] 0.95 mg/dL 0.70-1.30 [facility] Comment on above: The validity of the calculated GFR & GFRAA in patients over 70 years has not been determined. Clinical correlation is essential. Serum or plasma urea nitroge n measurement (mass/volume)Ordered By: Gloria Dawkins on 10-18-2023 Urea nitrogen [Mass/Vol] 21 mg/dL 7-18 [facility] Thin prep Papanicolaou smear with manual screeningOrdered By: Gloria Dawkins on 10-18-2023 Thin prep Papanicolaou smear with manual screening 3.8 g/dL 3.2-5.0 [facility] Thin prep Papanicolaou smear with manual screening 12 U/L 15-37 [facility] Thin prep Papanicolaou smear with manual screening 9 5-15 [facility] Urine phencyclidine (PCP) de tectionOrdered By: Gloria Dawkins on 10-18-2023 Phencyclidine Ql (U) Negative < 25 ng/mL [facility] Patient Instructionson 10-08 Ways Operator Authentication Interface Message Text Please ask Dr. [...] know. Please give us a call at [phone]. Normal [facility] Progress Noteson 10-08-2023 Ways Operator Authentication Interface Message Text Sleep Medicine Follow-Up [...] iron infusion. Tried temazepam (rx by Dr. Dawknis) which he felt caused excessive daytime drowsiness. Date Time Cypress Score 10/08/2023 1437 15 05/05/2022 1109 14 [...] Other programmin Ninoska Hernández MD Normal [facility] Absolute lymphocyte countOrd ered By: Gloria Dawkins on 08-04-2023 Lymphocytes Auto (Unsp spec) [#/Vol] 1.63 10*3/uL 0.83-4.51 [facility] Basophil percentageOrdered B y: Gloria Dawkins on 08-04-2023 Basophils/100 WBC (Bld) 0.7 % 0-1 [facility] Bilirubin [Mass/Vol] 0.60 mg/dL 0.20-1.00 [facility] Comment on above: For patients on eltr ombopag therapy, use of [place] TBIL is not recommended. Chloride [Moles/Vol] 108 mmol/L 98-107 [facility] Eosinophils/100 WBC (Bld) 6.5 % 0-5 [facility] Glucose [Mass/Vol] 117 mg/dL 74-106 [facility] Comment on above: Fasting Glucose resu lt from 100 to 125 mg/dL suggests IMPAIRED HOMEOSTASIS per A.D.A. criteria. Neutrophils (Bld) [#/Vol] 2.9 10*3/uL 2.0-7.7 [facility] Neutrophils/100 WBC (Bld) 52.7 % 47-70 [facility] Potassium [Moles/Vol] 3.8 mmol/L 3.5-5.1 [facility] Protein [Mass/Vol] 6.7 g/dL 6.4-8.2 [facility] Sodium [Moles/Vol] 144 mmol/L 136-145 [facility] WBC (Bld) [#/Vol] 5.6 10*3/uL 4.4-11.0 [facility] Blood erythrocytes count (nu mber/volume)Ordered By: Gloria Dawkins on 08-04-2023 RBC (Bld) [#/Vol] 5.45 10*6/uL 4.6-6.2 [facility] Blood hemoglobin measurement (mass/volume)Ordered By: Gloria Dawkins on 08-04-2023 Hemoglobin (Bld) [Mass/Vol] 16.6 g/dL 13.0-16.5 [facility] Blood lymphocytes/100 leukoc ytesOrdered By: Gloria Dawkins on 08-04-2023 Lymphocytes/100 WBC (Bld) 29.3 % 19-41 [facility] Blood monocytes/100 leukocyt esOrdered By: Gloria Dawkins on 08-04-2023 Monocytes/100 WBC (Bld) 10.4 % 0-10 [facility] Blood platelet mean volumeOr dered By: Gloria Dawkins on 08-04-2023 Platelet mean volume (Bld) [Entitic vol] 12.1 fL 6.2-12.0 [facility] Determination of erythrocyte mean corpuscular volume (MCV)Ordered By: Gloria Dawkins on 08-04-2023 MCV (RBC) [Entitic vol] 93.0 fL 80-94 [facility] Hematocrit Auto (Bld) [Volum e fraction]Ordered By: Gloria Dawkins on 08-04-2023 Hematocrit (Bld) [Volume fraction] 50.7 % 40-54 [facility] Laboratory - Chemistry and C hemistry - challengeOrdered By: Gloria Dawkins on 08-04-2023 ALP [Catalytic activity/Vol] 72 U/L 45-117 [facility] ALT [Catalytic activity/Vol] 35 U/L 16-61 [facility] CO2 [Moles/Vol] 32.0 mmol/L 21.0-32.0 [facility] Globulin (S) [Mass/Vol] 3.0 g/dL 2.2-4.2 [facility] Urea nitrogen/Creatinine [Mass ratio] 22.1 mg/mg 10-20 [facility] Laboratory - Hematology and Cell countsOrdered By: Gloria Dawkins on 08-04-2023 Erythrocyte distribution width (RBC) [Entitic vol] 42.3 fL 35.1-43.9 [facility] Erythrocyte distribution width (RBC) [Ratio] 12.3 % 11.6-14.6 [facility] Immature granulocytes/100 WBC (Bld) 0.400 % 0.0-0.9 [facility] Comment on above: IG% - Immature Granu locytes (promyelocytes, myelocytes and metamyelocytes) > 1% indicates that a LEFT SHIFT is Present. MCH (RBC) [Entitic mass] 30.5 pg 27.0-32.0 [facility] Nucleated RBC/100 WBC (Bld) [Ratio] 0 % 0-5 [facility] MCHC Auto (RBC) [Mass/Vol]Or dered By: Gloria Dawkins on 08-04-2023 MCHC (RBC) [Mass/Vol] 32.7 g/dL 32-36 [facility] No Panel InformationOrdered By: Gloria Dawkins on 08-04-2023 Estimated GFR (MDRD) Amer 101 mL/min >60 [facility] Comment on above: GFR Calc Estimated GFR (MDRD) Non-Af Amer 83 mL/min >60 [facility] Comment on above: Non- GFR Calc Thyroid Stimulating Hormone (TSH) 1.44 uIU/mL 0.358-3.74 [facility] Platelets bldOrdered By: Isabela Dawkins on 08-04-2023 Platelets (Bld) [#/Vol] 143 10*3/uL 150-450 [facility] Serum or plasma albumin ambrosio urement (mass/volume)Ordered By: Gloria Dawkins on 08-04-2023 Albumin [Mass/Vol] 3.7 g/dL 3.2-5.0 [facility] Serum or plasma albumin/glob ulin mass ratioOrdered By: Gloria Dawkins on 08-04-2023 Albumin/Globulin [Mass ratio] 1.2 {ratio} 0.9-2.4 [facility] Serum or plasma calcium ambrosio urement (mass/volume)Ordered By: Gloria Dawkins on 08-04-2023 Calcium [Mass/Vol] 8.7 mg/dL 8.5-10.1 [facility] Serum or plasma creatinine m easurement (mass/volume)Ordered By: Gloria Dawkins on 08-04-2023 Creatinine [Mass/Vol] 0.95 mg/dL 0.70-1.30 [facility] Comment on above: The validity of the calculated GFR & GFRAA in patients over 70 years has not been determined. Clinical correlation is essential. Serum or plasma urea nitroge n measurement (mass/volume)Ordered By: Gloria Dawkins on 08-04-2023 Urea nitrogen [Mass/Vol] 21 mg/dL 7-18 [facility] Thin prep Papanicolaou smear with manual screeningOrdered By: Gloria Dawkins on 08-04-2023 Thin prep Papanicolaou smear with manual screening 20 U/L 15-37 [facility] Thin prep Papanicolaou smear with manual screening 4 5-15 [facility] Absolute lymphocyte countOrd ered By: Dr. Dawkins on 12-18-2022 Lymphocytes Auto (Unsp spec) [#/Vol] 1.65 10*3/uL 0.83-4.51 [facility] Basophil percentageOrdered B y: Dr. Dawkins on 12-18-2022 Basophils/100 WBC (Bld) 0.5 % 0-1 [facility] Bilirubin [Mass/Vol] 0.60 mg/dL 0.20-1.00 [facility] Comment on above: For patients on eltr ombopag therapy, use of [place] TBIL is not recommended. Chloride [Moles/Vol] 106 mmol/L 98-107 [facility] Eosinophils/100 WBC (Bld) 4.2 % 0-5 [facility] Glucose [Mass/Vol] 99 mg/dL 74-106 [facility] Neutrophils (Bld) [#/Vol] 4.1 10*3/uL 2.0-7.7 [facility] Neutrophils/100 WBC (Bld) 61.2 % 47-70 [facility] Potassium [Moles/Vol] 3.7 mmol/L 3.5-5.1 [facility] Protein [Mass/Vol] 6.4 g/dL 6.4-8.2 [facility] Sodium [Moles/Vol] 140 mmol/L 136-145 [facility] WBC (Bld) [#/Vol] 6.7 10*3/uL 4.4-11.0 [facility] Blood erythrocytes count (nu mber/volume)Ordered By: Dr. Dawkins on 12-18-2022 RBC (Bld) [#/Vol] 5.17 10*6/uL 4.6-6.2 [facility] Blood hemoglobin measurement (mass/volume)Ordered By: Dr. Dawkins on 12-18-2022 Hemoglobin (Bld) [Mass/Vol] 16.1 g/dL 13.0-16.5 [facility] Blood lymphocytes/100 leukoc ytesOrdered By: Dr. Dawkins on 12-18-2022 Lymphocytes/100 WBC (Bld) 24.8 % 19-41 [facility] Blood monocytes/100 leukocyt esOrdered By: Dr. Dawkins on 12-18-2022 Monocytes/100 WBC (Bld) 9.0 % 0-10 [facility] Blood platelet mean volumeOr dered By: Dr. Dawkins on 12-18-2022 Platelet mean volume (Bld) [Entitic vol] 12.3 fL 6.2-12.0 [facility] Determination of erythrocyte mean corpuscular volume (MCV)Ordered By: Dr. Dawkins on 12-18-2022 MCV (RBC) [Entitic vol] 92.5 fL 80-94 [facility] Hematocrit Auto (Bld) [Volum e fraction]Ordered By: Dr. Dawkins on 12-18-2022 Hematocrit (Bld) [Volume fraction] 47.8 % 40-54 [facility] Laboratory - Chemistry and C hemistry - challengeOrdered By: Dr. Dawkins on 12-18-2022 ALP [Catalytic activity/Vol] 76 U/L 45-117 [facility] ALT [Catalytic activity/Vol] 31 U/L 16-61 [facility] CO2 [Moles/Vol] 28.0 mmol/L 21.0-32.0 [facility] Cobalamin (Vitamin B12) [Mass/Vol] 462 pg/mL 211-911 [facility] Globulin (S) [Mass/Vol] 2.6 g/dL 2.2-4.2 [facility] Urea nitrogen/Creatinine [Mass ratio] 23.6 mg/mg 10-20 [facility] Laboratory - Hematology and Cell countsOrdered By: Dr. Dawkins on 12-18-2022 Erythrocyte distribution width (RBC) [Entitic vol] 42.5 fL 35.1-43.9 [facility] Erythrocyte distribution width (RBC) [Ratio] 12.5 % 11.6-14.6 [facility] Immature granulocytes/100 WBC (Bld) 0.300 % 0.0-0.9 [facility] Comment on above: IG% - Immature Granu locytes (promyelocytes, myelocytes and metamyelocytes) > 1% indicates that a LEFT SHIFT is Present. MCH (RBC) [Entitic mass] 31.1 pg 27.0-32.0 [facility] Nucleated RBC/100 WBC (Bld) [Ratio] 0 % 0-5 [facility] (RBC) [Mass/Vol]Or dered By: Dr. Dawkins on 12-18-2022 MCHC (RBC) [Mass/Vol] 33.7 g/dL 32-36 [facility] No Panel InformationOrdered By: Dr. Dawkins on 12-18-2022 Anti-Nuclear Antibody Screen Negative Negative [facility] Comment on above: Performed at: [facility] [address] [id number] Director: Homer Bernstein PhD, Phone: [phone] Estimated GFR (MDRD) Amer 98 mL/min >60 [facility] Comment on above: GFR Calc Estimated GFR (MDRD) Non-Af Amer 81 mL/min >60 [facility] Comment on above: Non- GFR Calc Thyroid Stimulating Hormone (TSH) 1.07 uIU/mL 0.358-3.74 [facility] Total Iron Binding Capacity 247 ug/dL 250-450 [facility] Platelets bldOrdered By: Dr. Dawkins on 12-18-2022 Platelets (Bld) [#/Vol] 149 10*3/uL 150-450 [facility] Serum or plasma albumin ambrosio urement (mass/volume)Ordered By: Dr. Dawkins on 12-18-2022 Albumin [Mass/Vol] 3.8 g/dL 3.2-5.0 [facility] Serum or plasma albumin/glob ulin mass ratioOrdered By: Dr. Dawkins on 12-18-2022 Albumin/Globulin [Mass ratio] 1.5 {ratio} 0.9-2.4 [facility] Serum or plasma calcium ambrosio urement (mass/volume)Ordered By: Dr. Dawkins on 12-18-2022 Calcium [Mass/Vol] 9.0 mg/dL 8.5-10.1 [facility] Serum or plasma creatinine m easurement (mass/volume)Ordered By: Dr. Dawkins on 12-18-2022 Creatinine [Mass/Vol] 0.98 mg/dL 0.70-1.30 [facility] Comment on above: The validity of the calculated GFR & GFRAA in patients over 70 years has not been determined. Clinical correlation is essential. Serum or plasma ferritin gertrude surement (mass/volume)Ordered By: Dr. Dawkins on 12-18-2022 Ferritin [Mass/Vol] 228 ng/mL 26-388 [facility] Serum or plasma folate measu rement (mass/volume)Ordered By: Dr. Dawkins on 12-18-2022 Folate [Mass/Vol] 24.10 ng/mL 3.1-55.4 [facility] Serum or plasma urea nitroge n measurement (mass/volume)Ordered By: Dr. Dawkins on 12-18-2022 Urea nitrogen [Mass/Vol] 23 mg/dL 7-18 [facility] Thin prep Papanicolaou smear with manual screeningOrdered By: Dr. Dawkins on 12-18-2022 Thin prep Papanicolaou smear with manual screening 16 U/L 15-37 [facility] Thin prep Papanicolaou smear with manual screening 6 5-15 [facility] FERRITINon 08-15-2022 Ferritin [Mass/Vol] 53.6 ng/mL 11.5 - 300.0 ng/mL [facility] Interpretation and review of laboratory results Normal [facility] IRON AND TIBCon 08-14-2022 Interpretation and review of laboratory results Abnormal [facility] Iron [Mass/Vol] 141 ug/dL High 30 - 125 ug/dL [facility] Iron binding capacity [Mass/Vol] 315 ug/mL High 200 - 300 ug/mL [facility] Iron saturation [Mass fraction] 45 % 20 - 55 % [facility] Transferrin [Mass/Vol] 225 mg/dL 210 - 375 mg/dL [facility] VITAMIN D, 25-HYDROXYon 12-0 25-hydroxyvitamin D IA [Mass/Vol] 30.2 ng/mL 30 - 100 ng/mL [facility] Interpretation and review of laboratory results Normal [facility] Laboratory - Microbiology an d Antimicrobial susceptibilityon 01-20-2022 SARS-CoV-2 (COVID-19) RNA TOBY+probe Ql (Unsp spec) Positive Not Detect [facility] Work Phone: Comment on above: Normal Reference [...] or has had recent exposure. ADVANCED SLEEP TESTING [facility] or Sleep Medicine [address] [place] [address] HOME SLEEP APNEA TEST (HSAT): Last, First: JUVENCIO MACDONALD Gender: Male Age (years): 71 Weight (lbs): 202 : 1950 BMI: 29 Referring: Ninoska Hernández MD Cypress Score: 14 Interpreting: Ninoska Hernández MD Insurance Claim Representative: Simi Mcmanus Study Type: HST Study Date: 11/25/2021 Location: Main campus STUDY SUMMARY: An ApneaLinktype III monitor was used for this study. DIAGNOSES: - Mild Residual Obstructive Sleep Apnea (G47.33) with Inspire NS HSAT with an SOWMYA 4% of 7.8 [...] study was scored and interpreted according to [employer] guidelines. This study was deemed to be technically adequate based on accepted standards unless noted specifically above. - Clinical correlation is recommended for all patients undergoing home sleep testing. Caution is recommended with driving or during other activities requiring alertness for safety. [facility] Office Visit: [facility] 05-13-20 17 Documentation of current medications (procedure) Done Invalid Interpretation Code [facility] Work Phone: [phone] Fall risk assessment No [facility] Work Phone: [phone] Protein mass conc Done [facility] Work Phone: [phone] Replaced Document: Lina Chatterjee 05-13-2017 EKG QRS axis 45 deg [facility] Work Phone: [phone] electrocardiogram interpretation Sinus Rhythm WITHIN NORMAL LIMITS Invalid Interpretation Code [facility] Work Phone: [phone] GE use only - for [employer] import when terms are not otherwise specified 380 ms Invalid Interpretation Code [facility] Work Phone: [phone] Interpretation Sinus Rhythm WITHIN NORMAL LIMITS [facility] Work Phone: [phone] P [place] 43 deg [facility] Work Phone: [phone] P wave axis, electrocardiogram 43 deg Invalid Interpretation Code [facility] Work Phone: [phone] [place] Interval 164 ms [facility] Work Phone: [phone] IL interval, electrocardiogram 164 ms Invalid Interpretation Code [facility] Work Phone: [phone] Pulse (Heart Rate) 65 /min Invalid Interpretation Code [facility] Work Phone: [phone] QRS axis, electrocardiogram 45 deg Invalid Interpretation Code [facility] Work Phone: [phone] QRS Duration 94 ms [facility] Work Phone: [phone] QRS duration, electrocardiogram 94 ms Invalid Interpretation Code [facility] Work Phone: [phone] QT Interval new path ms [facility] Work Phone: [phone] QT interval, electrocardiogram new path ms Invalid Interpretation Code [facility] Work Phone: [phone] QTc [place] 380 ms [facility] Work Phone: [phone] T [place] 42 deg [facility] Work Phone: [phone] T wave axis, electrocardiogram 42 deg Invalid Interpretation Code [facility] Work Phone: [phone] Lab Report: Lipid Profileon 11-17-2016 Cholesterol 181 mg/dL 200 [facility] Work Phone: [phone] HDL Cholesterol 57 mg/dL [facility] Work Phone: [phone] LDL Cholesterol 104 mg/dL 0-130 [facility] Work Phone: [phone] Triglyceride 98 mg/dL [facility] Work Phone: [phone] very low density lipoproteins 20 mg/dL 5-40 [facility] Work Phone: [phone] Lab Report: Liver Profileon 11-17-2016 Alanine aminotransferase (ALT) 24 U/L 12-78 [facility] Work Phone: [phone] Albumin 4.0 g/dL 3.4-5.0 [facility] Work Phone: [phone] Alkaline phosphatase (ALP) 75 U/L Invalid Interpretation Code 45-117 [facility] Work Phone: [phone] ALP enzyme act/vol (Bld) 75 U/L 45-117 [facility] Work Phone: [phone] Aspartate aminotransferase (AST) 19 U/L 15-37 [facility] Work Phone: [phone] Bilirubin (direct) 0.14 mg/dL 0.00-0.30 [facility] Work Phone: [phone] Bilirubin (total) 0.80 mg/dL 0.20-1.00 [facility] Work Phone: [phone] Globulin 3.1 g/dL Invalid Interpretation Code 2.3-3.5 [facility] Work Phone: [phone] Globulin mass conc (S) 3.1 g/dL 2.3-3.5 [facility] Work Phone: [phone] Protein 7.1 g/dL 6.4-8.2 [facility] Work Phone: [phone] Clinical Lists Update: 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 plate grinder 10-23-2016 Left ventricular Ejection fraction 65 % [facility] Work Phone: [phone] Office Visit: evaluation ope n wounds right hand - surgery 10/25/15on 12-30-2015 Alcoholism counseling (procedure) no Invalid Interpretation Code [facility] Work Phone: [phone] Dietary management education, guidance, and counseling (procedure) yes Invalid Interpretation Code [facility] Work Phone: [phone] Protein mass conc no [facility] Work Phone: [phone] Tobacco smoking status NHIS Never [facility] Work Phone: [phone] Tobacco smoking status PRIS Never smoker [facility] Work Phone: [phone] Tobacco use [facility] Never smoker Invalid Interpretation Code [facility] Work Phone: [phone] Microbiology: Culture, Fungu s w/ [id number] 11-24-2015 GE use only - for [employer] import when terms are not otherwise specified . Invalid Interpretation Code [facility] Work Phone: [phone] Lab Report: CBC W/Diff, Auto matedon 10-29-2015 Basophils/100 leukocytes 0.4 % Invalid Interpretation Code 0-1 [facility] Work Phone: [phone] Basophils/100 WBC (Bld) 0.4 % 0-1 [facility] Work Phone: [phone] Eosinophils/100 leukocytes 4.2 % Invalid Interpretation Code 0-5 [facility] Work Phone: [phone] Eosinophils/100 WBC (Bld) 4.2 % 0-5 [facility] Work Phone: [phone] Erythrocyte distribution width Ratio (RBC) 39.4 fL 35.1-43.9 [facility] Work Phone: [phone] Erythrocyte distribution width Ratio (RBC) 12.2 % 11.6-14.6 [facility] Work Phone: [phone] Erythrocytes (RBC) 4.65 10*6/uL Invalid Interpretation Code 4.6-6.2 [facility] Work Phone: [phone] Hematocrit (HCT) 41.8 % Invalid Interpretation Code 40-54 [facility] Work Phone: [phone] Hematocrit Volume Fraction (Bld) 41.8 % 40-54 [facility] Work Phone: [phone] Hemoglobin (HGB) 14.3 g/dL 13.0-16.5 [facility] Work Phone: [phone] Immature granulocytes #/vol (Bld) 0.700 % 0.0-0.9 [facility] Work Phone: [phone] immature granulocytes, percentage of total cells, blood 0.700 % Invalid Interpretation Code 0.0-0.9 [facility] Work Phone: [phone] Lymphocytes 1.21 X10 3/UL Invalid Interpretation Code 0.83-4.51 [facility] Work Phone: [phone] Lymphocytes #/vol (Bld) 1.21 X10 3/UL 0.83-4.51 [facility] Work Phone: [phone] Lymphocytes/100 leukocytes 17.3 % Low 19-41 [facility] Work Phone: [phone] Lymphocytes/100 WBC (Bld) 17.3 % Low 19-41 [facility] Work Phone: [phone] MCH 30.8 pg Invalid Interpretation Code 27.0-32.0 [facility] Work Phone: [phone] MCH Entitic mass (RBC) 30.8 pg 27.0-32.0 [facility] Work Phone: [phone] MCHC 34.2 G/GL Invalid Interpretation Code 32-36 [facility] Work Phone: [phone] MCHC mass conc (RBC) 34.2 G/GL 32-[address] [facility] Work Phone: [phone] MCV 89.9 fL Invalid Interpretation Code 80-94 [facility] Work Phone: [phone] MCV Entitic volume (RBC) 89.9 fL 80-94 [facility] Work Phone: [phone] Monocytes/100 leukocytes 14.6 % High 0-10 [facility] Work Phone: [phone] Monocytes/100 WBC (Bld) 14.6 % High 0-10 [facility] Work Phone: [phone] neutrophil count, blood 4.4 X10 3/UL Invalid Interpretation Code 2.0-7.7 [facility] Work Phone: [phone] Neutrophils #/vol (Bld) 4.4 X10 3/UL 2.0-7.7 [facility] Work Phone: [phone] Neutrophils/100 leukocytes 62.8 % Invalid Interpretation Code 47-70 [facility] Work Phone: [phone] Neutrophils/100 WBC (Bld) 62.8 % 47-70 [facility] Work Phone: [phone] Platelet mean volume Entitic volume (Bld) 10.9 fL 6.2-12.0 [facility] Work Phone: [phone] Platelets 174 10*3/mm3 Invalid Interpretation Code 150-450 [facility] Work Phone: [phone] Platelets #/vol (Bld) 174 10*3/mm3 150-450 [facility] Work Phone: [phone] PMV by Alicia 10.9 fL Invalid Interpretation Code 6.2-12.0 [facility] Work Phone: [phone] RBC #/vol (Bld) 4.65 10*6/uL 4.6-6.2 [facility] Work Phone: [phone] RDW-CA 12.2 % Invalid Interpretation Code 11.6-14.6 [facility] Work Phone: [phone] red blood cell distribution width, size density 39.4 fL Invalid Interpretation Code 35.1-43.9 [facility] Work Phone: [phone] WBC #/vol (Bld) 7.0 10*3/uL 4.4-11.0 [facility] Work Phone: [phone] WBC (Leukocytes) 7.0 10*3/uL Invalid Interpretation Code 4.4-11.0 [facility] Work Phone: [phone] Lab Report: CK-MB Quantitati ve and Indexon 10-29-2015 CKMB 1.2 ng/mL Invalid Interpretation Code 0.0-5.0 [facility] Work Phone: [phone] CKMB 2.6 % High 0.0-1.4 [facility] Work Phone: [phone] Creatine kinase (CK) 46 U/L 39-[address] [facility] Work Phone: [phone] Creatine kinase.MB 1.2 NG/ML 0.0-5.0 [facility] Work Phone: [phone] Lab Report: Comprehensive Me tabolic Profilon 10-29-2015 Albumin/Globulin Ratio 0.9 {ratio} 0.9-2.4 [facility] Work Phone: [phone] Anion gap 6 mmol/L Invalid Interpretation Code 5-15 [facility] Work Phone: [phone] Anion gap molar conc 6 mmol/L 5-[address] [facility] Work Phone: [phone] BUN/Creatinine Ratio 20.6 RATIO High 10-[address] [facility] Work Phone: [phone] Calcium 8.4 mg/dL Low 8.5-10.1 [facility] Work Phone: [phone] Chloride 106 mmol/L 98-107 [facility] Work Phone: [phone] CO2 31.0 mmol/L Invalid Interpretation Code 21.0-32.0 [facility] Work Phone: [phone] CO2 ppres (BldV) 31.0 mmol/L 21.0-32.0 [facility] Work Phone: [phone] Creatinine 0.92 mg/dL 0.70-1.30 [facility] Work Phone: [phone] Creatinine 84.86 mL/min Invalid Interpretation Code [facility] Work Phone: [phone] eGFR (non-black) 88 mL/min/{1.73_m2} >60 [facility] Work Phone: [phone] eGFR (non-black) 107 mL/min/{1.73_m2} Invalid Interpretation Code >60 [facility] Work Phone: [phone] EST GFR - AA 107 mL/min >60 [facility] Work Phone: [phone] Glucose 118 mg/dL High 70-110 [facility] Work Phone: [phone] Glucose mass conc 118 mg/dL High 70-110 [facility] Work Phone: [phone] Potassium 4.0 mmol/L 3.5-5.1 [facility] Work Phone: [phone] Sodium 143 mmol/L 136-145 [facility] Work Phone: [phone] Urea nitrogen 19 mg/dL High 7-18 [facility] Work Phone: [phone] Lab Report: Troponin-Ion Troponin I ng/mL <0.06 [facility] Work Phone: [phone] Lab Report: Vancomycin, Trou gh Levelon 10-28-2015 Vancomycin 11.6 ug/mL 5.0-15.0 [facility] Work Phone: [phone] Lab Report: Prealbuminon Prealbumin 9.6 mg/dL Low 20.0-40.0 [facility] Work Phone: [phone] Prealbumin Elph mass conc 9.6 mg/dL Low 20.0-40.0 [facility] Work Phone: [phone] Lab Report: MRSA Wound DNA b y PCRon 10-25-2015 INR in blood by coagulation Positive High Negative [facility] Work Phone: [phone] Lab Report: Partial Thrombop last Timeon 10-25-2015 aPTT 38.8 s High 24.1-36.2 [facility] Work Phone: [phone] Lab Report: Erythrocyte Sed Rateon 10-24-2015 Erythrocyte sedimentation rate 13 mm/h 0-20 [facility] Work Phone: [phone] Lab Report: Hemoglobin A1con 10-24-2015 HbA1c 5.7 % 4.2-6.3 [facility] Work Phone: [phone] Office Visiton 04-16-2015 cardiac risk group B [facility] Work Phone: [phone] General cardiovascular disease 10Y risk [#] [place]D'Agostjesus Not enough information [facility] Work Phone: [phone] Lab Report: MIACREon 014 Urine, creatinine 183.7 mg/dL Normal NO RANGE EST. [facility] Work Phone: [phone] Urine, microalbumin 0.97 mg/dL Normal Units converted. See lab report for original value. [facility] Work Phone: [phone] Clinical Lists Update: Pre03-27-2014 basophils as percent of blood leukocytes, manual count 0.7 % [facility] Work Phone: [phone] eosinophils as percent of blood leukocytes, manual count 2.6 % [facility] Work Phone: [phone] neutrophils, band form as percent of blood leukocytes, manual count 61.1 % [facility] Work Phone: [phone] Thyroid stimulating hormone (TSH) 0.99 u[iU]/mL [facility] Work Phone: [phone] Clinical Lists Update: Pre03-26-2014 Globulin 2.9 g/dL Invalid Interpretation Code [facility] Work Phone: [phone] Globulin mass conc (S) 2.9 g/dL [facility] Work Phone: [phone] Vital Signs Date Time Vital Sign Value Performing Clinician Facility 12-12-2024 14:12040 Body height 177.[address] Gloria Dawkins MD Work Phone: [facility] 12-12-2024 14:120400 Body mass index (BMI) [Ratio] 30.5 kg/m2 Dr. Gloria Dawkins MD Work Phone: [facility] 12-12-2024 14:12-0400 Body temperature 96.9 [degF] Dr. Gloria Dawkins MD Work Phone: [facility] 12-12-2024 14:12-0400 Body weight 96.[address] Gloria Dawkins MD Work Phone: [facility] 12-12-2024 14:12-0400 Diastolic blood pressure 75 mm[Hg] Dr. Gloria Dawkins MD Work Phone: 4(594)847-280824 [place] [address] 12-12-2024 14:12-0400 Heart rate 60 /min Dr. Gloria Dawkins MD Work Phone: 3(603)790-560095 [place] [address] 12-12-2024 14:12-0400 Respiratory rate 18 /min Dr. Gloria Dawkins MD Work Phone: 7(213)559-759949 [address] 12-12-2024 14:12-0400 SaO2% (BldA) [Mass fraction] 96 % Dr. Gloria Dawkins MD Work Phone: 4(101)086-504224 [place] [address] 12-12-2024 14:12-0400 Systolic blood pressure 136 mm[Hg] Dr. Gloria Dawkins MD Work Phone: 5(711)099-418649 [address] 11-14-2024 15:12-0500 Body mass index (BMI) [Ratio] 31 kg/m2 Dr. Gloria Dawkins MD Work Phone: 8(532)891-054324 [place] [address] 11-14-2024 15:12-0500 Body temperature 96.6 [degF] Dr. Gloria Dawkins MD Work Phone: [facility] 11-14-2024 15:12-0500 Body weight 98.[address] Gloria Dawkins MD Work Phone: 9(833)371-032024 [place] [address] 11-14-2024 15:12-0500 Diastolic blood pressure 77 mm[Hg] Dr. Gloria Dawkins MD Work Phone: 3(435)070-985024 [place] [address] 11-14-2024 15:12-0500 Heart rate 75 /min Dr. Gloria Dawkins MD Work Phone: [facility] 11-14-2024 15:12-0500 Respiratory rate 18 /min Dr. Gloria Dawkins MD Work Phone: [facility] 11-14-2024 15:12-0500 SaO2% (BldA) [Mass fraction] 94 % Dr. Gloria Dawkins MD Work Phone: [facility] 11-14-2024 15:12-0500 Systolic blood pressure 171 mm[Hg] Dr. Gloria Dawkins MD Work Phone: 9(132)935-963824 [place] [address] 11-09-2024 15:07-0500 Body mass index (BMI) [Ratio] 30.9 kg/m2 Dr. Gloria Dawkins MD Work Phone: 5(004)019-894924 [place] [address] 11-09-2024 15:07-0500 Body temperature 97.8 [degF] Dr. Gloria Dawkins MD Work Phone: 9(523)101-360195 [place] [address] 11-09-2024 15:07-0500 Body weight [address] Gloria Dawkins MD Work Phone: 2(664)795-405624 [place] [address] 11-09-2024 15:07-0500 Diastolic blood pressure 74 mm[Hg] Dr. Gloria Dawkins MD Work Phone: 2(127)768-066724 [place] [address] 11-09-2024 15:07-0500 Heart rate 72 /min Dr. Gloria Dawkins MD Work Phone: 9(962)168-584324 [place] [address] 11-09-2024 15:07-0500 Respiratory rate 18 /min Dr. Gloria Dawkins MD Work Phone: 4(189)338-033224 [place] [address] 11-09-2024 15:07-0500 SaO2% (BldA) [Mass fraction] 94 % Dr. Gloria Dawkins MD Work Phone: 6(506)268-782024 [place] [address] 11-09-2024 15:07-0500 Systolic blood pressure 133 mm[Hg] Dr. Gloria Dawkins MD Work Phone: 3(684)347-648524 [place] [address] 11-01-2024 14:19-0500 Body mass index (BMI) [Ratio] 30.9 kg/m2 Dr. Gloria Dawkins MD Work Phone: 9(886)170-831124 [place] [address] 11-01-2024 14:19-0500 Body temperature 96.8 [degF] Dr. Gloria Dawkins MD Work Phone: [facility] 11-01-2024 14:19-0500 Body weight 97.[address] Gloria Dawikns MD Work Phone: [facility] 11-01-2024 14:19-0500 Diastolic blood pressure 78 mm[Hg] Dr. Gloria Dawkins MD Work Phone: 9(939)676-754695 [place] [address] 11-01-2024 14:19-0500 Heart rate 75 /min Dr. Gloria Dawkins MD Work Phone: 0(248)597-505395 [place] [address] 11-01-2024 14:19-0500 Respiratory rate 18 /min Dr. Gloria Dawkins MD Work Phone: 5(097)559-614395 [place] [address] 11-01-2024 14:19-0500 SaO2% (BldA) [Mass fraction] 95 % Dr. Gloria Dawkins MD Work Phone: 9(995)365-990624 [place] [address] 11-01-2024 14:19-0500 Systolic blood pressure 146 mm[Hg] Dr. Gloria Dawkins MD Work Phone: 4(288)105-133095 [place] [address] 10-26-2024 15:22-0500 Body mass index (BMI) [Ratio] 30.5 kg/m2 Dr. Gloria Dawkins MD Work Phone: 0(430)555-689895 [place] [address] 10-26-2024 15:22-0500 Body temperature 97 [degF] Dr. Gloria Dawkins MD Work Phone: 5(687)851-391824 [place] [address] 10-26-2024 15:22-0500 Body weight 96.[address] Gloria Dawkins MD Work Phone: 6(909)916-023724 [place] [address] 10-26-2024 15:22-0500 Diastolic blood pressure 76 mm[Hg] Dr. Gloria Dawkins MD Work Phone: 2(194)800-862395 [place] [address] 10-26-2024 15:22-0500 Heart rate 75 /min Dr. Gloria Dawkins MD Work Phone: 1(672)272-091749 [address] 10-26-2024 15:22-0500 Respiratory rate 16 /min Dr. Gloria Dawkins MD Work Phone: [facility] 10-26-2024 15:22-0500 SaO2% (BldA) [Mass fraction] 94 % Dr. Gloria Dawkins MD Work Phone: [facility] 10-26-2024 15:22-0500 Systolic blood pressure 145 mm[Hg] Dr. Gloria Dawkins MD Work Phone: [facility] 01-14-2024 15:25-0400 Body height 177.8 cm Ninoska Hernández MD Work Phone: [facility] 01-14-2024 15:25-0400 Body mass index (BMI) [Ratio] 30.5 kg/m2 Ninoska Hernández MD Work Phone: [facility] 01-14-2024 15:25-0400 Body temperature 98.71 [degF] Ninoska Hernández MD Work Phone: [facility] 01-14-2024 15:25-0400 Body weight 96.44 kg Ninoska Hern[facility]dez [facility] 01-14-2024 15:25-0400 Diastolic blood pressure 67 mm[Hg] Ninoska Hernández MD [facility] 01-14-2024 15:25-0400 Heart rate 76 /min Ninoska Hernández MD [facility] 01-14-2024 15:25-0400 Respiratory rate 18 /min Ninoska Hernández MD [facility] 01-14-2024 15:25-0400 SaO2% (BldA) [Mass fraction] 97 % Ninoska Hernández MD Work [facility] Comment on above: RA 01-14-2024 15:25-0400 Systolic blood pressure 122 mm[Hg] Ninoska Hernández MD [facility] 10-08-2023 14:35-0500 Body height 175.3 cm Ninoska Hernández MD Work Phone: [facility] 10-08-2023 14:35-0500 Body mass index (BMI) [Ratio] 31.04 kg/m2 Ninoska Hernández MD Work Phone: [facility] 10-08-2023 14:35-0500 Body temperature 98.71 [degF] Ninoska Hernández MD Work Phone: [facility] 10-08-2023 14:35-0500 Body weight 95.35 kg Ninoska Hernández MD Work Phone: [facility] 10-08-2023 14:35-0500 Diastolic blood pressure 64 mm[Hg] Ninoska Hernández MD Work Phone: [facility] 10-08-2023 14:35-0500 Heart rate 78 /min Ninoska Hernández MD Work Phone: [facility] 10-08-2023 14:35-0500 SaO2% (BldA) [Mass fraction] 97 % Ninoska Hernández MD Work Phone: [facility] 10-08-2023 14:35-0500 Systolic blood pressure 120 mm[Hg] Ninoska Hernández MD Work Phone: [facility] 03-25-2023 19:56-0400 Diastolic blood pressure 76 mm[Hg] [facility] 03-25-2023 19:56-0400 Heart rate 80 /min [facility] 03-25-2023 19:56-0400 Respiratory rate 16 /min [facility] 03-25-2023 19:56-0400 SaO2% (BldA) [Mass fraction] 100 % [facility] 03-25-2023 19:56-0400 Systolic blood pressure 138 mm[Hg] [facility] 03-25-2023 17:55-0400 Body height 177.8 cm [facility] 03-25-2023 17:55-0400 Body mass index (BMI) [Ratio] 29.5 kg/m2 [facility] 03-25-2023 17:55-0400 Body temperature 98.1 [degF] [facility] 03-25-2023 17:55-0400 Body weight 93.21 kg [facility] 10-12-2022 14:18-0500 Body temperature 98.1 [degF] Infusion 5 [facility] 10-12-2022 14:18-0500 Diastolic blood pressure 67 mm[Hg] Infusion 5 [facility] 10-12-2022 14:18-0500 Heart rate 57 /min Infusion 5 [facility] 10-12-2022 14:18-0500 Respiratory rate 16 /min Infusion 5 [facility] 10-12-2022 14:18-0500 Systolic blood pressure 123 mm[Hg] Infusion 5 [facility] 05-05-2022 11:08-0400 Body height 177.8 cm Ninoska Hernández MD Work Phone: [facility] 05-05-2022 11:08-0400 Body mass index (BMI) [Ratio] 28.98 kg/m2 Ninoska Hern[facility]dez [facility] 05-05-2022 11:08-0400 Body weight 91.63 kg Ninoska Hern[facility]dez [facility] 05-05-2022 11:08-0400 Diastolic blood pressure 70 mm[Hg] Ninoska Hern[facility]dez MD [facility] 05-05-2022 11:08-0400 Heart rate 62 /min Ninoska Hernández MD [facility] 05-05-2022 11:08-0400 Respiratory rate 18 /min Ninoska Hernández MD [facility] 05-05-2022 11:08-0400 SaO2% (BldA) [Mass fraction] 97 % Ninoska Hernández MD Work Phone: [employer] 05-05-2022 11:08-0400 Systolic blood pressure 121 mm[Hg] Ninoska Hernández MD Work Phone[facility] 05-13-2017 16:32-0400 Heart rate 65 /min Sana Dawkins [facility] Work Phone: 05-13-2017 10:04-0400 BMI (Body Mass Index) 29.55 kg/m2 [facility] Work Phone: 05-13-2017 10:04-0400 BP Diastolic 70 mm[Hg] [facility] Work Phone: 05-13-2017 10:04-0400 BP Systolic 122 mm[Hg] [facility] Work Phone: 05-13-2017 10:04-0400 Height 177.8 cm [facility] Work Phone: 05-13-2017 10:04-0400 [...] Date Encounter Type Care Provider Facility Start: 02-23-2025 End: 02-23-2025 Emergency department patient visit KEYSHAWN MAYA ORTEGA [facility] Start: 02-16-2025 End: 02-16-[address] Gloria Dawkins MD Work Phone: [facility] Work Phone: Start: 02-16-2025 End: 02-16-2025 Patient encounter procedure Fabiolajob Gomez -Laboratory Work Phone: Start: 02-16-2025 End: 02-16-2025 ambulatory Fabiola Gomez Facility:[facility] Start: 12-12-2024 End: 12-12-[address] Flo Sow [facility] Work Phone: Start: 12-12-2024 End: 12-12-2024 ambulatory Gloria Dawkins Facility:[facility] Start: 11-15-2024 ambulatory Flo Sow Facility: [facility] Start: 11-15-[address] Flo Rice on DO -Radiation Oncology Start: 11-14-2024 End: 11-14-[address] Flo Sow [facility] Work Phone: Start: 11-14-2024 End: 11-14-2024 ambulatory Flo Sow Facility:[facility] Start: 11-09-2024 End: 11-09-[address] Flo Sow [facility] Work Phone: Start: 11-09-2024 End: 11-09-2024 ambulatory Flo Sow Facility:[facility] Start: 11-01-2024 End: 11-01-[address] Flo Sow DO [facility] Work Phone: Start: 11-01-2024 End: 11-01-2024 ambulatory Flo Sow Facility:[facility] Start: 10-26-2024 End: 10-26-[address] Flo Sow [facility] Work Phone: Start: 10-26-2024 End: 10-26-2024 ambulatory Flo Sow Facility:[facility] Start: 10-19-2024 End: 10-19-2024 ambulatory Gloria Dawkins Facility:[facility] Start: 10-12-2024 End: 10-12-2024 ambulatory Flo Sow Facility:[facility] Start: 10-05-2024 ambulatory Flo Sow Facility: [facility] Start: 10-01-2024 End: 10-01-2024 ambulatory Flo Sow Facility:[facility] Start: 09-27-2024 ambulatory Flo Sow Facility: [facility] Start: 09-20-2024 End: 09-20-2024 ambulatory Mani Smith Facility:[facility] Start: 08-17-2024 End: 08-17-2024 ambulatory Mani Smith Facility:[facility] Start: 08-15-2024 End: 08-15-2024 ambulatory Mani Smith Facility:[facility] Start: 08-03-2024 ambulatory Gloria Dawkins Facility:[facility] Start: 07-25-2024 End: 07-25-2024 ambulatory Mani Smith Facility:[facility] Start: 07-24-2024 End: 07-24-2024 ambulatory Mani Smith Facility:[facility] Start: 07-18-2024 End: 07-18-2024 ambulatory Mani Smith Facility:[facility] Start: 06-26-2024 End: 06-26-2024 ambulatory Gloria Dawkins Facility:[facility] Start: 06-23-2024 End: 06-27-2024 Telephone encounter Ninoska Hernández MD Work Phone: [facility] Comment on above: Pt Call Start: 06-16-2024 End: 06-16-2024 Telephone encounter Ninoska Hernández MD Work Phone: [facility] Start: 06-14-2024 End: 06-14-2024 Letter encounter Fili Armando MD Work Phone: [facility] Start: 06-14-2024 End: 06-14-2024 Telephone encounter [facility] Work Phone: [facility] Comment on above: [facility] SS Start: 06-13-2024 End: 06-13-2024 ambulatory Gloria Dawkins Facility:[facility] Start: 06-02-2024 End: 06-02-2024 Phys/qhp telephone evaluation 21-30 min Ninoska Hernández MD Work Phone: [facility] Comment on above: PARI (obstructive sle ep apnea) (Primary Dx); RLS (restless legs syndrome) Start: 06-02-2024 End: 06-02-2024 ambulatory GLORIA DAWKINS Facility:[facility] Start: 05-19-2024 End: 05-31-2024 ambulatory [facility] Work Phone: [facility] Comment on above: PARI (obstructive sle ep apnea) (Primary Dx); Class 1 obesity; Bradycardia Start: 05-17-2024 End: 05-17-2024 ambulatory Gloria Dawkins [place] [place] Start: 05-03-2024 End: 05-03-2024 Clinical Support [facility] Comment on above: Arrived Start: 04-28-2024 End: 04-28-2024 ambulatory [facility] Facility:[facility] Start: 04-28-2024 End: 04-28-2024 Office outpatient visit 25 minutes Ninoska Hernández MD Work Phone: [facility] Comment on above: PARI (obstructive sle ep apnea) (Primary Dx); Presence of functional implant; RLS (restless legs syndrome); Disorder of iron metabolism; Vitamin D insufficiency Start: 04-21-2024 End: 04-24-2024 Telephone encounter Ninoska Hernández MD Work Phone: [facility] Comment on above: Care Coordination (I nspire and medications) Start: 03-12-2024 End: 03-12-2024 Letter encounter Fili Armando MD Work Phone: [facility] Start: 01-21-2024 Telephone encounter Ninoska henderson MD Work Phone: [facility] Start: 01-14-2024 End: 01-14-2024 Office outpatient visit 40 minutes Ninoska Hernández MD Work Phone: [facility] Comment on above: RLS (restless legs s yndrome) (Primary Dx); PARI (obstructive sleep apnea); Therapeutic drug monitoring; Presence of functional implant; Body mass index (BMI) 30.0-30.9, adult Start: 01-14-2024 End: 01-14-2024 Clinical Support [facility] Comment on above: Arrived Start: 10-18-2023 End: 10-18-2023 ambulatory [facility] Work Phone: Start: 10-18-2023 End: 10-18-2023 Patient encounter procedure [facility] Work Phone: Start: 10-08-2023 End: 10-08-2023 Office outpatient visit 40 minutes Ninoska Hernández MD Work Phone: [facility] Comment on above: Hypersomnia with sle ep apnea (Primary Dx); Presence of functional implant; PARI (obstructive sleep apnea); Body mass index (BMI) 31.0-31.9, adult Start: 10-08-2023 End: 10-09-2023 ambulatory UNKNOWN PROVIDER Facility:[facility] Start: 08-04-2023 End: 08-04-2023 ambulatory [facility] Work Phone: Start: 08-04-2023 End: 08-04-2023 Patient encounter procedure [facility] Work Phone: Start: 05-12-2023 [facility] Comment on above: Missed Lab Tests; An emia Start: 03-25-2023 End: 03-25-2023 Emergency department patient visit [facility] Work Phone: Start: 02-09-2023 [facility] Phone: [facility] Comment on above: Missed Lab Tests; An emia Start: 12-18-2022 End: 12-18-2022 ambulatory [facility] Work Phone: Start: 12-18-2022 End: 12-18-2022 Patient encounter procedure [facility] Start: 10-12-2022 End: 10-12-2022 Patient encounter procedure Infusion Chair 5 [facility] Comment on above: Restless leg syndrom e due to iron deficiency anemia (Primary Dx) Start: 09-15-2022 Letter encounter Fili evans MD Work Phone: [facility] Start: 09-08-2022 Letter encounter Fili evans MD Work Phone: [facility] Financial Clearance Start: 09-03-2022 Orders Only [facility] Start: 08-19-2022 Telephone encounter Chavo Coles Pharm D [facility] Comment on above: Anemia; IV iron Start: 08-17-2022 Telephone encounter Sophia [facility] Work Phone: [facility] Comment on above: Anemia; Consult with specialist Start: 08-15-2022 Letter encounter Fili evans MD Work Phone: [facility] Start: 08-15-2022 Telephone encounter Ninoska henderson MD Work Phone: [facility] Comment on above: Future Order Future Order; Refere nce 99 Start: 08-14-2022 End: 08-14-2022 Clinical Support [facility] Comment on above: Arrived Start: 08-10-2022 End: 08-10-2022 Phys/qhp telephone evaluation 21-30 min Ninoska Hernández MD Work Phone: [facility] Comment on above: RLS (restless legs s yndrome) (Primary Dx); PARI (obstructive sleep apnea); Presence of functional implant Start: 05-05-2022 End: 05-05-2022 Office outpatient visit 40 minutes Ninoska Hernández MD Work Phone: [facility] Comment on above: PARI (obstructive sle ep apnea) (Primary Dx); Insomnia, unspecified type; Presence of functional implant; Encounter for adjustment and management of neurostimulator; Body mass index (BMI) 28.0-28.9, adult Start: 03-09-2022 Letter encounter Fili evans MD Work Phone: [facility] Start: 01-20-2022 End: 01-20-2022 Patient encounter procedure [facility]-Laboratory, Specimen Start: 12-30-2021 Telephone encounter - - [facility] Start: 12-18-2021 Letter encounter Fili evans MD Work Phone: [facility] Patient Financial Services Start: 12-05-2021 ambulatory Ninoska Hernández MD Work Phone: [facility] Comment on above: Home sleep test resu lts Start: 12-05-2021 E-mail encounter viviane short caregiver Ninoska Hernández MD Work Phone: [facility] Start: 11-24-2021 End: 12-05-2021 ambulatory [facility] Work Phone: [facility] Comment on above: PARI (obstructive sle ep apnea) (Primary Dx); Presence of functional implant Procedures Date Procedure Procedure Detail Performing Clinician Start: 02-16-2025 Assay of prostate specific antigen total Dr. Gloria Dawkins MD Work Phone: Comment on above: This test was perfor med using the [employer] tPSA method. Measured values of a patient sample can vary depending on the testing procedure used. PSA values determined on patient samples by different testing procedures cannot be used interchangeably. If there is a change in PSA assays while monitoring therapy, sequential testing should be performed to confirm baseline values. Start: 09-27-[address] Pritesh Dawkins MD Work Phone: Start: 05-20-2024 ADVANCED SLEEP TESTING Ninoska Hernández [...] Phone: Start: 05-13-2017 End: 05-13-2017 FARIHA Mortensen TAKE AWAY ATTENDANT Work Phone: Start: 05-13-2017 End: 05-13-2017 Follow Up Appt 6 months Ninoska Mortensen TAKE AWAY ATTENDANT Work Phone: Start: 10-26-2016 End: 11-17-2016 *Hepatic [...] MD Work Phone: Start: 04-16-2014 End: 04-16-2014 FARIHA Alvares MD Work Phone: Start: 04-16-2014 End: [...] inguinal hernia S/P left inguinal hernia repair Comment on above: 11/29 Plan of Treatment Date Care Activity Detail Author Start: 11-08-2028 Screening for malign ant neoplasm of colon [facility] Start: 08-19-2026 Lipid panel Cholesterol [facility] Start: 06-26-2024 End: 06-27-2024 ambulatory 06/26/2024 9:00 PM EDT Sleep Study Visit [facility] [id number] [place] [id number] [facility] Start: 06-16-2024 End: 06-16-2025 MR Prostate WO and W contrast IV MR PROSTATE W/W/O Imaging Routine Elevated PSA Expected: 06/16/2024, Expires: 06/16/2025 [facility] Work Phone: Comment on above: Expected: 06/16/2024 , Expires: 06/16/2025 Start: 06-13-2024 Influenza vaccination Influenza Vacc ine (#1) [facility] Start: 06-02-2024 End: 06-02-2024 Patient encounter procedure 06/02/2024 3:00 PM EDT Office Visit [facility] [address] [place] [address] Ninoska Hernández MD [address] [facility] [place] [address] [facility] Start: 05-19-2024 End: 05-19-2024 ambulatory 05/19/2024 3:00 PM EDT Sleep Study Visit [facility] [address] [place] [address] [facility] Start: 05-14-2024 COVID-19 Vaccine ( season) COVID-19 Vaccine ( season) [facility] Start: 05-14-2024 Influenza vaccination Influenza Vacc ine (#1) [facility] Start: 04-28-2024 End: 07-27-2024 25 hydroxy includes fractions if performed VITAMIN D, 25-HYDROXY Lab Routine Vitamin D insufficiency Expected: 04/28/2024 (Approximate), Expires: 07/27/2024 [facility] Comment on above: Expected: 04/28/2024 (Approximate), Expires: 07/27/2024 Start: 04-28-2024 End: 07-27-2024 Assay of ferritin FERRITIN Lab Routine Disorder of iron metabolism Expected: 04/28/2024 (Approximate), Expires: 07/27/2024 [facility] Work Phone: Comment on above: Expected: 04/28/2024 (Approximate), Expires: 07/27/2024 Start: 04-28-2024 End: 07-27-2024 Assay of iron IRON AND TIBC Lab Routine Disorder of iron metabolism Expected: 04/28/2024 (Approximate), Expires: 07/27/2024 [facility] Comment on above: Expected: 04/28/2024 (Approximate), Expires: 07/27/2024 Start: 04-28-2024 End: 07-27-2024 CBC W Auto Differential panel - Blood COMPLETE BLOOD COUNT W/DIFF Lab Routine Disorder of iron metabolism Expected: 04/28/2024 (Approximate), Expires: 07/27/2024 [facility] Comment on above: Expected: 04/28/2024 (Approximate), Expires: 07/27/2024 Start: 04-26-2024 End: 08-25-2024 Assay of thyroid stimulating hormone tsh TSH Lab Routine Other fatigue Expected: 04/26/2024 (Approximate), Expires: 08/25/2024 [facility] Work Phone: Comment on above: Expected: 04/26/2024 (Approximate), Expires: 08/25/2024 Start: 03-13-2024 Annual wellness visit Annual W ellness Visit (G0438) [facility] Start: 01-15-2024 End: 04-15-2024 Drug screen class list a TOXICOLOGY SCREEN, UNCONFIRMED Lab Routine Therapeutic drug monitoring Expected: 01/15/2024 (Approximate), Expires: 04/15/2024 [facility] Work Phone: Comment on above: Expected: 01/15/2024 (Approximate), Expires: 04/15/2024 Start: 01-14-2024 End: 01-14-2024 Patient encounter procedure 01/14/2024 3:20 PM EDT Office Visit [facility] [address] [place] [address] Ninoska Hernández MD [address] [place] [address] [place] [address] [facility] Start: 10-08-2023 End: 10-08-2023 Patient encounter procedure 10/08/2023 2:40 PM EST Office Visit [facility] [address] [place] [address] Ninoska Hernández MD [address] [facility] [place] [address] [facility] Start: 06-13-2023 Influenza vaccination Influenza Vacc ine (#1) [facility] Start: 05-14-2023 COVID-19 Vaccine ( season) COVID-19 Vaccine () [facility] Start: 05-14-2023 Influenza vaccination Influenza Vacc ine (#1) [facility] Start: 03-13-2023 Welcome to Medicare Visit (G0402) Welcome to Medicare Visit (G0402) [facility] Start: 11-09-2022 End: 10-12-2023 Assay of ferritin FERRITIN Lab Routine Restless leg syndrome due to iron deficiency anemia Expected: 11/09/2022, Expires: 10/12/2023 [facility] Work Phone: Comment on above: Expected: 11/09/2022 , Expires: 10/12/2023 Start: 11-09-2022 End: 10-12-2023 Assay of iron IRON AND TIBC Lab Routine Restless leg syndrome due to iron deficiency anemia Expected: 11/09/2022, Expires: 10/12/2023 [facility] Comment on above: Expected: 11/09/2022 , Expires: 10/12/2023 Start: 11-09-2022 End: 10-12-2023 Blood count hemoglobin HEMOGLOBIN ONLY Lab Routine Restless leg syndrome due to iron deficiency anemia Expected: 11/09/2022, Expires: 10/12/2023 [facility] Comment on above: Expected: 11/09/2022 , Expires: 10/12/2023 Start: 10-12-2022 End: 10-12-2022 Patient encounter procedure 10/12/2022 Procedure Visit Medical Specialties [facility] Start: 09-23-2022 Tetanus vaccination [facility] Start: 08-19-2022 End: 08-19-2023 Blood count hemoglobin HEMOGLOBIN ONLY Lab Routine Restless leg syndrome due to iron deficiency anemia Expected: 08/19/2022 (Approximate), Expires: 08/19/2023 [facility] Comment on above: Expected: 08/19/2022 (Approximate), Expires: 08/19/2023 Start: 08-10-2022 End: 12-08-2022 25 hydroxy includes fractions if performed VITAMIN D, 25-HYDROXY Lab Routine RLS (restless legs syndrome) Expected: 08/10/2022, Expires: 12/08/2022 [facility] Comment on above: Expected: 08/10/2022 , Expires: 12/08/2022 Start: 08-10-2022 End: 12-08-2022 Assay of ferritin FERRITIN Lab Routine RLS (restless legs syndrome) Expected: 08/10/2022, Expires: 12/08/2022 [facility] Comment on above: Expected: 08/10/2022 , Expires: 12/08/2022 Start: 08-10-2022 End: 12-08-2022 Assay of iron IRON AND TIBC Lab Routine RLS (restless legs syndrome) Expected: 08/10/2022, Expires: 12/08/2022 [facility] Work Phone: Comment on above: Expected: 08/10/2022 , Expires: 12/08/2022 Start: 08-10-2022 End: 08-10-2022 Telemedicine consultation with patient 08/10/2022 Telemedicine Pulmonary Medicine Ninoska Hernández MD [address] [facility] [place] [address] [facility] Start: 06-13-2022 Influenza vaccination Influenza Vacc ine (#1) [facility] Start: 05-05-2022 End: 05-05-2022 Patient encounter procedure 05/05/2022 Office Visit Pulmonary Medicine Ninoska Hernández MD [address] [facility] [place] [address] [facility] Start: 01-30-2022 End: 01-30-2022 Patient encounter procedure 01/30/2022 Office Visit Pulmonary Medicine Ninoska Hernández MD [address] [facility] [place] [address] [facility] Start: 01-01-2022 End: 01-02-2022 ambulatory 01/01/2022 Sleep Study Visit Sleep Medicine [facility] Start: 11-27-2021 COVID-19 Vaccine (4 - Booster for Pfizer series) COVID-19 Vaccine (4 - Booster for Pfizer series) [facility] Start: 11-17-2021 Lipid panel Cholesterol [facility] Start: 10-26-2021 Lipid panel Cholesterol [facility] Start: 09-24-2021 COVID-19 Vaccine (4 - Booster for Pfizer series) COVID-19 Vaccine (4 - Booster for Pfizer series) [facility] Start: 09-24-2021 COVID-19 Vaccine (4 - Pfizer series) COVID-19 Vaccine (4 - Pfizer series) [facility] Start: 04-13-2021 Influenza vaccination Influenza Vacc ine (#1) [facility] Start: 03-30-2019 Pneumococcal vaccination [facility] Start: 11-22-2017 End: 11-22-2017 Appointment Appointment [facility] Work Phone: Start: 11-17-2017 End: 11-26-2016 *Hepatic Function Panel *Hepatic Function Panel [facility] Work Phone: Start: 11-17-2017 End: 11-26-2016 Lipid panel [AGGREGATE] *Lipid Profile CC PCP [facility] Work Phone: Start: 05-13-2017 End: 05-13-2017 Appointment Appointment [facility] Work Phone: Start: 05-13-2017 End: 05-13-2017 FARIHA FRIED [facility] Work Phone: Start: 05-13-2017 End: 05-13-2017 Follow Up Appt 6 months Follow Up Appt 6 months [facility] Work Phone: Start: 10-26-2016 End: 11-17-2016 *Hepatic Function Panel *Hepatic Function Panel [facility] Work Phone: Start: 10-26-2016 End: 10-26-2016 FARIHA FRIED [facility] Work Phone: Start: 10-26-2016 End: 10-26-2016 Follow Up Appt 6 months Follow Up Appt 6 months [facility] Work Phone: Start: 10-26-2016 End: 11-17-2016 Lipid panel [AGGREGATE] *Lipid Profile CC PCP [facility] Work Phone: Start: 04-27-2016 End: 04-27-2016 FARIHA INTERIANON [facility] Work Phone: Start: 04-27-2016 End: 04-27-2016 Follow Up Appt 6 months Follow Up Appt 6 months [facility] Work Phone: Start: 12-30-2015 End: 02-15-2016 Follow Up Appt Other Follow Up Appt Other [facility] Work Phone: Start: 11-06-2015 End: 12-29-2015 Follow Up Appt 2 weeks Follow Up Appt 2 weeks [facility] Work Phone: Start: 04-16-2015 End: 04-08-2016 *Hepatic Function Panel *Hepatic Function Panel [facility] Work Phone: Start: 04-16-2015 End: 04-16-2015 FARIHA FRIED [facility] Work Phone: Start: 04-16-2015 End: 04-16-2015 Follow Up Appt 1 year Follow Up Appt 1 year [facility] Work Phone: Start: 04-16-2015 End: 04-08-2016 Lipid panel [AGGREGATE] *Lipid Profile CC PCP [facility] Work Phone: Start: 04-18-2014 End: 04-09-2015 Urine, microalbumin *Urine, Microalbumin [facility] Work Phone: Start: 04-16-2014 End: 04-09-2015 *Hepatic Function Panel *Hepatic Function Panel [facility] Work Phone: Start: 04-16-2014 End: 04-16-2014 DJN DJN [facility] Work Phone: Start: 04-16-2014 End: 04-16-2014 Follow Up Appt 1 year Follow Up Appt 1 year [facility] Work Phone: Start: 04-16-2014 End: 04-09-2015 Follow Up BP Check Follow Up BP Check [facility] Work Phone: Start: 04-16-2014 End: 04-16-2014 Left Heart Cath Left Heart Cath [facility] Work Phone: Start: 04-16-2014 End: 04-09-2015 Lipid panel [AGGREGATE] *Lipid Profile CC PCP [facility] Work Phone: Start: 2012 Hepatitis B (HBV) Vaccine (optional start 60+ years) Hepatitis B (HBV) Vaccine (optional start 60+ years) [facility] Start: 2012 RSV vaccine (optiona l 60+ years) RSV vaccine (optional 60+ years) [facility] Start: 2002 Measurement of occul t blood in single stool specimen FIT [facility] Start: 2002 Varicella-zoster vaccine (product) Shingles (RZV) Vaccine (1 of 2) [facility] Start: 09-13-1999 [facility] Start: 1997 Screening for malign ant neoplasm of colon [facility] Start: 1971 Hepatitis A (HAV) Vaccine (optional start 19+ years) Hepatitis A (HAV) Vaccine (optional start 19+ years) [facility] Start: 1970 Hepatitis C screening Hepatitis C An tibody [facility] Start: 1952 Screening for malign ant neoplasm of colon Colonoscopy [facility] Drug screen class li st a TOXICOLOGY SCREEN, UNCONFIRMED Lab Routine Therapeutic drug monitoring 01/14/2024 4:19 PM EDT [facility] Work Phone: [facility] referral [facility] Work Phone: Immunizations Immunization Date Immunization Notes Care Provider [facility] 07-30-2021 Moderna Monovalent (12+ yrs) COVID-19 vaccine, mRNA, spike protein, LNP, PF, 100 mcg/0.5 mL (XXR=824) Abhinav [facility] Work Phone: [facility] 12-10-2020 Pfizer SARS-COV-2 (COVID-19) vaccine, age 12+ yrs, mRNA, spike protein, LNP, preservative free, 30 mcg/0.3mL dose (XYO=134) [facility] Work Phone: [facility] 11-19-2020 Pfizer SARS-COV-2 (COVID-19) vaccine, age 12+ yrs, mRNA, spike protein, LNP, preservative free, 30 mcg/0.3mL dose (PNP=889) [facility] Work Phone: [facility] 03-30-2018 pneumococcal conjugate vaccine, 13 valent [facility] Work Phone: [facility] 10-28-2015 influenza, injectable, quadrivalent, preservative free [facility] 10-28-2015 influenza, seasonal, injectable [facility] 10-28-2015 influenza, seasonal, injectable, preservative free [facility] Work Phone: [facility] 10-28-2015 influenza virus vaccine, unspecified formulation [facility] Work Phone: [facility] 09-23-2012 pneumococcal conjugate vaccine, 7 valent [facility] Work Phone: [facility] 09-23-2012 tetanus toxoid, reduced diphtheria toxoid, and acellular pertussis vaccine, adsorbed [facility] Work Phone: [facility] Payers Date Payer Category Payer Self-pay [id number] 2024 Unknown [id number] 2023 Medicare MEDICARE MEDICAR E PART A & B [id number] 2023-Present [address] [place] [address] Medicare [id number] 2017 Medicare [id number] 2015 Unknown [employer] - HMO/PPO/POS SUPERMED PPO/CLASSIC/PLUS [id number] 2015-Present [address] [place] [address] PPO [id number] 2013 Unknown [id number] 1952 Unknown [id number] 2.16.840.1.506868.3.579.2.732 1952 Unknown [id number] 2.840.1.129858.3.579.2.73 1952 Unknown [id number] 2.840.1.736414.3.579.2.732 1952 Unknown [id number] 2.840.1.055094.3.579.2.732 1952 Unknown [id number] 2.16.840.1.002109.3.579.2.732 1952 Unknown [id number] 2.16840.1.274613.3.579.2.732 1952 Unknown [id number] 2.16.840.1.757675.3.579.2.732 1952 Unknown [id number] 2.16840.1.932150.3.579.2.732 1952 Unknown [id number] 2.16840.1.218593.3.579.2.902 Unknown [id number] 2.16.840.1.774301.3.579.2.462 Unknown [id number] 2.16.840.1.744549.3.579.2.462 Unknown [id number] 2.16.840.1.556612.3.579.2.462 Unknown [id number] 2.16.840.1.455513.3.579.2.462 Unknown [id number] 2.16.840.1.134417.3.579.2.462 Unknown [id number] 2.16.840.1.380906.3.579.2.462 Unknown [id number] 2.16.840.1.231075.3.579.2.462 Unknown [id number] 2..840.1.181159.3.579.2.462 Unknown [id number] 2.16.840.1.043232.3.579.2.462 Unknown [id number] 2.840.1.548371.3.579.2.462 Unknown [id number] 2.840.1.084178.3.579.2.462 Unknown [id number] 2.16.840.1.015893.3.579.2.462 Unknown [id number] 2.16.840.1.863610.3.579.2.462 Unknown [id number] 2.16.840.1.250635.3.579.2.462 Unknown [id number] 2.16.840.1.452525.3.579.2.462 Unknown [id number] 2.16.840.1.524369.3.579.2.462 Unknown [id number] 2.16.840.1.975096.3.579.2.462 Unknown [id number] 2.16.840.1.850850.3.579.2.462 Unknown [id number] 2.16.840.1.995306.3.579.2.462 Unknown [id number] 2.16.840.1.611460.3.579.2.462 Unknown [id number] 2.16.840.1.289651.3.579.2.462 Unknown [id number] 2.16.840.1.988876.3.579.2.462 Social History Date Type Detail Facility Start: 10-19-2019 End: 09-04-2024 Tobacco smoking status NHIS Never smoked tobacco [facility] Start: 10-19-2019 End: 10-12-2022 Tobacco use and exposure Smokeless tobacco non-user [facility] Start: 10-09-2021 End: 01-14-2024 Alcohol intake Ex-drinker (finding) [facility] Start: 10-30-2019 History SDOH Alcohol Comment rarely [facility] Start: 1950 Sex Assigned At Not on file [facility] Start: 09-28-2019 End: 03-25-2023 Tobacco smoking status NHIS Unknown if ever smoked [facility] Start: 12-01-2015 Rare [facility] Start: 12-01-2015 None;- [facility] [facility]: [facility] Spouse/ Significant Other [facility] Start: 1950 Sex Assigned At Male [facility] Start: 05-21-2020 Gender identity Identifies as male gender (finding) [facility] Start: 01-14-2024 Sexual orientation Not on file [facility] Start: 01-14-2024 History of Social function [facility] Medical Equipment Procedure Code Equipment Code Equipment Origin al Text Equipment Identifier Dates Injection, hydrogel spacer MARKERS, FIDUCIAL GOLD FDA Start: 09-20-2024 Injection, hydrogel spacer Radiotherapy protection spacer [id number] FDA Start: 09-20-2024 Generator_Mri Im p Pulse Ea1 3028 - [id number] Start: 06-12-2020 Lead Respiratory Sensing Ea1 4340 - [id number] Start: 06-12-2020 ELENA GOLDSMITH FDA Start: 11-23-2018 MESH,3DMAX LEFT LG [id number] FDA Start: 11-23-2018 TACKER,SECURE STRAP FDA Start : 11-23-2018 ELENA GOLDSMITH FDA Start: 11-23-2018 MESH,3DMAX LEFT LG [id number] FDA Start: 11-23-2018 TACKER,SECURE STRAP FDA Start : 11-23-2018 ELENA GOLDSMITH FDA Start: 11-23-2018 MESH,3DMAX LEFT LG [id number] FDA Start: 11-23-2018 TACKER,SECURE STRAP FDA Start : 11-23-2018 ELENA GOLDSMITH FDA Start: 11-23-2018 MESH,3DMAX LEFT LG [id number] FDA Start: 11-23-2018 TACKER,SECURE STRAP FDA Start : 11-23-2018 ELENA GOLDSMITH FDA Start: 11-23-2018 MESH,3DMAX LEFT LG [id number] FDA Start: 11-23-2018 TACKER,SECURE STRAP FDA Start : 11-23-2018 Lead Stimulation Ea1 4063 - [id number] Start: 06-12-2020 ELENA GOLDSMITH FDA Start: 11-23-2018 MESH,3DMAX LEFT LG [id number] FDA Start: 11-23-2018 TACKER,SECURE STRAP FDA Start : 11-23-2018 INSPIRE upper ai rway stimulation FDA Start: 06-12-2020 Clinical Notes 12-30-2021 to 10-26-2024 Note Date & Type Note Facility 10-26-2024 Evaluation note Diagnosis Onset Date Resolution Primary malignant neoplasm of prostate with high risk of recurrence due to acute October 26, 2024 2:36pm Primary malignant neoplasm of prostate with high risk of recurrence due to acute November 01, 2024 2:14pm Primary malignant neoplasm of prostate with high risk of recurrence due to acute November 09, 2024 2:30pm Primary malignant neoplasm of prostate with high risk of recurrence due to acute November 14 2:37pm Primary malignant neoplasm of prostate with high risk of recurrence due to acute December 12 1:59pm [facility] Work Phone: 1(727) 420-510401-08-2025 [facility] Medical Records Department [address] [place] [address] History Physical Exam 09/20/24 08 MR#: [id number] Acct: [id number] Name: JUVENCIO MACDONALD Rep #: [id number] : 1950 74 From: Mani Smith MD PCP: Dr. Gloria Dawkins MD Status:[facility] Location: [place] [address] HPI - General General Date of Service: 09/20/24 Chief Complaint: prostate ca HPI Narrative JUVENCIO MACDONALD, is a 74 M who presents for placement of spacer gel and gold markers for prostate ca treatments. [facility] Medical History Wears glasses MRSA infection Arthritis [...] Gloria Dawkins MD; Dr. Mani Smith MD [facility]10-15-2024 Telephone encounter Note* Telephone Encounter - Chery Bowman RN - 06/27/2024 10:01 AM EDT Identification was verified by patient verbalizing his name and date of . Patient contacted Reports he was able to have the MRI done yesterday at [facility]. Ninoska Hernández MD OK for patient to proceed with MRI. He will need to bring his Inspire remote to the test. Radiologywill use the remote to confirm the Inspire is off before and after the scan. Radiology should be familiar with Inspire protocols for MRI. Thanks! [id number] Miscellaneous Notes* Telephone Encounter - Chery Bowman RN - 06/27/2024 10:01 AM EDT Identification was verified by patient verbalizing his name and date of . Patient contacted Reports he was able to have the MRI done yesterday at [facility]. Ninoska Hernández MD OK for patient to proceed with MRI. He will need to bring his Inspire remote to the test. Radiologywill use the remote to confirm the Inspire is off before and after the scan. Radiology should be familiar with Inspire protocols for MRI. Thanks! * Telephone Encounter - Norma Mauro - 06/23/2024 9:24 AM EDT Situation: Pt call Background: Pt wanted to let Ita in Dr. Hernández's office know that he has been moved up for his MRI to Wednesday06/26/24 at another facility. Pt would like to confirm that it is ok to have an MRI withhis Inspire Stimulator Assessment: N/A Recommendation: Please have Ita call pt at Telephone Information: Thank you documented in this [id number] Telephone encounter Note* Telephone Encounter - Norma Mauro - 06/23/2024 9:24 AM EDT Situation: Pt call Background: Pt wanted to let Ita in Dr. Hernández's office know that he has been moved up for his MRI to Wednesday06/26/24 at another facility. Pt would like to confirm that it is ok to have an MRI withhis Inspire Stimulator Assessment: N/A Recommendation: Please have Ita call pt at Telephone Information: Thank you [id number] Telephone encounter Note* Telephone Encounter - Ninoska Hernández MD - 06/16/2024 4:30 PM EDT ----- Message from Nurse Segundo sent at 06/16/2024 3:03 PM EDT ----- Regarding: Prostate concerns Hi Dr. Hernández. This patient called me and is having some urgent concerns regarding his prostate. He gets his care at [facility] but they could not get him in [...] thoughts when you return. Thank you, Ratna [id number] Miscellaneous Notes* Telephone Encounter - Ninoska Hernández MD - 06/16/2024 4:30 PM EDT ----- Message from Nurse Ratna sent at 06/16/2024 3:03 PM EDT ----- Regarding: Prostate concerns Hi Dr. Hernández. This patient called me and is having some urgent concerns regarding his prostate. He gets his care at [facility] but they could not get him in [...] return. Thank you, Ratna documented in this [id number] Telephone encounter Note* Telephone Encounter - Ratna Camargo RN - 06/14/2024 10:55 AM EDT Returned call to patient. Pt stated that at this time he is having issues with his prostate and would like to focus on that issue for now. Once it is resolved, he will give me a call to get rescheduled. Will send a Doyenzt message with my direct phone number. Ratna Camargo BA, BSN, RN Clinical Major Assembler, Pulmonary and Sleep Medicine [facility] Work Phone: 1(806) 441-404610-02-2024 Miscellaneous Notes* Telephone Encounter - Ratna Camargo RN - 06/14/2024 10:55 AM EDT Returned call to patient. Pt stated that at this time he is having issues with his prostate and would like to focus on that issue for now. Once it is resolved, he will give me a call to get rescheduled. Will send a CallMiner message with my direct phone number. Ratna Camargo BA, BSN, RN Clinical Major Assembler, Pulmonary and Sleep Medicine * Telephone Encounter - Dejah Sarmiento - 06/14/2024 10:32 AM EDT Patient needs to cx Inspire SS; he has other medical issues he needs to tend to. documented in this [id number] Telephone encounter Note* Telephone Encounter - Dejah Sarmiento - 06/14/2024 10:32 AM EDT Patient needs to cx Inspire SS; he has other medical issues he needs to tend to. [id number] History of Present illness Narrative* Ninoska Hernández MD - 06/02/2024 3:00 PM EDT Images from the original note were not included. Sleep Medicine Follow-Up Documentation: Mode: Telephone Patient Home Phone: Patient Work Phone: Patient Cell Preferred phone: [phone] Consent: I confirmed patient understanding of the risks and benefits of telehealth visits and obtained consent to proceed with the telehealth visit. Location of Patient: Home of patient Patient here for f/u of PARI (Inspire HGNS) and RLS. Last seen on 04/28/2024 by telemed. To review, history is notable for HTN, RLS, moderate PARI. PSG at OSH in the early showed PARI.Tried PAP, BIPAP, and OMAD without [...] of any teaching activities. documented in this [id number] History of Present illness Narrative* Ninoska Hernández MD - 04/28/2024 4:40 PM EDT Images from the original note [...] of any teaching activities. documented in this [id number] Telephone encounter Note* Telephone Encounter - Ninoska Hernández MD - 04/26/2024 2:47 PM EDT We will arrange a televisit lashon. [id number] Miscellaneous Notes* Telephone Encounter - Ninoska Hernández MD - 04/26/2024 2:47 PM EDT We will arrange a televisit lashon. * Addendum Note - Ninoska Hernández MD - 04/25/2024 4:30 PM EDTAddended by: NINOSKA HERNÁNDEZ on: 04/25/2024 04:30 PM Modules accepted: Orders * Telephone Encounter - Ratna Camargo RN - 04/24/2024 11:10 AM EDT Returned call to patient for Dr. Hernández regarding his Inspire and medications. Left VM with my call back number. Ratna Camargo, BA, BSN, RN Clinical Major Assembler, Pulmonary and Sleep Medicine * Telephone Encounter - Mariana Ocasio - 04/21/2024 1:16 PM EDT PT is calling is having some concern on sleeping issue and medication. Please call to advise. documented in this [id number] Note* Addendum Note - iNnoska Hernández MD - 04/25/2024 4:30 PM EDTAddended by: NINOSKA HERNÁNDEZ on: 04/25/2024 04:30 PM Modules accepted: Orders [id number] Note* Addendum Note - Ninoska Hernández MD - 04/25/2024 4:30 PM EDTAddended by: NINOSKA HERNÁNDEZ on: 04/25/2024 04:30 PM Modules accepted: Orders [id number] Miscellaneous Notes* Addendum Note - Ninoska Hernández MD - 04/25/2024 4:30 PM EDTAddended by: NINOSKA HERNÁNDEZ on: 04/25/2024 04:30 PM Modules accepted: Orders * Telephone Encounter - Ratna Camargo RN - 04/24/2024 11:10 AM EDT Returned call to patient for Dr. Hernández regarding his Inspire and medications. Left VM with my call back number. Ratna Camargo BA, BSN, RN Clinical Major Assembler, Pulmonary and Sleep Medicine * Telephone Encounter - Mariana Ocasio - 04/21/2024 1:16 PM EDT PT is calling is having some concern on sleeping issue and medication. Please call to advise. documented in this [id number] Telephone encounter Note* Telephone Encounter - Ratna Camargo RN - 04/24/2024 11:10 AM EDT Returned call to patient for Dr. Hernández regarding his Inspire and medications. Left VM with my call back number. Ratna Camargo BA, BSN, RN Clinical Major Assembler, Pulmonary and Sleep Medicine [facility] Work Phone: 1(221) 887-561308-12-2024 Miscellaneous Notes* Telephone Encounter - Ratna Camargo RN - 04/24/2024 11:10 AM EDT Returned call to patient for Dr. Hernández regarding his Inspire and medications. Left VM with my call back number. Ratna Camargo BA, BSN, RN Clinical Major Assembler, Pulmonary and Sleep Medicine * Telephone Encounter - Mariana Ocasio - 04/21/2024 1:16 PM EDT PT is calling is having some concern on sleeping issue and medication. Please call to advise. documented in this [id number] Telephone encounter Note* Telephone Encounter - Mariana Ocasio - 04/21/2024 1:16 PM EDT PT is calling is having some concern on sleeping issue and medication. Please call to advise. [facility] Work Phone: 1(889) 777-994205-10-2024 Telephone encounter Note* Telephone Encounter - Ninoska Hernández MD - 01/21/2024 3:17 PM EDT Returned patient's call. He notes he started [...] symptomatic response. Patient will call with results. [id number] Miscellaneous Notes* Telephone Encounter - Ninoska Hernández MD - 01/21/2024 3:17 PM EDT Returned patient's call. He notes he started [...] symptomatic response. Patient will call with results. * Telephone Encounter - Sun Liu - 01/21/2024 11:56 AM EDT Patient calling with update. Started taking Oxydone last Wednesday. January 14. Had trouble urinating which he knows is side effect of medication. Took some Flomax, which took care of urine flow, but now very tired. Requesting return call. documented in this [id number] Telephone encounter Note* Telephone Encounter - Sun Liu - 01/21/2024 11:56 AM EDT Patient calling with update. Started taking Oxydone last Wednesday. January 14. Had trouble urinating which he knows is side effect of medication. Took some Flomax, which took care of urine flow, but now very tired. Requesting return call. [facility] Work Phone: 1(951) 743-684705-03-2024 Instructions* Patient Instructions* Ninoska Hernández MD - 01/14/2024 3:49 PM [...] goes -- you can send me a ActionRun message or call us directly at [phone]. If you end up taking more than [...] urine test every year. documented in this [id number] History of Present illness Narrative* Ninoska Hernández MD - 01/14/2024 3:20 PM EDT Images from the original note [...] his heels are sore in the morning dueto constant rubbing. Multiple prior med trials were ineffective or of limited benefit. He has not yet tried opiates. Using Inspire nightly, finds level 1 tolerable but cannot tolerate higher. Feels it has helped withsymptoms but still variably fatigued during the day. Date Time Cypress Score 10/08/2023 1437 15 05/05/2022 1109 14 [...] iron infusion with limited benefit. Discussed trial ofopiates, which have strong supporting evidence for RLS [...] months. Ninoska Hernández MD documented in this [id number] Instructions* Patient Instructions* Ninoska Hernández MD - 10/08/2023 2:52 PM [...] know. Please give us a call at [phone]. documented in this [id number] History of Present illness Narrative* Ninoska Hernández MD - 10/08/2023 2:40 PM EST Images from the original note [...] for ferritin 53.6 with RLS - no f/ulevels drawn. Pt subsequently called noting difficulty activating Inspire with error light on remote - discussed changing batteries - did not receive callback after that. Today patient notes he continues to struggle with fatigue. He generally sleeps continuously throughthe night (3/7 nights) for 8-9 hours but occasionally wakes with nocturia. He is not aware of snoring, gasping, or choking, but does have a dry mouth some mornings. Generally sleeping on his L side helps (avoids supine). He is not aware of RLS per se but notes the sheets are dissheveled in the morni ng, suggesting legs have been moving. He felt no better (in fact, worse!) after iron infusion. Tried temazepam (rx by Dr. Dawkins) which he felt caused excessive daytime drowsiness. Date Time Cypress Score 10/08/2023 1437 15 05/05/2022 1109 14 [...] HGNS and is objectively well controlled by bothHST and titration PSG (During titration, 1.4 volts [...] programmin Ninoska Hernández MD documented in this [id number] Telephone encounter Note* Telephone Encounter - Nancy Uriarte RN - 05/13/2023 11:52 AM EDT Patient [facility] in [facility] for anemia monitoring and according to our recordsis past due for repeat HBG and/or iron labs. Per clinic protocol will discharge patient from monitoring since 6 months past due for labs, lettersent to patient to inform Dr. Hernández, This pt is being discharged from Anemia monitoring service. Standing HGB/CBC labs deleted (Please re-order if needed), if ELISE/ IV iron orders and appts are active will be deleted/cancelled, and yeswill be added to ELISE therapy complete? Thanks! [facility] Work Phone: 1(338) 502-667508-31-2023 Miscellaneous Notes* Telephone Encounter - Nancy Uriarte RN - 05/13/2023 11:52 AM EDT Patient enrolled in [facility] for anemia monitoring and according to our recordsis past due for repeat HBG and/or iron labs. Per clinic protocol will discharge patient from monitoring since 6 months past due for labs, lettersent to patient to inform Dr. Hernández, This pt is being discharged from Anemia monitoring service. Standing HGB/CBC labs deleted (Please re-order if needed), if ELISE/ IV iron orders and appts are active will be deleted/cancelled, and yeswill be added to ELISE therapy complete? Thanks! * Telephone Encounter - Lenka Eli - 05/12/2023 3:26 PM EDT Images from the original note were not included. [facility] [phone] - Anemia monitoring past due 6 months Pt identified as past due for Anemia Monitoring. Please review and address as appropriate. documented in this [id number] Telephone encounter Note* Telephone Encounter - Lenka Eli - 05/12/2023 3:26 PM EDT Images from the original note were not included. [facility] [phone] - Anemia monitoring past due 6 months Pt identified as past due for Anemia Monitoring. Please review and address as appropriate. [id number] Discharge summary Author Hira Medina [facility] March 25, 2023 7:47pm Note Date/Time March 25, 2023 6:36 pm [facility] Medical Records Department [address] [place] [address] Emergency Department Summary 03/25/23 MR#: [id number] Acct: [id number] Name: JUVENCIO MACDONALD Rep #:[id number] : [...] area. He has not had shingles vaccine. [facility] Medical History Family history of coronary arteriosclerosis [...] 81 mg PO DAILY Patient Comments: heart health Primary Care Provider: Gloria Dawkins Referrals: Gloria Dawkins MD [Primary Care Provider] - Keep Jory appointment Disposition Disposition: Home, Self Care What to do if you have Problems For any increased pain, shortness of breath, bleeding, nausea or vomiting, chestpain, or any unexpected problems, contact your Primary Care Provider. Call [facility] ([phone]) or report to the closest Emergency Room. Call 911 if necessary. 03/25/231946 <Electronically signed by Hira Medina MD> Cosigner Signature (if applicable): CC: Dr. Gloria Dawkins MD ~ Signed [facility] Work Phone: 1(739) 801-785606-14-2023 Telephone encounter Note* Telephone Encounter - Devon Lopez RN - 02/24/2023 11:27 AM EDT Patient enrolled in [facility] for anemia monitoring and according to our recordsis past due for repeat labs. Left message for patient advising to call [facility] phone regarding labs due # [phone]. Will send letter (and my chart message if applicable?) . Confirmed appropriate labs ordered [id number] Miscellaneous Notes* Telephone Encounter - Devon Lopez RN - 02/24/2023 11:27 AM EDT Patient enrolled in [facility] for anemia monitoring and according to our recordsis past due for repeat labs. Left message for patient advising to call [facility] phone regarding labs due # [phone]. Will send letter (and my chart message if applicable?) . Confirmed appropriate labs ordered * Telephone Encounter - Lenka Eli - 02/09/2023 3:18 PM EDT Images from the original note were not included. [facility] [phone] - Anemia monitoring past due 3 months Pt identified as past due for Anemia Monitoring. Please review and address as appropriate. documented in this [id number] Telephone encounter Note* Telephone Encounter - Lenka Eli - 02/09/2023 3:18 PM EDT Images from the original note were not included. [facility] [phone] - Anemia monitoring past due 3 months Pt identified as past due for Anemia Monitoring. Please review and address as appropriate. [id number] Note* Addendum Note - Sophia Hdz RPh - 10/12/2022 4:57 PM ESTAddended by: SOPHIA HDZ on: 10/12/2022 04:57 PM Modules accepted: Orders [facility] Work Phone: 1(821) 374-850201-30-2023 Miscellaneous Notes* Addendum Note - Sophia Hdz RPh - 10/12/2022 4:57 PM ESTAddended by: SOPHIA HDZ on: 10/12/2022 04:57 PM Modules accepted: Orders documented in this [id number] History of Present illness Narrative* Kelly Davis RN - 10/12/2022 1:05 PM EST Medical Specialties Infusion Nursing Note Situation: Problem: Iron Deficiency Anemia Infusion of Ferric Carboxymaltose (injectafer) 750 mg. REFERRAL STATUS: Referral # [id number] is Closed; decision date: 09/08/2022; expiration date: 10/12/2023 Background: Last Dose: First Dose Induction Ordering Provider: Ninoska Hernández MD Anemia Clinic see 08/19/22 Med Mgmt encounter. Assessment: Patient at risk for falls:No [...] by name and date of . Paula Marie Patient at risk for falls:No Falls Risk protocol implemented: No documented in this [id number] Telephone encounter Note* Telephone Encounter - Ute Rosales - 10/08/2022 10:28 AM EST Message given to pt - no further questions and concerns [id number] Miscellaneous Notes* Telephone Encounter - Ute Rosales - 10/08/2022 10:28 AM EST Message given to pt - no further questions and concerns * Telephone Encounter - Chery Bowman RN - 10/07/2022 3:16 PM EST Images from the original note were not included. Ninoska Hernández MD H&V Nurse Phone Pool Yesterday (12:42 PM) [place], yes please he should come for the infusion. It will likely take several months of oral supplements to get the levels up - they have probably only gone up a small amount since starting the supplements. They will recheck labs after the infusion. Thanks! Ninoska Left asking patient return call to [phone] for information indicated below. Reference 99 Attempt [...] entered for infusion clinic. documented in this [id number] Telephone encounter Note* Telephone Encounter - Chery [...] Ninoska Merino asking patient return call to [phone] for information indicated below. Reference 99 Attempt #1 Please give above message from Dr. Hernández. Thank you, [id number] Miscellaneous Notes* Telephone Encounter - Chery Bowman [...] Ninoska Merino asking patient return call to [phone] for information indicated below. Reference 99 Attempt [...] entered for infusion clinic. documented in this [id number] Telephone encounter Note* Telephone Encounter - Oralia [...] PT can be reached at Telephone Information: [facility] [phone] [id number] Miscellaneous Notes* Telephone Encounter - Oralia Nino [...] entered for infusion clinic. documented in this [id number] Telephone encounter Note* Telephone Encounter - Chavo Gordon PharmD - 09/03/2022 3:44 PM EST IV iron scheduled for 10/12/22, orders entered. [id number] Miscellaneous Notes* Telephone Encounter - Chavo Gordon [...] nurse, [facility], Please order IV iron once scheduled. Thanks! * Telephone Encounter - Juan Maldonado MD - 08/20/2022 7:17 AM EST Noted. Please message Dr. Hernández once this is set up. * Telephone Encounter - Shahnaz Reza RN - 08/19/2022 3:15 PM EST Attempting to contact patient to discuss new enrollment Left message with [facility]'s phone number [phone] and advised to please call back. 1st attempt, will postpone 3 business days and continue to attempt to contact * Telephone Encounter - Chavo Gordon PharmD - 08/19/2022 2:10 PM EST [facility] [phone] - Anemia monitoring Dr Hernández, Based on labs below appears pt is a candidate for IV iron. Staff will contact patient and determineif willing to have Injectafer 750mg one dose unless we hear otherwise. [id number] placed today Anemia Clinic staff, Please contact patient and see if willing to proceed with IV iron, if willing, please route back topharmacist to order IV iron. Pertinent labs below: Lab Results Component Value Date SAT 45 08/14/2022 FERRITIN 53.6 08/14/2022 HGB 15.0 06/13/2020 HGB 14.9 06/12/2020 HGB 16.5 (H) 05/21/2020 Thanks, [facility] Clinic documented in this [id number] Note* Addendum Note - Juan Maldonado MD - 08/21/2022 3:20 PM ESTAddended by: JUAN MALDONADO on: 08/21/2022 03:20 PM Modules accepted: Orders [id number] Note* Addendum Note - Juan Maldonado MD - 08/21/2022 3:20 PM ESTAddended by: JUAN MALDONADO on: 08/21/2022 03:20 PM Modules accepted: Orders [id number] Note* Addendum Note - Juan Maldonado MD - 08/21/2022 3:20 PM ESTAddended by: JUAN MALDONADO on: 08/21/2022 03:20 PM Modules accepted: Orders [id number] Note* Addendum Note - Juan Maldonado MD - 08/21/2022 3:20 PM ESTAddended by: JUAN MALDONADO on: 08/21/2022 03:20 PM Modules accepted: Orders [id number] Note* Addendum Note - Juan Maldonado MD - 08/21/2022 3:20 PM ESTAddended by: JUAN MALDONADO on: 08/21/2022 03:20 PM Modules accepted: Orders [id number] Miscellaneous Notes* Addendum Note - Juan Maldonado [...] entered for infusion clinic. documented in this [id number] Telephone encounter Note* Telephone Encounter - Juan [...] will f/u with Dr. Hernández mid September. [id number] Telephone encounter Note* Telephone Encounter - Crystal [...] be reached at Phone numbers Thank You [id number] Miscellaneous Notes* Telephone Encounter - Crystal Almanza [...] entered for infusion clinic. documented in this [id number] Telephone encounter Note* Telephone Encounter - Chavo Gordon PharmD - 08/21/2022 10:54 AM EST Scheduled 10/12/22 [id number] Miscellaneous Notes* Telephone Encounter - Chavo Gordon PharmD - 08/21/2022 10:54 AM EST Scheduled 10/12/22 * Telephone Encounter - Estrella Ennis - 08/20/2022 4:54 PM EST Spoke to pt. Pt has been scheduled. * Telephone Encounter - Nancy Uriarte RN - 08/20/2022 10:53 AM EST Spoke to patient and agreeable to IV iron. Infusion nurse, Please call [facility], Please order IV iron once scheduled. Thanks! * Telephone Encounter - Juan Maldonado MD - 08/20/2022 7:17 AM EST Noted. Please message Dr. Hernández once this is set up. * Telephone Encounter - Shahnaz Reza RN - 08/19/2022 3:15 PM EST Attempting to contact patient to discuss new enrollment Left message with [facility] phone number [phone] and advised to please call back. 1st attempt, will postpone 3 business days and continue to attempt to contact * Telephone Encounter - Chavo Gordon PharmD - 08/19/2022 2:10 PM EST [facility] [phone] - Anemia monitoring Dr Hernández, Based on labs below appears pt is a candidate for IV iron. Staff will contact patient and determineif willing to have Injectafer 750mg one dose unless we hear otherwise. [id number] placed today Anemia Clinic staff, Please contact patient and see if willing to proceed with IV iron, if willing, please route back topharmacist to order IV iron. Pertinent labs below: Lab Results Component Value Date SAT 45 08/14/2022 FERRITIN 53.6 08/14/2022 HGB 15.0 06/13/2020 HGB 14.9 06/12/2020 HGB 16.5 (H) 05/21/2020 Thanks, [facility] Clinic documented in this [id number] Telephone encounter Note* Telephone Encounter - Estrella Ennis - 08/20/2022 4:54 PM EST Spoke to pt. Pt has been scheduled. [id number] Miscellaneous Notes* Telephone Encounter - Estrella Ennis - 08/20/2022 4:54 PM EST Spoke to pt. Pt has been scheduled. * Telephone Encounter - Nancy Uriarte RN - 08/20/2022 10:53 AM EST Spoke to patient and agreeable to IV iron. Infusion nurse, Please call patient to schedule at [facility], Please order IV iron once scheduled. Thanks! * Telephone Encounter - Juan Maldonado MD - 08/20/2022 7:17 AM EST Noted. Please message Dr. Hernández once this is set up. * Telephone Encounter - Shahnaz Reza RN - 08/19/2022 3:15 PM EST Attempting to contact patient to discuss new enrollment Left message with [facility] phone number [phone] and advised to please call back. 1st attempt, will postpone 3 business days and continue to attempt to contact * Telephone Encounter - Chavo Gordon PharmD - 08/19/2022 2:10 PM EST [facility] [phone] - Anemia monitoring Dr Hernández, Based on labs below appears pt is a candidate for IV iron. Staff will contact patient and determineif willing to have Injectafer 750mg one dose unless we hear otherwise. [id number] placed today Anemia Clinic staff, Please contact patient and see if willing to proceed with IV iron, if willing, please route back topharmacist to order IV iron. Pertinent labs below: Lab Results Component Value Date SAT 45 08/14/2022 FERRITIN 53.6 08/14/2022 HGB 15.0 06/13/2020 HGB 14.9 06/12/2020 HGB 16.5 (H) 05/21/2020 Thanks, Anemia Clinic documented in this [id number] Telephone encounter Note* Telephone Encounter - Nancy Uriarte RN - 08/20/2022 10:53 AM EST Spoke to patient and agreeable to IV iron. Infusion nurse, Please call patient to schedule at [facility], Please order IV iron once scheduled. Thanks! [employer] Work Phone: 1(276) 288-565212-08-2022 Miscellaneous Notes* Telephone Encounter - Nancy Uriarte RN - 08/20/2022 10:53 AM EST Spoke to patient and agreeable to IV iron. Infusion nurse, Please call patient to schedule at [facility], Please order IV iron once scheduled. Thanks! * Telephone Encounter - Juan Maldonado MD - 08/20/2022 7:17 AM EST Noted. Please message Dr. Hernández once this is set up. * Telephone Encounter - Shahnaz Reza RN - 08/19/2022 3:15 PM EST Attempting to contact patient to discuss new enrollment Left message with [facility] phone number [phone] and advised to please call back. 1st attempt, will postpone 3 business days and continue to attempt to contact * Telephone Encounter - Chavo Gordon PharmD - 08/19/2022 2:10 PM EST [facility] [phone] - Anemia monitoring Dr Hernández, Based on labs below appears pt is a candidate for IV iron. Staff will contact patient and determineif willing to have Injectafer 750mg one dose unless we hear otherwise. [id number] placed today Anemia Clinic staff, Please contact patient and see if willing to proceed with IV iron, if willing, please route back topharmacist to order IV iron. Pertinent labs below: Lab Results Component Value Date SAT 45 08/14/2022 FERRITIN 53.6 08/14/2022 HGB 15.0 06/13/2020 HGB 14.9 06/12/2020 HGB 16.5 (H) 05/21/2020 Thanks, [facility] Clinic documented in this [id number] Telephone encounter Note* Telephone Encounter - Nancy Uriarte RN - 08/20/2022 10:36 AM EST Images from the original note were not included. [facility] [phone] - Anemia monitoring Contacted patient regarding enrollment into the Anemia clinic. Introduced service, reviewed ELISE indication (if applicable), and monitoring requirements. Explained to patient Pharmacist consult agreement and they understand and agree to the terms. Primary contact: Verified when calling with follow-up, the primary person to contact should be patient # AMANDA Short ok Also verified that we may discuss [...] Pharmacist consult agreement and answer any questions/concerns. [facility] Work Phone: 1(795) 642-329812-08-2022 Miscellaneous Notes* Telephone Encounter - Nancy Uriarte RN - 08/20/2022 10:36 AM EST Images from the original note were not included. [facility] [phone] - Anemia monitoring Contacted patient regarding enrollment into the Anemia clinic. Introduced service, reviewed ELISE indication (if applicable), and monitoring requirements. Explained to patient Pharmacist consult agreement and they understand and agree to the terms. Primary contact: Verified when calling with follow-up, the primary person to contact should be patient # AMANDA Short ok Also verified that we may discuss [...] message with [facility] phone number [phone] and advised to please call back. 1st attempt, will postpone 3 business days and continue to attempt to contact * Telephone Encounter - Chavo Gordon PharmD - 08/19/2022 2:04 PM EST Images from the original note were not included. [facility] [phone] - Anemia monitoring new referral/Restless Leg Syndrome [...] ferritin > 75. Will move forward with [id number]. Will call once lab comes back. Labs placed * Telephone Encounter - Alcira Lenka - 08/17/2022 11:11 AM EST Referral received for new Anemia pt. Pharmacist to review chart. If applicable, additional information: documented in this [id number] Telephone encounter Note* Telephone Encounter - Juan Maldonado MD - 08/20/2022 7:17 AM EST Noted. Please message Dr. Hernández once this is set up. [employer] Work Phone: 1(546) 710-787112-07-2022 Telephone encounter Note* Telephone Encounter - Shahnaz Reza RN - 08/19/2022 3:15 PM EST Attempting to contact patient to discuss new enrollment Left message with [facility] phone number [phone] and advised to please call back. 1st attempt, will postpone 3 business days and continue to attempt to contact [id number] Telephone encounter Note* Telephone Encounter - Shahnaz Reza RN - 08/19/2022 2:19 PM EST Attempting to contact patient to discuss new enrollment Left message with [facility]'s phone number [phone] and advised to please call back. 1st attempt, will postpone 3 business days and continue to attempt to contact [id number] Telephone encounter Note* Telephone Encounter - Chavo Gordon, Shailesh - 08/19/2022 2:10 PM EST [facility] [phone] - Anemia monitoring Dr Hernández, Based on labs below appears pt is a candidate for IV iron. Staff will contact patient and determineif willing to have Injectafer 750mg one dose unless we hear otherwise. [id number] placed today Anemia Clinic staff, Please contact patient and see if willing to proceed with IV iron, if willing, please route back topharmacist to order IV iron. Pertinent labs below: Lab Results Component Value Date SAT 45 08/14/2022 FERRITIN 53.6 08/14/2022 HGB 15.0 06/13/2020 HGB 14.9 06/12/2020 HGB 16.5 (H) 05/21/2020 Thanks, Anemia Clinic [id number] Telephone encounter Note* Telephone Encounter - Chavo Gordon PharmD - 08/19/2022 2:04 PM EST Images from the original note were not included. [facility] [phone] - Anemia monitoring new referral/Restless Leg Syndrome [...] patient to review enrollment. Need Hb lab alshon. wants ferritin > 75. Will move forward with [id number]. Will call once lab comes back. Labs placed [id number] Telephone encounter Note* Telephone Encounter - Precious Gamboa RN - 08/17/2022 2:21 PM EST Identification was verified by patient verbalizing his name and date of . Message below given to pt. Pt. Also provided phone number to Anemia clinic. Closing encounter. [id number] Telephone encounter Note* Telephone Encounter - Precious Gamboa RN - 08/17/2022 2:21 PM EST Images from the original note were not included. Ninoska Hernández MD H&V Nurse Phone Pool 2 days ago [facility], could you please let pt know his [...] arrange an iron infusion. Thank you! Ninoska [id number] Miscellaneous Notes* Telephone Encounter - Precious Gamboa [...] H&V Nurse Phone Pool 2 days ago [facility], could you please let pt know his [...] entered for infusion clinic. documented in this [id number] Telephone encounter Note* Telephone Encounter - Lenka Eli - 08/17/2022 11:11 AM EST Referral received for new Anemia pt. Pharmacist to review chart. If applicable, additional information: [id number] Telephone encounter Note* Telephone Encounter - Ninoska Hernández MD - 08/15/2022 1:20 PM EST Reviewed lab work: ferritin is below goal (>75 for RLS) at 53.6. Previously discussed iron infusion with patient. Order entered for infusion clinic. [id number] Miscellaneous Notes* Telephone Encounter - Ninoska Hernández MD - 08/15/2022 1:20 PM EST Reviewed lab work: ferritin is below goal (>75 for RLS) at 53.6. Previously discussed iron infusion with patient. Order entered for infusion clinic. documented in this [id number] History of Present illness Narrative* Ninoska Hernández MD - 08/10/2022 11:40 AM EST Images from the original note were not included. Documentation: Mode: Telephone Patient Patient Work Phone: Patient Cell Preferred phone: [phone] Consent: I confirmed patient understanding of the risks and benefits of telehealth visits and obtained consent to proceed with the telehealth visit. Location of Patient: Home of patient Patient here for f/u of PARI treated with Inspire HGNS and RLS. Last seen on 05/05/2022. To review, history is notable for HTN, RLS, moderate PARI. PSG at OSH in the early 2000s showed PARI.Tried PAP, BIPAP, and OMAD without [...] months Ninoska Hernández MD documented in this [id number] Instructions* Patient Instructions* Ninoska Hernández MD - [...] made for side sleeping. documented in this [id number] History of Present illness Narrative* Ninoska Hernández [...] (average 41 hours per week) Date Time Cyp[place] Score 05/05/2022 1109 14 10/09/2021 1541 12 [...] Hernández MD CC: Dr. Gloria Dawkins MD [facility] Fax: documented in this [id number] Miscellaneous Notes* Telephone Encounter - Sammi Maldonado - 12/30/2021 2:00 PM EDT Called patient to confirm AST appointment for 01/01/22 - patient confirms appointment. Text message with address and instructions for the [facility] sleep lab sent to patient documented in [...] in this encounter [facility]HealthEvaluation noteNo assessment information availableWMarymount Hospital Work Phone: Evaluation note* Diagnosis PARI (obstructive [...] through Care Everywhere. * Ferric Carboxymaltose, ADULT (Tajik) documented in this encounterMetroHealthReason for referral (narrative)* Tests/Procedures (Routine) - Pending Review Specialty Diagnoses / Procedures Referred By Contac t Referred To Contact Sleep Medicine Diagnoses PARI (obstructive sleep apnea) Presence of functional implant Procedures ADVANCED SLEEP TESTING Ninoska Hernández MD [address] [place] [address] [place] [address] [facility] [address] [place] [address] Referral ID Status Reason Start Date Expiration Date V isits Requested Visits Authorized [id number] Pending Review 12/16/2021 12/15/2022 2 2 [facility] for referral (narrative)* Tests/Procedures (Urgent) - Pending Review Specialty Diagnoses / Procedures Referred By Contac t Referred To Contact Sleep Medicine Diagnoses PARI (obstructive sleep apnea) Procedures SLEEP STUDY, ATTENDED BY TECHNOLOGIST Ninoska Hernández MD [address] [place] [address] [place] [address] [facility] [address] [place] [address] Referral ID Status Reason Start Date Expiration Date Visits Requested Visits Authorized [id number] Pending Review [facility] 04/29/2024 04/28/2025 2 2 Scheduling Instructions Scheduling [...] programs for you. These programs give you rppk-nr-zagyqdeayh information about your health when you need it most. What to expect during a Sleep Study: A Sleep Study (Polysomnogram), is a test used to diagnose sleep disorders. The study involves an overnight stay at the one [facility] sleep labs. You will be placed in a private, single bedroom with an attached bathroom. At initiation of the exam, several small metal disks and wires (leads) will be attached to your scalp to monitor your brain waves (the transportation engineering technician must have access to the front, [...] position and body movements. If necessary, a transportation engineering technician may wake you up during the [...] the pharmacy and brought with you. The Laundry Attendant will advise you as to what time [...] and found items, the patient can contact [phone] at [facility] sleep lab. The Sleep Techs cannot discuss with you or answer any questions about the results of your Sleep Test. Results will be available in up to 3 weeks post study through your referring provider, by MyChart or by mail. Results and findings will be discussed with you at your follow up appointment with your provider. Address & Driving Instructions: [employer] [facility] - [email or web address]. [address] Enter through the Emergency Department Entrance Take C elevators to the 3rd floor Check-in at Heart & Vascular, Pulmonary waiting area to check-in [address] [address] Park in front of the hotel Enter through the [employer] Take elevators to the 4th floor, [address] [facility] [place] - [address] [address] [address] right into [address] [address] and drive toward three story [place] building Look for [employer] sign in [employer] window, park vehicle and enter lobby Call [phone] informing techs you have arrived Tech will come down to escort you to the suite Question Answer Select Sleep Study Type Home Sleep Study - with Inspire Follow-up after sleep study will be scheduled in clinic with: Sleep Provider (First Available) [facility] (narrative)* Tests/Procedures (Routine) - Pending Review Specialty Diagnoses / Procedures Referred By Jayme melvin Referred To Contact Sleep Medicine Diagnoses PARI (obstructive sleep apnea) Procedures POLYSOMNOGRAM Ninoska Hernández MD [address] [place] [address] [facility] [address] [place] [address] Referral ID Status Reason Start Date Expiration Date V isits Requested Visits Authorized [id number] Pending Review 06/03/2024 06/02/2025 2 2 Scheduling [...] programs for you. These programs give you lsdq-jj-llgbzzfwua information about your health when you need it most. What to expect during a Sleep Study: A Sleep Study (Polysomnogram), is a test used to diagnose sleep disorders. The study involves an overnight stay at the [facility] sleep labs. You will be placed in a private, single bedroom with an attached bathroom. At initiation of the exam, several small metal disks and wires (leads) will be attached to your scalp to monitor your brain waves (the transportation engineering technician must have access to the front, [...] position and body movements. If necessary, a transportation engineering technician may wake you up during the [...] the pharmacy and brought with you. The Laundry Attendant will advise you as to what time [...] and found items, the patient can contact [phone] at [facility] sleep lab. The Sleep Techs cannot discuss with you or answer any questions about the results of your Sleep Test. Results will be available in up to 3 weeks post study through your referring provider, by MyChart or by mail. Results and findings will be discussed with you at your follow up appointment with your provider. Address & Driving Instructions: [facility] - [address] [address] Enter through the Emergency Department Entrance Take C elevators to the 3rd floor Check-in at Heart [facility] Vascular, Pulmonary waiting area to check-in [address] [address] Park in front of the hotel Enter through the lobby Take elevators to the 4th floor, [address] [facility] [place] - [address] [address] [address] Make right into [facility] and drive toward three story [facility] Look for [facility] sign in lobby window, park vehicle and enter lobby Call [phone] informing techs you have arrived Tech will come down to escort you to the suite Question Answer Select Sleep Study Type INSPIRE Titration Study Enter Titration Instructions start at 0.3 volts below incoming and titrate per protocol Follow-up after sleep study will be scheduled in clinic with: Sleep Provider (First Available) Additional PSG Order Requests: NOT APPLICABLE [facility]Reason for referral (narrative)No reason for referral information availableWMarymount Hospital Work Phone: Reason for visit Narrative* Tests/Procedures (Routine) - Closed Specialty Diagnoses / Procedures Referred By Jayme melvin Referred To Contact Sleep Medicine Diagnoses PARI (obstructive sleep apnea) Presence of functional implant Procedures ADVANCED SLEEP TESTING HOME SLEEP APNEA TESTING SLEEP STUDY; UNATTENDED Ninoska Hernández MD [address] [place] [address] [place] [address] S SLEEP LAB [address] [place] [address] Referral ID Status Reason Start Date Expiration Date V isits Requested Visits Authorized [id number] Closed Transfer of Care-[facility] 10/10/2021 10/09/2022 1 1 [facility] for [facility] Narrative* Tests/Procedures (Urgent) - Closed Specialty Diagnoses / Procedures Referred By Jayme melvin Referred To Contact Sleep Medicine Diagnoses PARI (obstructive sleep apnea) Procedures SLEEP STUDY, ATTENDED BY TECHNOLOGIST SLEEP STUDY; UNATTENDED Ninoska Hernández MD [address] [place] [address] [place] [address] S SLEEP LAB [address] [place] [address] Referral ID Status Reason Start Date Expiration Date V isits Requested Visits Authorized [id number] Closed Consultation -[facility] 04/29/2024 09/12/2024 1 1 [facility] Advance Directives No Advanced Directives Records FoundLatest [...] Yes November 21, 2018 1:39pm Power of Pattern Finisher Yes November 21 1:39pm Latest Code Status on File Code Status Date Activated Date Inactivated Comments Full Code 06/12/2020 3:40 PM 06/13/2020 1:01 PM Question Answer Comments Documentation of decision process for this code status: Discussed with patient or surrogate. This is the code status chosen by the patient/surrogate. Advance Directive Response Recorded Date/ Time Name of Medical Power of Pattern Finisher ? March 25, 2023 6:05pm Advance Directives Yes October 4:11pm Living Will Yes March 25, 2023 6:05pm Power of Pattern Finisher Yes March 25 6:05pm Advance Directive Response Recorded Date/ Time Advance Directives Yes October 3:11pm Living Will Yes March 25, 2023 5:05pm Power of Pattern Finisher Yes March 25 5:05pm Latest Code Status [...] patient/surrogate. Advance Directive Response Recorded Date/ Time Advance Directives Yes October 4:11pm Family History No Family History Records Found Relationship Condition Age at Onset Recorded Date/T marcelle father Coronary artery disease Unknown sister Coronary artery disease Unknown mother Cerebrovascular accident (CVA) Unknown Reason for Referral Specialty Diagnoses / Procedures Referred By Contac t Referred To Contact Cardiology Diagnoses RLS (restless legs syndrome) Ninoska Hernández MD [address] [place] [address] [place] [address] [facility] [address] [place] [address] Referral ID Status Reason Start Date Expiration Date V isits Requested Visits Authorized [id number] Authorized 08/15/2022 08/15/2023 20 20 Scheduling Instructions No appointment is needed for this referral, if you have not heard from the Anemia Clinic within 2 business days, please call [phone] Comments Referred patient's anemia will be managed by either Pharmacists and/or Nurse Practitioners. If a pharmacist is managing, the referral serves to acknowledge your agreement to [facility]'s Consult Agreement where the pharmacist may start, [...] Additional pertinent information: RLS For questions call [phone] (Anticoagulation/[facility]) Specialty Diagnoses / Procedures Referred By Contrahat t Referred To Contact Infusion Services Diagnoses Restless leg syndrome due to iron deficiency anemia Ninoska Hernández MD [address] [place] [address] [place] [address] [facility] [employer] [address] [place] [address] Referral ID Status Reason Start Date Expiration Date V isits Requested Visits Authorized [id number] Pending Review 08/19/2022 08/19/2023 14 14 Question [...] Hypersomnia with sleep apnea Ninoska Hernández MD [address] [place] [address] [place] [address] Referral ID Status Reason Start Date Expiration Date V isits Requested Visits Authorized [id number] Pending Review 3 3 Specialty Diagnoses / Procedures Referred By Contac t Referred To Contact Radiology Diagnoses Elevated PSA Procedures MR PROSTATE W/W/O Ninoska Hernández MD [address] [place] [address] [place] [address] [facility] MRI [address] [place] [address] Referral ID Status Reason Start Date Expiration Date V isits Requested Visits Authorized [id number] Authorized 06/16/2024 06/16/2025 1 1 Specialty Diagnoses / Procedures Referred By Contac t Referred To Contact Urology Diagnoses Elevated PSA Ninoska Hernández MD [address] [place] [address] [place] [address] [facility] UROLOGIC SURGERY [address] [place] [address] Referral ID Status Reason Start Date Expiration Date V isits Requested Visits Authorized [id number] Authorized 06/16/2024 06/16/2025 3 3 Scheduling Instructions Please call the Urology department at , option 1 to schedule an appointment if one was not made for you today. Question Answer Reason for Referral Elevated PSA [4] Chief Complaint and Reason for Visit Chief Complaint WOUND TO HEAD Chief Complaint Admit Date OTV October 26, 2024 2:36pm OTV November 01, 2024 2:14pm OTV November 09, 2024 2:30pm OTV November 14, 2024 2:37 pm XRT November 15, 2024 2:40 pm 1 MONTH F/U POST RT December 12, 2024 1:59 pm Reason for Visit Admit Date Primary malignant neoplasm o f prostate with high risk of recurrence due to October 26, 2024 2:36pm Primary malignant neoplasm o f prostate with high risk of recurrence due to November 01, 2024 2:14pm Primary malignant neoplasm o f prostate with high risk of recurrence due to November 09, 2024 2:30pm Primary malignant neoplasm o f prostate with high risk of recurrence due to November 14, 2024 2:37pm Primary malignant neoplasm o f prostate with high risk of recurrence due to December 12, 2024 1:59pm Summary Purpose Additional Source Comments Care Teams (unrecognized sec tion and content) Chief Supply Chain Officer Relationship Specialty Start Date End Date Fili Armando MD [address] [place] [address] Physician Otolaryngology 06/18/20 Ninoska Hernández MD [address] [place] [address] [place] [address] Physician Pulmonary/Critical Care Medicine 07/19/20 Chief Supply Chain Officer Relationship Specialty Start Date End Date Fili Armando MD [address] [place] [address] Physician Otolaryngology 06/18/20 Ninoska Hernández MD [address] [place] [address] [place] [address] Physician Pulmonary/Critical Care Medicine 07/19/20 Chief Supply Chain Officer Relationship Specialty Start Date End Date Fili Armando MD [address] [place] [address] Physician Otolaryngology 06/18/20 Ninoska Hernández MD [address] [place] [address] [place] [address] Physician Pulmonary/Critical Care Medicine 07/19/20 Chief Supply Chain Officer Relationship Specialty Start Date End Date Fili Armando MD [address] [place] [address] Physician Otolaryngology 06/18/20 Ninoska Hernández MD [address] [place] [address] [place] [address] Physician Pulmonary/Critical Care Medicine 07/19/20 Chief Supply Chain Officer Relationship Specialty Start Date End Date Fili Armando MD [address] [place] [address] Physician Otolaryngology 06/18/20 Ninoska Hernández MD [address] [place] [address] [place] [address] Physician Pulmonary/Critical Care Medicine 07/19/20 Chief Supply Chain Officer Relationship Specialty Start Date End Date Gloria Dawkins PCP - General 05/05/22 Fili Armando MD [address] [place] [address] Physician Otolaryngology 06/18/20 Ninoska Hernández MD [address] [place] [address] [place] [address] Physician Pulmonary/Critical Care Medicine 07/19/20 Chief Supply Chain Officer Relationship Specialty Start Date End Date Gloria Dawkins PCP - General 05/05/22 Fili Armando MD [address] [place] [address] Physician Otolaryngology 06/18/20 Ninoska Hernández MD [address] [place] [address] [place] [address] Physician Pulmonary/Critical Care Medicine 07/19/20 Chief Supply Chain Officer Relationship Specialty Start Date End Date Gloria Dawkins PCP - General 05/05/22 Fili Armando MD [address] [place] [address] Physician Otolaryngology 06/18/20 Ninoska Hernández MD [address] [place] [address] [place] [address] Physician Pulmonary/Critical Care Medicine 07/19/20 Chief Supply Chain Officer Relationship Specialty Start Date End Date Gloria Dawkins PCP - General 05/05/22 Fili Armando MD [address] [place] [address] Physician Otolaryngology 06/18/20 Ninoska Hernández MD [address] [place] [address] [place] [address] Physician Pulmonary/Critical Care Medicine 07/19/20 Chief Supply Chain Officer Relationship Specialty Start Date End Date Gloria Dawkins PCP - General 05/05/22 Fili Armando MD [address] [place] [address] Physician Otolaryngology 06/18/20 Ninoska Hernández MD [address] [place] [address] [place] [address] Physician Pulmonary/Critical Care Medicine 07/19/20 Chief Supply Chain Officer Relationship Specialty Start Date End Date Gloria Dawkins PCP - General 05/05/22 Fili Armando MD [address] [place] [address] Physician Otolaryngology 06/18/20 Ninoska Hernández MD [address] [place] [address] [place] [address] Physician Pulmonary/Critical Care Medicine 07/19/20 Chief Supply Chain Officer Relationship Specialty Start Date End Date Gloria Dawkins PCP - General 05/05/22 Fili Armando MD [address] [place] [address] Physician Otolaryngology 06/18/20 Ninoska Hernández MD [address] [place] [address] [place] [address] Physician Pulmonary/Critical Care Medicine 07/19/20 Chief Supply Chain Officer Relationship Specialty Start Date End Date Gloria Dawkins PCP - General 05/05/22 Fili Armando MD [address] [place] [address] Physician Otolaryngology 06/18/20 Ninoska Hernández MD [address] [place] [address] [place] [address] Physician Pulmonary/Critical Care Medicine 07/19/20 Chief Supply Chain Officer Relationship Specialty Start Date End Date Gloria Dawkins PCP - General 05/05/22 Fili Armando MD [address] [place] [address] Physician Otolaryngology 06/18/20 Ninoska Hernández MD [address] [place] [address] [place] [address] Physician Pulmonary/Critical Care Medicine 07/19/20 Chief Supply Chain Officer Relationship Specialty Start Date End Date Gloria Dawkins PCP - General 05/05/22 Fili Armando MD [address] [place] [address] Physician Otolaryngology 06/18/20 Ninoska Hernández MD [address] [place] [address] [place] [address] Physician Pulmonary/Critical Care Medicine 07/19/20 Chief Supply Chain Officer Relationship Specialty Start Date End Date Gloria Dawkins PCP - General 05/05/22 Fili Armando MD [address] [place] [address] Physician Otolaryngology 06/18/20 Ninoska Hernández MD [address] [place] [address] [place] [address] Physician Pulmonary/Critical Care Medicine 07/19/20 Chief Supply Chain Officer Relationship Specialty Start Date End Date Gloria Dawkins PCP - General 05/05/22 Fili Armando MD [address] [place] [address] Physician Otolaryngology 06/18/20 Ninoska Hernández MD [address] [place] [address] [place] [address] Physician Pulmonary/Critical Care Medicine 07/19/20 Chief Supply Chain Officer Relationship Specialty Start Date End Date Gloria Dawkins PCP - General 05/05/22 Fili Armando MD [address] [place] [address] Physician Otolaryngology 06/18/20 Ninoska Hernández MD [address] [place] [address] [place] [address] Physician Pulmonary/Critical Care Medicine 07/19/20 Chief Supply Chain Officer Relationship Specialty Start Date End Date Gloria Dawkins PCP - General 05/05/22 Fili Armando MD [address] [place] [address] Physician Otolaryngology 06/18/20 Ninoska Hernández MD [address] [place] [address] [place] [address] Physician Pulmonary/Critical Care Medicine 07/19/20 Chief Supply Chain Officer Relationship Specialty Start Date End Date Gloria Dawkins PCP - General 05/05/22 Fili Armando MD [address] [place] [address] Physician Otolaryngology 06/18/20 Ninoska Hernández MD [address] [place] [address] [place] [address] Physician Pulmonary/Critical Care Medicine 07/19/20 Chief Supply Chain Officer Relationship Specialty Start Date End Date Gloria Dawkins PCP - General 05/05/22 Fili Armando MD [address] [place] [address] Physician Otolaryngology 06/18/20 Ninoska Hernández MD [address] [place] [address] [place] [address] Physician Pulmonary/Critical Care Medicine 07/19/20 Team Status: Active Member Role Status Dates Dr. Gloria Dawkins MD Family Provider Active Dr. Gloria Dawkins MD Primary Care Provider Active Team Status: Inactive Member Role Status Dates Dr. Gloria Dawkins MD Primary Care Provide r, Attending Provider, Referring Provider Active Chief Supply Chain Officer Relationship Specialty Start Date End Date Gloria Dawkins PCP - General 05/05/22 Fili Armando MD [address] [place] [address] Physician Otolaryngology 06/18/20 Ninoska Hernández MD [address] [place] [address] [place] [address] Physician Pulmonary/Critical Care Medicine 07/19/20 Team Status: Inactive Member Role Status Dates Dr. Gloria Dawkins MD Primary Care Provider Active Dr. Hira eMdina MD Emergency Provider Active Chief Supply Chain Officer Relationship Specialty Start Date End Date Gloria Dawkins PCP - General 05/05/22 Fili Armando MD [address] [place] [address]77 Physician Otolaryngology 06/18/20 Ninoska Hernández MD [address] [place] [address] [place] [address] Physician Pulmonary/Critical Care Medicine 07/19/20 Chief Supply Chain Officer Relationship Specialty Start Date End Date Juancho Gloria PCP - General 05/05/22 Fili Armando MD [address] [place] [address] Physician Otolaryngology 06/18/20 Ninoska Hernández MD [address] [place] [address] [place] [address] Physician Pulmonary/Critical Care Medicine 07/19/20 Chief Supply Chain Officer Relationship Specialty Start Date End Date Gloria Dawkins PCP - General 05/05/22 Fili Armando MD [address] [place] [address] Physician Otolaryngology 06/18/20 Ninoska Hernández MD [address] [place] [address] Physician Pulmonary/Critical Care Medicine 07/19/20 Chief Supply Chain Officer Relationship Specialty Start Date End Date Gloria Dawkins PCP - General 05/05/22 Fili Armando MD [address] [place] [address] 65698 Physician Otolaryngology 06/18/20 Ninoska Hernández MD [address] [place] [address] [place] [address] Physician Pulmonary/Critical Care Medicine 07/19/20 Chief Supply Chain Officer Relationship Specialty Start Date End Date Gloria Dawkins PCP - General 05/05/22 Fili Armando MD [address] [place] [address]27 Physician Otolaryngology 06/18/20 Ninoska Hernández MD [address] [place] [address] [place] [address] Physician Pulmonary/Critical Care Medicine 07/19/20 Chief Supply Chain Officer Relationship Specialty Start Date End Date Gloira Dawkins PCP - General 05/05/22 Fili Armando MD [address] [place] [address]43 Physician Otolaryngology 06/18/20 Ninoska Hernández MD [address] [place] [address] [place] [address] Physician Pulmonary/Critical Care Medicine 07/19/20 Team Status: Inactive Member Role Status Dates AJ XIAO Other Provider Active Dr. Gloria Dawkins MD Primary Care Provide r, Attending Provider, Referring Provider Active Chief Supply Chain Officer Relationship Specialty Start Date End Date Gloria Dawkins PCP - General 05/05/22 Fili Armando MD [address] [place] [address]31 Physician Otolaryngology 06/18/20 Ninoska Hernández MD [address] [place] [address] [place] [address] Physician Pulmonary/Critical Care Medicine 07/19/20 Chief Supply Chain Officer Relationship Specialty Start Date End Date [place] [address] PCP - General 05/05/22 Fili Armando MD [address] [place] [address] Physician Otolaryngology 06/18/20 Ninoska Hernández MD [address] [place] [address] [place] [address] Physician Pulmonary/Critical Care Medicine 07/19/20 Chief Supply Chain Officer Relationship Specialty Start Date End Date Gloria aDwkins MD [address] [place], [place] [address] PCP - General 05/05/22 Fili Armando MD [address] [place] [address]10 Physician Otolaryngology 06/18/20 Ninoska Hernández MD [address] [place] [address] [place] [address] Physician Pulmonary/Critical Care Medicine 07/19/20 Chief Supply Chain Officer Relationship Specialty Start Date End Date Gloria Dawkins MD [address] [place] [address] PCP - General 05/05/22 Fili Armando MD [address] [place] [address]463 Physician Otolaryngology 06/18/20 Ninoska Hernández MD [address] [place] [address] [place] [address] Physician Pulmonary/Critical Care Medicine 07/19/20 Chief Supply Chain Officer Relationship Specialty Start Date End Date Gloria Dawkins MD [address] [place] [address] PCP - General 05/05/22 Fili Armando MD [address] [place] [address]18 Physician Otolaryngology 06/18/20 Ninoska Hernández MD [address] [place] [address] [place] [address] Physician Pulmonary/Critical Care Medicine 07/19/20 Chief Supply Chain Officer Relationship Specialty Start Date End Date Gloria Dawkins MD [address] [facility] [place] [address] PCP - General 05/05/22 Fili Armando MD [address] [place] [address]34 Physician Otolaryngology 06/18/20 Ninoska Hernández MD [address] [place] [address] [place] [address] Physician Pulmonary/Critical Care Medicine 07/19/20 Chief Supply Chain Officer Relationship Specialty Start Date End Date Gloria Dawkins MD [address] [place] [address] PCP - General 05/05/22 Fili Armando MD [address] [place] [address] Physician Otolaryngology 06/18/20 Ninoska Hernández MD [address] [place] [address] [place] [address] Physician Pulmonary/Critical Care Medicine 07/19/20 Chief Supply Chain Officer Relationship Specialty Start Date End Date Gloria Dawkins MD [address] [place] [address] PCP - General 05/05/22 Fili Armando MD [address] [place] [address]26 Physician Otolaryngology 06/18/20 Ninoska Hernández MD [address] [place] [address] [place] [address] Physician Pulmonary/Critical Care Medicine 07/19/20 Chief Supply Chain Officer Relationship Specialty Start Date End Date Gloria Dawkins MD [address] [place] [address] PCP - General 05/05/22 Fili Armando MD [address] [place] [address]85 Physician Otolaryngology 06/18/20 Ninoska Hernández MD [address] [place] [address] [place] [address] Physician Pulmonary/Critical Care Medicine 07/19/20 Chief Supply Chain Officer Relationship Specialty Start Date End Date Gloria Dawkins MD [address] [place] [address] PCP - General 05/05/22 Fili Armando MD [address] [place] [address] Physician Otolaryngology 06/18/20 Ninoska Hernández MD [address] [facility] [place] [address] Physician Pulmonary/Critical Care Medicine 07/19/20 Chief Supply Chain Officer Relationship Specialty Start Date End Date Gloria Dawkins MD [address] [place] [address] PCP - General 05/05/22 Fili Armando MD [address] [place] [address] Physician Otolaryngology 06/18/20 Ninoska Hernández MD [address] [facility] [place] [address] Physician Pulmonary/Critical Care Medicine 07/19/20 Team Status: Active Member Role Status Dates Dr. Gloria Dawkins MD Primary Care Provider Active Team Status: Inactive Member Role Status Dates Dr. Gloria Dawkins MD Primary Care Provider Active Start: October 26, 2024 End: October 26, 2024 Dr. Flo Sow DO Attending Provider Active Start: October 26, 2024 End: October 26, 2024 Dr. Flo Sow DO Referring Provider Active Start: October 26, 2024 End: October 26, 2024 Team Status: Inactive Member Role Status Dates Dr. Gloria Dawkins MD Primary Care Provider Active Start: November 01, 2024 End: November 01, 2024 Dr. Flo Sow DO Attending Provider Active Start: November 01, 2024 End: November 01, 2024 Dr. Flo Sow DO Referring Provider Active Start: November 01, 2024 End: November 01, 2024 Team Status: Inactive Member Role Status Dates Dr. Gloria Dawkins MD Primary Care Provider Active Start: November 09, 2024 End: November 09, 2024 Dr. Flo Sow DO Attending Provider Active Start: November 09, 2024 End: November 09, 2024 Dr. Flo Sow DO Referring Provider Active Start: November 09, 2024 End: November 09, 2024 Team Status: Inactive Member Role Status Dates Dr. Gloria Dawkins MD Primary Care Provider Active Start: November 14, 2024 End: November 14, 2024 Dr. Flo Sow DO Attending Provider Active Start: November 14, 2024 End: November 14, 2024 Dr. Flo Sow DO Referring Provider Active Start: November 14, 2024 End: November 14, 2024 Team Status: Active Member Role Status Dates Dr. Gloria Dawkins MD Primary Care Provider Active Start: November 15, 2024 Dr. Flo Sow DO Attending Provider Active Start: November 15, 2024 Dr. Flo Sow DO Referring Provider Active Start: November 15, 2024 Team Status: Inactive Member Role Status Dates Dr. Gloria Dawkins MD Primary Care Provider Active Start: December 12, 2024 End: December 12, 2024 Dr. Gloria Dawkins MD Referring Provider Active St art: December 12, 2024 End: December 12, 2024 Dr. Flo Sow DO Attending Provider Active Start: December 12, 2024 End: December 12, 2024 Team Status: Inactive Member Role Status Dates Dr. 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 Dose: 750mg Route: sub-q Frequency (Interval): once Duration: once Ninoska Hernández MD [address] [facility] [place] [address] [facility] [employer] [address] [facility] [place] [address] Referral ID Status Reason Start Date Expiration Date Visits Re quested Visits Authorized [id number] Closed 10/12/2022 10/12/2023 1 1 Reason Onset [...] content) No Status Records FoundNo Status Records FoundNo Status Records Found INFORMATION SOURCE (unrecogn ized section and content) DATE CREATED AUTHOR 06/29/2024 [employer] DATE CREATED AUTHOR AUTHOR'S ORGANIZ ATION 02/25/2025 [facility] DATE CREATED AUTHOR AUTHOR'S ORGANIZ ATION 04/13/2025 [facility] FOR RECORDS PERTAINING TO PATIENTS WHO ARE [...] BE BASED ON THE PRIMARY CLINICAL RECORDS. [employer] provides no warranty or guarantee of the accuracy or completeness of information in this document.
== END | disposition home or self-care (01) ==
LOC: LAB 13:16
PROVIDERS: PCP Family Medicine; Referring Provider Nurse Practitioner; Visit Provider Nurse Practitioner
DX: C61 Malignant neoplasm of prostate (principal)
CPT/HCPCS: 36415; 84153

== ENCOUNTER 2025-06-27 10:53 | Outpatient (CLI) | payer MEDICARE, OTHER, SELFPAY ==
[2025-06-27 11:45] LABS: Hematocrit 41.1 % (40-54); Hemoglobin 14.3 g/dL (13.0-16.5); Immature Granulocytes Count 0.010 X10^3/uL (0.0-0.0); Mean Corp Hgb Conc 34.8 g/dL (32-36); Mean Corpuscular Volume 89.9 fL (80-94); Mean Platelet Vol. 11.3 fl (6.2-12.0); NRBC Flagged by Analyzer 0 % (0-5); Platelet Count 166 K/mm3 (150-450); RBC Distribution Width CV 12.9 % (11.6-14.6); RBC Distribution Width SD 42.5 fl (35.1-43.9); Red Blood Count 4.57 M/mm3 (4.6-6.2); White Blood Count 5.2 K/mm3 (4.4-11.0)
[2025-06-27 12:35] LABS: AST(SGOT) 18 U/L (<=37); Alanine Aminotransfer ALT/SGPT 18 U/L (<=46); Albumin, Serum 4.2 g/dL (3.4-4.8); Alkaline Phosphatase 72 U/L (40-129); Anion Gap 11 (5-15); BUN 16 mg/dL (4-19); BUN/Creat Ratio 18.1 RATIO (10-20); Calcium,Total 9.4 mg/dL (7.6-11.0); Carbon Dioxide 23.7 mmol/L (21.0-32.0); Chloride 108 mmol/L (98-108); Globulin 2.3 g/dL (2.2-4.2); Glucose 101 mg/dL (70-99); Potassium 4.2 mmol/L (3.3-5.1)
[2025-06-27 12:36] LABS: PSA,Total- Diagnostic < 0.02 ng/mL (0.00-4.00); Vitamin B12 418 pg/mL (180-914)
[2025-06-27 13:03] LABS: FOLATES,SERUM (FOLIC ACID) 25.50 ng/mL (4.60-34.80)
[2025-06-28 04:07] LABS: PROGESTERONE 0.3 ng/mL (0.0-0.5)
[2025-07-02 10:08] LABS: Testosterone, % Free 2.20 % (1.50-4.20); Testosterone, Free <.07 ng/dL (5.00-21.00)
== END 2025-06-27 23:59 | disposition home or self-care (01) ==
LOC: LAB 10:55
PROVIDERS: PCP Family Medicine; Referring Provider Family Medicine; Visit Provider Family Medicine
DX: C61 Malignant neoplasm of prostate (principal); R53.83 Other fatigue
CPT/HCPCS: 36415; 80053; 82607; 82746; 84144; 84153; 84402; 84403; 84443; 85025

== ENCOUNTER → 2025-07-02 | Outpatient (CLI) | payer MEDICARE, OTHER, SELFPAY ==
[2025-07-02 10:53] LABS: 24HR. Urine Creatinine 2052.0 mg/24 hr (1040.0-2350.0)
[2025-07-06 16:09] LABS: Cortisol, Free 24Ur 109 ug/24 hr (5-64)
== END | disposition home or self-care (01) ==
LOC: LAB 09:21
PROVIDERS: PCP Family Medicine; Referring Provider Family Medicine; Visit Provider Family Medicine
DX: C61 Malignant neoplasm of prostate (principal); R53.83 Other fatigue
CPT/HCPCS: 81050; 82530; 82570

== ENCOUNTER → 2025-07-25 | Outpatient (CLI) | payer MEDICARE, OTHER, SELFPAY ==
[2025-07-25 10:46] LABS: CORTISOL AM 0.72 ug/dL (6.02-18.40)
== END | disposition home or self-care (01) ==
PROVIDERS: PCP Family Medicine; Referring Provider Family Medicine; Visit Provider Family Medicine
DX: E24.9 Cushing's syndrome, unspecified (principal)
CPT/HCPCS: 36415; 82024; 82533

== ENCOUNTER → 2025-08-22 | Outpatient (CLI) | payer MEDICARE, OTHER, SELFPAY ==
[2025-08-22 13:50] LABS: PSA,Total- Diagnostic < 0.02 ng/mL (0.00-4.00)
== END | disposition home or self-care (01) ==
LOC: LAB 12:38
PROVIDERS: PCP Family Medicine; Referring Provider Urology; Visit Provider Urology
DX: C61 Malignant neoplasm of prostate (principal)
CPT/HCPCS: 36415; 84153